=== PATIENT | male | born 1945 | race Caucasian/White ===

== ENCOUNTER 2019-09-19 10:34 | Outpatient (CLI) | payer MEDICARE, SELFPAY ==
--- NOTE | ~2019-09-19 | MR_ITS ---
EXAMINATION: MR lumbar spine wo con DATE: 09/19/2019 11:41 INDICATION: Right-sided sciatica TECHNIQUE: Magnetic resonance imaging (MRI) of the lumbar spine was performed without intravenous con trast. Sequences included sagittal T2-weighted FSE, sagittal T2-weighted FS FSE, sagittal T1-weighted FSE, and axial T2-weighted FSE. COMPARISON: None FINDINGS: Mild lumbar levocurvature. Sagittal alignment is normal. Vertebral body heights are normal. T1 and T2 hyperintense hemangioma at L5. Mild fibrofatty degenerative endplate changes on the posterior superi or endplate of L4 and anterior inferior endplate of T12. Moderate left-sided predominant disc height loss at L5-S1, mild to moderate right-sided predominant disc height loss at L3-L4 and mild right-side d predominant disc height loss at L4-L5. The conus medullaris terminates at L1-L2. There is normal si gnal in the caudal spinal cord. 2.7 cm T2 hyperintense right renal cyst. Paravertebral soft tissues a re otherwise unremarkable. The following disc levels are specifically discussed: T12-L1: Annular fissure and small right paracentral disc protrusion at T12-L1. There is mild right fa cet joint osteoarthritis. There is no neural foraminal stenosis. There is mild central canal stenosis . L1-L2: Small right paracentral disc protrusion. There is mild bilateral facet joint osteoarthritis. T here is mild bilateral neural foraminal stenosis. There is mild central canal stenosis. L2-L3: Disc is bulging. There is mild left and mild to moderate right facet joint osteoarthritis. The re is mild bilateral neural foraminal stenosis. There is mild central canal stenosis. L3-L4: Disc is bulging. There is mild left and moderate right facet joint osteoarthritis. There is mi ld left and moderate right neural foraminal stenosis. There is mild to moderate central canal stenosi s with mild narrowing of the lateral recesses, right greater than left. L4-L5: Disc is bulging with annular fissure and more focal superimposed right subarticular zone disc protrusion. There is mild left and moderate right facet joint osteoarthritis. There is moderate bilat eral, left greater than right, neural foraminal stenosis. There is moderate central canal stenosis wi th narrowing of the lateral recesses, mild on the left and moderate on the right. L5-S1: Annular fissure with broad-based disc extrusion with disc material extending from foraminal zo ne to foraminal zone a couple millimeters cephalad to the level of the inferior endplate of L5. There also left-sided foraminal and extraforaminal endplate osteophytes. There is mild right and mild to m oderate left facet joint osteoarthritis. There is mild right and moderate left neural foraminal steno sis. There is mild central canal stenosis along with mild narrowing of the left lateral recess. IMPRESSION: 1. Mild lumbar levocurvature with moderate spondylosis. Reviewed, dictated and finalized at location A.
== END 2019-09-19 10:35 | disposition home or self-care (01) ==
PROVIDERS: PCP Family Medicine; Visit Provider Family Medicine
DX: M25.551 Pain in right hip (principal); M54.31 Sciatica, right side; M47.896 Other spondylosis, lumbar region
CPT/HCPCS: 72148

== ENCOUNTER 2019-12-05 10:04 | Outpatient (CLI) | payer MEDICARE, SELFPAY ==
--- NOTE | ~2019-12-05 | XR_ITS ---
EXAMINATION: XR abdomen/kub 1V DATE: 12/05/2019 11:21 INDICATION: Acute left flank pain TECHNIQUE: A supine view of the abdomen on 2 radiographs was obtained. COMPARISON: 04/14/2019 FINDINGS: 2-3 mm density possibly representing a renal stone projecting over the lower pole of the left kidney. Evaluation at the upper pole of the right kidney and mid to upper left kidney is limited by superimp osed gas and stool-filled bowel. No definitive stones seen along the course of the ureters. Unchanged small prostatic calcifications. Multiple calcified splenic granulomata. Mild bibasilar atelectasis. Mild lumbar levocurvature with moderate spondylosis. IMPRESSION: 1. Likely 2-3 mm stone projecting over the lower pole of the left kidney. Reviewed, dictated and finalized at location A.
== END 2019-12-05 10:05 | disposition home or self-care (01) ==
PROVIDERS: PCP Family Medicine; Referring Provider Urology; Visit Provider Nurse Practitioner Adult Health
DX: R10.9 Unspecified abdominal pain (principal)
CPT/HCPCS: 74018; 87077; 87086; 87088; 87186

== ENCOUNTER 2019-12-12 13:46 | Outpatient (CLI) | payer MEDICARE, SELFPAY ==
--- NOTE | ~2019-12-12 | US_ITS ---
EXAMINATION: US venous doppler [facility] DATE: 12/12/2019 14:23 INDICATION: Left lower limb pain and swelling TECHNIQUE: Grayscale ultrasound images without and with compression and Doppler ultrasound images of the left lower extremity veins were obtained. COMPARISON: None. FINDINGS: The visualized portions of left common femoral vein, profunda (deep) femoral vein, femoral vein, popl iteal vein, peroneal veins, posterior tibial veins, gastrocnemius vein and greater saphenous vein out flow are patent. IMPRESSION: 1. No deep venous thrombosis in the left lower limb. Reviewed, dictated and finalized at location A.
== END 2019-12-12 13:47 | disposition home or self-care (01) ==
PROVIDERS: PCP Family Medicine; Visit Provider Physician Assistant
DX: R60.9 Edema, unspecified (principal); M79.662 Pain in left lower leg
CPT/HCPCS: 93971

== ENCOUNTER 2020-03-29 08:37 | Outpatient (CLI) | payer MEDICARE, SELFPAY ==
--- NOTE | ~2020-03-29 | XR_ITS ---
XR abdomen/kub 1V DATE: 03/29/2020 08:58 INDICATION: Kidney calculus follow-up TECHNIQUE: AP projection, 3 views COMPARISON: 12/05/2019 KUB 10/24/2018 CT abdomen pelvis examination with contrast material FINDINGS: A faint small calcified stone again projects over the lower pole left kidney. Status post cholecystectomy. There is a moderately prominent amount of fecal material within the rectum and colon but no apparent bowel obstruction. The psoas shadows are intact. No visceromegaly is evident. There are multiple calcified splenic granulomas. There is abdominal aortic and iliac and femoral mady rial calcification. Degenerative changes of the thoracic and lumbar spine. IMPRESSION: Faint small calcified lower pole left renal stone Status post cholecystectomy Moderately prominent amount of fecal material within the colon and rectum Reviewed, dictated and finalized at Location A. Reviewed, dictated and finalized at location B.
== END 2020-03-29 08:38 | disposition home or self-care (01) ==
PROVIDERS: PCP Family Medicine; Visit Provider Urology
DX: N20.0 Calculus of kidney (principal); Z90.49 Acquired absence of other specified parts of digestive tract
CPT/HCPCS: 74018

== ENCOUNTER 2020-06-17 15:03 | Outpatient (CLI) | payer MEDICARE, SELFPAY ==
--- NOTE | ~2020-06-17 | XR_ITS ---
XR abdomen/kub 1V DATE: 06/17/2020 15:25 INDICATION: Acute left flank pain TECHNIQUE: AP projection, 2 views COMPARISON: 03/29/[address] abdomen pelvis FINDINGS: Again noted is a small faint calcification projecting over the lower pole left kidney, alexis esponding to a small upper pole left renal calculus noted on 10/24/2018 CT abdomen pelvis examination. Prostate calcifications are again identified. Surgical clips, right upper quadrant, consistent with cholecystectomy. There is a prominent amount of fecal material throughout the colon. No bowel obstruction is evident. No visceromegaly is noted. The psoas shadows are intact. Minimal scoliosis and degenerative changes of the lumbar spine are noted. There is abdominal aortic a nd iliac arterial calcification, without evidence of aneurysm. IMPRESSION: Small nonobstructing lower pole left renal calculus Moderate amount of fecal material in the colon; no bowel obstruction is evident Status post cholecystectomy Reviewed, dictated and finalized at Location A. Reviewed, dictated and finalized at location B. K PULLER
== END 2020-06-17 15:04 | disposition home or self-care (01) ==
PROVIDERS: PCP Family Medicine; Visit Provider Nurse Practitioner Adult Health
DX: R10.9 Unspecified abdominal pain (principal); Z90.49 Acquired absence of other specified parts of digestive tract; N20.0 Calculus of kidney
CPT/HCPCS: 74018

== ENCOUNTER 2021-04-26 11:27 | Outpatient (CLI) | payer MEDICARE, SELFPAY ==
--- NOTE | ~2021-04-26 | XR_ITS ---
EXAMINATION: XR abdomen/kub 1V EXAM DATE: 04/26/2021 11:44 INDICATION: Acute flank pain. History kidney stones. TECHNIQUE: Frontal projection of the upper abdomen, frontal projection lower abdomen/pelvis for inter pretation. Comparison is made to prior examination from 06/17/2020. FINDINGS: There is 4 mm calcific density projecting over lower pole left kidney which could be a sto ne. No calcifications identified over the courses of the ureters. Mild lumbar levoscoliosis and mild to moderate bony degenerative changes. Nonobstructive bowel gas pattern. IMPRESSION: Probable left nephrolithiasis. Reviewed, dictated and finalized at location B.
== END 2021-04-26 11:28 | disposition home or self-care (01) ==
LOC: ANHIMG 11:28
PROVIDERS: PCP Family Medicine; Visit Provider Nurse Practitioner Adult Health
DX: R10.9 Unspecified abdominal pain (principal)
CPT/HCPCS: 74018

== ENCOUNTER → 2021-07-16 00:43 | Outpatient (CLI) | payer MEDICARE, SELFPAY ==
[2021-07-16 17:27] LABS: Influenza A QL RT-PCR Negative (Negative); Influenza B QL RT-PCR Negative (Negative); SARS-CoV-2 RNA PCR Positive
== END ==
PROVIDERS: PCP Family Medicine; Visit Provider Physician Assistant
DX: U07.1 COVID-19 (principal); R68.89 Other general symptoms and signs
CPT/HCPCS: 87502; 87804; C9803; U0003; U0005

== ENCOUNTER 2021-12-02 10:28 | Outpatient (CLI) | payer MEDICARE, SELFPAY ==
--- NOTE | ~2021-12-02 | XR_ITS ---
XR lumbar spine 2-3V 12/02/2021 10:57 Indication: Low back pain Procedure: 4 views lumbar spine Comparison: No prior studies for comparison. Findings: There is loss of disc height at all lumbar levels most advanced at L5-S1. No acute fracture , subluxation or dislocation. There is mild lower lumbar facet hypertrophy. There is levoscoliosis th ere is atherosclerosis of the aorta. Impression: 1: Mild-moderate lumbar spondylosis with levoscoliosis. Reviewed, dictated and finalized at location A. Impression: 1: Mild-moderate lumbar spondylosis with levoscoliosis.
== END 2021-12-02 10:29 | disposition home or self-care (01) ==
PROVIDERS: PCP Family Medicine; Visit Provider Nurse Practitioner Family
DX: M54.50 Low back pain, unspecified (principal); M47.816 Spondylosis without myelopathy or radiculopathy, lumbar region; M41.86 Other forms of scoliosis, lumbar region
CPT/HCPCS: 72100

== ENCOUNTER 2021-12-20 12:38 | Outpatient (CLI) | payer MEDICARE, SELFPAY ==
--- NOTE | ~2021-12-20 | US_ITS ---
EXAMINATION: US soft tissue groin RT DATE: 12/20/2021 14:00 INDICATION: Right groin pain TECHNIQUE: Multiple grayscale and Doppler ultrasound images of the region of concern at the right madisyn in were obtained. COMPARISON: None FINDINGS: Moderate-sized right inguinal hernia containing fat and minimal amount of fluid which is mobile with Valsalva and compression. Refractive shadowing at the orifice of the hernia which measures approximat raisa 1 cm in diameter and which appears to arise medial to the hypogastric vessels consistent with a d irect inguinal hernia. No evident herniated peristalsing bowel. IMPRESSION: 1. Moderate-sized fat-containing right inguinal hernia. Reviewed, dictated and finalized at location B.
== END 2021-12-20 12:39 | disposition home or self-care (01) ==
PROVIDERS: PCP Family Medicine; Visit Provider Nurse Practitioner Family
DX: S76.811A Strain of other specified muscles, fascia and tendons at thigh level, right thigh, initial encounter (principal); X58.XXXA Exposure to other specified factors, initial encounter; K40.90 Unilateral inguinal hernia, without obstruction or gangrene, not specified as recurrent
CPT/HCPCS: 76882

== ENCOUNTER 2022-01-26 10:39 | Outpatient (NON) | payer MEDICARE, SELFPAY ==
[2022-01-26 12:34] LABS: IFOB Positive Control Positive; Immunochemical Fecal Occult Bl Negative (N)
== END 2022-01-26 10:40 | disposition home or self-care (01) ==
LOC: ANHLAB 10:40
PROVIDERS: PCP Family Medicine; Visit Provider Surgery
DX: Z12.11 Encounter for screening for malignant neoplasm of colon (principal)
CPT/HCPCS: 82274

== ENCOUNTER 2022-03-23 09:19 | Outpatient (CLI) | payer MEDICARE, SELFPAY ==
[2022-03-23 09:56] LABS: Basophils Percent Auto 0.5 % (0.2-1.2); Eosinophils Absolute Auto 0.1 K/mm3 (0-0.3); Eosinophils Percent Auto 1.9 % (0-4.4); Hematocrit 41.5 % (42.0-52.0); Hemoglobin 13.7 g/dL (14.0-18.0); Immature Granulocyte Absolute 0.03 K/mm3 (0.00-0.031); Immature Granulocyte Percent A 0.7 % (0-0.5); Lymphocytes Absolute Auto 1.39 K/mm3 (0.9-3.2); Lymphocytes Percent Auto 33.8 % (18.3-44.2); Mean Corpuscular Hemoglobin 33.8 pg (26-34); Mean Corpuscular Volume 102.5 fl (80-100); Mean Platelet Volume 10.7 fl (7.4-10.4); Monocytes Absolute Auto 0.4 K/mm3 (0.1-0.6); Neutrophils Absolute Auto 2.2 K/mm3 (1.3-6.7); Neutrophils Percent Auto 54.1 % (45.5-73.1); Platelet Count Result 113 k/mm3 (150-375); Red Blood Count 4.05 M/mm3 (4.6-6.20); Red Cell Distribution Width 13.2 % (11.5-14.5); White Blood Count 4.1 K/mm3 (4.5-10.0)
[2022-03-23 10:30] LABS: Alanine Aminotransferase 27 U/L (6-50); Albumin Level 4.2 g/dL (3.5-5.1); Alkaline Phosphatase 46 U/L (38-126); Anion Gap 10 mmol/L (8-16); Aspartate Amino Transferase 38 U/L (17-59); Bilirubin,Total 0.8 mg/dL (0.2-1.3); Blood Urea Nitrogen 18 mg/dL (9-20); Calcium 9.8 mg/dL (8.4-10.2); Carbon Dioxide 24 mmol/L (22-30); Chloride 107 mmol/L (98-107); Estimated Glomerular Filt Rate > 60; Glucose 235 mg/dL (65-110); Potassium 4.7 mmol/L (3.4-5.0); Sodium 141 mmol/L (137-145)
== END 2022-03-23 09:20 | disposition home or self-care (01) ==
LOC: ANHSURGERY 09:30
PROVIDERS: PCP Family Medicine; Visit Provider Surgery
DX: K40.20 Bilateral inguinal hernia, without obstruction or gangrene, not specified as recurrent (principal); K40.90 Unilateral inguinal hernia, without obstruction or gangrene, not specified as recurrent; K40.91 Unilateral inguinal hernia, without obstruction or gangrene, recurrent
CPT/HCPCS: 36415; 80053; 85025; 86850; 86900; 86901

== ENCOUNTER 2022-03-27 01:29 | Day surgery (SDC) | payer MEDICARE, SELFPAY ==
[2022-03-22 13:32] VITALS: BMI 29.4
--- NOTE | 2022-03-22 13:48 | PC.NURSE ---
Report to the Outpatient Waiting Room, entrance under the green pavilion located off [facility], at time __0800 on date __03/27/22 . OR Time: __1000 . Time changes happen often and if your time is changed the preop area will call you the afternoon before. - You and your visitor will be asked to self-screen and do not enter if you have any COVID symptoms. - Only one visitor and NO children visitors are allowed at this time. - The patient visitor is requested to leave or wait in car when not with patient due to restrictions. - A mask is required within the hospital. Patients may have clear liquids (water, carbonated beverages, clear teas, apple juice) until 3 hours prior to surgery with a maximum of 20 ounces. - No food from midnight until time of surgery - Infants may have breast milk until 4 hours before surgery, formula 6 hours prior to surgery. - Children will be allowed to drink immediately following surgery. If applicable, please bring a bottle or sippy cup to assist with drinking. Juice, water, soda, and popsicles are readily available. For infants on formula, please bring formula the day of surgery. Pacifiers are allowed. Take the following medications with a SIP of water the morning of surgery: ___NONE Medications to discontinue per physician ALL VITAMINS AND SUPPLEMENTS _3 DAYS PRE OP Date to take last dose____03/23/22 Please no make-up, nail azeri, hairspray, perfume, deodorant, or body powder the day of surgery. No jewelry (including any body piercings) or valuables the day of surgery, leave them at home. Please take a shower or bath the night before, or the morning of, surgery with an antibacterial soap. Wear comfortable, loose fitting clothing. Children are encouraged to wear pajamas. - Jewelry must be removed prior to entering the operating room. Rings and piercings that are not removed may be cut off. - The hospital will not accept responsibility for valuables. - Please leave all valuables, including medications, at home the day of surgery.HIBICLENS SHOWER MORNING OF SURGERY If you are going home after surgery, a licensed hazardous materials tanker driver must drive you home. - NO public transportation without another adult. - We recommend that an adult stay with you for 24 hours following discharge. - We also recommend that you do not drive, make important decision, drink alcoholic beverages, or take any drugs that were not prescribed by your health care provider for at least 24 hours after your discharge time. For Pediatric surgeries, we recommend two adults accompany the child home (only one inside the building at this time). Follow any additional instructions given to you from your surgeon. If you or anyone in your household have experienced Covid symptoms in the past week, please notify your surgeon or the nurse liaison at the phone number below for possible testing. Telephone instructions given to ___PATIENT and asked if any additional questions and then verbalized understanding. Patient advised to call surgeon office or pre surgery nurse liaison [phone] if any additional questions.
--- NOTE | 2022-03-24 13:39 | PM.HPGS ---
History of Present Illness History of Present Illness Consent: Risks, benefits, and alternatives of a totally extraperitoneal bilateral inguinal hernia repair with mesh have been discussed and questions answered. Patient agrees to proceed with procedure. Chief complaint: recurrent rt ing hernia, left ing hernia Narrative: John Tyler is a 76 year old male white male who was recently seen in the office for a recurrent right inguinal hernia. 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 Please see the office history and physical from December. This gives more details about his history of present illness. Patient has also had a fairly asymptomatic bulging in the left groin. He was recently found to have significant aortic stenosis and underwent a minimally invasive aortic valve replacement. That physician also gave cardiac clearance for his current planned general anesthesia and procedure to repair his hernias. Review of Systems Constitutional: Comments: Const All systems reviewed & are unremarkable except as noted in HPI and below Reports weight loss Eyes Reports no additional complaints, Denies loss of peripheral vision and Denies loss of vision ENT Reports nasal discharge Card Denies syncope, Denies irregular heart rhythm, Denies claudication, Denies lightheadedness, Denies palpitations, Denies dyspnea and Denies dyspnea on exertion. Approximately 1 month ago patient underwent a percutaneous aortic valve replacement for his aortic stenosis. Resp Reports other (apnea) GI Denies change in bowel habits and Denies dyspepsia Reports other (kidney stones) Musc Reports back pain, Reports arthralgias, Reports joint swelling, Reports muscle weakness and Reports neck pain Skin/Breast Reports new lesions Neuro Denies behavioral changes, Denies confusion, Denies vertigo, Denies dizziness, Denies syncope, Denies headache(s), Denies loss of vision, Denies seizure-like activity and Denies weakness Psych Reports anxiety Endo Denies palpitations Dash/Lymph Reports easy bruising Aller/Immun Reports other (gluten food allergy and seasonal allergies ) [facility] Past Medical History Medical History Acid reflux BPH (benign prostatic hyperplasia) Calculus of left kidney Celiac disease COPD (chronic obstructive pulmonary disease) Depression High cholesterol History of revision of total replacement of left knee joint 2016 HTN (hypertension) Mixed hyperlipidemia Obesity JERAD (obstructive sleep apnea) Squamous cell skin cancer Surgical History Surgical History Aortic valve replaced Hammer toe of right foot 2012 History of lithotripsy 2017 History of medial meniscus repair of left knee 2014 History of right inguinal hernia repair 1999 History of vasectomy 1976 Hx of cataract removal with insertion of prosthetic lens bilateral 2018 Hx of cholecystectomy Hx of shoulder replacement Right shoulder- 2016, [facility] Hx of sinus surgery 2009 Hx of tonsillectomy Hx of total knee replacement 2015 Other dental procedure status dental implants, upper and lower- 2018 S/P TAVR (transcatheter aortic valve replacement) Thumb laceration Family History Family History Mother Cerebrovascular accident Family history of coronary artery disease Family history of malignant neoplasm of breast in first degree relative, Onset Age: 66 Family history of malignant neoplasm of breast Father Carcinoma of colon Family history of coronary artery disease Family history of congenital heart disease, Onset Age: 77 Sibling COPD (chronic obstructive pulmonary disease) Grandparent Cerebral arteriosclerosis Social History Social History Social
[2022-03-27] VITALS (12 sets, daily range): BP systolic 116–134; BP diastolic 61–79; PULSE 65–86; RESP 12–18; TEMP 36.4–37.8; O2SAT 93–99
[2022-03-27] MEDS: LACTATED RINGERS 1,000 ML 30 ML IV CONT ×2 (08:51→12:54)
[2022-03-27] MEDS: ACETAMINOPHEN 500 MG TABLET 1000 MG PO (08:53)
[2022-03-27] MEDS: KETOROLAC 15 MG/ML VIAL (*BKC) IV PUSH (08:54)
--- NOTE | 2022-03-27 08:57 | WPDANESEPPF ---
Anes - Initial Pre Proc Eval Procedure: Operation Date: 03/27/22 10:00 Proposed Procedures p Laparoscopic Bilateral Inguinal Hernia Repair with Mesh - John Richardson MD Date/Time: 03/27/22 08:57 Surgeon: John Richardson MD Pre Op Diagnosis: recurrent rt ing hernia, left ing hernia Patient Data Age: 76 Gender: M Height: 1.83 m Weight: 98.5 kg Last Vital Signs Temp 36.4 C L 03/27/22 08:27 Pulse 65 03/27/22 08:27 Resp 18 03/27/22 08:27 BP 130/69 03/27/22 08:27 Pulse Ox 99 03/27/22 08:27 O2 Del Method Room Air 03/27/22 08:27 Allergies Allergy/AdvReac Type Severity Reaction Status Date / Time gluten Allergy Unknown vomiting Verified 03/22/22 13:30 morphine Allergy Unknown Rash Verified 03/22/22 13:30 Home Medications Medication Instructions Recorded Confirmed Type finasteride 5 mg tablet 5 mg PO DAILY 07/16/19 03/22/22 History cholecalciferol (vitamin D3) 125 125 mcg PO DAILY 02/04/21 03/22/22 History mcg (5,000 unit) capsule multivitamin with iron-mineral 1 tablet PO DAILY 02/04/21 03/22/22 History vitamin B complex 1 tablet PO DAILY 02/04/21 03/22/22 History fenofibrate 160 mg tablet See Rx Instructions .Route 12/12/21 03/22/22 Rx .COMPLEX #90 tabs ascorbate calcium (vitamin C) 500 500 mg PO DAILY 01/20/22 03/22/22 History mg tablet aspirin 81 mg tablet,delayed 81 mg PO DAILY 01/20/22 03/22/22 History release (Adult Low Dose Aspirin) magnesium 200 mg tablet 200 mg PO DAILY 01/20/22 03/22/22 History vitamin E (dl, acetate) 450 mg 450 mg PO DAILY 01/20/22 03/22/22 History (1,000 unit) capsule lisinopril 10 mg tablet See Rx Instructions .Route 03/17/22 03/22/22 Rx .COMPLEX #90 tabs trazodone 50 mg tablet 50 mg PO .QHS #90 tabs 03/21/22 03/22/22 Rx acetaminophen 500 mg tablet 1,000 mg PO Q6H PRN Pain 03/22/22 03/22/22 History Patient hx anesthesia problems: none Family hx anesthesia problems: none Results Review: All pre-operative results and documents have been reviewed as part of the pre-operative evaluation. [facility] Past Medical History Medical History Acid reflux BPH (benign prostatic hyperplasia) Calculus of left kidney Celiac disease COPD (chronic obstructive pulmonary disease) Depression High cholesterol History of revision of total replacement of left knee joint 2016 HTN (hypertension) Mixed hyperlipidemia Obesity JERAD (obstructive sleep apnea) Squamous cell skin cancer Surgical History Surgical History Aortic valve replaced Hammer toe of right foot 2011 History of lithotripsy 2016 History of medial meniscus repair of left knee 2014 History of right inguinal hernia repair 1998 History of vasectomy 1975 Hx of cataract removal with insertion of prosthetic lens bilateral 2018 Hx of cholecystectomy Hx of shoulder replacement Right shoulder- 2016, [facility] Hx of sinus surgery 2008 Hx of tonsillectomy Hx of total knee replacement 2014 Other dental procedure status dental implants, upper and lower- 2018 S/P TAVR (transcatheter aortic valve replacement) Thumb laceration Family History Family History Mother Cerebrovascular accident Family history of coronary artery disease Family history of malignant neoplasm of breast in first degree relative, Onset Age: 66 Family history of malignant neoplasm of breast Father Carcinoma of colon Family history of coronary artery disease Family history of congenital heart disease, Onset Age: 77 Sibling COPD (chronic obstructive pulmonary disease) Grandparent Cerebral arteriosclerosis Social History Social History Social History: daily caffeine use- 6 cups of soda daily Smoking packs per day: 3 Smoking cigarettes per day: 60.0 Years s
--- NOTE | 2022-03-27 09:10 | WPDHPUPDATE1 ---
History and Physical Update Update Date/Time: 03/27/22 09:10 History and Physical has been reviewed, including an updated exam of the patient. There are NO changes in the patient's condition. Risks, benefits, and alternatives have been discussed and questions answered. Patient agrees to proceed with procedure.
[2022-03-27] MEDS: ceFAZolin 2 GM/D5W 50 ML 2 GM/50 ML BAG IVPB (09:23)
[2022-03-27] MEDS: BUPIVACAINE/EPINEPHRINE 0.25% 50 ML VIAL 30 ML INFILTRATE (12:37)
--- NOTE | 2022-03-27 13:29 | W.PM.PROC2 ---
Procedure Note - Detailed Date of Procedure 03/27/22 Pre-op Diagnosis 1. recurrent right ing hernia, 2. left ing hernia Post-op Diagnosis Other (1. Recurrent right direct 2. Primary left direct) Procedure Performed Totally extraperitoneal laparoscopic bilateral inguinal hernia repair with mesh Surgeon John Richardson MD Territory Supervisor DEISI Jackson, [place] 1st assist Anesthesia General Indications Bulging and pain on the Right groin Patient also has a palpable defect in the standing position on the left suspicious for an inguinal hernia. Findings On the right: It is covered in area in the inguinal region with a recurrent direct defect containing fat. On the left : A small primary direct inguinal hernia containing fat. Description of Procedure After appropriate marking of the operative site prior to surgery, the patient was taken to the operating room. After induction of adequate general endotracheal anesthesia by [facility] staff, the patient was carefully prepped and draped in a sterile fashion. A timeout was performed confirming the procedure and site of surgery on the right. Following this, local anesthetic was infiltrated into the umbilical area and a vertical incision was made just below the umbilicus. I carefully dissected down to the the anterior rectus sheath on the right and then made a 1 cm vertical slit in the fascia just off the midline. The rectus muscle was retracted to right and then just in front of the posterior rectus sheath, an oval [employer] dissecting balloon was passed onto the pubic bone and then slipped just posterior to it. After placing slight pressure on the abdomen slightly above the groin area on each side as we insufflated with 40 pumps, while watching with the 0 degree laparoscope through the dissecting balloon trocar. It appeared that I was in the proper plane. Following this, the dissecting balloon was removed and replaced by a 130 mm Chavarria cannula with a circular 30 cc conforming balloon. This was slid into the space insufflated then pulled back and the all of secured to allow for insufflation into the preperitoneal space. Following this, the 0 degree laparoscope was used to carefully place two 5mm [employer] slim trocars Along the midline below the level of the umbilicus. However, after placing them we found that the patient's subcutaneous tissues were too thick and therefore these removed and 2 longer standard 5 mm trocars were obtained and placed through the anterior skin and subcutaneous tissues into the preperitoneal space under direct vision with the laparoscoped. One was placed in the suprapubic position and other one group home between the umbilicus and the pubic bone. Then on the right a tedious dissection then occurred in the preperitoneal space exposing the right Suraj's ligament, the cord structures, the muscular tissue anteriorly, and the retroperitoneum. This was then able to be dissected back and we could visualize the posterior peritoneum. there was significant scarring from the previous hernia repair and I was able to identify indirect space defect which we pulled some preperitoneal. Laterally however it was more difficult to dissect into the tissue plane between the peritoneum and the transversalis fascia. Significant time was spent carefully dissecting into this area such that the mesh would fit. I then dissected up to the level of the umbilicus and it was ready for mesh placement. During the dissection just medial to the epigastric vessels it appeared we entered the peritoneum where the previous surgeon had tied the indirect inguinal hernia sac just behind the musculature. I grabbed the to lease of the opening and then continued dissection such that the peritoneum was pulled toward the head and we developed a plane behind it such that the mesh would lay on the cord structures and the peritoneal would fall back on the mesh. In order to close the opening had been made I used a 2 0 Vicryl
== END 2022-03-27 16:25 | disposition home or self-care (01) ==
PROVIDERS: PCP Family Medicine; Visit Provider Surgery
PROC: (CPT 49650; principal; 2022-03-27 10:00)
DX: K40.91 Unilateral inguinal hernia, without obstruction or gangrene, recurrent (principal); K40.90 Unilateral inguinal hernia, without obstruction or gangrene, not specified as recurrent; I10 Essential (primary) hypertension; E78.2 Mixed hyperlipidemia; J44.9 Chronic obstructive pulmonary disease, unspecified; N40.0 Benign prostatic hyperplasia without lower urinary tract symptoms; K21.9 Gastro-esophageal reflux disease without esophagitis; F32.A Depression, unspecified; G47.33 Obstructive sleep apnea (adult) (pediatric); R73.01 Impaired fasting glucose; E66.9 Obesity, unspecified; Z68.29 Body mass index [BMI] 29.0-29.9, adult; Z79.82 Long term (current) use of aspirin; Z87.891 Personal history of nicotine dependence; Z95.2 Presence of prosthetic heart valve
CPT/HCPCS: 49651; 49650; A9270; C1727; C1781; J0690; J1100; J1170; J1885; J2405; J2704; J2710; J3010; J7120

== ENCOUNTER 2022-04-28 08:52 | Outpatient (CLI) | payer MEDICARE, SELFPAY ==
--- NOTE | ~2022-04-28 | XR_ITS ---
XR abdomen/kub 1V 04/28/2022 09:10 Indication: Flank pain. Procedure: KUB Comparison: Comparison to multiple prior studies sequentially, with oldest reviewed study dated 10/2019. Findings: There is a small stone at the lower pole of the left kidney. There are surgical clips in th e right upper abdomen. There are calcified granulomas in the spleen. Bowel pattern is nonobstructive. Large amount of retained fecal material in the colon. Severe lumbar spondylosis. Mild osteoarthritis of the hips. Impression: 1: Small 3 mm left renal stone at the lower pole. Reviewed, dictated and finalized at location B. Impression: 1: Small 3 mm left renal stone at the lower pole.
== END 2022-04-28 08:53 | disposition home or self-care (01) ==
PROVIDERS: PCP Family Medicine; Visit Provider Urology
DX: N20.0 Calculus of kidney (principal)
CPT/HCPCS: 74018

== ENCOUNTER 2022-08-21 09:01 | Emergency (ER) | payer MEDICARE, SELFPAY ==
--- NOTE | ~2022-08-21 | XR_ITS ---
XR chest 2V 08/21/2022 10:03 Indication: Lower chest pain Procedure: 2 views of the chest Comparison: Comparison to multiple prior studies sequentially, with oldest reviewed study dated 11/2013. Findings: Heart size normal. There are epicardial pacing leads. There is a prosthetic heart valve. No focal air space disease, pulmonary edema, pleural effusion or suspected pneumothorax. No acute osseo us abnormality. Impression: 1: No acute cardiopulmonary disease. Reviewed, dictated and finalized at location B. HEAD CLEANER Impression: 1: No acute cardiopulmonary disease.
--- NOTE | ~2022-08-21 | XR_ITS ---
XR abdomen/kub 1V 08/21/2022 10:04 Indication: Left-sided upper abdominal pain Procedure: KUB Comparison: Comparison to multiple prior studies sequentially, with oldest reviewed study dated 03/29. Findings: Bowel gas pattern is nonobstructive. Moderate colonic fecal loading. There are cholecystect niharika clips. There are left renal stones. There are multiple calcifications overlying the spleen, consi stent with chronic granulomatous disease. Moderate lumbar spondylosis with levoscoliosis. Impression: 1: Left nephrolithiasis. Reviewed, dictated and finalized at location B. INSURANCE AGENT Impression: 1: Left nephrolithiasis.
[2022-08-21 09:14] VITALS: BP 140/77; PULSE 79; RESP 20; TEMP 36.5; O2SAT 100
--- NOTE | 2022-08-21 09:32 | ED.BACK ---
HPI - Back Pain/Injury General Chief Complaint: Back Pain/Injury Stated Complaint: back pain Time Seen by Provider: 08/21/22 09:32 Source: patient Mode of arrival: ambulatory Limitations: no limitations History of Present Illness HPI Narrative: 77-year-old male with significant medical history presented for complaint of left flank pain for 5 days. He rates the pain 8-10/10. Pain is described as dull at rest and intense with twisting or when standing from sitting. Taking ES Tylenol every 4 hours with moderate temporary relief. Denies radiating pain. Denies associated cough, sob, wheezing, urinary changes, n/v/d/f/c. Reports history of pneumonia in LLL and renal stones, lithotripsy 2017, aortic stenosis s/p TAVR. Related Data Home Medications Medication Instructions Recorded Confirmed finasteride 5 mg tablet 5 mg PO DAILY 07/16/19 08/21/22 cholecalciferol (vitamin D3) 125 125 mcg PO DAILY 02/04/21 08/21/22 mcg (5,000 unit) capsule multivitamin with iron-mineral 1 tablet PO DAILY 02/04/21 08/21/22 vitamin B complex 1 tablet PO DAILY 02/04/21 08/21/22 ascorbate calcium (vitamin C) 500 500 mg PO DAILY 01/20/22 08/21/22 mg tablet aspirin 81 mg tablet,delayed 81 mg PO DAILY 01/20/22 08/21/22 release (Adult Low Dose Aspirin) magnesium 200 mg tablet 200 mg PO DAILY 01/20/22 08/21/22 vitamin E (dl, acetate) 450 mg 450 mg PO DAILY 01/20/22 08/21/22 (1,000 unit) capsule acetaminophen 500 mg tablet 1,000 mg PO Q6H PRN Pain 03/22/22 08/21/22 Allergies Allergy/AdvReac Type Severity Reaction Status Date / Time gluten AdvReac Intermediate vomiting Verified 08/21/22 09:04 morphine AdvReac Mild Rash Verified 08/21/22 09:04 Review of Systems Review of Systems: per HPI All systems reviewed & are unremarkable except as noted in HPI and below PMFSH Past Medical History Medical History Acid reflux BPH (benign prostatic hyperplasia) Calculus of left kidney Celiac disease COPD (chronic obstructive pulmonary disease) Depression High cholesterol History of revision of total replacement of left knee joint 2016 HTN (hypertension) Mixed hyperlipidemia Obesity JERAD (obstructive sleep apnea) Squamous cell skin cancer Surgical History Surgical History Aortic valve replaced H/O bilateral inguinal hernia repair 03/27/2022 - Totally extraperitoneal laparoscopic bilateral inguinal hernia repair with mesh Hammer toe of right foot 2012 History of lithotripsy 2017 History of medial meniscus repair of left knee 2014 History of right inguinal hernia repair 1999 History of vasectomy 1976 Hx of cataract removal with insertion of prosthetic lens bilateral 2018 Hx of cholecystectomy Hx of shoulder replacement Right shoulder- 2015, [facility] Hx of sinus surgery 2008 Hx of tonsillectomy Hx of total knee replacement 2014 Other dental procedure status dental implants, upper and lower- 2017 S/P TAVR (transcatheter aortic valve replacement) Thumb laceration Family History Family History Mother Cerebrovascular accident Family history of coronary artery disease Family history of malignant neoplasm of breast in first degree relative, Onset Age: 66 Family history of malignant neoplasm of breast Father Carcinoma of colon Family history of coronary artery disease Family history of congenital heart disease, Onset Age: 77 Sibling COPD (chronic obstructive pulmonary disease) Grandparent Cerebral arteriosclerosis Social History Social History Social History: daily caffeine use- 6 cups of soda daily Smoking packs per day: 3 Smoking cigarettes per day: 60.0 Years smoked: 31 Smoking pack-years: 93.00 Smoking status: Former smoker Tobacco type: cigarettes Second hand tobacco smok
== END 2022-08-21 10:28 | disposition home or self-care (01) ==
PROVIDERS: Emergency Provider Nurse Practitioner Family; PCP Family Medicine
DX: N20.0 Calculus of kidney (principal); Z87.891 Personal history of nicotine dependence; K21.9 Gastro-esophageal reflux disease without esophagitis; N40.0 Benign prostatic hyperplasia without lower urinary tract symptoms; K90.0 Celiac disease; J44.9 Chronic obstructive pulmonary disease, unspecified; E78.00 Pure hypercholesterolemia, unspecified; I10 Essential (primary) hypertension; E78.2 Mixed hyperlipidemia; Z85.828 Personal history of other malignant neoplasm of skin; Z96.652 Presence of left artificial knee joint; Z95.2 Presence of prosthetic heart valve; Z98.42 Cataract extraction status, left eye; Z98.41 Cataract extraction status, right eye; Z96.1 Presence of intraocular lens; Z96.611 Presence of right artificial shoulder joint; Z98.52 Vasectomy status; Z79.82 Long term (current) use of aspirin
CPT/HCPCS: 71046; 74018; 81003; 99213; G0463

== ENCOUNTER 2022-08-24 14:49 | Outpatient (CLI) | payer MEDICARE, SELFPAY ==
--- NOTE | ~2022-08-24 | CT_ITS ---
EXAMINATION: CT abdomen pelvis wo con DATE: 08/24/2022 15:24 INDICATION: Acute left flank pain. TECHNIQUE: Computed tomography (CT) of the was performed without intravenous contrast. The dose-lengt h product was 1040.81 mGy-cm. Automated exposure control and iterative reconstruction technique were employed. COMPARISON: CT dated 10/24/2018 FINDINGS: There is interlobular septal thickening in the right upper lobe laterally. No focal pulmona ry nodules or masses. There is a catheter identified in the right lateral chest wall with a component extending to the pleural surface. There is a prosthetic aortic valve. There is atherosclerosis. No evidence for aortic aneurysm. Nonobstructive bowel pattern. Moderate colonic fecal loading. No lazarus e air or free fluid. No lymphadenopathy. Normal appendix. Bladder is moderately distended. Status post cholecystectomy. There are calcified granulomas of the s pleen. There is a 3 cm right renal cyst. There is a nonobstructing 5 mm left renal stone. There is a cyst centrally located in the left kidney. No ureteral stones or hydronephrosis. The pancreas, adrena l glands are unremarkable. There is osteoarthritis of the hips. There is moderate osteoarthritis of t he lumbar spine. IMPRESSION: 1. Nonobstructing left nephrolithiasis. Reviewed, dictated and finalized at location A. DRY CLEANER
--- NOTE | ~2022-08-24 | XR_ITS ---
EXAMINATION: XR abdomen/kub 1V DATE: 08/24/2022 15:17 INDICATION: Acute left flank pain TECHNIQUE: A supine view of the abdomen on 2 radiographs was obtained. COMPARISON: 08/21/2022 FINDINGS: No interval change in a couple 1 mm and 2 mm stones at the lower pole of the left kidney. A few calci fied granuloma in the spleen. Unchanged prostatic calcifications in the mid lower pelvis. Cholecystec brii clips in right upper quadrant. Normal bowel gas pattern. Lung bases are clear. Moderate lumbar a nd lower thoracic spondylosis. IMPRESSION: 1. Unchanged left nephrolithiasis. Reviewed, dictated and finalized at location A. IC HEALTH NURSE
== END 2022-08-24 14:50 | disposition home or self-care (01) ==
PROVIDERS: PCP Family Medicine; Visit Provider Nurse Practitioner Adult Health
DX: N20.0 Calculus of kidney (principal)
CPT/HCPCS: 74018; 74176

== ENCOUNTER 2022-10-20 10:57 | Outpatient (CLI) | payer MEDICARE, SELFPAY ==
--- NOTE | ~2022-10-20 | CT_ITS ---
Noncontrast CT scan of the lumbar spine CLINICAL HISTORY: Radiculopathy TECHNIQUE: Axial noncontrast imaging of the lumbar spine was performed. Sagittal and coronal reformat cordelia images were constructed. Dose reduction technique was used on this scan by utilizing automated ex posure control and iterative reconstruction technique. The dose-length product (DLP) was 1374.57 mGy- cm. Findings: No fracture or subluxation of the lumbar spine identified. Vertebral bodies maintain normal height and alignment. There is moderate degenerative disc change at L3-L4. There is moderate to adva nced degenerative disc change at L5-S1. There is minimal degenerative disc change at the remaining cong mbar levels. At L1-L2, no significant disc bulge or herniation seen. There is minimal facet arthropathy. No spinal canal stenosis or neural foraminal narrowing. At L2-L3, there is minimal disc bulge and minimal facet joint hypertrophy. No spinal canal stenosis o r definite neural foraminal narrowing. At L3-L4, there is disc bulge and facet arthropathy, with probable mild to moderate central canal destinee nosis. There is severe right neural foraminal narrowing and moderate left neural foraminal narrowing. At L4-L5, there is disc bulge and facet arthropathy, with multifactorial moderate to possibly severe central canal stenosis. There is probable moderate to severe bilateral neural foraminal narrowing. At L5-S1, there is minimal disc bulge. No central canal stenosis. There is severe left neural foramin al narrowing and moderate right neural foraminal narrowing. Paravertebral soft tissues are unremarkable. IMPRESSION: Advanced degenerative spondylosis at L3-L4 and L4-L5, as detailed above. Moderate to severe bilateral neural foraminal narrowing at L5-S1, as detailed above. Reviewed, dictated and finalized at [facility]. IMPRESSION: Advanced degenerative spondylosis at L3-L4 and L4-L5, as detailed above. Moderate to severe bilateral neural foraminal narrowing at L5-S1, as detailed julio brewer.
== END 2022-10-20 10:58 | disposition home or self-care (01) ==
PROVIDERS: PCP Family Medicine; Visit Provider Nurse Practitioner Family
DX: M47.26 Other spondylosis with radiculopathy, lumbar region (principal)
CPT/HCPCS: 72131

== ENCOUNTER → 2022-12-27 09:12 | Outpatient (CLI) | payer MEDICARE, SELFPAY ==
--- NOTE | ~2022-12-27 | XR_ITS ---
Thoracic spine: Clinical Indication: Back pain AP and lateral views were performed. No fracture is seen. There is normal alignment of the vertebrae. The intervertebral disc spaces appe ar normal. Paravertebral soft tissues appear normal. Probable extensive DISH of the thoracic spine. Impression: DISH of the thoracic spine. Reviewed, dictated and finalized at location . Impression: DISH of the thoracic spine.
== END ==
PROVIDERS: PCP Family Medicine; Visit Provider Nurse Practitioner Family
DX: M48.14 Ankylosing hyperostosis [Forestier], thoracic region (principal)
CPT/HCPCS: 72072

== ENCOUNTER 2023-01-19 15:03 | Outpatient (CLI) | payer MEDICARE, SELFPAY ==
--- NOTE | ~2023-01-19 | XR_ITS ---
XR ankle RT min 3V DATE: 01/19/2023 15:24 INDICATION: Posterior lateral foot pain TECHNIQUE: 4 views COMPARISON: None FINDINGS: Posterior calcaneal enthesopathy. Tibiotalar mild osteoarthritic change. No fracture or dislocation of the ankle or disruption of the ankle mortise is detected. No periosteal reaction or bone destruction. IMPRESSION: Mild tibiotalar osteoarthritis Posterior calcaneal enthesopathy Reviewed, dictated and finalized at location B.
== END 2023-01-19 15:04 | disposition home or self-care (01) ==
PROVIDERS: PCP Family Medicine; Visit Provider Physician Assistant
DX: M79.671 Pain in right foot (principal); M19.071 Primary osteoarthritis, right ankle and foot; M77.31 Calcaneal spur, right foot
CPT/HCPCS: 73610

== ENCOUNTER 2023-04-04 11:58 | Outpatient (CLI) | payer MEDICARE, SELFPAY ==
--- NOTE | ~2023-04-04 | US_ITS ---
US venous doppler LE RT DATE: 04/04/2023 12:40 INDICATION: Right lower leg pain TECHNIQUE: Real-time and color flow imaging and Doppler analysis of the veins of the right lower extr emity COMPARISON: None FINDINGS: The right greater saphenous vein is patent. There is spontaneous and phasic flow and normal augmentation and color flow signal and normal compression of the deep veins of the right lower extre mity. IMPRESSION: No evidence of deep venous thrombosis of right lower extremity Reviewed, dictated and finalized at Location A. Reviewed, dictated and finalized at location B.
== END 2023-04-04 11:59 | disposition home or self-care (01) ==
PROVIDERS: PCP Family Medicine; Visit Provider Nurse Practitioner
DX: M79.661 Pain in right lower leg (principal); M79.89 Other specified soft tissue disorders
CPT/HCPCS: 93971

== ENCOUNTER 2023-04-30 10:09 | Outpatient (CLI) | payer MEDICARE, SELFPAY ==
--- NOTE | ~2023-04-30 | XR_ITS ---
XR abdomen/kub 1V DATE: 04/30/2023 10:25 INDICATION: Benign microscopic hematuria TECHNIQUE: AP ejection, 2 views COMPARISON: August 24, 2022 CT abdomen pelvis FINDINGS: Surgical clips, right upper pulmonary granulomas consistent with cholecystectomy. Several contiguous small lower pole left renal calcified calculi. Multiple calcified splenic granulomas. Distortion of either intact. No visceromegaly is evident. There is a prominent of fecal material in the rectum and colon but no evidence of bowel obstruction. Extensive abdominal aortic as well as some common iliac arterial calcification. Degenerative change of the thoracic and lumbar spine. Aortic valve replacement. Heart size appears normal. The lung bases appear clear. IMPRESSION: Mild lower pole left nephrolithiasis Status post cholecystectomy Reviewed, dictated and finalized at Location A. Reviewed, dictated and finalized at location B.
== END 2023-04-30 10:10 | disposition home or self-care (01) ==
PROVIDERS: PCP Family Medicine; Visit Provider Urology
DX: R31.1 Benign essential microscopic hematuria (principal); Z90.49 Acquired absence of other specified parts of digestive tract; N20.0 Calculus of kidney
CPT/HCPCS: 74018

== ENCOUNTER 2023-09-03 10:59 | Outpatient (CLI) | payer MEDICARE, SELFPAY ==
--- NOTE | ~2023-09-03 | XR_ITS ---
EXAMINATION: XR heel LT min 2V DATE: 09/03/2023 11:29 INDICATION: Foreign body. TECHNIQUE: 2 views of left calcaneus were obtained. COMPARISON: None. FINDINGS: Bone alignment is normal. No fracture. Joint spaces are normal. IMPRESSION: 1. No radiopaque foreign body. Reviewed, dictated and finalized at location E. PORT SUPPORT MANAGER
== END 2023-09-03 11:00 | disposition home or self-care (01) ==
LOC: ANHIMG 11:04
PROVIDERS: PCP Family Medicine; Visit Provider Family Medicine
DX: M79.673 Pain in unspecified foot (principal); T14.8XXA Other injury of unspecified body region, initial encounter
CPT/HCPCS: 73650

== ENCOUNTER 2023-10-02 11:46 | Outpatient (CLI) | payer MEDICARE, SELFPAY ==
--- NOTE | ~2023-10-02 | XR_ITS ---
XR hip RT min 2V DATE: 10/02/2023 12:05 INDICATION: Right hip pain TECHNIQUE: AP and lateral views COMPARISON: None FINDINGS: No fracture or dislocation, avascular necrosis or bone destruction. Right hip joint space i s relatively well preserved. The pubic symphysis and sacral iliac joints appear intact. Levoscoliosis and degenerative change of the lumbar spine. Abdominal aortic, iliac and femoral arterial calcifications are noted. IMPRESSION: No significant abnormality of the right hip Reviewed, dictated and finalized at location B.
== END 2023-10-02 11:47 | disposition home or self-care (01) ==
LOC: ANHIMG 11:48
PROVIDERS: PCP Family Medicine; Visit Provider Family Medicine
DX: M25.551 Pain in right hip (principal)
CPT/HCPCS: 73502

== ENCOUNTER 2023-11-14 09:45 | Outpatient (RCR) | payer MEDICARE, SELFPAY ==
[2023-08-24 09:05] VITALS: PULSE 86
== END 2023-11-14 10:53 | disposition home or self-care (01) ==
LOC: ANHCPREHAB 09:45
PROVIDERS: PCP Family Medicine
DX: Z95.2 Presence of prosthetic heart valve (principal)
CPT/HCPCS: 93798

== ENCOUNTER 2024-05-05 08:10 | Outpatient (CLI) | payer MEDICARE, SELFPAY ==
--- NOTE | ~2024-05-05 | CT_ITS ---
EXAMINATION: CT cervical spine wo con DATE: 05/05/2024 08:50 INDICATION: Cervical stenosis. TECHNIQUE: Computed tomography (CT) of the cervical spine was performed without intravenous contrast. Automated exposure control and iterative reconstruction technique were employed. The dose-length pro duct was 488.66 mGy-cm. COMPARISON: None FINDINGS: Emphysema is noted. There is 5 degrees dextrocurvature of cervical spine. There is 2 mm ant erolisthesis of C7 on T1. Vertebral body heights are normal. There is mildly decreased disc height at C3-C4 and C4. C5 and severely decreased disc height at C5-C6, C6-C7, and C7-T1. The following disc l evels are specifically discussed: C2-C3: There is severe right and mild left uncovertebral joint osteoarthritis. There is severe bilate ral facet joint osteoarthritis. There is mild right neural foraminal stenosis. There is no central ca nal stenosis. C3-C4: There is severe right and moderate left uncovertebral joint osteoarthritis. There is severe bi lateral facet joint osteoarthritis. There is mild bilateral neural foraminal stenosis. There is mild central canal stenosis. C4-C5: There is moderate bilateral uncovertebral joint osteoarthritis. There is severe bilateral face t joint osteoarthritis. There is mild bilateral neural foraminal stenosis. There is mild central mere l stenosis. C5-C6: There is moderate right and severe left uncovertebral joint osteoarthritis. There is severe bi lateral facet joint osteoarthritis. There is mild bilateral neural foraminal stenosis. There is mild central canal stenosis. C6-C7: There is severe bilateral uncovertebral joint osteoarthritis. There is moderate right and ismael re left facet joint osteoarthritis. There is mild bilateral neural foraminal stenosis. There is mild central canal stenosis. C7-T1: There is severe bilateral uncovertebral joint osteoarthritis. There is severe bilateral facet joint osteoarthritis. There is mild bilateral neural foraminal stenosis. There is mild central canal stenosis. IMPRESSION: 1. Severe cervical spondylosis. Reviewed, dictated and finalized at location A. FORCE PLANNING ANALYST
--- NOTE | ~2024-05-05 | XR_ITS ---
XR abdomen/kub 1V Ordering provider: Nilo Lindsey MD History: . CALCULUS OF KIDNEY . Comparison: April 30/2023 FINDINGS: BOWEL: Nonobstructive bowel gas pattern. ORGANOMEGALY: None. Splenic calcifications. SIGNIFICANT PATHOLOGIC CALCIFICATIONS: Stones are seen in the left kidney. OTHER: Degenerative changes of the spine. Postoperative changes in the spine. No free air is seen und er the diaphragm. Prosthesis seen in the aortic valve. IMPRESSION: NO ACUTE ABDOMINAL FINDINGS. Left kidney stones. Reviewed, dictated and finalized at location A. E CLASSIFIER
== END 2024-05-05 08:11 | disposition home or self-care (01) ==
PROVIDERS: PCP Family Medicine; Visit Provider Anesthesiology Pain Medicine
DX: N20.0 Calculus of kidney (principal); M48.02 Spinal stenosis, cervical region; M47.22 Other spondylosis with radiculopathy, cervical region
CPT/HCPCS: 72125; 74018

== ENCOUNTER 2024-06-06 10:45 | Outpatient (CLI) | payer MEDICARE, SELFPAY ==
[2024-06-06 12:02] LABS: Influenza A QL RT-PCR Negative (Negative); Influenza B QL RT-PCR Negative (Negative); RSV RNA, RT-PCR Negative (Negative); SARS-CoV-2 RNA PCR Negative (Negative)
== END 2024-06-06 10:46 | disposition home or self-care (01) ==
LOC: ANHLAB 10:48
PROVIDERS: PCP Family Medicine; Visit Provider Family Medicine
DX: J84.10 Pulmonary fibrosis, unspecified (principal); R05.9 Cough, unspecified
CPT/HCPCS: 87637

== ENCOUNTER 2024-06-12 10:07 | Outpatient (CLI) | payer MEDICARE, SELFPAY ==
--- NOTE | ~2024-06-12 | XR_ITS ---
Clinical Indication: Cough PA and lateral views of the chest: Comparison: 08/21/2022 Findings: The lungs are clear, without evidence of focal consolidation or pleural effusion. Possible COPD. Cardiomediastinal silhouette is within normal limits. Bones and soft tissues are unremarkable. Neurostimulator device is unchanged. Impression: Clear lungs. Possible COPD. Reviewed, dictated and finalized at location M. SPORTATION ASSOCIATE Impression: Clear lungs. Possible COPD.
--- OUTSIDE RECORDS SUMMARY | 2024-06-12 10:14 | XMS_ITS | Continuity of Care Document ---
Author Organization [facility] - Main Address [address] [place] [address] Insurance Providers Payer Plan Claims Address Claims Phone Policy Number Group Number Relation Employer Guarantor Name Guarantor Guarantor Address Guarantor Phone [facility] [id number] Self John Tyler 1945 [address] [place], [place] [address] Aena [facility] [id number] Self John Tyler [address] [place] [address] [facility] [id number] Self John Tyler [address] [place] [address] Problems Condition ICD9 code ICD10 code SNOMED code Start Date End Date S tatus Pain in right hip M25.551 Workin g Chronic pain syndrome G89.4 Wo rking Sacroiliitis, not elsewhere classified M46.1 Work ing Postlaminectomy syndrome, not elsewhere classified M96.1 Working Radiculopathy, lumbar region M54.16 Working Other chronic pain G89.29 Results No Results Allergies, adverse reactions, alerts No known allergies and adverse reactions Medications No administered medications reported Vital Signs No vital signs reported Social History No smoking Hx information available
--- OUTSIDE RECORDS SUMMARY | 2024-06-12 10:14 | XMS_ITS | Data Portability ---
Author Organization [facility] Address [address] [place] [id number] Assessment No assessment recorded. Plan of Treatment Reminders Order Date Submit Date Provider Last Modified By Organization Details Last Modified Time Details Appointments None record ed. Lab None record ed. Referral None record ed. Procedures None record ed. Surgeries None record ed. Imaging None record ed. Medication Orders None record ed. Patient TargetsNo targets recorded. Patient InstructionsNo instructions recorded. Reason for Referral None Reported. Medical Equipment None Reported. Allergies No known drug allergies Medications Not known to be on any medication Vitals None Recorded Social History None recorded. Functional Status None recorded. Mental Status None recorded. Family History Nothing Reported. Medical History No medical history recorded. Immunizations Vaccine Type Date Status Note Provider Nam e and Address Organization Details Recorded Time COVID-19, mRNA, LNP-S, PF, 100 mcg/0.5mL dose or 50 mcg/0.25mL dose 08/01/2020 completed Chanda Urban LPN [facility] [place] [facility] [place] 08/01/2020 10:23:15 COVID-19, mRNA, LNP-S, PF, 100 mcg/0.5mL dose or 50 mcg/0.25mL dose 08/27/2020 completed Leticia Lara MA [facility] [place] [facility] [place] 08/30/2020 12:49:12 Past Encounters Encounter ID Performer Location Encounter Start Date Encounter Closed Date Diagnosis/Indication Diagnosis SNOMED-CT Code Diagnosis ICD10 Code [id number] MIMI Pelaez 14 IM [address] [place] [id number] 07/30/2020 11:28:56 08/01/2020 12:24:57 Administration of SARS-CoV-2 antigen vaccine 572795145 Z23 [id number] MIMI Pelaez 14 IM [address] [place] [id number] 08/27/2020 11:33:53 08/30/2020 09:12:05 Administration of SARS-CoV-2 antigen vaccine [id number] Z23 Health Concerns Section Related Observation LastModified by Organization Detai ls LastModified Time None Recorded Concern Status LastModified by Organization Details LastModified Time None Recorded Advance Directives Directive None Recorded Payers Encounter Date Sequence Insurance Name Policy Number Policy Sampson Covered Member ID Sampson Member ID Guarantor Name 07/30/[address] [facility] (MEDICARE REPLACEMENT/A DVANTAGE - PPO) [id number] John Tyler [id number] John Tyler 08/27/[address] [facility] (MEDICARE REPLACEMENT/A DVANTAGE - PPO) [id number] John Tyler [id number] John Tyler 08/27/2020 2 [place] John Tyler [id number] John Tyler
== END 2024-06-12 10:08 | disposition home or self-care (01) ==
PROVIDERS: PCP Family Medicine; Visit Provider Family Medicine
DX: R05.9 Cough, unspecified (principal)
CPT/HCPCS: 71046

== ENCOUNTER 2024-07-16 00:31 | Day surgery (SDC) | payer MEDICARE, SELFPAY ==
[2024-06-27 11:26] VITALS: BMI 28.3
[2024-07-16 07:02] VITALS: BP 131/74; PULSE 76; RESP 18; TEMP 36.4; O2SAT 96; BMI 28.0
[2024-07-16] MEDS: LACTATED RINGERS 1,000 ML 150 ML IV CONT (07:13)
--- NOTE | 2024-07-16 07:34 | PM.IMHP ---
H&P: HPI History of Present Illness Date/Time: 07/16/24 07:34 Chief Complaint: history of colon polyps Narrative: The patient has a history of colonic polyps, the last colonoscopy was approximately 5 years ago. Review of Systems Review of Systems: All systems reviewed & are unremarkable except as noted in HPI and below FOR[facility]LY [facility] Past Medical History Medical History (Updated 04/08/24 @ 09:43 by Indio Staley MD) Inflammatory arthritis Retrocalcaneal bursitis Achilles tendinosis of right ankle JERAD (obstructive sleep apnea) s/p inspire History of revision of total replacement of left knee joint 2017 Acid reflux JERAD (obstructive sleep apnea) High cholesterol HTN (hypertension) Celiac disease Squamous cell skin cancer Obesity Calculus of left kidney BPH (benign prostatic hyperplasia) COPD (chronic obstructive pulmonary disease) Depression Mixed hyperlipidemia Surgical History Surgical History H/O bilateral inguinal hernia repair 03/27/2022 - Totally extraperitoneal laparoscopic bilateral inguinal hernia repair with mesh Aortic valve replaced S/P TAVR (transcatheter aortic valve replacement) Hx of shoulder replacement Right shoulder- 2015, [facility] Other dental procedure status dental implants, upper and lower- 2018 Hx of cataract removal with insertion of prosthetic lens bilateral 2018 History of lithotripsy 2017 Hx of total knee replacement 2015 History of medial meniscus repair of left knee 2014 Hammer toe of right foot 2012 Hx of sinus surgery 2009 History of vasectomy 1976 Thumb laceration Hx of tonsillectomy Hx of cholecystectomy History of right inguinal hernia repair 1998 Family History Family History Mother Family history of malignant neoplasm of breast Family history of malignant neoplasm of breast in first degree relative, Onset Age: 66 Family history of coronary artery disease Cerebrovascular accident Acute myocardial infarction Father Family history of coronary artery disease Family history of congenital heart disease, Onset Age: 77 Carcinoma of colon Acute myocardial infarction Sibling COPD (chronic obstructive pulmonary disease) Grandparent Cerebral arteriosclerosis Acute myocardial infarction Diabetes mellitus Social History Social History Social History: daily caffeine use- 6 cups of soda daily Smoking packs per day: 3.5 Smoking cigarettes per day: 70.0 Years smoked: 30 Smoking pack-years: 105.00 Smoking status: Former smoker Tobacco type: cigarettes Second hand tobacco smoke exposure: No Smoking end date: 10/31/87 Alcohol intake: former Substance use: never Substance use type: does not use Lack of Transportation: No Lack of Food: Never True Current Housing: I Have Housing Concerned About Future Housing: No Difficulty Paying Gas/Electric Bills: No Difficulty Paying for Meds: No Currently Unemployed: No Education: Master's Degree or Higher Difficulty w/ Childcare or Family Care: No Living arrangements: with family Additional living arrangements comments: Patient is Occupation/Education: retired Gender identity (if verbalized by the patient): Male Sexual Orientation (if Verbalized by the Patient): Straight or Heterosexual Spiritual care concerns: No Meds Home Medications and Allergies Home Medications ?Medication ?Instructions ?Recorded ?Confirmed ?Type finasteride 5 mg tablet 5 mg PO DAILY 07/16/19 07/16/24 History cholecalciferol (vitamin D3) 125 125 mcg PO DAILY 02/04/21 07/16/24 History mcg (5,000 unit) capsule multivitamin with iron-mineral 1 tablet PO DAILY 02/04/21 07/16/24 History vitamin B complex 1 tablet PO DAILY 02/04/21 07/16/24 History ascorbate calcium (vitamin C) 500 500 mg PO DAILY 01/20/22 07/16/24 History mg tablet magnesium 200 mg tablet 200 mg PO DAILY 01/20/22 07/16/24 History vitamin E (dl, acetate) 450 mg 450 mg PO DAILY 01/20/22 07/16/24 History (1,000 unit) capsule sildenafil 100 mg tablet (Viagra) 100 mg PO DAILY sexual activity 03/12/23 06/27/24 History trazodone 100 mg tablet 100 mg PO .QHS #90 tabs 01/11/24 06/27/24 Rx fenofibrate 160 mg tablet See Rx Instructions .Route 04/07/24 07/16/24 Rx .COMPLEX #90 tabs doxycycline hyclate 100 mg tablet 100 mg PO Q12H #14 tabs 06/06/24 06/27/24 Rx lisinopril 20 mg tablet See Rx Instructions .Route 06/26/24 07/16/24 Rx .COMPLEX #90 tabs Allergies Allergy/AdvReac Type Severity Reaction Status Date / Time gluten AdvReac Intermediate vomiting Verified 07/16/24 06:59 morphine AdvReac Mild Rash Verified 07/16/24 06:59 Vital Signs Vital Signs - 24 hr 07/16/24 07:02 Temperature 97.5 F L Pulse Rate 76 Respiratory Rate 18 Blood Pressure 131/74 Pulse Oximetry 96 Oxygen Delivery Room Air Exam Const: General: cooperative and healthy appearing Resp: Effort & Inspection: normal respiratory effort and able to speak in complete sentences Auscultation: clear to auscultation bilaterally Cardio: Rate: regular rate Rhythm: regular rhythm GI: Inspection: normal to inspection GI Palp: No No hepatosplenomegaly present Auscultation: normal bowel sounds Rectal Exam: deferred Skin: General skin exam: normal color Psych: Appearance: grossly normal Mental Status: mental status grossly normal Assessment and Plan Assessment and plan (1) Screening for malignant neoplasm of colon: Code(s): Z12.11 - Encounter for screening for malignant neoplasm of colon Status: Acute Assessment and Plan: The patient is deemed a good candidate for the procedure. Consent signed. Will proceed.
--- NOTE | 2024-07-16 07:56 | WPDANESEPPF ---
Anes - Initial Pre Proc Eval Procedure: Operation Date: 07/16/24 08:00 Proposed Procedures p Colonoscopy - Sonido Corbett MD Date/Time: 07/16/24 07:56 Surgeon: Sonido Corebtt MD Pre Op Diagnosis: personal hx of colon polyps Patient Data Age: 79 Gender: M Height: 1.83 m Weight: 93.7 kg Last Vital Signs Temp 97.5 F L 07/16/24 07:02 Pulse 76 07/16/24 07:02 Resp 18 07/16/24 07:02 BP 131/74 07/16/24 07:02 Pulse Ox 96 07/16/24 07:02 O2 Del Method Room Air 07/16/24 07:02 Allergies Allergy/AdvReac Type Severity Reaction Status Date / Time gluten AdvReac Intermediate vomiting Verified 07/16/24 06:59 morphine AdvReac Mild Rash Verified 07/16/24 06:59 Home Medications ?Medication ?Instructions ?Recorded ?Confirmed ?Type finasteride 5 mg tablet 5 mg PO DAILY 07/16/19 07/16/24 History cholecalciferol (vitamin D3) 125 125 mcg PO DAILY 02/04/21 07/16/24 History mcg (5,000 unit) capsule multivitamin with iron-mineral 1 tablet PO DAILY 02/04/21 07/16/24 History vitamin B complex 1 tablet PO DAILY 02/04/21 07/16/24 History ascorbate calcium (vitamin C) 500 500 mg PO DAILY 01/20/22 07/16/24 History mg tablet magnesium 200 mg tablet 200 mg PO DAILY 01/20/22 07/16/24 History vitamin E (dl, acetate) 450 mg 450 mg PO DAILY 01/20/22 07/16/24 History (1,000 unit) capsule sildenafil 100 mg tablet (Viagra) 100 mg PO DAILY sexual activity 03/12/23 06/27/24 History trazodone 100 mg tablet 100 mg PO .QHS #90 tabs 01/11/24 06/27/24 Rx fenofibrate 160 mg tablet See Rx Instructions .Route 04/07/24 07/16/24 Rx .COMPLEX #90 tabs doxycycline hyclate 100 mg tablet 100 mg PO Q12H #14 tabs 06/06/24 06/27/24 Rx lisinopril 20 mg tablet See Rx Instructions .Route 06/26/24 07/16/24 Rx .COMPLEX #90 tabs Patient hx anesthesia problems: none Family hx anesthesia problems: none Results Review: All pre-operative results and documents have been reviewed as part of the pre-operative evaluation. [facility] Past Medical History Medical History (Updated 04/08/24 @ 09:43 by Indio Staley MD) Inflammatory arthritis Retrocalcaneal bursitis Achilles tendinosis of right ankle JERAD (obstructive sleep apnea) s/p inspire History of revision of total replacement of left knee joint 2016 Acid reflux JERAD (obstructive sleep apnea) High cholesterol HTN (hypertension) Celiac disease Squamous cell skin cancer Obesity Calculus of left kidney BPH (benign prostatic hyperplasia) COPD (chronic obstructive pulmonary disease) Depression Mixed hyperlipidemia Surgical History Surgical History H/O bilateral inguinal hernia repair 03/27/2022 - Totally extraperitoneal laparoscopic bilateral inguinal hernia repair with mesh Aortic valve replaced S/P TAVR (transcatheter aortic valve replacement) Hx of shoulder replacement Right shoulder- 2015, [facility] Other dental procedure status dental implants, upper and lower- 2018 Hx of cataract removal with insertion of prosthetic lens bilateral 2018 History of lithotripsy 2017 Hx of total knee replacement 2015 History of medial meniscus repair of left knee 2014 Hammer toe of right foot 2012 Hx of sinus surgery 2009 History of vasectomy 1976 Thumb laceration Hx of tonsillectomy Hx of cholecystectomy History of right inguinal hernia repair 1998 Family History Family History Mother Family history of malignant neoplasm of breast Family history of malignant neoplasm of breast in first degree relative, Onset Age: 66 Family history of coronary artery disease Cerebrovascular accident Acute myocardial infarction Father Family history of coronary artery disease Family history of congenital heart disease, Onset Age: 77 Carcinoma of colon Acute myocardial infarction Sibling COPD (chronic obstructive pulmonary disease) Grandparent Cerebral arteriosclerosis Acute myocardial infarction Diabetes mellitus Social History Social History Social History: daily caffeine use- 6 cups of soda daily Smoking packs per day: 3.5 Smoking cigarettes per day: 70.0 Years smoked: 30 Smoking pack-years: 105.00 Smoking status: Former smoker Tobacco type: cigarettes Second hand tobacco smoke exposure: No Smoking end date: 10/31/87 Alcohol intake: former Substance use: never Substance use type: does not use Lack of Transportation: No Lack of Food: Never True Current Housing: I Have Housing Concerned About Future Housing: No Difficulty Paying Gas/Electric Bills: No Difficulty Paying for Meds: No Currently Unemployed: No Education: Master's Degree or Higher Difficulty w/ Childcare or Family Care: No Living arrangements: with family Additional living arrangements comments: Patient is Occupation/Education: retired Gender identity (if verbalized by the patient): Male Sexual Orientation (if Verbalized by the Patient): Straight or Heterosexual Spiritual care concerns: No Anes - Eval Final PreProcedure Day of Procedure 07/16/24 07:56 Patient weight: normal Heart: regular rate and rhythm Lungs: clear to auscultation Airway: Mallampati scale class II Neurological: alert and oriented Last oral intake: >/= 8 hours ASA classification: III Emergent: no Anesthetic plan: proceed Anesthesia type and monitoring: general GIVS and standard monitoring Results Review: All pre-operative results and documents have been reviewed as part of the pre-operative evaluation. Informed Consent: The patient's anesthetic plan and its attendant risks and benefits were discussed with the patient/family/POA. Questions were solicited and answers provided to the satisfaction of the patient/family/POA.
[2024-07-16 08:40] VITALS: BP 99/59; PULSE 66; RESP 20; O2SAT 97
[2024-07-16 08:50] VITALS: BP 120/78; PULSE 63; RESP 18; O2SAT 97
[2024-07-16 09:00] VITALS: BP 121/76; PULSE 65; RESP 20; O2SAT 100
== END 2024-07-16 09:14 | disposition home or self-care (01) ==
PROVIDERS: PCP Family Medicine; Referring Provider Internal Medicine Gastroenterology; Visit Provider Internal Medicine Gastroenterology
PROC: 0DJD8ZZ Inspection of Lower Intestinal Tract, Via Natural or Artificial Opening Endoscopic (ICD-10-PCS; CPT 45378; principal; 2024-07-16 08:00)
DX: Z12.11 Encounter for screening for malignant neoplasm of colon (principal); D12.0 Benign neoplasm of cecum; D12.2 Benign neoplasm of ascending colon; D12.3 Benign neoplasm of transverse colon; K52.9 Noninfective gastroenteritis and colitis, unspecified; Z80.0 Family history of malignant neoplasm of digestive organs; Z87.891 Personal history of nicotine dependence
CPT/HCPCS: 45385; 45380; 88305; J2003; J2704; J7120

== ENCOUNTER 2024-07-23 13:02 | Outpatient (CLI) | payer MEDICARE, SELFPAY ==
--- OUTSIDE RECORDS SUMMARY | 2024-07-25 00:49 | XMS_ITS | Clinical Summary ---
Author Organization [facility] Address [address] [place] [address]. [place] [address] [place] [address] Care Team Providers Care Door Core Assembler Name Role Phone Indio Staley MD Primary Care Provider [phone] Theresa Rosas SENIOR PRINCIPAL PROCESS ENGINEER Unavailable [phone] Allergies Active Allergy Reactions Criticality Noted Date Comments Gluten Meal Vomiting Low 07/24/2018 Morphine Other (see comment),Rash Medium 07/24/2018 Reaction: OTHER, Medications fenofibrate 160 MG tabletIndicatio ns:Dyslipidemia Take 1 tablet (160 mg total) by mouth daily. 2 Active finasteride (PROSCAR) 5 MG tabletIndicatio ns:Prostate enlargement Take 1 tablet (5 mg total) by mouth daily. 2 Active sildenafil (VIAGRA) 100 MG tabletIndicatio ns:Erectile dysfunction, unspecified erectile dysfunction type Take 1 tablet (100 mg total) by mouth daily as needed. 1 Active vitamin E 400 UNIT capsule Take 1 capsule (400 Units total) by mouth daily. Active Multiple Vitamin (MULTIVITAMIN) capsule Take 1 capsule by mouth daily. Active cholecalciferol (VITAMIN D-3) 125 MCG (5000 UT) Tab Take 1 tablet (5,000 Units total) by mouth daily. Active B Complex Vitamins Cap Take 1 capsule by mouth 2 (two) times daily. Active aspirin EC (ECOTRIN) 81 MG tablet Take 1 tablet (81 mg total) by mouth daily. Active Ascorbic Acid (VITAMIN C CR) 1000 MG Tab CR Take 1,000 mg by mouth daily. Active Mag Threonate-Niaci namide ER 500-250 MG Tab CR Take 2,000 mg by mouth daily. Active amoxicillin (AMOXIL) 500 MG capsule Take 4 capsules (2,000 mg total) by mouth once. Take one hour prior to dental appointments 3 Active lisinopril (PRINIVIL) 20 MG tablet Take 1 tablet (20 mg total) by mouth daily. 3 Active traZODone (DESYREL) 100 MG tablet Take 1 tablet (100 mg total) by mouth nightly at bedtime. 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 Patient reports significant bleeding and bruising associated with warfarin use. Will Trial discontinuation of warfarin and repeat echocardiogram in to reevaluate the velocity. Assessment & Plan (07/19/2023 11:44 AM PROPAGATOR): Echo gradients have improved after anticoagulation with warfarin. Continue warfarin for now. 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 Will repeat echocardiogram in July of next year to evaluate valve velocity after discontinuation of warfarin. Requires antibiotic prophylaxis prior to all dental procedures. Assessment & Plan (07/27/2023 12:27 PM PROPAGATOR): Echo shows valve velocities and gradients have decreased after starting anticoagulation. Continue antibiotic prophylaxis prior to dental procedures. Refer to cardiac rehab. Assessment & Plan (06/26/2023 6:50 AM PROPAGATOR): Echo shows valve velocities and gradients are elevated. Recommend starting anticoagulation for possible valve thrombosis. Repeat echo in 3 months. Continue antibiotic prophylaxis prior to dental procedures. Sore on ankle 01/10/2023 Severe aortic valve stenosis 03/02/2022 Severe aortic stenosis 02/06/2022 Assessment & Plan (06/26/2023 6:50 AM PROPAGATOR): Echo shows valve velocities and gradients are elevated. Recommend starting anticoagulation for possible valve thrombosis. Repeat echo in 3 months. Assessment & Plan (04/14/2022 11:09 AM CDT): He is status post TAVR. Will review 30 day echo and repeat echo next year. Continue abx prophylaxis prior to dental procedures. Assessment & Plan (03/09/2022 12:24 PM CDT): Underwent successful TAVR with Foreman Charan S3 #26 mm valve 03/02/2022 Groins well-healed without any bleeding bruising or bruit Postoperative labs stable No concerning symptoms such as chest pain heart palpitations or dizziness Denies any neurological deficits EKG today reveals sinus rhythm without any significant sinus bradycardia blocks or pauses. Dental prophylaxis explained Assessment & Plan (02/06/2022 3:47 PM CDT): He has symptomatic severe aortic valve stenosis. I recommended that he undergo aortic valve replacement. He prefers transcatheter aortic valve replacement. I did discuss the procedure of transcatheter aortic valve replacement to the patient. I explained the procedure in detail including transfemoral access with placement of a balloon mounted valve inside the existing aortic valve. I explained the risks and benefits that include but are not limited to: bleeding, infection, vascular complication (10%), cerebrovascular accident (3 to 5%), permanent pacemaker placement (10%), myocardial infarction (1 to 2%), aortic root rupture (1 2%), valve embolization (1-2%) and even (1 to 2%). I did explain to the patient that if we were to proceed with transcatheter aortic valve replacement, we would have to proceed with the TAVR work-up that includes cardiac catheterization, CT scan and surgical evaluation. I discussed options with John Tyler regarding surgical aortic valve replacement versus transcatheter aortic valve replacement. I explained that with surgical aortic valve replacement there is a choice between 2 types of valves including bioprosthetic valves versus mechanical valves. I explained that mechanical valves have a longer durability and require anticoagulation for life. If she were to have a problem with mechanical valve dysfunction, this would require a repeat open heart surgery in the future. I explained that bioprosthetic aortic valves have shorter durability, but do not require anticoagulation. Bioprosthetic aortic valves allow for future interventions such as TAVR. I discussed with her that with TAVR, the only option was for a bioprosthetic aortic valve. Given His age, explained that with a bioprosthetic aortic valve there would likely be the need for future intervention. I explained that doing 2 consecutive TAVR is at this time does not have as much data. JERAD (obstructive sleep apnea) 05/14/2020 Overview (01/30/2022): Added automatically from request for surgery [id number] Abnormal liver enzymes 07/01/2014 Primary hypertension 04/16/2013 Assessment & Plan (12/31/2023 10:39 AM CDT): Blood pressure well controlled in office today at 124/80 mmHg. Continue lisinopril 20 mg daily. Assessment & Plan (07/19/2023 11:45 AM PROPAGATOR): Continue lisinopril Assessment & Plan (06/26/2023 6:50 AM PROPAGATOR): Continue lisinopril Assessment & Plan (04/14/2022 11:09 AM CDT): Continue lisinopril Assessment & Plan (02/06/2022 3:49 PM CDT): Continue lisinopril Hyperlipidemia 03/15/2012 Assessment & Plan (12/31/2023 10:38 AM CDT): Last lipid panel 03/2023 with LDL of 91 and triglycerides of 242. Continue fenofibrate. Will need repeat lipid panel later this year. Assessment & Plan (07/19/2023 10:08 AM PROPAGATOR): Continue fenofibrate Assessment & Plan (06/26/2023 6:50 AM PROPAGATOR): Continue fenofibrate Assessment & Plan (04/14/2022 11:09 AM CDT): Continue fenofibrate Assessment & Plan (02/06/2022 3:49 PM CDT): Continue fenofibrate Encounters Date Type Department Care Team Description 07/14/2024 9:36 AM PROPAGATOR - 07/14/2024 11:59 PM PROPAGATOR Hospital Encounter [facility] [place] [address] Javier Alva MD Discharge Disposition: Home or Self Care (Routine Discharge) 07/14/2024 Travel 07/01/2024 Telephone [facility] [place] [place] [address] Javier Alva MD Surgical Clearance from Last 3 Months Family History Medical History Relation Comments Alcohol Abuse Father CHF Father Colon Cancer Father Heart Attack Father CHF Maternal Grandfather Heart Attack Maternal Grandmother Alcohol Abuse Mother Heart Attack Mother Stroke Mother Diabetes Paternal Grandmother COPD Sister 1 Heart Attack Sister 1 Atrial fibrillation Sister 3 Hyperlipidemia Sister 3 Hypertension Sister 3 Pacemaker Sister 3 Pancreatitis Sister 3 Relation Status Comments Father Maternal Grandfather Maternal Grandmother Mother Paternal Grandmother Sister 1 Sister 2 Alive Sister 3 Alive Social History Tobacco Use Types Packs/Day Years Used Date Smoking Tobacco: Former Cigarettes Q uit: 11/18/1987 Smokeless Tobacco: Never Alcohol Use Standard Drinks/Week Comments Not Currently 0 (1 standard drink = 0.6 oz pur e alcohol) Sex and Gender Information Value Date Recorded Sex Assigned at Not on file Legal Sex Male 10:23 PM PROPAGATOR Gender Identity Not on file Sexual Orientation Not on file Last Filed Vital Signs Vital Sign Reading Time Taken Comments Blood Pressure 124/80 12/31/2023 9:32 AM CDT Pulse 65 12/31/2023 9:32 AM CDT Temperature 37.3 ??C (99.1 ??F) 03/03/2022 11:38 AM C DT Respiratory Rate 16 03/03/2022 11:38 AM CDT Oxygen Saturation 97% 12/31/2023 9:32 AM CDT Inhaled Oxygen Concentration - - Weight 95.5 kg (210 lb 9.6 oz) 12/31/2023 9:32 A M CDT Height 182.9 cm (6') 12/31/2023 9:32 AM CDT Body Mass Index 28.56 12/31/2023 9:32 AM CDT Plan of Treatment Upcoming Encounters Date Type Department Care Team (Late st Contact Info) Description 08/11/2024 1:45 PM PROPAGATOR Office Visit [facility] [address] [place], [place] [address] Javier Alva MD [facility]. [address] [place], [place] [id number] Health Maintenance Due Date Last Done Comments PHQ-2 (Physician [place]) 1957 Annual Medicare Wellness Visit 2008 Pneumococcal Vaccine: 65+ Years (2 of 2 - PPSV23 or PCV20) 09/13/2015 07/19/2015 RSV Immunization or 60+ Years (1 - 1-dose 75+ series) 2018 COVID-19 Vaccine ( season) 2024 12/06/2021, 05/05/2021, 08/27/2020, Additional history exists Influenza Adult (#1) 2024 04/17/2019, 04/21/2018, 04/09/2017, Additional history exists DTaP, Tdap and Td Vaccines (2 - Td or Tdap) 04/15/2024 04/15/2014 Zoster Vaccines Completed 06/13/2018, 03/07/2018 Meningococcal B Vaccine Aged Out No l onger eligible based on patient's age to complete this topic Meningococcal Vaccine Aged Out No mireya eric eligible based on patient's age to complete this topic RSV Immunizations Under 20 Months Aged Out No longer eligible based on patient's age to complete this topic Goals Goal Patient Goal Type Associated Problems Recent Progress Patient-Stated? Author Health - patient able to perform ADLs independently Lifestyle No Urbano Gifford, RN Medical Devices Implanted Type Area Pediatric Occupational Therapist Device Identifier Shelf Expiration Date Model / Serial / Lot Tavr-03/02/2022 Implanted:09/0 07/2021 by Javier Alva MD (Quantity not on file) Valve Implant Aorta [employer] 09/18/2024 / [id number] / Procedures Procedure Name Priority Date/Time Associated Diagnosis Comments USE ECHOCARDIOGRAM Routine 07/14/2024 10 :07 AM PROPAGATOR S/P TAVR (transcatheter aortic valve replacement) from Last 3 Months Results * USE ECHOCARDIOGRAM (07/14/2024 10:07 AM PROPAGATOR) Anatomical Region Laterality Modality Cardiac Echocardiogram 07/14/2024 9:44 AM PROPAGATOR Narrative 07/15/2024 12:05 PM PROPAGATOR ?Echocardiography Report Pat.Name: ??JOHN TYLER ?? Pat.ID: ?[id number] ? St.Date: ?? 07/14/2024 ? Refer.MD: ??[id number] MADDISON Cordoba Exam Time: 9:44:00 AM ? Study Type:ECHO WITH CARDIAC DOPPLER COMP Height: ?72 in ? Weight: ?210 lb ? BSA: ? 2.18 m2 ?Age: ??1945,79Y ? Sex: ? M ? BP: ?146/68 ? HR: ?76 bpm ?Sonogrphr: SLW ? Pat. Stat.:Outpatient ?CPT - 4: ?[id number] ? Reason for Study:S/P TAVR ? Procedures: 2D, M-mode, Doppler, Color Flow, The study quality is technically difficult. Race: ?W ? ++++++++++++++++++++++++++++++++++++ SUMMARY: ++++++++++++++++++++++++++++++++++++ The left ventricular size is normal. The left ventricular systolic function is normal. Estimated left ventricular ejection fraction is 65-70%. Aortic valve prosthesis with normal function. No evidence of maykel-prosthetic aortic valve regurgitation. No evidence of central prosthetic aortic valve regurgitation. The peak velocity across the aortic valve measures 2.93m/sec with a peak gradient of 34mmHg and a mean gradient of 19mmHg. The calculated aortic valve area is 1.72cm2. ++++++++++++++++++++++++++++++++++++ FINDINGS: ++++++++++++++++++++++++++++++++++++ LV: ? The left ventricular size is normal. The left ventricular ?systolic function is normal. Estimated left ventricular ?ejection fraction is 65-70%. Mild concentric left ?ventricular hypertrophy. The septal E/e' is elevated at >15. ?The lateral E/e' is elevated at >11. Left ventricular ?diastolic function is abnormal (grade 2 - pseudonormal ?pattern). The mean left atrial pressure is elevated. WM: ? Wall motion appears normal in all segments. RV: ? The right ventricular size is normal. Right ventricular ?systolic function is normal. TAPSE = 31.4mm (<16 mm ?indicates systolic RV dysfunction). IVS: ?Intraventricular septum is normal. LA: ? The left atrial volume is moderately increased (42-48 ?ml/M2). RA: ? Right atrial size is mildly enlarged. IAS: ?Atrial septum appears intact. MAYKEL: ? No evidence of pericardial effusion. AO: ? Normal aortic root. PA: ? Unable to reliably quantitate pulmonary systolic pressure. SVn: ?Systemic veins not well visualized. AV: ? The peak velocity across the aortic valve measures 2.93m/sec ?with a peak gradient of 34mmHg and a mean gradient of ?19mmHg. The calculated aortic valve area is 1.72cm2. Aortic ?valve prosthesis with normal function. No evidence of ?maykel-prosthetic aortic valve regurgitation. No evidence of ?central prosthetic aortic valve regurgitation. The aortic ?valve not well visualized. MV: ? Trace mitral regurgitation. No evidence of mitral stenosis. ?Calcified anterior and posterior mitral annulus. PV: ? Pulmonic valve not well visualized. TV: ? No evidence of tricuspid regurgitation. No evidence of ?tricuspid valve stenosis. ++++++++++++++++++++++++++++++++++++ MEASUREMENTS: ++++++++++++++++++++++++++++++++++++ ?DOPPLER Pulmonary Veins ?? PVnpkVeld ? 72 cm/s ?Pulmonary Vein ?? 0.69 m/s PVnVs/Vd ?1.12 ? AR-wave velocit ??0.36 m/s S1-wave velocit ??0.81 m/s ?PVn A Dur ?0.147 second TV Forward Flow TV E/A ?1.45 ? Aortic Valve ?? Cardiovascular ?? 1.92 cm ? Aortic Root Tim ?? 3.2 cm ?? LVOT/AoV (SHROUD LINE TIER) ( ??0.52 ?Left atrial tim ?? 5.6 cm ?? AV Antegrade Flow Peak Velocity ( ??2.93 m/s ?Mean Velocity ( ??1.95 m/s Velocity Time I ??57.3 cm ? AV Antegrade Flow Simplified Bernoulli Gradient pressu ??34.3 mmHg ? Gradient pressu ??16.9 mmHg AV Continuity Equation by Velocity Time Integral Aortic Valve Ar ??1.65 cm2 ?AoV Area Index ?? 0.76 ? Left Ventricle ?? Stroke Volume ( ??94.4 ml ? Cardiac Output ?? 7.27 liter per minute LV Antegrade Flow Peak Velocity ( ??1.51 m/s ?Mean Velocity ( ??1.07 m/s Velocity Time I ??32.6 cm ? LV Antegrade Flow Simplified Bernoulli Gradient pressu ?? 9.1 mmHg ? Gradient pressu ?? 4.9 mmHg Mitral Valve ?? Mitral Valve E- 0.263 second ? Mean Myocardial ?? 7.5 centimeter/second Myocardial Velo ?? 9.4 centimeter/second Ratio of Mitral ??21.4 ? Myocardial Velo ?? 5.6 centimeter/second Ratio of Mitral ?17 ? Mitral Valve E ?? 0.77 ?Ratio of Mitral ??28.6 ? MV Antegrade Flow Mitral Valve E- ?? 1.6 m/s ?Mitral Valve A- ??2.08 m/s PV Antegrade Flow Peak Velocity ( ??1.07 m/s ?Mean Velocity ( ??0.73 m/s Velocity Time I ?17 cm ? PV Vmax (Diasto ??0.86 m/s PV Antegrade Flow Simplified Bernoulli Gradient pressu ?? 4.7 mmHg ? PV PGmax (Systo ? 3 mmHg Gradient pressu ?? 2.4 mmHg ? Tricuspid Valve ?? Tricuspid Valve ??0.75 m/s ?Tricuspid Valve ??0.52 m/s ?2D Left Ventricle ?? LVIDd ? 5.21 cm ?? (3.6-5.2)* LVEDV BP ?78.5 ml ?? LV EDV ?77.1 ml ?LVESV BP ?19.4 ml ?? LV ESV ?17.5 ml ?LV EF ? 77.3 % ?? LV EDV ?76 ml ?Left Ventricula -25.5 % ?? LV ESV ?20.8 ml ?LV EF ? 72.6 % ?? LV EF BP ?75.3 % ? Left Ventricula -19.3 % ?? Left Ventricula -22.4 % ? Left Atrium ?? Left Atrium Vol ??46.3 ml/m2 ? LA Biplane Left Atrium Vol ?? 101 ml ? LA Single Plane Left Atrium ed ?? 6.9 cm ? Left Atrium ed ??6.94 cm ?? Left Atrium Vol ?? 109 ml ? Left Atrium Vol ??93.4 ml ?? LV Teichholz Interventricula ??0.99 cm ? Left Ventricle ?? 3.96 cm ?? Left Ventricle ?? 1.31 cm ? Heart rate ?76 Heart beat per minute Right Atrium ?? RA sys Area ? 20.2 cm2 ? Right Ventricle ?? Right Ventricul ??2.84 cm ? RVIDd ? 3.16 cm ?MMODE Tricuspid Valve ?? Tricuspid annul ??3.14 cm ? <Electronic Signature> 07/15/2024 12:05 PM Javier Alva M.D. Procedure Note Javier Alva MD - 07/15/2024 Echocardiography Report Pat.Name: JOHN TYLER Pat.ID: [id number] .Date: 07/14/2024 Tracie.: [id number] MADDISON Cordoba Exam Time: 9:44:00 AM Study Type:ECHO WITH CARDIAC DOPPLER COMP Height: 72 in Weight: 210 lb BSA: 2.18 m2 Age: 10 1945,79Y Sex: M BP: 146/68 HR: 76 bpm Sonogrphr: TERENCEW Pat. Stat.:Outpatient CPT - 4: [id number] Reason for Study:S/P TAVR Procedures: 2D, M-mode, Doppler, Color Flow, The study quality is technically difficult. Race: W ++++++++++++++++++++++++++++++++++++ SUMMARY: ++++++++++++++++++++++++++++++++++++ The left ventricular size is normal. The left ventricular systolic function is normal. Estimated left ventricular ejection fraction is 65-70%. Aortic valve prosthesis with normal function. No evidence of maykel-prosthetic aortic valve regurgitation. No evidence of central prosthetic aortic valve regurgitation. The peak velocity across the aortic valve measures 2.93m/sec with a peak gradient of 34mmHg and a mean gradient of 19mmHg. The calculated aortic valve area is 1.72cm2. ++++++++++++++++++++++++++++++++++++ FINDINGS: ++++++++++++++++++++++++++++++++++++ LV: The left ventricular size is normal. The left ventricular systolic function is normal. Estimated left ventricular ejection fraction is 65-70%. Mild concentric left ventricular hypertrophy. The septal E/e' is elevated at >15. The lateral E/e' is elevated at >11. Left ventricular diastolic function is abnormal (grade 2 - pseudonormal pattern). The mean left atrial pressure is elevated. WM: Wall motion appears normal in all segments. RV: The right ventricular size is normal. Right ventricular systolic function is normal. TAPSE = 31.4mm (<16 mm indicates systolic RV dysfunction). IVS: Intraventricular septum is normal. LA: The left atrial volume is moderately increased (42-48 ml/M2). RA: Right atrial size is mildly enlarged. IAS: Atrial septum appears intact. MAYKEL: No evidence of pericardial effusion. AO: Normal aortic root. PA: Unable to reliably quantitate pulmonary systolic pressure. SVn: Systemic veins not well visualized. AV: The peak velocity across the aortic valve measures 2.93m/sec with a peak gradient of 34mmHg and a mean gradient of 19mmHg. The calculated aortic valve area is 1.72cm2. Aortic valve prosthesis with normal function. No evidence of maykel-prosthetic aortic valve regurgitation. No evidence of central prosthetic aortic valve regurgitation. The aortic valve not well visualized. MV: Trace mitral regurgitation. No evidence of mitral stenosis. Calcified anterior and posterior mitral annulus. PV: Pulmonic valve not well visualized. TV: No evidence of tricuspid regurgitation. No evidence of tricuspid valve stenosis. ++++++++++++++++++++++++++++++++++++ MEASUREMENTS: ++++++++++++++++++++++++++++++++++++ DOPPLER Pulmonary Veins PVnpkVeld 72 cm/s Pulmonary Vein 0.69 m/s PVnVs/Vd 1.12 AR-wave velocit 0.36 m/s S1-wave velocit 0.81 m/s PVn A Dur 0.147 second TV Forward Flow TV E/A 1.45 Aortic Valve Cardiovascular 1.92 cm Aortic Root Tim 3.2 cm LVOT/AoV (SHROUD LINE TIER) ( 0.52 Left atrial tim 5.6 cm AV Antegrade Flow Peak Velocity ( 2.93 m/s Mean Velocity ( 1.95 m/s Velocity Time I 57.3 cm AV Antegrade Flow Simplified Bernoulli Gradient pressu 34.3 mmHg Gradient pressu 16.9 mmHg AV Continuity Equation by Velocity Time Integral Aortic Valve Ar 1.65 cm2 AoV Area Index 0.76 Left Ventricle Stroke Volume ( 94.4 ml Cardiac Output 7.27 liter per minute LV Antegrade Flow Peak Velocity ( 1.51 m/s Mean Velocity ( 1.07 m/s Velocity Time I 32.6 cm LV Antegrade Flow Simplified Bernoulli Gradient pressu 9.1 mmHg Gradient pressu 4.9 mmHg Mitral Valve Mitral Valve E- 0.263 second Mean Myocardial 7.5 centimeter/second Myocardial Velo 9.4 centimeter/second Ratio of Mitral 21.4 Myocardial Velo 5.6 centimeter/second Ratio of Mitral 17 Mitral Valve E 0.77 Ratio of Mitral 28.6 MV Antegrade Flow Mitral Valve E- 1.6 m/s Mitral Valve A- 2.08 m/s PV Antegrade Flow Peak Velocity ( 1.07 m/s Mean Velocity ( 0.73 m/s Velocity Time I 17 cm PV Vmax (Diasto 0.86 m/s PV Antegrade Flow Simplified Bernoulli Gradient pressu 4.7 mmHg PV PGmax (Systo 3 mmHg Gradient pressu 2.4 mmHg Tricuspid Valve Tricuspid Valve 0.75 m/s Tricuspid Valve 0.52 m/s 2D Left Ventricle LVIDd 5.21 cm (3.6-5.2)* LVEDV BP 78.5 ml LV EDV 77.1 ml LVESV BP 19.4 ml LV ESV 17.5 ml LV EF 77.3 % LV EDV 76 ml Left Ventricula -25.5 % LV ESV 20.8 ml LV EF 72.6 % LV EF BP 75.3 % Left Ventricula -19.3 % Left Ventricula -22.4 % Left Atrium Left Atrium Vol 46.3 ml/m2 LA Biplane Left Atrium Vol 101 ml LA Single Plane Left Atrium ed 6.9 cm Left Atrium ed 6.94 cm Left Atrium Vol 109 ml Left Atrium Vol 93.4 ml LV Teichholz Interventricula 0.99 cm Left Ventricle 3.96 cm Left Ventricle 1.31 cm Heart rate 76 Heart beat per minute Right Atrium RA sys Area 20.2 cm2 Right Ventricle Right Ventricul 2.84 cm RVIDd 3.16 cm MMODE Tricuspid Valve Tricuspid annul 3.14 cm <Electronic Signature> 07/15/2024 12:05 PM Javier Alva M.D. Javier Alva MD ECHO Final Resul t from Last 3 Months Insurance [employer] Advance Directives * Full Code (Latest Code Status on File) Date Activated Date Inactivated Comments 03/02/2022 4:13 PM 03/03/2022 4:25 PM * Full Code Date Activated Date Inactivated Comments 03/02/2022 10:47 AM 03/02/2022 4:13 PM * Full Code Date Activated Date Inactivated Comments 02/01/2022 12:54 PM 02/01/2022 5:20 PM Care Teams Door Core Assembler Relationship Specialty Start Date End Date Indio Staley MD [address] [facility] [place] [address] PCP - General FAMILY PRACTICE 01/24/22 Theresa Rosas FNP [address] [place] [address] Nurse Practitioner Nurse Practitioner Family 01/24/22
--- OUTSIDE RECORDS SUMMARY | 2024-07-25 00:49 | XMS_ITS | Encounter Summary ---
Author Organization [facility] Address [address] [place] [address]. [place], [place] [address] [place] [address] Care Team Providers Care Builder Operator Name Role Phone Indio Staley MD Primary Care Provider [phone] Theresa Rosas CREDIT RISK ANALYST Unavailable [phone] Encounter Details Date Type Department Care Team (Latest Contact Info) Description 09/22/2022 [employer] Message Enc [place] [facility] [address] [place] [address] Subhash Cardona MD,PHD cancelled appointment Social History Tobacco Use Types Packs/Day Years Used Date Smoking Tobacco: Former Cigarettes Q uit: 11/18/1987 Smokeless Tobacco: Never Alcohol Use Standard Drinks/Week Comments Not Currently 0 (1 standard drink = 0.6 oz pur e alcohol) Sex and Gender Information Value Date Recorded Sex Assigned at Not on file Legal Sex Male 10:23 PM BEAUTY ADVISOR Gender Identity Not on file Sexual Orientation Not on file documented as of this encounter Functional Status * RETIRED Are you deaf or do you have serious difficulty hearing Answer Date of Assessment Author Status No 03/02/2022 5:47 PM CDT Activ e * RETIRED Are you blind or do you have serious difficulty seeing, even when wearing glasses? Answer Date of Assessment Author Status No 03/02/2022 5:47 PM CDT Activ e * Do you have serious difficulty walking or climbing stairs? Answer Date of Assessment Author Status No 03/02/2022 5:47 PM CDT Denis, Alma L, RN Active * Do you have difficulty dressing or bathing? Answer Date of Assessment Author Status No 03/02/2022 5:47 PM CDT Alma Barrios RN Active * Because of a physical, mental, or emotional condition, do you have difficulty doing errands alone such as visiting a doctor's office or shopping? Answer Date of Assessment Author Status No 03/02/2022 5:47 PM CDT Alma Barrios RN Active documented as of this encounter Mental Status * Because of a physical, mental, or emotional condition, do you have serious difficulty concentrating, remembering, or making decisions? Answer Entry Date Author Status No 03/02/2022 5:47 PM CDT Alma Barrios RN Active documented in this encounter Progress Notes * Subhash Cardona MD,PHD - 09/27/2022 10:59 AM CDT Sounds good * Sussy Torres RN - 09/25/2022 11:12 AM CDT No questions or concerns in this. He will be follow up with you on 10/02. documented in this encounter Plan of Treatment Upcoming Encounters Date Type Department Care Team (Late st Contact Info) Description 08/11/2024 1:45 PM BEAUTY ADVISOR Office Visit [facility], [address] [place], [place] [id number] Javier Alva MD [facility]. [address] [place], [place] [id number] documented as of this encounter Goals Goal Patient Goal Type Associated Problems Recent Progress Patient-Stated? Author Health - patient able to perform ADLs independently Lifestyle No Urbano Gifford RN documented as of this encounter Visit Diagnoses Not on filedocumented in this encounter Care Teams Builder Operator Relationship Specialty Start Date End Date Indio Staley MD [address] [place] [address] PCP - General FAMILY PRACTICE 01/24/22 Theresa Rosas FNP [address] [place] [address] Nurse Practitioner Nurse Practitioner Family 01/24/22 documented as of this encounter
--- OUTSIDE RECORDS SUMMARY | 2024-07-25 00:49 | XMS_ITS | Encounter Summary ---
Author Organization [facility] Address [address] [place] [address]. [place], [place] [address] [place] [address] Care Team Providers Care Beauty Therapist Name Role Phone Indio Staley MD Primary Care Provider [phone] Theresa Rosas HEEL STIFFENER Unavailable [phone] Encounter Details Date Type Department Care Team (Late Contact Info) Description 02/09/2022 [employer] Message Enc [place] [facility], [address] [address] [place], [facility] Provider Results Social History Tobacco Use Types Packs/Day Years Used Date Smoking Tobacco: Former Cigarettes Q uit: 11/18/1987 Smokeless Tobacco: Never Alcohol Use Standard Drinks/Week Comments Not Currently 0 (1 standard drink = 0.6 oz pur e alcohol) Sex and Gender Information Value Date Recorded Sex Assigned at Not on file Legal Sex Male 10:23 PM ELECTRICAL DEVELOPMENT ENGINEER Gender Identity Not on file Sexual Orientation Not on file COVID-19 Exposure Response Date Recorded In the last 10 days, have yo u been in contact with someone who was confirmed or suspected to have Coronavirus/COVID-19? No / Unsure 02/06/2022 7:55 AM CDT documented as of this encounter Plan of Treatment Upcoming Encounters Date Type Department Care Team (Late Contact Info) Description 08/11/2024 1:45 PM ELECTRICAL DEVELOPMENT ENGINEER Office Visit [place] [facility], [address] [address] Javier Alva MD [address] [place] [address] documented as of this encounter Visit Diagnoses Not on filedocumented in this encounter Care Teams Beauty Therapist Relationship Specialty Start Date End Date Indio Staley MD [address] [place] [address] PCP - General FAMILY PRACTICE 01/24/22 Theresa Rosas FNP [address] [place] [address] Nurse Practitioner Nurse Practitioner Family 01/24/22 documented as of this encounter
--- OUTSIDE RECORDS SUMMARY | 2024-07-25 00:49 | XMS_ITS | Encounter Summary ---
Author Organization [facility] Address [address] [place] [address]. [place] [address] [place] [address] Care Team Providers Care Test Hole Driller Name Role Phone Indio Staley MD Primary Care Provider [phone] Theresa Rosas HEARING SCREEN COORDINATOR Unavailable [phone] Encounter Details Date Type Department Care Team (Late st Contact Info) Description 07/26/2023 Isolation Network Message Enc [place] [facility] [address] [place] [address] Javier Alva MD [facility]. [facility] [address] [place], [place] [id number] another echo? Social History Tobacco Use Types Packs/Day Years Used Date Smoking Tobacco: Former Cigarettes Q uit: 11/18/1987 Smokeless Tobacco: Never Alcohol Use Standard Drinks/Week Comments Not Currently 0 (1 standard drink = 0.6 oz pur e alcohol) Sex and Gender Information Value Date Recorded Sex Assigned at Not on file Legal Sex Male 10:23 PM DAIRY BAR MANAGER Gender Identity Not on file Sexual Orientation [...] PM CDT Alma Barrios RN Active * Do you have difficulty [...] documented in this encounter Progress Notes * Caprice Muller RN - 08/01/2023 8:44 AM CST See below Y BAR MANAGER * Caprice Muller RN - 07/26/2023 8:42 AM CST See below Y BAR MANAGER documented in this encounter Plan of Treatment Upcoming Encounters Date Type Department Care Team (Late st Contact Info) Description 08/11/2024 1:45 PM DAIRY BAR MANAGER Office Visit [facility], [address] [place], [place] [phone] Javier Alva MD [facility]. [address] [place], [place] [phone] documented as of this encounter Goals Goal Patient Goal Type Associated Problems Recent Progress Patient-Stated? Author Health - patient able to perform ADLs independently Lifestyle Urbano Nguyen RN documented as of this encounter Visit Diagnoses Not on filedocumented in this encounter Care Teams Test Hole Driller Relationship Specialty Start Date End Date Indio Staley MD [address] [place] [address] PCP - General FAMILY PRACTICE 01/24/22 Theresa Rosas FNP [address] [place] [address] Nurse Practitioner Nurse Practitioner Family 01/24/22 documented as of this encounter
--- OUTSIDE RECORDS SUMMARY | 2024-07-25 00:49 | XMS_ITS | Clinical Summary ---
Author Organization [facility] Address [address] [place] [address] Care Team Providers Care Pen Tester Name Role Phone Indio Staley MD Primary Care Provider Allergies Active Allergy Reactions Criticality Noted Date Comments Gluten Vomiting Low 07/24/2018 Morphine Other (See comments),Rash Medium 07/24/2018 Reaction: OTHER, Medications fenofibrate (TRIGLIDE) 160 mg tabletIndication s:hypertriglycer idemia Take 1 tablet (160 mg total) by mouth every morning 2 8 Active finasteride (PROSCAR) 5 mg tablet Take 1 tablet (5 mg total) by mouth every morning 6 8 Active trazodone HCl (TRAZODONE ORAL)Indications :insomnia associated with depression Take 100 mg by mouth nightly 2 8 Active ascorbic acid, vitamin C, (VITAMIN C) 1,000 mg CR tablet Take 1 tablet (1,000 mg total) by mouth every morning Active vitamin B complex capsule Take 1 capsule by mouth 2 (two) times a day Active multivitamin capsule Take 1 capsule by mouth every morning Active vitamin E (AQUASOL E) 400 unit capsule Take 1 capsule (400 Units total) by mouth nightly Active tadalafiL (CIALIS) 20 mg tabletIndication s:Erectile Dysfunction Take 1 tablet (20 mg total) by mouth daily as needed 11/06/202 0 Active cholecalciferol (VITAMIN D-3) 5,000 unit tablet Take 1 tablet (5,000 Units total) by mouth every morning Active aspirin 81 mg enteric coated tablet Take 1 tablet (81 mg total) by mouth every morning Active LISINOPRIL ORAL Take 20 mg by mouth daily 2 Active magnesium gluconate 200 mg tabletIndication s:hypomagnesemia 1 tablet (200 mg total) Active sildenafiL (VIAGRA) 100 mg tablet Take 1 tablet (100 mg total) by mouth daily as needed for erectile dysfunction Active acetaminophen ER (TYLENOL) 650 mg 8 hr tablet 4 Active Active Problems Problem Noted Date Diagnosed Date Lumbar stenosis without neurogenic claudication 03/25/2024 Lumbar radicular pain 03/25/2024 Cervical radiculopathy 03/25/2024 Cervical stenosis of spinal canal 03/25/2024 S/P TAVR (transcatheter aortic valve replacement ) 03/04/2024 Sacroiliitis 12/25/2023 Allergic rhinitis 08/10/2020 JERAD (obstructive sleep apnea) 05/14/2020 Overview (05/14/2020): Added automatically from request for surgery [id number] Sleep apnea 02/17/2020 Right shoulder pain 01/19/2016 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 ( [facility]) 10/22/2015 Abnormal liver enzymes 07/01/2014 Osteoporosis 10/24/2013 Hypertension 04/16/2013 Hay fever 04/16/2012 Hyperlipidemia 03/15/2012 director long term care use of drug 03/15/2012 Long-term current use of steroids 07/24/2011 Arthralgia of multiple joints 01/20/2011 Polyosteoarthritis, unspecified 01/20/2011 Encounter for preventive health examination 10/30 Encounters Date Type Department Care Team Description 06/18/2024 9:45 AM QUALITY AND RELIABILITY ENGINEER - 06/18/2024 11:59 PM QUALITY AND RELIABILITY ENGINEER Hospital Encounter [facility] [address] [place] [address] Adria Lau MD Cervical radiculopathy; Cervical stenosis of spinal canal Discharge Disposition: Discharge to home or self care 04/28/2024 Telephone [facility] [address] [place] [address] Adria Lau MD Additional Services Or Orders (CT cervical) 04/24/2024 12:00 PM CDT Office Visit [facility] [address] [facility] [address] [place] [address] Mario Graff PA JERAD (obstructive sleep apnea) (Primary Dx); Primary hypertension; S/P placement of hypoglossal nerve stimulator 04/24/2024 Orders Only [facility] [id number] [place] [address] Adria Lau MD Cervical stenosis of spinal canal (Primary Dx); Cervical radiculopathy 04/24/2024 Telephone [facility] [address] [place] [address] Adria Lau MD from Last 3 Months Surgical History Surgery Date Site/Laterality Comments EYE SURGERY cataract TONSILLECTOMY as child FINGER SURGERY 9 yo VASECTOMY 07/02/1975 - 07/01/1976 CHOLECYSTECTOMY 07/02/1988 - 07/01/1989 HERNIA REPAIR 07/02/1998 - 07/01/1999 inguinal and incsional SHOULDER SURGERY 07/02/2001 - 07/01/2002 NASAL SEPTUM SURGERY 07/02/2008 - 07/01/2009 SHOULDER SURGERY 07/02/2010 - 07/01/2011 rotator cuff TOE SURGERY 07/02/2011 - 07/01/2012 hammer head COLONOSCOPY x8 last one 2017 ESOPHAGOGASTRODUODENOSCOPY 07/02/2013 - 07/01/2014 KNEE SURGERY 07/02/2013 - 07/01/2014 meniscus JOINT REPLACEMENT 07/02/2014 - 07/01/2015 Left total knee SHOULDER SURGERY 07/02/2015 - 07/01/2016 Right right total shoulder replacement LITHOTRIPSY 07/02/2016 - 07/01/2017 for klidney stone KNEE SURGERY 07/02/2016 - 07/01/2017 revision of knee replacement SPINE SURGERY CATARACT EXTRACTION, BILATERAL OTHER SURGICAL HISTORY 03/02/2022 - 03/31/2022 TAVR HERNIA REPAIR Medical History Medical History Date Comments Sleep apnea Hypertension Coronary artery disease Aortic stenosis Fatty liver PTSD (post-traumatic stress disorder) Fall Hyperlipidemia Depression Skin cancer Family History Medical History Relation Name Comments Colon cancer Father Aditya [place] Coronary artery disease Father Aditya [place] Family history of coronary artery disease - (Added by TW Conv) Heart attack Father Aditya [place] Heart failure Father Aditya [place] Heart attack Maternal Grandfather Kevin Abreu Heart failure Maternal Grandmother Darby Breast cancer Mother Shakila [place] Coronary artery disease Mother Shakila [place] Family history of coronary artery disease - (Added by TW Conv) Heart attack Mother Shakila [place] Stroke Mother Shakila [place] Family his tory of cerebrovascular accident - (Added by TW Conv) Stroke Paternal Grandfather [place] Jayson Diabetes Paternal Grandmother Emilie COPD Sister Gabby (Jayson)Flavin Heart disease Sister Gabby (Jayson)Flavin colostomy Sister Gabby (Jayson)Flavin Anesthesia problems Neg Hx Relation Name Status Comments Father Aditya [place] Maternal Grandfather Kevin Abreu Maternal Grandmother Darby Mother Shakila [place] Paternal Grandfather Alonzo [place] Paternal Grandmother Emilie Sister Gabby (Jayson)Flavin Social History Tobacco Use Types Packs/Day Years Used Date Smoking Tobacco: Former Cigarettes 4 1979 Smokeless Tobacco: Never Tobacco Cessation:Counseling Given: Not Answered Alcohol Use Standard Drinks/Week Comments Not Currently 0 (1 standard drink = 0.6 oz pur e alcohol) AUDIT-C Answer Date Recorded Q1: How often do you have a drink containing alcohol? Never 12/25/2023 Q2: How many drinks containi ng alcohol do you have on a typical day when you are drinking? Patient does not drink Q3: How often do you have si x or more drinks on one occasion? Never 12/25/2023 Personal Safety Answer Date Recorded Have you ever been in or are you currently in a harmful physical or emotional relationship or is someone making you feel afraid or unsafe? Denies 02/27/2024 Sex and Gender Information Value Date Recorded Sex Assigned at Not on file Legal Sex Male 3:19 AM QUALITY AND RELIABILITY ENGINEER Gender Identity Male 01/22/2020 3:16 PM CDT Sexual Orientation Straight 01/22/2020 3: 16 PM CDT Obstetrics History Last Filed Vital Signs Vital Sign Reading Time Taken Comments Blood Pressure 148/88 06/18/2024 11:50 AM QUALITY AND RELIABILITY ENGINEER Pulse 75 06/18/2024 11:50 AM QUALITY AND RELIABILITY ENGINEER Temperature 37 ??C (98.6 ??F) 06/18/2024 10:16 AM QUALITY AND RELIABILITY ENGINEER Respiratory Rate 16 06/18/2024 11:50 AM QUALITY AND RELIABILITY ENGINEER Oxygen Saturation 99% 06/18/2024 11:50 AM QUALITY AND RELIABILITY ENGINEER Inhaled Oxygen Concentration - - Weight 97.3 kg (214 lb 8 oz) 04/24/2024 11:55 AM CDT Height 182.9 cm (6') 04/24/2024 11:55 AM CDT Body Mass Index 29.09 04/24/2024 11:55 AM CDT Plan of Treatment Health Maintenance Due Date Last Done Comments Depression Screening 1943 Hepatitis B Screening 1961 Abdominal Aortic Aneurysm (A AA) Screen 2008 Well Visit 65+ 2008 Pneumococcal vaccine 65+ (2 of 2 - PPSV23 or PCV20) 07/19/2016 07/19/2015 Covid-19 Vaccine (3 - 2023-2 5 season) 2024 08/27/2020, 08/01/2020 Influenza Vaccine (#1) 2024 , 02/25/2020, 04/17/2019, Additional history exists DTaP/Tdap/Td Vaccine (2 - Td or Tdap) 04/15/2024 04/15/2014 Fall Risk Assessment 02/26/2025 02/27/2024 Zoster Vaccine Completed 06/13/2018, 03/07/2018 Medical Devices Implanted Type Area Customer Service Representative Device Identifier Shelf Expiration Date Model / Serial / Lot [employer] 4063 Inspire 3 Electrode Cuff Tunnel [place] Lead Neurostimulator [facility] - [id number] - [id number] Implanted:Qty: 1 on 06/21/2020 by Mahad Chahal MD at [facility] Right: Neck [employer] 01/03/2022 4063 / [id number] / [employer] 4340 Lead Neurostimulator Inspire Respiratory Sens Cycle Strl - [id number] - [id number] Implanted:Qty: 1 on 06/21/2020 by Mahad Chahal MD at [facility] Right: Chest [employer] 01/03/2022 4340 / [id number] / Description:Between ribs [employer] 3028 Generator Neurostimulator - [id number] - [id number] Implanted:Qty: 1 on 06/21/2020 by Mahad Chahal MD at [facility] Right: Chest [employer] 02/15/2023 3028 / [id number] C / Procedures Procedure Name Priority Date/Time Associated Diagnosis Comments PAIN MGMT IMAGING CERVICAL/THORACIC EPIDURAL Schedule Routine, Read Routine (OP Routine) 06/18/2024 11:54 AM QUALITY AND RELIABILITY ENGINEER Cervical radiculopathy Cervical stenosis of spinal canal from Last 3 Months Results * Imaging Cervical/Thoracic Epidural Continuous Infusion (07417) (06/18/2024 11:54 AM QUALITY AND RELIABILITY ENGINEER) Narrative RAD_PACS_CH - 06/18/2024 11:55 AM QUALITY AND RELIABILITY ENGINEER The images from this study are not interpreted by Radiology. ??Please refer to the physician's procedure / OR operative note. us Barby Irvin [employer] SERVICES COORDINATOR IMG PAIN MGMT PROCEDURE S Final Result RAD_PACS_CH from Last 3 Months Insurance [employer] MEDICARE MEDICARE SOLUTIONS [facility] MEDICARE [employer] MEDICARE Advance Directives For more information, please contact: [phone] * Full Code (Latest Code Status on File) Date Activated Date Inactivated Comments 02/27/2024 10:01 AM 02/28/2024 4:42 AM Care Teams Pen Tester Relationship Specialty Start Date End Date Indio Staley MD [address] [facility] [address] [place] [address] [address] [facility] - General 09/11/16
--- OUTSIDE RECORDS SUMMARY | 2024-07-25 00:49 | XMS_ITS | Encounter Summary ---
Author Organization [facility] Address [address] [place] [address]. [place] [address] [place] [address] Care Team Providers Care Executive Search Consultant Name Role Phone Indio Staley MD Primary Care Provider [phone] Theresa Rosas TITLE OFFICER Unavailable [phone] Encounter Details Date Type Department Care Team (Late Contact Info) Description 01/31/2022 Abstract [facility] [facility], [address] [address] Avery Reyes MA Social History Tobacco Use Types Packs/Day Years Used Date Smoking Tobacco: Former Cigarettes Q uit: 11/18/1987 Smokeless Tobacco: Never Alcohol Use Standard Drinks/Week Comments Not Currently 0 (1 standard drink = 0.6 oz pur e alcohol) Sex and Gender Information Value Date Recorded Sex Assigned at Not on file Legal Sex Male 10:23 PM VARNISH THINNER Gender Identity Not on file Sexual Orientation Not on file COVID-19 Exposure Response Date Recorded In the last 10 days, have yo u been in contact with someone who was confirmed or suspected to have Coronavirus/COVID-19? No / Unsure 02/02/2022 11:34 AM CDT documented as of this encounter Plan of Treatment Upcoming Encounters Date Type Department Care Team (Late Contact Info) Description 08/11/2024 1:45 PM VARNISH THINNER Office Visit [facility] [address] [place] [address] Javier Alva MD Three [address] [address] documented as of this encounter Procedures Procedure Name Priority Date/Time Associated Diagnosis Comments HEMOGLOBIN, GLYCOSYLATED Routine 03/20/2023 COMPREHENSIVE METABOLIC PANEL Routine 03/20/2023 LIPID PANEL Routine 03/20/2023 CBC, MANUAL DIFF Routine 03/20/2023 THYROID STIM HORMONE TSH Routine 03/20/2023 VITAMIN D, 25 OH Routine 03/20/2023 COMPREHENSIVE METABOLIC PANEL Routine 09/06/2021 LIPID PANEL Routine 09/06/2021 documented in this encounter Results * VITAMIN D, 25 OH (03/20/2023) Pathologist [facility] VITAMIN D 25 HYDROXY S/P/B 52 03/20/2023 us Default History Genericprovider LABORATORY Final Result * COMPREHENSIVE METABOLIC PANEL (03/20/2023) Pathologist [facility] SODIUM S/P/B 141 GLUCOSE 116 mg/dL AST 20 BUN 22 CREATININE S/P/B 1.02 0.7 - 1.3 CALCIUM S/P/B 10.5 POTASSIUM S/P/B 4.5 CHLORIDE S/P/B 105 ALT 20 GFR ESTIMATE 75 us Default History Genericprovider LABORATORY Final Result * LIPID PANEL (03/20/2023) Pathologist [facility] TRIGLYCERIDES 242 HDL 44 LDL (CALCULATED) 91 NON HDL CHOLESTEROL 125 us Default History Genericprovider LABORATORY Final Result * CBC, MANUAL DIFF (03/20/2023) [facility] WBC 5.0 HGB 15.0 HCT 44.7 Default History Genericprovider LABORATORY Final Result * HEMOGLOBIN, GLYCOSYLATED (03/20/2023) [facility] HGB A1C 5.9 % Default History Genericprovider LABORATORY Final Result * THYROID STIM HORMONE, TSH (03/20/2023) [facility] TSH 3 us Default History Genericprovider LABORATORY Final Result * (ABNORMAL) COMPREHENSIVE METABOLIC PANEL (09/06/2021) [facility] SODIUM S/P/B 140 POTASSIUM S/P/B 4.1 CO2 28 CHLORIDE S/P/B 104 GLUCOSE 124 mg/dL CALCIUM S/P/B 10.2 BUN 17 CREATININE S/P/B 0.9 0.7 - 1.3 EGFR AFR. AMER. 93(A) <=90 EGFR NON-AFR. AMER. 80 <=90 ALT 34 AST 25 BILIRUBIN TOTAL S/P/B 0.7 ALBUMIN S/P/B 4.5 3.5 - 5.0 TOTAL PROTEIN S/P/B 7.0 09/06/2021 us Doc [facility] Abstract LABORATORY Final Result * LIPID PANEL (09/06/2021) [facility] CHOLESTEROL 178 HDL 45 TRIGLYCERIDES 288 NON HDL CHOLESTEROL 133 LDL (CALCULATED) 92 09/06/2021 us Doc [facility] Abstract LABORATORY Final Result documented in this encounter Visit Diagnoses Not on filedocumented in this encounter Care Teams Executive Search Consultant Relationship Specialty Start Date End Date Indio Staley MD [address] [facility] [address] [place] [address] PCP - General FAMILY PRACTICE 01/24/22 Theresa Rosas FNP [address] [facility] [address] [place] [address] Nurse Practitioner Nurse Practitioner Family 01/24/22 documented as of this encounter
--- OUTSIDE RECORDS SUMMARY | 2024-07-25 00:49 | XMS_ITS | Encounter Summary ---
Author Organization [facility] Address [address] [place] [address]. [place], [place] [address] [place] [address] Care Team Providers Care Elementary Science Teacher Name Role Phone Indio Staley MD Primary Care Provider [phone] Theresa Rosas STAFF ELECTRONIC WARFARE OFFICER Unavailable [phone] Encounter Details Date Type Department Care Team (Late st Contact Info) Description 02/27/2022 [employer] Message Enc [facility] [address] [address] [facility] Provider Results Social History Tobacco Use Types Packs/Day Years Used Date Smoking Tobacco: Former Cigarettes Q uit: 11/18/1987 Smokeless Tobacco: Never Alcohol Use Standard Drinks/Week Comments Not Currently 0 (1 standard drink = 0.6 oz pur e alcohol) Sex and Gender Information Value Date Recorded Sex Assigned at Not on file Legal Sex Male 10:23 PM FURNACE REPAIRER HELPER Gender Identity Not on file Sexual Orientation Not on file COVID-19 Exposure Response Date Recorded In the last 10 days, have yo u been in contact with someone who was confirmed or suspected to have Coronavirus/COVID-19? No / Unsure 03/02/2022 10:04 AM CDT documented as of this encounter Functional Status documented as of this encounter Mental Status * Question Answer Entry Date Author Status Because of a physical, mental, or emotional condition, do you have serious difficulty concentrating, remembering, or making decisions? No 03/02/2022 5:47 PM CDT Alma Barrios R N Active documented in this encounter Progress Notes * Sussy Vicente RN - 02/28/2022 5:20 PM CDTSummary: Structural Heart Team He is referring to the instructions given for medication holds by surgical home at his prep clinic visit this week in preparation for his TAVR. I will reach out to the patient to clarify with him. Thank you! * Subhash Cardona MD,PHD - 02/28/2022 3:56 PM CDT Sussy: Can you look into this. He is getting TAVR this week. I am not sure what the patient is referring to. Thanks * Caprice Muller RN - 02/28/2022 2:21 PM CDT Any changes? documented in this encounter Plan of Treatment Upcoming Encounters Date Type Department Care Team (Late st Contact Info) Description 08/11/2024 1:45 PM FURNACE REPAIRER HELPER Office Visit [facility], [facility] [address] [place] [address] Javier Alva MD Three [facility]. [address] [place] [address] documented as of this encounter Visit Diagnoses Not on filedocumented in this encounter Care Teams Elementary Science Teacher Relationship Specialty Start Date End Date Indio Staley MD [address] [place] [address] PCP - General FAMILY PRACTICE 01/24/22 Theresa Rosas FNP [address] [place] [address] Nurse Practitioner Nurse Practitioner Family 01/24/22 documented as of this encounter
--- OUTSIDE RECORDS SUMMARY | 2024-07-25 00:49 | XMS_ITS | Encounter Summary ---
Author Organization [facility] Address [address] [place] [address]. [place], [place] [address] [place] [address] Care Team Providers Care Divinity Professor Name Role Phone Indio Staley MD Primary Care Provider [phone] Theresa Rosas STAFF PSYCHIATRIST Unavailable [phone] Encounter Details Date Type Department Care Team (Late Contact Info) Description 01/31/2022 Hospital Orders Only [facility] [place] [address] Subhash Cardona MD,PHD Social History Tobacco Use Types Packs/Day Years Used Date Smoking Tobacco: Former Cigarettes Q uit: 11/18/1987 Smokeless Tobacco: Never Alcohol Use Standard Drinks/Week Comments Not Currently 0 (1 standard drink = 0.6 oz pur e alcohol) Sex and Gender Information Value Date Recorded Sex Assigned at Not on file Legal Sex Male 10:23 PM TANK FURNACE OPERATOR Gender Identity Not on file Sexual Orientation [...] (Late Contact Info) Description 08/11/2024 1:45 PM TANK FURNACE OPERATOR Office Visit [facility], [place] [address] [place], [place] [id number] Javier Alva MD [address] [place] [address] documented as of this encounter Visit Diagnoses Not on filedocumented in this encounter Care Teams Divinity Professor Relationship Specialty Start Date End Date Indio Staley MD [address] [place] [address] PCP - General FAMILY PRACTICE 01/24/22 Theresa Rosas FNP [address] [place] [address] Nurse Practitioner Nurse Practitioner Family 01/24/22 documented as of this encounter
--- OUTSIDE RECORDS SUMMARY | 2024-07-25 00:49 | XMS_ITS | Clinical Summary ---
Author Organization [facility] Address [address] [place] [address] Care Team Providers Care Lens Marker Name Role Phone Indio Staley MD Primary Care Provider [phone] Source Comments [facility],non-owned Affiliates and Associated Physician Practices is amultiple site organization consisting of ambulatory clinics and hospital sitesin [place], [place], [place] and [place]. This disclosure is being madepursuant to the Care Everywhere program and may not contain all information available regarding this patient. Last updated 18.[facility] Allergies Active Allergy Reactions Criticality Noted Date Comments Gluten Meal Vomiting 07/24/2018 Morphine Rash Medium 07/24/2018 Medications * Be aware that medications may not be up to date on this document. Alwaysverify current medications with the patient. Medication Sig Dispensed Refills Start Date End Date Status lisinopril (PRINIVIL; ZESTRIL) 10 MG tablet Take 10 mg by mouth once daily Active traZODone (DESYREL) 50 MG tablet Take 50 mg by mouth at bedtime Active fenofibrate (LOFIBRA) 160 MG tablet Take 160 mg by mouth once daily Take with largest meal of the day. Active DULoxetine (CYMBALTA) 30 MG capsule Take 30 mg by mouth once daily Active finasteride (PROSCAR) 5 MG tablet Take 5 mg by mouth once daily Active sildenafil (VIAGRA) 50 MG tablet Take 50 mg by mouth once as needed Active Cholecalciferol (VITAMIN D3) 98933 UNITS capsule Take 50,000 Units by mouth every 7 days Active vitamin E (TOCOPHERYL) 400 UNIT capsule Take 400 Units by mouth once daily Active aspirin (ASPIRIN) 81 MG tablet Take 81 mg by mouth once daily Active Ascorbic Acid (VITAMIN C PO) Active Multiple Vitamins-Minerals (MULTIVITAL PO) Active B Complex Vitamins (B COMPLEX 1 PO) Active Probiotic Product (PROBIOTIC DAILY PO) Acti ve azithromycin (ZITHROMAX) 250 MG tabletIndications:Ba cterial URI Take 2 tabs today, then 1 tab daily for next 4 days 6 tablet 07/24/2018 Active benzonatate (TESSALON) 100 MG capsuleIndications:C ough Take 1 capsule by mouth 3 times daily as needed for Cough Reasons: Cough 30 capsule 07/24/2018 Active methylPREDNISolone (MEDROL DOSEPAK) 4 MG tabletIndications:Ac ten bronchitis, unspecified organism Take by mouth as directed 1 Each 07/24/2018 Active Social History Tobacco Use Types Packs/Day Years Used Date Smoking Tobacco: Former Cigarettes Q uit: 1982 Smokeless Tobacco: Never Sex and Gender Information Value Date Recorded Sex Assigned at Not on file Gender Identity Not on file Sexual Orientation Not on file Last Filed Vital Signs Vital Sign Reading Time Taken Comments Blood Pressure 122/78 07/24/2018 3:09 PM RADIATOR CLEANER Pulse 88 07/24/2018 3:09 PM RADIATOR CLEANER Temperature 37.3 ??C (99.2 ??F) 07/24/2018 3:09 PM CS T Respiratory Rate 16 07/24/2018 3:09 PM RADIATOR CLEANER Oxygen Saturation 94% 07/24/2018 3:09 PM RADIATOR CLEANER Inhaled Oxygen Concentration - - Weight 97.5 kg (215 lb) 07/24/2018 3:09 PM RADIATOR CLEANER Height 185.4 cm (6' 1 ) 07/24/2018 3:09 PM RADIATOR CLEANER Body Mass Index 28.37 07/24/2018 3:09 PM RADIATOR CLEANER Plan of Treatment Health Maintenance Due Date Last Done Comments DTAP/TDAP/TD VACCINES (1 - Tdap) 1962 PNEUMOCOCCAL VACCINE 50+ (1 of 1 - PCV) 1993 ZOSTER VACCINE (1 of 2) 1993 Respiratory Syncytial Virus (RSV) Vaccine Pt: or over 60 yrs (1 - 1-dose 75+ series) 2018 COVID-19 VACCINE ( - 2023-2 5 season) 2024 INFLUENZA VACCINE (#1) 2024 DEPRESSION SCREENING 07/02/2024 MEDICARE AWV ? CALENDAR YEAR 2024 HEPATITIS B VACCINE Aged Out No longe r eligible based on patient's age to complete this topic HIB VACCINE Aged Out No longer eligi ble based on patient's age to complete this topic HPV VACCINE Aged Out No longer eligi ble based on patient's age to complete this topic MENINGOCOCCAL (Group B) VACCINE Aged Out No longer eligible based on patient's age to complete this topic MENINGOCOCCAL VACCINE Aged Out No mireya eric eligible based on patient's age to complete this topic Care Teams Lens Marker Relationship Specialty Start Date End Date Indio Staley MD [address] [place] [address] PCP - General Family Medicine 07/24/18
--- OUTSIDE RECORDS SUMMARY | 2024-07-25 00:49 | XMS_ITS | Data Portability ---
[facility] Address [address] [place] [address] Assessment No assessment recorded. Plan of Treatment [...] mcg/0.25mL dose 08/01/2020 completed Chanda Urban LPN [facility], [place] - [place] 08/01/2020 10:23:15 COVID-19, mRNA, LNP-S, PF, 100 mcg/0.5mL dose or 50 mcg/0.25mL dose 08/27/2020 completed LENY Zacarias, [place] - [place] 08/30/2020 12:49:12 Past Encounters Encounter ID Performer Location Encounter Start Date Encounter Closed Date Diagnosis/Indication Diagnosis SNOMED-CT Code Diagnosis ICD10 Code Diagnosis Note [id number] MIMI Pelaez [address] [place] [address] 07/30/2020 11:28:56 08/01/2020 12:24:57 Administration of SARS-CoV-2 antigen vaccine [id number] Z23 [id number] MIMI Pelaez [address] [place] [address] 08/27/2020 11:33:53 08/30/2020 09:12:05 Administration of SARS-CoV-2 antigen vaccine [id number] Z23 Health Concerns Section Related Observation LastModified by Organization Detai ls LastModified Time None Recorded Concern Status LastModified by Organization Details LastModified Time None Recorded Advance Directives Directive None Recorded Payers Encounter Date Sequence Insurance Name Policy Number Policy Sampson Covered Member ID Sampson Member ID Guarantor Name 07/30/2020 1 [facility] (MEDICARE REPLACEMENT/A DVANTAGE - PPO) [id number] John Tyler [id number] John Tyler 08/27/2020 1 [facility] (MEDICARE REPLACEMENT/A DVANTAGE - PPO) [id number] John Tyler [id number] John Tyler 08/27/2020 2 [place] John Tyler [id number] John Tyler
--- OUTSIDE RECORDS SUMMARY | 2024-07-25 00:49 | XMS_ITS | Patient Health Summary ---
Author Organization [facility] Address [address] [facility] [place] [address] Care Team Providers Care Deputy Sheriff Custody Name Role Phone Indio Staley MD Primary Care Provider [phone] Note from [facility],non-owned Affiliates and Associated Physician Practices is amultiple site organization consisting of ambulatory clinics and hospital sitesin [place], [place], [place] and [place]. This disclosure is being madepursuant to the Care Everywhere program and may not contain all information available regarding this patient. Last updated 18.[facility] Allergies * Gluten Meal(Vomiting) * Morphine(Rash) -Medium Criticality Medications * Be aware that medications may not be up to date on this document. Alwaysverify current medications with the patient. * lisinopril (PRINIVIL; ZESTRIL) 10 MG tablet Take 10 mg by mouth once daily * traZODone (DESYREL) 50 MG tablet Take 50 mg by mouth at bedtime * fenofibrate (LOFIBRA) 160 MG tablet Take 160 mg by mouth once daily Take with largest meal of the day. * DULoxetine (CYMBALTA) 30 MG capsule Take 30 mg by mouth once daily * finasteride (PROSCAR) 5 MG tablet Take 5 mg by mouth once daily * sildenafil (VIAGRA) 50 MG tablet Take 50 mg by mouth once as needed * Cholecalciferol (VITAMIN D3) 89443 UNITS capsule Take 50,000 Units by mouth every 7 days * vitamin E (TOCOPHERYL) 400 UNIT capsule Take 400 Units by mouth once daily * aspirin (ASPIRIN) 81 MG tablet Take 81 mg by mouth once daily * Ascorbic Acid (VITAMIN C PO) * Multiple Vitamins-Minerals (MULTIVITAL PO) * B Complex Vitamins (B COMPLEX 1 PO) * Probiotic Product (PROBIOTIC DAILY PO) * azithromycin (ZITHROMAX) 250 MG tablet(Started 07/24/2018) Take 2 tabs today, then 1 tab daily for next 4 days * benzonatate (TESSALON) 100 MG capsule(Started 07/24/2018) Take 1 capsule by mouth 3 times daily as needed for Cough Reasons: Cough * methylPREDNISolone (MEDROL DOSEPAK) 4 MG tablet(Started 07/24/2018) Take by mouth as directed Social History Tobacco Use Types Packs/Day Years Used Date Smoking Tobacco: Former Cigarettes Q uit: 1982 Smokeless Tobacco: Never Sex and Gender Information Value Date Recorded Sex Assigned at Not on file Gender Identity Not on file Sexual Orientation Not on file Last Filed Vital Signs Vital Sign Reading Time Taken Comments Blood Pressure 122/78 07/24/2018 3:09 PM ENVIRONMENTAL PROTECTION INSPECTOR Pulse 88 07/24/2018 3:09 PM ENVIRONMENTAL PROTECTION INSPECTOR Temperature 37.3 ??C (99.2 ??F) 07/24/2018 3:09 PM CS T Respiratory Rate 16 07/24/2018 3:09 PM ENVIRONMENTAL PROTECTION INSPECTOR Oxygen Saturation 94% 07/24/2018 3:09 PM ENVIRONMENTAL PROTECTION INSPECTOR Inhaled Oxygen Concentration - - Weight 97.5 kg (215 lb) 07/24/2018 3:09 PM ENVIRONMENTAL PROTECTION INSPECTOR Height 185.4 cm (6' 1 ) 07/24/2018 3:09 PM ENVIRONMENTAL PROTECTION INSPECTOR Body Mass Index 28.37 07/24/2018 3:09 PM ENVIRONMENTAL PROTECTION INSPECTOR Procedures * STREP A SCREEN - POINT OF CARE (AMB) STL(Performed 07/24/2018) Performed for Bacterial URI * INFLUENZA A+B - POINT OF CARE (AMB)(Performed 07/24/2018) Performed for Bacterial URI Results * STREP A SCREEN (07/24/2018) Pathologist [facility] Strep A Rapid POCT Negative Negative Strep A Internal Control Present Lot # [id number] Expiration Date 09/30/19 Throat ENTIRE THROAT (SURFACE REGION OF NECK) / Unknown 07/24/2018 Luanne Jacobs CHRISTMAS TREE FARMER-INVENTORY CONTROL MANAGER LAB - POINT OF CA RE ORDERABLES * INFLUENZA A+B - POINT OF CARE (AMB) (07/24/2018) Influenza A Antigen Rapid Negative Negative Influenza B Antigen Rapid Negative Negative Influenza Internal Control yes NEGATIVE - POSITIVE Influenza Lot Number [id number] Influenza Expiration Date 03/15/20 Other NASOPHARYNGEAL SWAB / Unknown 07/24/2018 Luanne Deann Arlene [employer]RISTMAS TREE FARMER-INVENTORY CONTROL MANAGER LAB - POINT OF CA RE ORDERABLES Care Teams Deputy Sheriff Custody Relationship Specialty Start Date End Date Indio Staley MD [address] [place] [address] PCP - General Family Medicine 07/24/18
--- OUTSIDE RECORDS SUMMARY | 2024-07-25 00:49 | XMS_ITS | Referral Summary ---
Author Organization [facility] [employer] Address [address] [facility] [place] [address] Care Team Providers Care Industrial Economics Professor Name Role Phone Indio Staley MD Primary Care Provider [phone] Source Comments [facility] [employer],non-owned Affiliates and Associated Physician Practices is amultiple site organization consisting of ambulatory clinics and hospital sitesin [place], [place], [place] and [place]. This disclosure is being madepursuant to the Care Everywhere program and may not contain all information available regarding this patient. Last updated 18.[facility] Allergies Active Allergy Reactions Criticality Noted Date [...] once as needed Active Cholecalciferol (VITAMIN D3) 16014 UNITS capsule Take 50,000 Units by mouth [...] Comments Blood Pressure 122/78 07/24/2018 3:09 PM ELECTRICIAN YARD Pulse 88 07/24/2018 3:09 PM ELECTRICIAN YARD Temperature 37.3 ??C (99.2 ??F) 07/24/2018 3:09 PM CS T Respiratory Rate 16 07/24/2018 3:09 PM ELECTRICIAN YARD Oxygen Saturation 94% 07/24/2018 3:09 PM ELECTRICIAN YARD Inhaled Oxygen Concentration - - Weight 97.5 kg (215 lb) 07/24/2018 3:09 PM ELECTRICIAN YARD Height 185.4 cm (6' 1 ) 07/24/2018 3:09 PM ELECTRICIAN YARD Body Mass Index 28.37 07/24/2018 3:09 PM ELECTRICIAN YARD Plan of Treatment Not on file Care Teams Industrial Economics Professor Relationship Specialty Start Date End Date Indio Staley MD [address] [place], [place] [address] PCP - General Family Medicine 07/24/18
--- OUTSIDE RECORDS SUMMARY | 2024-07-25 00:50 | XMS_ITS | Referral Summary ---
Author Organization [facility] Address [address] [place] [address] Care Team Providers Care Board Certified Music Therapist Name Role Phone Indio Staley MD Primary Care Provider Encounters Date Type Department Care Team Description 06/18/2024 9:45 AM ART OBJECTS SUPERVISOR - 06/18/2024 11:59 PM ART OBJECTS SUPERVISOR Hospital Encounter [facility] [address] [place] [address] Adria Lau MD Cervical radiculopathy; Cervical stenosis of spinal canal Discharge Disposition: Discharge to home or self care 04/28/2024 Telephone [facility] [address] [place] [address] Adria Lau MD Additional Services Or Orders (CT cervical) 04/24/2024 Orders Only [facility] [address] [place] [address] Adria Lau MD Cervical stenosis of spinal canal (Primary Dx); Cervical radiculopathy 04/24/2024 Telephone [facility] [address] [place] [address] Adria Lau MD 04/24/2024 12:00 PM CDT Office Visit [facility] [address] [place] [address] 6[address] [place] [address] Mario Graff PA JERAD (obstructive sleep apnea) (Primary Dx); Primary hypertension; S/P placement of hypoglossal nerve stimulator from Last 3 Months Allergies Active Allergy Reactions Criticality Noted Date [...] mg total) by mouth daily as needed 0 Active cholecalciferol (VITAMIN D-3) 5,000 unit [...] (05/14/2020): Added automatically from request for surgery [id number] Sleep apnea 02/17/2020 Right shoulder pain 01/19/2016 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 ( CMS/HCC) 10/22/2015 Abnormal liver enzymes 07/01/2014 Osteoporosis 10/24/2013 Hypertension 04/16/2013 Hay fever 04/16/2012 Hyperlipidemia 03/15/2012 jail use of drug 03/15/2012 Long-term current use of steroids 07/24/2011 Arthralgia of multiple joints 01/20/2011 Polyosteoarthritis, unspecified 01/20/2011 Encounter for preventive health examination 10/30 Social History Tobacco Use Types Packs/Day Years Used Date Smoking Tobacco: Former Cigarettes 4 23 1 957 - 1979 Smokeless Tobacco: Never Tobacco Cessation:Counseling Given: [...] on file Legal Sex Male 3:19 AM ART OBJECTS SUPERVISOR Gender Identity Male 01/22/2020 3:16 PM CDT Sexual Orientation Straight 01/22/2020 3: 16 PM CDT Last Filed Vital Signs Vital Sign Reading Time Taken Comments Blood Pressure 148/88 06/18/2024 11:50 AM ART OBJECTS SUPERVISOR Pulse 75 06/18/2024 11:50 AM ART OBJECTS SUPERVISOR Temperature 37 ??C (98.6 ??F) 06/18/2024 10:16 AM ART OBJECTS SUPERVISOR Respiratory Rate 16 06/18/2024 11:50 AM ART OBJECTS SUPERVISOR Oxygen Saturation 99% 06/18/2024 11:50 AM ART OBJECTS SUPERVISOR Inhaled Oxygen Concentration - - Weight 97.3 kg (214 lb 8 oz) 04/24/2024 11:55 AM CDT Height 182.9 cm (6') 04/24/2024 11:55 AM CDT Body Mass Index 29.09 04/24/2024 11:55 AM CDT Plan of Treatment Not on file Medical Devices Implanted Type Area Clerical Warehouseman Device Identifier Shelf Expiration Date Model / Serial / Lot [employer] 4063 Inspire 3 Electrode Cuff Tunnel Broderick Lead Neurostimulator Sterile - [id number] - [id number] Implanted:Qty: 1 on 06/21/2020 by Mahad Chahal MD at [facility] Right: Neck [employer] 01/03/2022 4063 / [id number] / [employer] 4340 Lead Neurostimulator Inspire Respiratory Sens Cycle Strl Lf - [id number] - [id number] Implanted:Qty: 1 on 06/21/2020 by Mahad Chahal MD at [facility] Right: Chest [employer] 01/03/2022 4340 / [id number] / Description:Between ribs [employer] 3028 Generator Neurostimulator - [id number] - [id number] Implanted:Qty: 1 on 06/21/2020 by Mahad Chahal MD at [facility] Right: Chest [employer] 02/15/2023 3028 / [id number] / Procedures Procedure Name Priority Date/Time Associated Diagnosis Comments PAIN MGMT IMAGING CERVICAL/THORACIC EPIDURAL Schedule Routine, Read Routine (OP Routine) 06/18/2024 11:54 AM ART OBJECTS SUPERVISOR Cervical radiculopathy Cervical stenosis of spinal canal from Last 3 Months Results * Imaging Cervical/Thoracic Epidural Continuous Infusion ([id number]) (06/18/2024 11:54 AM ART OBJECTS SUPERVISOR) Narrative [facility] - 06/18/2024 11:55 AM ART OBJECTS SUPERVISOR The images from this study are not interpreted by Radiology. ??Please refer to the physician's procedure / OR operative note. us Barby Irvin HIDE WORKER IMG PAIN MGMT PROCEDURE S Final Result Performing Organization Address City/State/[facility] Co de Phone Number [facility] from Last 3 Months Insurance [facility] MEDICARE MEDICARE SOLUTIONS [facility] MEDICARE Address: [address] [address] [place] [address] [facility] Address: [address] [place] [address] [employer] MEDICARE Advance Directives For more information, please contact: [phone] * Full Code (Latest Code Status on File) Date Activated Date Inactivated Comments 02/27/2024 10:01 AM 02/28/2024 4:42 AM Care Teams Board Certified Music Therapist Relationship Specialty Start Date End Date Indio Staley MD [address] [facility] [address] [place] [address] PCP - General 09/11/16
== END 2024-07-23 13:03 | disposition home or self-care (01) ==
LOC: ANHLAB 13:02
PROVIDERS: PCP Family Medicine; Visit Provider Internal Medicine Gastroenterology
DX: K52.9 Noninfective gastroenteritis and colitis, unspecified (principal)
CPT/HCPCS: 83993

== ENCOUNTER 2024-08-03 14:01 | Emergency (ER) | payer MEDICARE, SELFPAY ==
[2024-08-03] VITALS (17 sets, daily range): BP systolic 114–150; BP diastolic 75–95; PULSE 82–110; RESP 12–25; TEMP 37.1–37.4; O2SAT 93–99
--- NOTE | ~2024-08-03 | XR_ITS ---
HISTORY: infection, r/o fb COMPARISON: None TECHNIQUE: 3 views of the left fifth digit were performed FINDINGS: No acute or subacute fracture. Joint spaces are narrowed but alignment is unremarkable. Soft tissue swelling of the left fifth digit, without radiopaque foreign body or significant calcific ation. Normal mineralization. IMPRESSION: No radiopaque foreign body is appreciated. Soft tissue swelling is noted Reviewed, dictated and finalized at location A. RINARY SURGERY TECHNOLOGIST
--- OUTSIDE RECORDS SUMMARY | 2024-08-03 14:02 | XMS_ITS | Referral Summary ---
Author Organization [facility] al Address [address] [place] [address] Care Team Providers Care Turkey Egg Gatherer Name Role Phone Indio Staley MD Primary Care Provider Encounters Date Type Department Care Team Description 07/30/2024 9:43 AM GARMENT FOLDER - 07/30/2024 11:59 PM GARMENT FOLDER Hospital Encounter [facility] [address] [place] [address] Barby Irvin NP Cervical stenosis of spinal canal (Primary Dx); Sacroiliitis (HCC); Cervical radiculopathy; Lumbar radicular pain; Lumbar stenosis without neurogenic claudication; Primary hypertension Discharge Disposition: Discharge to home or self care 06/18/2024 9:45 AM GARMENT FOLDER - 06/18/2024 11:59 PM GARMENT FOLDER Hospital Encounter [facility] [address] [place] [address] Adria Lau MD Cervical radiculopathy; Cervical stenosis of spinal canal Discharge Disposition: Discharge to home or self care from Last 3 Months Allergies Active Allergy Reactions Criticality Noted Date Comments Gluten Vomiting Low 07/24/2018 Morphine Other (See comments),Rash Medium 07/24/2018 Reaction: OTHER, Medications fenofibrate (TRIGLIDE) 160 mg tabletIndicatio ns:hypertriglyc eridemia Take 1 tablet (160 mg total) by mouth every morning 2 8 Active finasteride (PROSCAR) 5 mg tablet Take 1 tablet (5 mg total) by mouth every morning 6 8 Active trazodone HCl (TRAZODONE ORAL)Indication s:insomnia associated with depression Take 100 mg by [...] mouth nightly Active tadalafiL (CIALIS) 20 mg tabletIndicatio ns:Erectile Dysfunction Take 1 tablet (20 mg total) by mouth daily as needed 0 Active cholecalciferol (VITAMIN D-3) 5,000 unit tablet Take 1 tablet (5,000 Units total) by mouth every morning Active aspirin 81 mg enteric coated tablet Take 1 tablet (81 mg total) by mouth every morning Active LISINOPRIL ORAL Take 20 mg by mouth daily 2 Active acetaminophen ER (TYLENOL) 650 mg 8 hr tablet 4 Active HYDROcodone-nadege taminophen (NORCO) 5-325 mg per tabletIndicatio ns:Pain Take 1 tablet by mouth 2 (two) times a day as needed for pain 30 tablet 5 Active magnesium gluconate 200 mg tabletIndicatio ns:hypomagnesem ia 1 tablet (200 mg total) 025 Discontin ued(Thera py completed ) sildenafiL (VIAGRA) 100 mg tablet Take 1 tablet (100 mg total) by mouth daily as needed for erectile dysfunction 025 Discontin ued(Thera py completed ) Active Problems Problem Noted Date Diagnosed Date Lumbar stenosis without neurogenic claudication 03/25/2024 Lumbar radicular pain 03/25/2024 Cervical radiculopathy 03/25/2024 Cervical stenosis of spinal canal 03/25/2024 S/P TAVR (transcatheter aortic valve replacement ) 03/04/2024 Sacroiliitis 12/25/2023 Allergic rhinitis 08/10/2020 JERAD (obstructive sleep apnea) 05/14/2020 Overview (05/14/2020): Added automatically from request for surgery [id number] Sleep apnea 02/17/2020 Right shoulder pain 01/19/2016 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 ( CMS/HCC) 10/22/2015 Abnormal liver enzymes 07/01/2014 Osteoporosis 10/24/2013 Hypertension 04/16/2013 Hay fever 04/16/2012 Hyperlipidemia 03/15/2012 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 inspector use of drug 03/15/2012 Long-term current use [...] on file Legal Sex Male 3:19 AM GARMENT FOLDER Gender Identity Male 01/22/2020 3:16 PM CDT Sexual Orientation Straight 01/22/2020 3: 16 PM CDT Last Filed Vital Signs Vital Sign Reading Time Taken Comments Blood Pressure 136/84 07/30/2024 10:24 AM GARMENT FOLDER Pulse 68 07/30/2024 10:24 AM GARMENT FOLDER Temperature 37 ??C (98.6 ??F) 06/18/2024 10:16 AM GARMENT FOLDER Respiratory Rate 16 07/30/2024 10:24 AM GARMENT FOLDER Oxygen Saturation 99% 07/30/2024 10:24 AM GARMENT FOLDER Inhaled Oxygen Concentration - - Weight 97.3 kg (214 lb 8 oz) 04/24/2024 11:55 AM CDT Height 182.9 cm (6') 04/24/2024 11:55 AM CDT Body Mass Index 29.09 04/24/2024 11:55 AM CDT Plan of Treatment Not on file Medical Devices Implanted Type Area Acid Painter Device Identifier Shelf Expiration Date Model / Serial / Lot [employer] 4063 Inspire 3 Electrode Cuff Tunnel Broderick Lead Neurostimulator Sterile - [id number] - [id number] Implanted:Qty: 1 on 06/21/2020 by Mahad Chahal MD at [facility] Right: Neck [employer] 01/03/2022 4063 / [id number] / [employer] 4340 Lead Neurostimulator Inspire Respiratory Sens Cycle Strl Lf - [id number] - [id number] Implanted:Qty: 1 on 06/21/2020 by Mahad Chahal MD at [facility] Right: Chest [employer] 01/03/2022 4340 / [id number] / Description:Between ribs [employer] 3028 Generator Neurostimulator - [id number] - [id number] Implanted:Qty: 1 on 06/21/2020 by Mahad Chahal MD at [facility] Right: Chest [employer] 02/15/2023 3028 / [id number] C / Procedures Procedure Name Priority Date/Time Associated Diagnosis Comments PAIN MGMT IMAGING CERVICAL/THORACIC EPIDURAL Schedule Routine, Read Routine (OP Routine) 06/18/2024 11:54 AM GARMENT FOLDER Cervical radiculopathy Cervical stenosis of spinal canal from Last 3 Months Results * Imaging Cervical/Thoracic Epidural Continuous Infusion (05343) (06/18/2024 11:54 AM GARMENT FOLDER) Narrative RAD_PACS_CH - 06/18/2024 11:55 AM GARMENT FOLDER The images from this study are not interpreted by Radiology. ??Please refer to the physician's procedure / OR operative note. us Barby Irvin TAX MANAGER IMG PAIN MGMT PROCEDURE S Final Result RAD_PACS_CH from Last 3 Months Insurance T MEDICARE MEDICARE SOLUTIONS AET MEDICARE AETNA MEDICARE Advance Directives For more information, please contact: [phone] * Full Code (Latest Code Status on File) Date Activated Date Inactivated Comments 02/27/2024 10:01 AM 02/28/2024 4:42 AM Care Teams Turkey Egg Gatherer Relationship Specialty Start Date End Date Indio Staley MD [address] [facility] [address] [place] [address] PCP - General 09/11/16
--- OUTSIDE RECORDS SUMMARY | 2024-08-03 14:02 | XMS_ITS | Encounter Summary ---
Author Organization [facility] Address [address] [place] [address]. [place] [address] [place] [address] Care Team Providers Care Senior Compliance Officer Name Role Phone Indio Staley MD Primary Care Provider [phone] Theresa Rosas CHEMICAL CELL CHANGER Unavailable [phone] Encounter Details Date Type Department Care Team (Late Contact Info) Description 01/31/2022 Abstract [facility], [address] [address] Avery Reyes MA Social History Tobacco Use Types Packs/Day Years Used Date Smoking Tobacco: Former Cigarettes Q uit: 11/18/1987 Smokeless Tobacco: Never Alcohol Use Standard Drinks/Week Comments Not Currently 0 (1 standard drink = 0.6 oz pur e alcohol) Sex and Gender Information Value Date Recorded Sex Assigned at Not on file Legal Sex Male 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 Gender Identity Not on file Sexual Orientation [...] (Late Contact Info) Description 08/11/2024 1:45 PM MARKETING SALES SUPERVISOR Office Visit [facility], [facility] [address] [place] [address] Javier Alva MD Three [address] [address] documented as of this encounter Procedures Procedure [...] * VITAMIN D, 25 OH (03/20/2023) Pathologist [facility] VITAMIN D 25 HYDROXY S/P/B 52 03/20/2023 us Default History Genericprovider LABORATORY Final Result * COMPREHENSIVE METABOLIC PANEL (03/20/2023) Pathologist [facility] SODIUM S/P/B 141 GLUCOSE 116 mg/dL AST 20 BUN 22 CREATININE S/P/B 1.02 0.7 - 1.3 CALCIUM S/P/B 10.5 POTASSIUM S/P/B 4.5 CHLORIDE S/P/B 105 ALT 20 GFR ESTIMATE 75 us Default History Genericprovider LABORATORY Final Result * LIPID PANEL (03/20/2023) Pathologist [facility] TRIGLYCERIDES 242 HDL 44 LDL (CALCULATED) 91 NON HDL CHOLESTEROL 125 us Default History Genericprovider LABORATORY Final Result * CBC, MANUAL DIFF (03/20/2023) [facility] WBC 5.0 HGB 15.0 HCT 44.7 Default History Genericprovider LABORATORY Final Result * HEMOGLOBIN, GLYCOSYLATED (03/20/2023) [facility] HGB A1C 5.9 % Default History Genericprovider LABORATORY Final Result * THYROID STIM HORMONE, TSH (03/20/2023) [facility] TSH 3 us Default History Genericprovider LABORATORY Final Result * (ABNORMAL) COMPREHENSIVE METABOLIC PANEL (09/06/2021) [facility] SODIUM S/P/B 140 POTASSIUM S/P/B 4.1 [...] LABORATORY Final Result * LIPID PANEL (09/06/2021) [facility] CHOLESTEROL 178 HDL 45 TRIGLYCERIDES 288 NON HDL CHOLESTEROL 133 LDL (CALCULATED) 92 09/06/2021 us Doc [facility] Abstract LABORATORY Final Result documented in this encounter Visit Diagnoses Not on filedocumented in this encounter Care Teams Senior Compliance Officer Relationship Specialty Start Date End Date Indio Staley MD [address] [facility] [address] [place] [address] PCP - General FAMILY PRACTICE 01/24/22 Theresa Rosas FNP [address] [facility] [address] [place] [address] Nurse Practitioner Nurse Practitioner Family 01/24/22 documented as of this encounter
--- OUTSIDE RECORDS SUMMARY | 2024-08-03 14:02 | XMS_ITS | Encounter Summary ---
Author Organization [facility] Address [address] [place] [address]. [place] [address] [place] [address] Care Team Providers Care Vendor Relationship Manager Name Role Phone Indio Staley MD Primary Care Provider [phone] Theresa Rosas BELT TENDER Unavailable [phone] Encounter Details Date Type Department Care Team (Late Contact Info) Description 01/31/2022 Hospital Orders Only [facility] [place] [address] Subhash Cardona MD,PHD Social History Tobacco Use Types Packs/Day Years Used Date Smoking Tobacco: Former Cigarettes Q uit: 11/18/1987 Smokeless Tobacco: Never Alcohol Use Standard Drinks/Week Comments Not Currently 0 (1 standard drink = 0.6 oz pur e alcohol) Sex and Gender Information Value Date Recorded Sex Assigned at Not on file Legal Sex Male 10:23 PM BOTTLE PACKER Gender Identity Not on file Sexual Orientation [...] (Late Contact Info) Description 08/11/2024 1:45 PM BOTTLE PACKER Office Visit [facility], [place] [address] [place], [place] [id number] Javier Alva MD [place] [place] [address] documented as of this encounter Visit Diagnoses Not on filedocumented in this encounter Care Teams Vendor Relationship Manager Relationship Specialty Start Date End Date Indio Staley MD [address] [place] [address] PCP - General FAMILY PRACTICE 01/24/22 Theresa Rosas FNP [address] [place] [address] Nurse Practitioner Nurse Practitioner Family 01/24/22 documented as of this encounter
--- OUTSIDE RECORDS SUMMARY | 2024-08-03 14:02 | XMS_ITS | Encounter Summary ---
Author Organization [facility] Address [address] [place] [address]. [place] [address] [place] [address] Care Team Providers Care Operational Communication Chief Name Role Phone Indio Staley MD Primary Care Provider [phone] Theresa Rosas JUNIOR ACCOUNTANT Unavailable [phone] Encounter Details Date Type Department Care Team (Latest Contact Info) Description 09/22/2022 [employer] Message Enc [facility] [address] [place] [address] Subhash Cardona MD,PHD cancelled appointment Social History Tobacco Use Types Packs/Day Years Used Date Smoking Tobacco: Former Cigarettes Q uit: 11/18/1987 Smokeless Tobacco: Never Alcohol Use Standard Drinks/Week Comments Not Currently 0 (1 standard drink = 0.6 oz pur e alcohol) Sex and Gender Information Value Date Recorded Sex Assigned at Not on file 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 [place] [address] [place], [place] [id number] documented as of this encounter Goals Goal Patient Goal Type Associated Problems Recent Progress Patient-Stated? Author Health - patient able to perform ADLs independently Lifestyle No Urbano Gifford RN documented as of this encounter Visit Diagnoses Not on filedocumented in this encounter Care Teams Operational Communication Chief Relationship Specialty Start Date End Date Indio Staley MD [address] [place] [address] PCP - General FAMILY PRACTICE 01/24/22 Theresa Rosas FNP [address] [place] [address] Nurse Practitioner Nurse Practitioner Family 01/24/22 documented as of this encounter
--- OUTSIDE RECORDS SUMMARY | 2024-08-03 14:02 | XMS_ITS | Clinical Summary ---
Author Organization 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 use of drug 03/15/2012 Long-term current use of steroids 07/24/2011 Arthralgia of multiple joints 01/20/2011 Polyosteoarthritis, unspecified 01/20/2011 Encounter for preventive health examination 10/30 Encounters Date Type Department Care Team Description 07/30/2024 9:43 AM ENDOSCOPE TECHNICIAN - 07/30/2024 11:59 PM ENDOSCOPE TECHNICIAN Hospital Encounter [facility] [address] [place] [address] Barby Irvin NP Cervical stenosis of spinal canal (Primary Dx); Sacroiliitis (HCC); Cervical radiculopathy; Lumbar radicular pain; Lumbar stenosis without neurogenic claudication; Primary hypertension Discharge Disposition: Discharge to home or self care 06/18/2024 9:45 AM ENDOSCOPE TECHNICIAN - 06/18/2024 11:59 PM ENDOSCOPE TECHNICIAN Hospital Encounter [facility] [address] [place] [address] Adria Lau MD Cervical radiculopathy; Cervical stenosis of spinal canal Discharge Disposition: Discharge to home or self care from Last 3 Months Surgical History Surgery [...] (Added by TW Conv) Stroke Paternal Grandfather Dorris Jayson Diabetes Paternal Grandmother Emilie COPD Sister Gabby (Jayson)Flavin Heart disease Sister Gabby (Jayson)Flavin colostomy Sister Gabby (Jayson)Flavin Anesthesia problems Neg Hx Relation Name Status Comments Father Aditya Tyler Maternal Grandfather Kevin Abreu Maternal Grandmother Darby Mother Shakila Tyler Paternal Grandfather Alonzo Tyler Paternal Grandmother Emilie Sister Gabby (Jayson)Flavin Social History Tobacco Use Types Packs/Day Years Used Date Smoking Tobacco: Former Cigarettes 4 7 - 1979 Smokeless Tobacco: Never Tobacco Cessation:Counseling [...] on file Legal Sex Male 3:19 AM ENDOSCOPE TECHNICIAN Gender Identity Male 01/22/2020 3:16 PM CDT Sexual Orientation Straight 01/22/2020 3: 16 PM CDT Obstetrics History Last Filed Vital Signs Vital Sign Reading Time Taken Comments Blood Pressure 136/84 07/30/2024 10:24 AM ENDOSCOPE TECHNICIAN Pulse 68 07/30/2024 10:24 AM ENDOSCOPE TECHNICIAN Temperature 37 ??C (98.6 ??F) 06/18/2024 10:16 AM ENDOSCOPE TECHNICIAN Respiratory Rate 16 07/30/2024 10:24 AM ENDOSCOPE TECHNICIAN Oxygen Saturation 99% 07/30/2024 10:24 AM ENDOSCOPE TECHNICIAN Inhaled Oxygen Concentration - - Weight 97.3 [...] 06/13/2018, 03/07/2018 Medical Devices Implanted Type Area Material Control Clerk Device Identifier Shelf Expiration Date Model / Serial / Lot [employer] 4063 Inspire 3 Electrode Cuff Tunnel Broderick Lead Neurostimulator Sterile - [id number] - [id number] Implanted:Qty: 1 on 06/21/2020 by Mahad Chahal MD at [facility] Right: Neck [employer] 01/03/2022 4063 / [id number] / [employer] 4340 Lead Neurostimulator Inspire Respiratory Sens Cycle Strl - [id number] - [id number] Implanted:Qty: 1 on 06/21/2020 by Mahad Chahal MD at [facility] Right: Chest [employer] 01/03/2022 4340 / [id number] / Description:Between ribs [employer] 3028 Generator Neurostimulator - [id number] - [id number] Implanted:Qty: 1 on 06/21/2020 by Mahad Chahal MD at [facility] Right: Chest [employer] 02/15/2023 3028 / [id number] C / Procedures Procedure Name Priority Date/Time Associated Diagnosis Comments PAIN MGMT IMAGING CERVICAL/THORACIC EPIDURAL Schedule Routine, Read Routine (OP Routine) 06/18/2024 11:54 AM ENDOSCOPE TECHNICIAN Cervical radiculopathy Cervical stenosis of spinal canal from Last 3 Months Results * Imaging Cervical/Thoracic Epidural Continuous Infusion (30592) (06/18/2024 11:54 AM ENDOSCOPE TECHNICIAN) Narrative RAD_PACS_CH - 06/18/2024 11:55 AM ENDOSCOPE TECHNICIAN The images from this study are not interpreted by Radiology. ??Please refer to the physician's procedure / OR operative note. us Barby Irvin PAINTING MANAGER IMG PAIN MGMT PROCEDURE S Final Result RAD_PACS_CH from Last 3 Months Insurance [facility] MEDICARE MEDICARE SOLUTIONS T MEDICARE [facility] MEDICARE Advance Directives For more information, please contact: [phone] * Full Code (Latest Code Status on File) Date Activated Date Inactivated Comments 02/27/2024 10:01 AM 02/28/2024 4:42 AM Care Teams Manager Utilization Relationship Specialty Start Date End Date Indio Staley MD [address] [facility] [address] [place] [address] PCP - General 09/11/16
--- OUTSIDE RECORDS SUMMARY | 2024-08-03 14:02 | XMS_ITS | Encounter Summary ---
Author Organization [facility] Address [address] [place] [address]. [place], [place] [address] [place] [address] Care Team Providers Care Landing Gear Mechanic Name Role Phone Indio Staley MD Primary Care Provider [phone] Theresa Rosas BAIT PACKER Unavailable [phone] Encounter Details Date Type Department Care Team (Late Contact Info) Description 02/09/2022 [facility] Message Enc [facility], [address] [address] [place], [facility] Provider Results Social History Tobacco Use Types Packs/Day Years Used Date Smoking Tobacco: Former Cigarettes Q uit: 11/18/1987 Smokeless Tobacco: Never Alcohol Use Standard Drinks/Week Comments Not Currently 0 (1 standard drink = 0.6 oz pur e alcohol) Sex and Gender Information Value Date Recorded Sex Assigned at Not on file 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 Gender Identity Not on file Sexual Orientation [...] (Late Contact Info) Description 08/11/2024 1:45 PM SOFTBALL CORE MOLDER Office Visit [facility], [address] [address] Javier Alva MD [place] [address] [place] [address] documented as of this encounter Visit Diagnoses Not on filedocumented in this encounter Care Teams Landing Gear Mechanic Relationship Specialty Start Date End Date Indio Staley MD [address] [place] [address] PCP - General FAMILY PRACTICE 01/24/22 Theresa Rosas FNP [address] [place] [address] Nurse Practitioner Nurse Practitioner Family 01/24/22 documented as of this encounter
--- OUTSIDE RECORDS SUMMARY | 2024-08-03 14:02 | XMS_ITS | Encounter Summary ---
Author Organization [facility] Address [address] [place] [address]. [place] [address] [place] [address] Care Team Providers Care Senior Pastor Name Role Phone Indio Staley MD Primary Care Provider [phone] Theresa Rosas PLATE WASHER Unavailable [phone] Encounter Details Date Type Department Care Team (Late st Contact Info) Description 02/27/2022 [employer] Message Enc [facility] THREE [address] [address] [place] Provider Results Social History Tobacco Use Types Packs/Day Years Used Date Smoking Tobacco: Former Cigarettes Q uit: 11/18/1987 Smokeless Tobacco: Never Alcohol Use Standard Drinks/Week Comments Not Currently 0 (1 standard drink = 0.6 oz pur e alcohol) Sex and Gender Information Value Date Recorded Sex Assigned at Not on file 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, [facility] [address] [place] [address] Javier Alva MD Three [facility]. [place] [address] [place] [address] documented as of this encounter Visit Diagnoses Not on filedocumented in this encounter Care Teams Senior Pastor Relationship Specialty Start Date End Date Indio Staley MD [address] [place] [address] PCP - General FAMILY PRACTICE 01/24/22 Theresa Rosas FNP [address] [place] [address] Nurse Practitioner Nurse Practitioner Family 01/24/22 documented as of this encounter
--- OUTSIDE RECORDS SUMMARY | 2024-08-03 14:02 | XMS_ITS | Clinical Summary ---
Author Organization [facility] Address [address] [place] [address]. [place] [address] [place] [address] Care Team Providers Care Editor Newspaper Name Role Phone Indio Staley MD Primary Care Provider [phone] Theresa Rosas CINDER PIT WORKER Unavailable [phone] Allergies Active Allergy Reactions Criticality Noted Date [...] velocity. Assessment & Plan (07/19/2023 11:44 AM JOINT YARNER): Echo gradients have improved after anticoagulation with warfarin. Continue warfarin for now. 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 Will repeat echocardiogram in July of next year to evaluate valve velocity after discontinuation of warfarin. Requires antibiotic prophylaxis prior to all dental procedures. Assessment & Plan (07/27/2023 12:27 PM JOINT YARNER): Echo shows valve velocities and gradients have decreased after starting anticoagulation. Continue antibiotic prophylaxis prior to dental procedures. Refer to cardiac rehab. Assessment & Plan (06/26/2023 6:50 AM JOINT YARNER): Echo shows valve velocities and gradients are elevated. Recommend starting anticoagulation for possible valve thrombosis. Repeat echo in 3 months. Continue antibiotic prophylaxis prior to dental procedures. Sore on ankle 01/10/2023 Severe aortic valve stenosis 03/02/2022 Severe aortic stenosis 02/06/2022 Assessment & Plan (06/26/2023 6:50 AM JOINT YARNER): Echo shows valve velocities and gradients are [...] (01/30/2022): Added automatically from request for surgery [id number] Abnormal liver enzymes 07/01/2014 Primary hypertension 04/16/2013 Assessment & Plan (12/31/2023 10:39 AM CDT): Blood pressure well controlled in office today at 124/80 mmHg. Continue lisinopril 20 mg daily. Assessment & Plan (07/19/2023 11:45 AM JOINT YARNER): Continue lisinopril Assessment & Plan (06/26/2023 6:50 AM JOINT YARNER): Continue lisinopril Assessment & Plan (04/14/2022 11:09 AM CDT): Continue lisinopril Assessment & Plan (02/06/2022 3:49 PM CDT): Continue lisinopril Hyperlipidemia 03/15/2012 Assessment & Plan (12/31/2023 10:38 AM CDT): Last lipid panel 03/2023 with LDL of 91 and triglycerides of 242. Continue fenofibrate. Will need repeat lipid panel later this year. Assessment & Plan (07/19/2023 10:08 AM JOINT YARNER): Continue fenofibrate Assessment & Plan (06/26/2023 6:50 AM JOINT YARNER): Continue fenofibrate Assessment & Plan (04/14/2022 11:09 AM CDT): Continue fenofibrate Assessment & Plan (02/06/2022 3:49 PM CDT): Continue fenofibrate Encounters Date Type Department Care Team Description 07/14/2024 9:36 AM JOINT YARNER - 07/14/2024 11:59 PM JOINT YARNER Hospital Encounter [facility] [place] [address] Javier Alva MD Discharge Disposition: Home or Self Care (Routine Discharge) 07/14/2024 Travel 07/01/2024 Telephone [facility], [address] [place] [address] Javier Alva MD Surgical Clearance from Last [...] on file Legal Sex Male 10:23 PM JOINT YARNER Gender Identity Not on file Sexual Orientation [...] st Contact Info) Description 08/11/2024 1:45 PM JOINT YARNER Office Visit [facility], [address] [place], [place] [address] Javier Alva MD Three [facility]. [address] [place], [place] [id number] Health Maintenance Due Date Last Done Comments PHQ-2 (Physician Yikuaiqu) 1957 Annual Medicare Wellness Visit 2008 Pneumococcal Vaccine: 65+ Years (2 of 2 - PPSV23 or PCV20) 09/13/2015 07/19/2015 RSV Immunization or 60+ Years (1 - 1-dose 75+ series) 2018 COVID-19 Vaccine ( season) 2024 12/06/2021, 05/05/2021, 08/27/2020, Additional history exists Influenza Adult (#1) 2024 04/17/2019, 04/21/2018, 04/09/2017, Additional history exists DTaP, Tdap and Td Vaccines (2 - Td or Tdap) 04/15/2024 04/15/2014 PHQ-2 (Physician Yikuaiqu) 07/02/2024 Zoster Vaccines Completed 06/13/2018, 03/07/2018 Meningococcal B [...] able to perform ADLs independently Lifestyle No Balta, Urbano L, RN Medical Devices Implanted Type Area Motion Graphics Artist Device Identifier Shelf Expiration Date Model / Serial / Lot Tavr-03/02/2022 Implanted:090 07/2021 by Javier Alva MD (Quantity not on file) Valve Implant Aorta Warrantly 09/18/2024 / [id number] / Procedures Procedure Name Priority Date/Time Associated Diagnosis Comments USE ECHOCARDIOGRAM Routine 07/14/2024 10 :07 AM JOINT YARNER S/P TAVR (transcatheter aortic valve replacement) from Last 3 Months Results * USE ECHOCARDIOGRAM (07/14/2024 10:07 AM JOINT YARNER) Anatomical Region Laterality Modality Cardiac Echocardiogram 07/14/2024 9:44 AM JOINT YARNER Narrative 07/15/2024 12:05 PM JOINT YARNER ?Echocardiography Report Pat.Name: ??JOHN TYLER ?? Pat.ID: ?[id number] ? St.Date: ?? 07/14/2024 ? Refer.: ??[id number] MADDISON Cordoba Exam Time: 9:44:00 AM ? Study Type:ECHO WITH CARDIAC DOPPLER COMP Height: ?72 in ? Weight: ?210 lb ? BSA: ? 2.18 m2 ?Age: ??1945,79Y ? Sex: ? M ? BP: ?146/68 ? HR: ?76 bpm ?Sonogrphr: SLW ? Pat. Stat.:Outpatient ?CPT - 4: ?20767 ? Reason for Study:S/P TAVR ? Procedures: [...] Root Tim ?? 3.2 cm ?? LVOT/AoV (MACHINE FINISHER) ( ??0.52 ?Left atrial tim ?? 5.6 [...] 07/15/2024 Echocardiography Report Pat.Name: JOHN TYLER Pat.ID: [id number] .Date: 07/14/2024 Tracie.: [id number] MADDISON Cordoba Exam Time: 9:44:00 AM Study Type:ECHO WITH CARDIAC DOPPLER COMP Height: 72 in Weight: 210 lb BSA: 2.18 m2 Age: 10 1945,79Y Sex: M BP: 146/68 HR: 76 bpm Sonogrphr: SLW Pat. Stat.:Outpatient CPT - 4: 72161 Reason for Study:S/P TAVR Procedures: 2D, M-mode, [...] cm Aortic Root Tim 3.2 cm LVOT/AoV (MACHINE FINISHER) ( 0.52 Left atrial tim 5.6 cm [...] 12:54 PM 02/01/2022 5:20 PM Care Teams Editor Newspaper Relationship Specialty Start Date End Date Indio Staley MD [address] [place] [address] PCP - General FAMILY PRACTICE 01/24/22 Theresa Rosas FNP [address] [facility] [address] [place] [address] Nurse Practitioner Nurse Practitioner Family 01/24/22
--- OUTSIDE RECORDS SUMMARY | 2024-08-03 14:03 | XMS_ITS | Clinical Summary ---
Author Organization [facility] Address [address] [place] [address] Care Team Providers Care Shirt Operator Name Role Phone Indio Staley MD Primary Care Provider [phone] Source Comments [facility],non-[facility] Affiliates and Associated Physician Practices is amultiple site organization consisting of ambulatory clinics and hospital sitesin [place], [place]. This disclosure is being madepursuant to the Care Everywhere program and may not contain all information available regarding this patient. Last updated 18.[facility] Allergies Active Allergy Reactions Criticality Noted Date [...] once as needed Active Cholecalciferol (VITAMIN D3) 38945 UNITS capsule Take 50,000 Units by mouth [...] Comments Blood Pressure 122/78 07/24/2018 3:09 PM SHANK SANDER Pulse 88 07/24/2018 3:09 PM SHANK SANDER Temperature 37.3 ??C (99.2 ??F) 07/24/2018 3:09 PM CS T Respiratory Rate 16 07/24/2018 3:09 PM SHANK SANDER Oxygen Saturation 94% 07/24/2018 3:09 PM SHANK SANDER Inhaled Oxygen Concentration - - Weight 97.5 kg (215 lb) 07/24/2018 3:09 PM SHANK SANDER Height 185.4 cm (6' 1 ) 07/24/2018 3:09 PM SHANK SANDER Body Mass Index 28.37 07/24/2018 3:09 PM SHANK SANDER Plan of Treatment Health Maintenance Due Date [...] age to complete this topic Care Teams Shirt Operator Relationship Specialty Start Date End Date Indio Staley MD [address] [place] [address] PCP - General Family Medicine 07/24/18
--- OUTSIDE RECORDS SUMMARY | 2024-08-03 14:03 | XMS_ITS | Referral Summary ---
Author Organization [facility] Address [address] [facility] [place] [address] Care Team Providers Care Blanking Press Operator Name Role Phone Indio Staley MD Primary Care Provider [phone] Source Comments [facility] and Associated Physician Practices is amultiple site organization consisting of ambulatory clinics and hospital sitesin [place], [place], [place] and [place]. This disclosure is being madepursuant to the Care Everywhere program and may not contain all information available regarding this patient. Last updated 18.[facility] Allergies Active Allergy Reactions Criticality Noted Date [...] once as needed Active Cholecalciferol (VITAMIN D3) 06186 UNITS capsule Take 50,000 Units by mouth [...] Comments Blood Pressure 122/78 07/24/2018 3:09 PM PIN STICKER Pulse 88 07/24/2018 3:09 PM PIN STICKER Temperature 37.3 ??C (99.2 ??F) 07/24/2018 3:09 PM CS T Respiratory Rate 16 07/24/2018 3:09 PM PIN STICKER Oxygen Saturation 94% 07/24/2018 3:09 PM PIN STICKER Inhaled Oxygen Concentration - - Weight 97.5 kg (215 lb) 07/24/2018 3:09 PM PIN STICKER Height 185.4 cm (6' 1 ) 07/24/2018 3:09 PM PIN STICKER Body Mass Index 28.37 07/24/2018 3:09 PM PIN STICKER Plan of Treatment Not on file Care Teams Blanking Press Operator Relationship Specialty Start Date End Date Indio Staley MD [address] [place] [address] PCP - General Family Medicine 07/24/18
--- OUTSIDE RECORDS SUMMARY | 2024-08-03 14:03 | XMS_ITS | Encounter Summary ---
Author Organization [facility] Address [address] [place] [address]. [place] [address] [place] [address] Care Team Providers Care Tension Worker Name Role Phone Indio Staley MD Primary Care Provider [phone] Theresa Rosas SAMPLE BUILDER Unavailable [phone] Encounter Details Date Type Department Care Team (Late st Contact Info) Description 07/26/2023 [employer] Message Enc [facility] THREE [facility], [facility] [address] [place] [address] Javier Alva MD Three [facility]. [facility] [address] [place], [place] [phone] another echo? Social History Tobacco Use Types Packs/Day Years Used Date Smoking Tobacco: Former Cigarettes Q uit: 11/18/1987 Smokeless Tobacco: Never Alcohol Use Standard Drinks/Week Comments Not Currently 0 (1 standard drink = 0.6 oz pur e alcohol) Sex and Gender Information Value Date Recorded Sex Assigned at Not on file Legal Sex Male 10:23 PM PHARMACY SALES REPRESENTATIVE Gender Identity Not on file Sexual Orientation [...] - 08/01/2023 8:44 AM CST See below MACY SALES REPRESENTATIVE * Caprice Muller RN - 07/26/2023 8:42 AM CST See below MACY SALES REPRESENTATIVE documented in this encounter Plan of Treatment Upcoming Encounters Date Type Department Care Team (Late st Contact Info) Description 08/11/2024 1:45 PM PHARMACY SALES REPRESENTATIVE Office Visit [facility], [address] [place], [place] [id number] Javier Alva MD Three [facility]. [address] [place], [place] [id number] documented as of this encounter Goals Goal Patient Goal Type Associated Problems Recent Progress Patient-Stated? Author Health - patient able to perform ADLs independently Lifestyle Urbano Nguyen RN documented as of this encounter Visit Diagnoses Not on filedocumented in this encounter Care Teams Tension Worker Relationship Specialty Start Date End Date Indio Staley MD [address] [place] [address] PCP - General FAMILY PRACTICE 01/24/22 Theresa Rosas FNP [address] [place] [address] Nurse Practitioner Nurse Practitioner Family 01/24/22 documented as of this encounter
--- OUTSIDE RECORDS SUMMARY | 2024-08-03 14:03 | XMS_ITS | Patient Health Summary ---
Author Organization [facility] Address [address] [facility] [place] [address] Care Team Providers Care Global Vp Creative + Content Marketing Name Role Phone Indio Staley MD Primary Care Provider [phone] Note from [facility],non-owned Affiliates and Associated Physician Practices is amultiple site organization consisting of ambulatory clinics and hospital sitesin [place], [place], [place] and [place]. This disclosure is being madepursuant to the Care Everywhere program and may not contain all information available regarding this patient. Last updated 18.[facility] Allergies * Gluten Meal(Vomiting) * Morphine(Rash) -Medium [...] once as needed * Cholecalciferol (VITAMIN D3) 46003 UNITS capsule Take 50,000 Units by mouth [...] Comments Blood Pressure 122/78 07/24/2018 3:09 PM FELT HAT MELLOWING MACHINE OPERATOR Pulse 88 07/24/2018 3:09 PM FELT HAT MELLOWING MACHINE OPERATOR Temperature 37.3 ??C (99.2 ??F) 07/24/2018 3:09 PM CS T Respiratory Rate 16 07/24/2018 3:09 PM FELT HAT MELLOWING MACHINE OPERATOR Oxygen Saturation 94% 07/24/2018 3:09 PM FELT HAT MELLOWING MACHINE OPERATOR Inhaled Oxygen Concentration - - Weight 97.5 kg (215 lb) 07/24/2018 3:09 PM FELT HAT MELLOWING MACHINE OPERATOR Height 185.4 cm (6' 1 ) 07/24/2018 3:09 PM FELT HAT MELLOWING MACHINE OPERATOR Body Mass Index 28.37 07/24/2018 3:09 PM FELT HAT MELLOWING MACHINE OPERATOR Procedures * STREP A SCREEN - POINT OF CARE (AMB) STL(Performed 07/24/2018) Performed for Bacterial URI * INFLUENZA A+B - POINT OF CARE (AMB)(Performed 07/24/2018) Performed for Bacterial URI Results * STREP A SCREEN (07/24/2018) Strep A Rapid POCT Negative Negative Strep A Internal Control Present Lot # [id number] Expiration Date 09/30/19 Throat ENTIRE THROAT (SURFACE REGION OF NECK) / Unknown 07/24/2018 Luanne Jacobs MARKETING GRAPHICS SPECIALIST-BROOM MAN LAB - POINT OF CA RE ORDERABLES * INFLUENZA A+B - POINT OF CARE (AMB) (07/24/2018) Influenza A Antigen Rapid Negative Negative Influenza B Antigen Rapid Negative Negative Influenza Internal Control yes NEGATIVE - POSITIVE Influenza Lot Number [id number] Influenza Expiration Date 03/15/20 Other NASOPHARYNGEAL SWAB / Unknown 07/24/2018 Luanne Jacobs MARKETING GRAPHICS SPECIALIST-BROOM MAN LAB - POINT OF CA RE ORDERABLES Care Teams Global Vp Creative + Content Marketing Relationship Specialty Start Date End Date Indio Staley MD [address] [place] [address] PCP - General Family Medicine 07/24/18
--- OUTSIDE RECORDS SUMMARY | 2024-08-03 18:24 | XMS_ITS | Encounter Summary ---
Author Organization [facility] Address [address] [place] [address]. [place] [address] [place] [address] Care Team Providers Care Water Meter Reader Name Role Phone Indio Staley MD Primary Care Provider [phone] Theresa Rosas INSOLE RASPER Unavailable [phone] Encounter Details Date Type Department Care Team (Late st Contact Info) Description 07/26/2023 [employer]ek Message Enc [facility], [facility] [address] [place] [address] Javier Alva MD Three [facility]. [facility] [address] [place], [place] [phone] another echo? Social History Tobacco Use Types Packs/Day Years Used Date Smoking Tobacco: Former Cigarettes Q uit: 11/18/1987 Smokeless Tobacco: Never Alcohol Use Standard Drinks/Week Comments Not Currently 0 (1 standard drink = 0.6 oz pur e alcohol) Sex and Gender Information Value Date Recorded Sex Assigned at Not on file Legal Sex Male 10:[address] INTERPRETER Gender Identity Not on file Sexual Orientation [...] - 08/01/2023 8:44 AM CST See below IFIED COURT INTERPRETER * Caprice Muller RN - 07/26/2023 8:42 AM CST See below IFIED COURT INTERPRETER documented in this encounter Plan of Treatment Upcoming Encounters Date Type Department Care Team (Late st Contact Info) Description 08/11/2024 1:[address] INTERPRETER Office Visit [facility], [address] [place], [place] [id number] Javier Alva MD Three [facility]. [address] [place], [place] [phone] documented as of this encounter Goals Goal Patient Goal Type Associated Problems Recent Progress Patient-Stated? Author Health - patient able to perform ADLs independently Lifestyle Urbano Nguyen RN documented as of this encounter Visit Diagnoses Not on filedocumented in this encounter Care Teams Water Meter Reader Relationship Specialty Start Date End Date Indio Staley MD [address] [place] [address] PCP - General FAMILY PRACTICE 01/24/22 Theresa Rosas FNP [address] [place] [address] Nurse Practitioner Nurse Practitioner Family 01/24/22 documented as of this encounter
--- OUTSIDE RECORDS SUMMARY | 2024-08-03 18:24 | XMS_ITS | Encounter Summary ---
Author Organization [facility] Address [address] [place] [address]. [place] [address] [place] [address] Care Team Providers Care Kieselguhr Regenerator Operator Name Role Phone Indio Staley MD Primary Care Provider [phone] Theresa Rosas QUOTATION CLERK Unavailable [phone] Encounter Details Date Type Department Care Team (Late st Contact Info) Description 02/27/2022 [employer] Message Enc [facility] [facility] THREE [address] [address] [place], [facility] Provider Results Social History Tobacco Use Types Packs/Day Years Used Date Smoking Tobacco: Former Cigarettes Q uit: 11/18/1987 Smokeless Tobacco: Never Alcohol Use Standard Drinks/Week Comments Not Currently 0 (1 standard drink = 0.6 oz pur e alcohol) Sex and Gender Information Value Date Recorded Sex Assigned at Not on file Legal Sex Male 10:23 PM ART HISTORY PROFESSOR Gender Identity Not on file Sexual Orientation [...] st Contact Info) Description 08/11/2024 1:45 PM ART HISTORY PROFESSOR Office Visit [facility], [facility] [address] [place] [address] Javier Alva MD Three [facility]. [address] [place] [address] documented as of this encounter Visit Diagnoses Not on filedocumented in this encounter Care Teams Kieselguhr Regenerator Operator Relationship Specialty Start Date End Date Indio Staley MD [address] [place] [address] PCP - General FAMILY PRACTICE 01/24/22 Theresa Rosas FNP [address] [place] [address] Nurse Practitioner Nurse Practitioner Family 01/24/22 documented as of this encounter
--- OUTSIDE RECORDS SUMMARY | 2024-08-03 18:24 | XMS_ITS | Clinical Summary ---
Author Organization 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 use of drug 03/15/2012 Long-term current use of steroids 07/24/2011 Arthralgia of multiple joints 01/20/2011 Polyosteoarthritis, unspecified 01/20/2011 Encounter for preventive health examination 10/30 Encounters Date Type Department Care Team Description 07/30/2024 9:43 AM FOUNTAIN MANAGER - 07/30/2024 11:59 PM FOUNTAIN MANAGER Hospital Encounter [facility] [address] [place] [address] Barby Irvin NP Cervical stenosis of spinal canal (Primary Dx); Sacroiliitis (HCC); Cervical radiculopathy; Lumbar radicular pain; Lumbar stenosis without neurogenic claudication; Primary hypertension Discharge Disposition: Discharge to home or self care 06/18/2024 9:45 AM FOUNTAIN MANAGER - 06/18/2024 11:59 PM FOUNTAIN MANAGER Hospital Encounter [facility] [address] [place] [address] Adria Lau MD Cervical radiculopathy; Cervical stenosis [...] (Added by TW Conv) Stroke Paternal Grandfather [place] Diabetes Paternal Grandmother Emilie COPD Sister [...] on file Legal Sex Male 3:19 AM FOUNTAIN MANAGER Gender Identity Male 01/22/2020 3:16 PM CDT Sexual Orientation Straight 01/22/2020 3: 16 PM CDT Obstetrics History Last Filed Vital Signs Vital Sign Reading Time Taken Comments Blood Pressure 136/84 07/30/2024 10:24 AM FOUNTAIN MANAGER Pulse 68 07/30/2024 10:24 AM FOUNTAIN MANAGER Temperature 37 ??C (98.6 ??F) 06/18/2024 10:16 AM FOUNTAIN MANAGER Respiratory Rate 16 07/30/2024 10:24 AM FOUNTAIN MANAGER Oxygen Saturation 99% 07/30/2024 10:24 AM FOUNTAIN MANAGER Inhaled Oxygen Concentration - - Weight 97.3 [...] 06/13/2018, 03/07/2018 Medical Devices Implanted Type Area Beef Cattle Farm Worker Device Identifier Shelf Expiration Date Model / Serial / Lot [employer] 4063 Inspire 3 Electrode Cuff Tunnel Broderick Lead Neurostimulator Sterile - [id number] - [id number] Implanted:Qty: 1 on 06/21/2020 by Mahad Chahal MD at [facility] Right: Neck [employer] 01/03/2022 4063 / [id number] / [employer] 4340 Lead Neurostimulator Inspire Respiratory Sens Cycle Strl - [id number] - [id number] Implanted:Qty: 1 on 06/21/2020 by Mahad Chahal MD at [facility] Right: Chest [employer] 01/03/2022 4340 / [id number] / Description:Between ribs [employer] 3028 Generator Neurostimulator - [id number] - [id number] Implanted:Qty: 1 on 06/21/2020 by Mahad Chahal MD at [facility] Right: Chest [employer] 02/15/2023 3028 / [id number] / Procedures Procedure Name Priority Date/Time Associated Diagnosis Comments PAIN MGMT IMAGING CERVICAL/THORACIC EPIDURAL Schedule Routine, Read Routine (OP Routine) 06/18/2024 11:54 AM FOUNTAIN MANAGER Cervical radiculopathy Cervical stenosis of spinal canal from Last 3 Months Results * Imaging Cervical/Thoracic Epidural Continuous Infusion (85585) (06/18/2024 11:54 AM FOUNTAIN MANAGER) Narrative RAD_PACS_CH - 06/18/2024 11:55 AM FOUNTAIN MANAGER The images from this study are not interpreted by Radiology. ??Please refer to the physician's procedure / OR operative note. us Barby Irvin COAL DRIER OPERATOR IMG PAIN MGMT PROCEDURE S Final Result RAD_PACS_[facility] from Last 3 Months Insurance [facility] MEDICARE MEDICARE SOLUTIONS T MEDICARE [facility] MEDICARE Advance Directives For more information, please contact: [phone] * Full Code (Latest Code Status on File) Date Activated Date Inactivated Comments 02/27/2024 10:01 AM 02/28/2024 4:42 AM Care Teams Group Supervisor Yard Relationship Specialty Start Date End Date Indio Staley MD [address] [facility] [address] [place] [address] PCP - General 09/11/16
--- OUTSIDE RECORDS SUMMARY | 2024-08-03 18:24 | XMS_ITS | Clinical Summary ---
Author Organization [facility] Address [address] [place] [address]. [place] [address] [place] [address] Care Team Providers Care Variety Performer Name Role Phone Indio Staley MD Primary Care Provider [phone] Theresa Rosas SEMICONDUCTOR LAB TECHNICIAN Unavailable [phone] Allergies Active Allergy Reactions Criticality Noted Date [...] velocity. Assessment & Plan (07/19/2023 11:44 AM 4TH GRADE MATH TEACHER): Echo gradients have improved after anticoagulation with warfarin. Continue warfarin for now. 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 Will repeat echocardiogram in July of next year to evaluate valve velocity after discontinuation of warfarin. Requires antibiotic prophylaxis prior to all dental procedures. Assessment & Plan (07/27/2023 12:27 PM 4TH GRADE MATH TEACHER): Echo shows valve velocities and gradients have decreased after starting anticoagulation. Continue antibiotic prophylaxis prior to dental procedures. Refer to cardiac rehab. Assessment & Plan (06/26/2023 6:50 AM 4TH GRADE MATH TEACHER): Echo shows valve velocities and gradients are elevated. Recommend starting anticoagulation for possible valve thrombosis. Repeat echo in 3 months. Continue antibiotic prophylaxis prior to dental procedures. Sore on ankle 01/10/2023 Severe aortic valve stenosis 03/02/2022 Severe aortic stenosis 02/06/2022 Assessment & Plan (06/26/2023 6:50 AM 4TH GRADE MATH TEACHER): Echo shows valve velocities and gradients are [...] (01/30/2022): Added automatically from request for surgery [id number] Abnormal liver enzymes 07/01/2014 Primary hypertension 04/16/2013 Assessment & Plan (12/31/2023 10:39 AM CDT): Blood pressure well controlled in office today at 124/80 mmHg. Continue lisinopril 20 mg daily. Assessment & Plan (07/19/2023 11:45 AM 4TH GRADE MATH TEACHER): Continue lisinopril Assessment & Plan (06/26/2023 6:50 AM 4TH GRADE MATH TEACHER): Continue lisinopril Assessment & Plan (04/14/2022 11:09 AM CDT): Continue lisinopril Assessment & Plan (02/06/2022 3:49 PM CDT): Continue lisinopril Hyperlipidemia 03/15/2012 Assessment & Plan (12/31/2023 10:38 AM CDT): Last lipid panel 03/2023 with LDL of 91 and triglycerides of 242. Continue fenofibrate. Will need repeat lipid panel later this year. Assessment & Plan (07/19/2023 10:08 AM 4TH GRADE MATH TEACHER): Continue fenofibrate Assessment & Plan (06/26/2023 6:50 AM 4TH GRADE MATH TEACHER): Continue fenofibrate Assessment & Plan (04/14/2022 11:09 AM CDT): Continue fenofibrate Assessment & Plan (02/06/2022 3:49 PM CDT): Continue fenofibrate Encounters Date Type Department Care Team Description 07/14/2024 9:36 AM 4TH GRADE MATH TEACHER - 07/14/2024 11:59 PM 4TH GRADE MATH TEACHER Hospital Encounter [facility] [place] [address] Javier Alva MD Discharge Disposition: Home or Self Care (Routine Discharge) 07/14/2024 Travel 07/01/2024 Telephone [facility], [address] [place] [address] Javier Alva MD Surgical Clearance from Last [...] on file Legal Sex Male 10:23 PM 4TH GRADE MATH TEACHER Gender Identity Not on file Sexual Orientation [...] st Contact Info) Description 08/11/2024 1:45 PM 4TH GRADE MATH TEACHER Office Visit [facility], [address] [place], [place] [address] Javier Alva MD Three [facility]. [address] [place], [place] [id number] Health Maintenance Due Date Last Done Comments PHQ-2 (Physician Magic Leap) 1957 Annual Medicare Wellness Visit 2008 Pneumococcal [...] Td or Tdap) 04/15/2024 04/15/2014 PHQ-2 (Physician Magic Leap) 07/02/2024 Zoster Vaccines Completed 06/13/2018, 03/07/2018 Meningococcal [...] L, RN Medical Devices Implanted Type Area Dispatcher Electric Power Device Identifier Shelf Expiration Date Model / Serial / Lot Tavr-03/02/2022 Implanted:090 07/2021 by Javier Alva MD (Quantity not on file) Valve Implant Aorta GemShare 09/18/2024 / [id number] / Procedures Procedure Name Priority Date/Time Associated Diagnosis Comments USE ECHOCARDIOGRAM Routine 07/14/2024 10 :07 AM 4TH GRADE MATH TEACHER S/P TAVR (transcatheter aortic valve replacement) from Last 3 Months Results * USE ECHOCARDIOGRAM (07/14/2024 10:07 AM 4TH GRADE MATH TEACHER) Anatomical Region Laterality Modality Cardiac Echocardiogram 07/14/2024 9:44 AM 4TH GRADE MATH TEACHER Narrative 07/15/2024 12:05 PM 4TH GRADE MATH TEACHER ?Echocardiography Report Pat.Name: ??JOHN TYLER ?? Pat.ID: ?[id number] ? St.Date: ?? 07/14/2024 ? Refer.: ??[id number] MADDISON Cordoba Exam Time: 9:44:00 AM ? Study Type:ECHO WITH CARDIAC DOPPLER COMP Height: ?72 in ? Weight: ?210 lb ? BSA: ? 2.18 m2 ?Age: ??1945,79Y ? Sex: ? M ? BP: ?146/68 ? HR: ?76 bpm ?Sonogrphr: SLW ? Pat. Stat.:Outpatient ?CPT - 4: ?91949 ? Reason for Study:S/P TAVR ? Procedures: [...] Root Tim ?? 3.2 cm ?? LVOT/AoV (ESL PROFESSOR) ( ??0.52 ?Left atrial tim ?? 5.6 [...] 07/15/2024 Echocardiography Report Pat.Name: JOHN TYLER Pat.ID: [id number] .Date: 07/14/2024 Tracie.: [id number] MADDISON Cordoba Exam Time: 9:44:00 AM Study Type:ECHO WITH CARDIAC DOPPLER COMP Height: 72 in Weight: 210 lb BSA: 2.18 m2 Age: 10 1945,79Y Sex: M BP: 146/68 HR: 76 bpm Sonogrphr: SLW Pat. Stat.:Outpatient CPT - 4: 69883 Reason for Study:S/P TAVR Procedures: 2D, M-mode, [...] cm Aortic Root Tim 3.2 cm LVOT/AoV (ESL PROFESSOR) ( 0.52 Left atrial tim 5.6 cm [...] 12:54 PM 02/01/2022 5:20 PM Care Teams Variety Performer Relationship Specialty Start Date End Date Indio Staley MD [address] [place] [address] PCP - General FAMILY PRACTICE 01/24/22 Theresa Rosas FNP [address] [facility] [address] [place] [address] Nurse Practitioner Nurse Practitioner Family 01/24/22
--- OUTSIDE RECORDS SUMMARY | 2024-08-03 18:24 | XMS_ITS | Referral Summary ---
Author Organization [facility] Address [address] [place] [address] Care Team Providers Care Copy Reader Name Role Phone Indio Staley MD Primary Care Provider Encounters Date Type Department Care Team Description 07/30/2024 9:43 AM ENGINEERING SURVEYOR - 07/30/2024 11:59 PM ENGINEERING SURVEYOR Hospital Encounter [facility] [address] [place] [address] Barby Irvin NP Cervical stenosis of spinal canal (Primary Dx); Sacroiliitis (HCC); Cervical radiculopathy; Lumbar radicular pain; Lumbar stenosis without neurogenic claudication; Primary hypertension Discharge Disposition: Discharge to home or self care 06/18/2024 9:45 AM ENGINEERING SURVEYOR - 06/18/2024 11:59 PM ENGINEERING SURVEYOR Hospital Encounter [facility] [address] [place] [address] Adria Lau MD Cervical radiculopathy; Cervical stenosis [...] (05/14/2020): Added automatically from request for surgery [id number] Sleep apnea 02/17/2020 Right shoulder pain 01/19/2016 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 ( CMS/HCC) 10/22/2015 Abnormal liver enzymes 07/01/2014 Osteoporosis 10/24/2013 Hypertension 04/16/2013 Hay fever 04/16/2012 Hyperlipidemia 03/15/2012 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 03/15/2012 Long-term current use [...] on file Legal Sex Male 3:19 AM ENGINEERING SURVEYOR Gender Identity Male 01/22/2020 3:16 PM CDT Sexual Orientation Straight 01/22/2020 3: 16 PM CDT Last Filed Vital Signs Vital Sign Reading Time Taken Comments Blood Pressure 136/84 07/30/2024 10:24 AM ENGINEERING SURVEYOR Pulse 68 07/30/2024 10:24 AM ENGINEERING SURVEYOR Temperature 37 ??C (98.6 ??F) 06/18/2024 10:16 AM ENGINEERING SURVEYOR Respiratory Rate 16 07/30/2024 10:24 AM ENGINEERING SURVEYOR Oxygen Saturation 99% 07/30/2024 10:24 AM ENGINEERING SURVEYOR Inhaled Oxygen Concentration - - Weight 97.3 kg (214 lb 8 oz) 04/24/2024 11:55 AM CDT Height 182.9 cm (6') 04/24/2024 11:55 AM CDT Body Mass Index 29.09 04/24/2024 11:55 AM CDT Plan of Treatment Not on file Medical Devices Implanted Type Area Director Of Event Management Device Identifier Shelf Expiration Date Model / Serial / Lot [employer] 4063 Inspire 3 Electrode Cuff Tunnel Broderick Lead Neurostimulator Sterile - [id number] - [id number] Implanted:Qty: 1 on 06/21/2020 by Mahad Chahal MD at [facility] Right: Neck [employer] 01/03/2022 4063 / [id number] / [employer] 4340 Lead Neurostimulator Inspire Respiratory Sens Cycle Strl Lf - [id number] - [id number] Implanted:Qty: 1 on 06/21/2020 by Mahad Chahal MD at [facility] Right: Chest [employer] 01/03/2022 4340 / [id number] / Description:Between ribs [employer] 3028 Generator Neurostimulator - [id number] - [id number] Implanted:Qty: 1 on 06/21/2020 by Mahad Chahal MD at [facility] Right: Chest [employer] 02/15/2023 3028 / [id number] / Procedures Procedure Name Priority Date/Time Associated Diagnosis Comments PAIN MGMT IMAGING CERVICAL/THORACIC EPIDURAL Schedule Routine, Read Routine (OP Routine) 06/18/2024 11:54 AM ENGINEERING SURVEYOR Cervical radiculopathy Cervical stenosis of spinal canal from Last 3 Months Results * Imaging Cervical/Thoracic Epidural Continuous Infusion (40731) (06/18/2024 11:54 AM ENGINEERING SURVEYOR) Narrative RAD_PACS_CH - 06/18/2024 11:55 AM ENGINEERING SURVEYOR The images from this study are not interpreted by Radiology. ??Please refer to the physician's procedure / OR operative note. us Barby Irvin DRIVER TRAINER IMG PAIN MGMT PROCEDURE S Final Result RAD_PACS_CH from Last 3 Months Insurance T MEDICARE MEDICARE SOLUTIONS AET MEDICARE AETNA MEDICARE Advance Directives For more information, please contact: [phone] * Full Code (Latest Code Status on File) Date Activated Date Inactivated Comments 02/27/2024 10:01 AM 02/28/2024 4:42 AM Care Teams Copy Reader Relationship Specialty Start Date End Date Indio Staley MD [address] [facility] [address] [place] [address] PCP - General 09/11/16
--- OUTSIDE RECORDS SUMMARY | 2024-08-03 18:24 | XMS_ITS | Clinical Summary ---
Author Organization [facility] Address [address] [facility] [place] [address] Care Team Providers Care Venetian Blind Assembler Name Role Phone Indio Staley MD Primary Care Provider [phone] [facility],non[facility] Affiliates and Associated Physician Practices is amultiple site organization consisting of ambulatory clinics and hospital sitesin [place], [place], [place] and [place]. This disclosure is being madepursuant to the Care Everywhere program and may not contain all information available regarding this patient. Last updated 18.[facility] Allergies Active Allergy Reactions Criticality Noted Date [...] once as needed Active Cholecalciferol (VITAMIN D3) 82728 UNITS capsule Take 50,000 Units by mouth [...] Comments Blood Pressure 122/78 07/24/2018 3:09 PM RESPIRATORY COORDINATOR Pulse 88 07/24/2018 3:09 PM RESPIRATORY COORDINATOR Temperature 37.3 ??C (99.2 ??F) 07/24/2018 3:09 PM CS T Respiratory Rate 16 07/24/2018 3:09 PM RESPIRATORY COORDINATOR Oxygen Saturation 94% 07/24/2018 3:09 PM RESPIRATORY COORDINATOR Inhaled Oxygen Concentration - - Weight 97.5 kg (215 lb) 07/24/2018 3:09 PM RESPIRATORY COORDINATOR Height 185.4 cm (6' 1 ) 07/24/2018 3:09 PM RESPIRATORY COORDINATOR Body Mass Index 28.37 07/24/2018 3:09 PM RESPIRATORY COORDINATOR Plan of Treatment Health Maintenance Due Date [...] age to complete this topic Care Teams Venetian Blind Assembler Relationship Specialty Start Date End Date Indio Staley MD [address] [place] [address] PCP - General Family Medicine 07/24/18
--- OUTSIDE RECORDS SUMMARY | 2024-08-03 18:24 | XMS_ITS | Encounter Summary ---
Author Organization [facility] Address [address] [place] [address]. [place], [place] [address] [place] [address] Care Team Providers Care Plasterer Stucco Name Role Phone Indio Staley MD Primary Care Provider [phone] Theresa Rosas ADJUDICATION SPECIALIST Unavailable [phone] Encounter Details Date Type Department Care Team (Late Contact Info) Description 02/09/2022 [employer] Message Enc [facility], [address] [address] [place], [facility] Provider Results Social History Tobacco Use Types Packs/Day Years Used Date Smoking Tobacco: Former Cigarettes Q uit: 11/18/1987 Smokeless Tobacco: Never Alcohol Use Standard Drinks/Week Comments Not Currently 0 (1 standard drink = 0.6 oz pur e alcohol) Sex and Gender Information Value Date Recorded Sex Assigned at Not on file 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 Gender Identity Not on file Sexual Orientation [...] (Late Contact Info) Description 08/11/2024 1:45 PM MECHANICAL ARTIST Office Visit [facility], [address] [address] Javier Alva MD [address] [place] [address] documented as of this encounter Visit Diagnoses Not on filedocumented in this encounter Care Teams Plasterer Stucco Relationship Specialty Start Date End Date Indio Staley MD [address] [place] [address] PCP - General FAMILY PRACTICE 01/24/22 Theresa Rosas FNP [address] [place] [address] Nurse Practitioner Nurse Practitioner Family 01/24/22 documented as of this encounter
--- OUTSIDE RECORDS SUMMARY | 2024-08-03 18:24 | XMS_ITS | Encounter Summary ---
Author Organization [facility] Address [address] [place] [address]. [place] [address] [place] [address] Care Team Providers Care Head Insulation Board Saw Operator Name Role Phone Indio Staley MD Primary Care Provider [phone] Theresa Rosas ORIENTOR Unavailable [phone] Encounter Details Date Type Department Care Team (Late Contact Info) Description 01/31/2022 Hospital Orders Only [facility] [place] [address] Subhash Cardona MD,PHD Social History Tobacco Use Types Packs/Day Years Used Date Smoking Tobacco: Former Cigarettes Q uit: 11/18/1987 Smokeless Tobacco: Never Alcohol Use Standard Drinks/Week Comments Not Currently 0 (1 standard drink = 0.6 oz pur e alcohol) Sex and Gender Information Value Date Recorded Sex Assigned at Not on file 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 Gender Identity Not on file Sexual [...] (Late Contact Info) Description 08/11/2024 1:45 PM RAILROAD OPERATING ENGINEER Office Visit [facility], [address] [place], [place] [id number] Javier Alva MD [address] [place] [address] documented as of this encounter Visit Diagnoses Not on filedocumented in this encounter Care Teams Head Insulation Board Saw Operator Relationship Specialty Start Date End Date Indio Staley MD [address] [place] [address] PCP - General FAMILY PRACTICE 01/24/22 Theresa Rosas FNP [address] [place] [address] Nurse Practitioner Nurse Practitioner Family 01/24/22 documented as of this encounter
--- OUTSIDE RECORDS SUMMARY | 2024-08-03 18:24 | XMS_ITS | Encounter Summary ---
Author Organization [facility] Address [address] [place] [address]. [place] [address] [place] [address] Care Team Providers Care Back Tender Fourdrinier Name Role Phone Indio Staley MD Primary Care Provider [phone] Theresa Rosas CORE FITTER Unavailable [phone] Encounter Details Date Type Department Care Team (Latest Contact Info) Description 09/22/2022 [employer] Message Enc [facility] [place] [address] [place] [address] Subhash Cardona MD,PHD cancelled appointment Social History Tobacco Use Types Packs/Day Years Used Date Smoking Tobacco: Former Cigarettes Q uit: 11/18/1987 Smokeless Tobacco: Never Alcohol Use Standard Drinks/Week Comments Not Currently 0 (1 standard drink = 0.6 oz pur e alcohol) Sex and Gender Information Value Date Recorded Sex Assigned at Not on file Legal Sex Male 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 [address] [place], [place] [id number] documented as of this encounter Goals Goal Patient Goal Type Associated Problems Recent Progress Patient-Stated? Author Health - patient able to perform ADLs independently Lifestyle No Urbano Gifford RN documented as of this encounter Visit Diagnoses Not on filedocumented in this encounter Care Teams Back Tender Fourdrinier Relationship Specialty Start Date End Date Indio Staley MD [address] [place] [address] PCP - General FAMILY PRACTICE 01/24/22 Theresa Rosas FNP [address] [place] [address] Nurse Practitioner Nurse Practitioner Family 01/24/22 documented as of this encounter
--- OUTSIDE RECORDS SUMMARY | 2024-08-03 18:24 | XMS_ITS | Patient Health Summary ---
Author Organization [facility] Address [address] [facility] [place] [address] Care Team Providers Care Plunger Scoop Operator Name Role Phone Indio Staley MD Primary Care Provider [phone] Note from [facility],non-owned Affiliates and Associated Physician Practices is amultiple site organization consisting of ambulatory clinics and hospital sitesin [place], [place], [place] and [place]. This disclosure is being madepursuant to the Care Everywhere program and may not contain all information available regarding this patient. Last updated 18.[facility] Allergies * Gluten Meal(Vomiting) * Morphine(Rash) -Medium [...] once as needed * Cholecalciferol (VITAMIN D3) 13653 UNITS capsule Take 50,000 Units by mouth [...] Comments Blood Pressure 122/78 07/24/2018 3:09 PM FAA CERTIFIED POWERPLANT MECHANIC Pulse 88 07/24/2018 3:09 PM FAA CERTIFIED POWERPLANT MECHANIC Temperature 37.3 ??C (99.2 ??F) 07/24/2018 3:09 PM CS T Respiratory Rate 16 07/24/2018 3:09 PM FAA CERTIFIED POWERPLANT MECHANIC Oxygen Saturation 94% 07/24/2018 3:09 PM FAA CERTIFIED POWERPLANT MECHANIC Inhaled Oxygen Concentration - - Weight 97.5 kg (215 lb) 07/24/2018 3:09 PM FAA CERTIFIED POWERPLANT MECHANIC Height 185.4 cm (6' 1 ) 07/24/2018 3:09 PM FAA CERTIFIED POWERPLANT MECHANIC Body Mass Index 28.37 07/24/2018 3:09 PM FAA CERTIFIED POWERPLANT MECHANIC Procedures * STREP A SCREEN - POINT OF CARE (AMB) STL(Performed 07/24/2018) Performed for Bacterial URI * INFLUENZA A+B - POINT OF CARE (AMB)(Performed 07/24/2018) Performed for Bacterial URI Results * STREP A SCREEN (07/24/2018) Strep A Rapid POCT Negative Negative Strep A Internal Control Present Lot # [id number] Expiration Date 09/30/19 Throat ENTIRE THROAT (SURFACE REGION OF NECK) / Unknown 07/24/2018 Luanne Jacobs TAX COMPLIANCE OFFICER-RETURNED TELEPHONE EQUIPMENT APPRAISER LAB - POINT OF CA RE ORDERABLES * INFLUENZA A+B - POINT OF CARE (AMB) (07/24/2018) Influenza A Antigen Rapid Negative Negative Influenza B Antigen Rapid Negative Negative Influenza Internal Control yes NEGATIVE - POSITIVE Influenza Lot Number [id number] Influenza Expiration Date 03/15/20 Other NASOPHARYNGEAL SWAB / Unknown 07/24/2018 Luanne Jacobs TAX COMPLIANCE OFFICER-RETURNED TELEPHONE EQUIPMENT APPRAISER LAB - POINT OF CA RE ORDERABLES Care Teams Plunger Scoop Operator Relationship Specialty Start Date End Date Indio Staley MD [address] [place] [address] PCP - General Family Medicine 07/24/18
--- OUTSIDE RECORDS SUMMARY | 2024-08-03 18:24 | XMS_ITS | Encounter Summary ---
Author Organization [facility] Address [address] [place] [address]. [place] [address] [place] [address] Care Team Providers Care Assisted Living Director Name Role Phone Indio Staley MD Primary Care Provider [phone] Theresa Rosas ELECTRONIC INSTALLER Unavailable [phone] Encounter Details Date Type Department Care Team (Late Contact Info) Description 01/31/2022 Abstract [facility], [address] [address] Avery Reyes MA Social History Tobacco Use Types Packs/Day Years Used Date Smoking Tobacco: Former Cigarettes Q uit: 11/18/1987 Smokeless Tobacco: Never Alcohol Use Standard Drinks/Week Comments Not Currently 0 (1 standard drink = 0.6 oz pur e alcohol) Sex and Gender Information Value Date Recorded Sex Assigned at Not on file 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 Gender Identity Not on file [...] (Late Contact Info) Description 08/11/2024 1:45 PM CONCRETE MIXING TRUCK DRIVER Office Visit [facility], [facility] [address] [place] [address] Javier Alva MD Three [address] [address] documented as of this encounter Procedures Procedure [...] * VITAMIN D, 25 OH (03/20/2023) Pathologist [facility] [place] VITAMIN D 25 HYDROXY S/P/B 52 03/20/2023 us Default History Genericprovider LABORATORY Final Result * COMPREHENSIVE METABOLIC PANEL (03/20/2023) Pathologist [facility] SODIUM S/P/B 141 GLUCOSE 116 mg/dL AST 20 BUN 22 CREATININE S/P/B 1.02 0.7 - 1.3 CALCIUM S/P/B 10.5 POTASSIUM S/P/B 4.5 CHLORIDE S/P/B 105 ALT 20 GFR ESTIMATE 75 us Default History Genericprovider LABORATORY Final Result * LIPID PANEL (03/20/2023) Pathologist [facility] TRIGLYCERIDES 242 HDL 44 LDL (CALCULATED) 91 NON HDL CHOLESTEROL 125 us Default History Genericprovider LABORATORY Final Result * CBC, MANUAL DIFF (03/20/2023) [facility] WBC 5.0 HGB 15.0 HCT 44.7 Default History Genericprovider LABORATORY Final Result * HEMOGLOBIN, GLYCOSYLATED (03/20/2023) [facility] HGB A1C 5.9 % Default History Genericprovider LABORATORY Final Result * THYROID STIM HORMONE, TSH (03/20/2023) [facility] TSH 3 us Default History Genericprovider LABORATORY Final Result * (ABNORMAL) COMPREHENSIVE METABOLIC PANEL (09/06/2021) [facility] SODIUM S/P/B 140 POTASSIUM S/P/B 4.1 CO2 [...] LABORATORY Final Result * LIPID PANEL (09/06/2021) [facility] CHOLESTEROL 178 HDL 45 TRIGLYCERIDES 288 NON HDL CHOLESTEROL 133 LDL (CALCULATED) 92 09/06/2021 us Doc [facility] Abstract LABORATORY Final Result documented in this encounter Visit Diagnoses Not on filedocumented in this encounter Care Teams Assisted Living Director Relationship Specialty Start Date End Date Indio Staley MD [address] [facility] [address] [address] [place] [address] PCP - General FAMILY PRACTICE 01/24/22 Theresa Rosas FNP [address] [address] [place] [address] Nurse Practitioner Nurse Practitioner Family 01/24/22 documented as of this encounter
--- OUTSIDE RECORDS SUMMARY | 2024-08-03 18:24 | XMS_ITS | Referral Summary ---
Author Organization [facility] [employer] Address [address] [place] [address] Care Team Providers Care Director Of Speech Pathology Name Role Phone Indio Staley MD Primary Care Provider Source Comments [facility] [employer],[facility] and Associated Physician Practices is amultiple site organization consisting of ambulatory clinics and hospital sitesin [place], [place], [place] and [place]. This disclosure is being madepursuant to the Care Everywhere program and may not contain all information available regarding this patient. Last updated 18.[facility] [employer] Allergies Active Allergy Reactions Criticality Noted Date [...] once as needed Active Cholecalciferol (VITAMIN D3) 97421 UNITS capsule Take 50,000 Units by mouth [...] Comments Blood Pressure 122/78 07/24/2018 3:09 PM ADULT MANAGER Pulse 88 07/24/2018 3:09 PM ADULT MANAGER Temperature 37.3 ??C (99.2 ??F) 07/24/2018 3:09 PM CS T Respiratory Rate 16 07/24/2018 3:09 PM ADULT MANAGER Oxygen Saturation 94% 07/24/2018 3:09 PM ADULT MANAGER Inhaled Oxygen Concentration - - Weight 97.5 kg (215 lb) 07/24/2018 3:09 PM ADULT MANAGER Height 185.4 cm (6' 1 ) 07/24/2018 3:09 PM ADULT MANAGER Body Mass Index 28.37 07/24/2018 3:09 PM ADULT MANAGER Plan of Treatment Not on file Care Teams Director Of Speech Pathology Relationship Specialty Start Date End Date Indio Staley MD [address] [place] [address] PCP - General Family Medicine 07/24/18
[2024-08-03] MEDS: ACETAMINOPHEN 500 MG TABLET 1000 MG PO (18:57)
[2024-08-03] MEDS: oxyCODONE HCL (*CRX) 5 MG TAB IR PO (18:58)
--- NOTE | 2024-08-03 19:16 | PC.NURSE ---
Report received from DEISI Zhang. Assumed care of patient at this time.
[2024-08-03 19:24] LABS: Basophils Percent Auto 0.2 % (0.2-1.2); Eosinophils Percent Auto 0.2 % (0-4.4); Hematocrit 47.5 % (42.0-52.0); Hemoglobin 16.1 g/dL (14.0-18.0); Immature Granulocyte Absolute 0.04 K/mm3 (0.00-0.031); Immature Granulocyte Percent A 0.3 % (0-0.5); Lymphocytes Absolute Auto 2.12 K/mm3 (0.9-3.2); Lymphocytes Percent Auto 18.3 % (18.3-44.2); Mean Corpuscular HGB Conc 33.9 g/dl (32-36); Mean Corpuscular Hemoglobin 33.5 pg (26-34); Mean Corpuscular Volume 98.8 fl (80-100); Mean Platelet Volume 11.2 fl (7.4-10.4); Monocytes Absolute Auto 1.3 K/mm3 (0.1-0.6); Monocytes Percent Auto 11.2 % (2.6-8.5); Neutrophils Absolute Auto 8.1 K/mm3 (1.3-6.7); Neutrophils Percent Auto 69.8 % (45.5-73.1); Platelet Count Result 151 k/mm3 (150-375); Red Blood Count 4.81 M/mm3 (4.6-6.20); Red Cell Distribution Width 12.6 % (11.5-14.5); White Blood Count 11.6 K/mm3 (4.5-10.0)
[2024-08-03 19:34] LABS: Lactic Acid Reflex 1.4 mmol/L (0.7-2.0)
[2024-08-03 19:36] LABS: Alanine Aminotransferase 26 U/L (6-50); Albumin Level 4.8 g/dL (3.5-5.1); Alkaline Phosphatase 50 U/L (38-126); Anion Gap 13 mmol/L (4-12); Aspartate Amino Transferase 28 U/L (17-59); Bilirubin,Total 1.7 mg/dL (0.2-1.3); Blood Urea Nitrogen 15 mg/dL (9-20); CRP 3.8 mg/dL (<1.0); Calcium 10.9 mg/dL (8.4-10.2); Carbon Dioxide 24 mmol/L (22-30); Chloride 101 mmol/L (98-107); Estimated CRCL calculation 71 ml/min; Estimated Glomerular Filt Rate > 60; Glucose 131 mg/dL (65-110); Potassium 4.4 mmol/L (3.4-5.0); Sodium 138 mmol/L (137-145)
[2024-08-03 19:38] LABS: INR 1.1; Prothrombin Time 14.4 Seconds (11.1-14.7)
[2024-08-03 19:39] LABS: Partial Thromboplastin Time 30.1 Seconds (22.3-36.8)
[2024-08-03] MEDS: VANCOMYCIN 1,500 MG/NS 500 ML 1,500 MG/500 ML BAG 250 MG IVPB (20:04)
--- NOTE | 2024-08-03 20:26 | ED_ITS ---
HPI - Extremity Injury (Upper) General Chief Complaint: Wound/Laceration Stated Complaint: L pinky injury Time Seen by Provider: 08/03/24 17:25 Source: patient Mode of arrival: ambulatory Limitations: no limitations History of Present Illness HPI narrative: Patient is an 79 y/o male who presents to the ED with c/o L finger infection. Patient reports he sustained initial injury to his left 5th digit around 1 month ago while working outside. States he treated this himself at home. Over the last couple days, has noticed the area to his distal finger becoming swollen, erythematous, increasingly pain. He used a needle and popped the area last night. Today, noticed worsening symptoms. Went to an urgent care and was Rx'd keflex. States was told to come to the ED for further eval if sx's continued to worsen. Notes increased redness today with streaking up arm, fever up to 101F. Denies nausea, vomiting, numbness, history of diabetes. Related Data Home Medications ?Medication ?Instructions ?Recorded ?Confirmed ?Last Taken ?Type finasteride 5 mg tablet 5 mg PO DAILY 07/16/19 08/03/24 07/14/24 History cholecalciferol (vitamin D3) 125 125 mcg PO DAILY 02/04/21 08/03/24 07/14/24 History mcg (5,000 unit) capsule multivitamin with iron-mineral 1 tablet PO DAILY 02/04/21 08/03/24 07/14/24 History vitamin B complex 1 tablet PO DAILY 02/04/21 08/03/24 07/14/24 History vitamin E (dl, acetate) 450 mg 450 mg PO DAILY 01/20/22 08/03/24 07/14/24 History (1,000 unit) capsule sildenafil 100 mg tablet (Viagra) 100 mg PO DAILY sexual activity 03/12/23 08/03/24 Unknown History aspirin 81 mg tablet,delayed 81 mg PO DAILY 08/03/24 08/03/24 Unknown History release (Adult Low Dose Aspirin) hydrocodone 5 mg-acetaminophen 325 1 tablet PO BID PRN pain 08/03/24 08/03/24 Unknown History mg tablet Allergies Allergy/AdvReac Type Severity Reaction Status Date / Time morphine Allergy Mild Rash Verified 08/03/24 18:11 gluten AdvReac Intermediate vomiting Verified 08/03/24 18:11 Review of Systems 2 Review of Systems: All systems reviewed & are unremarkable except as noted in HPI. All systems reviewed & are unremarkable except as noted in HPI and below [facility] Past Medical History Medical History Inflammatory arthritis Retrocalcaneal bursitis Achilles tendinosis of right ankle JERAD (obstructive sleep apnea) s/p inspire History of revision of total replacement of left knee joint 2016 Acid reflux JERAD (obstructive sleep apnea) High cholesterol HTN (hypertension) Celiac disease Squamous cell skin cancer Obesity Calculus of left kidney BPH (benign prostatic hyperplasia) COPD (chronic obstructive pulmonary disease) Depression Mixed hyperlipidemia Surgical History Surgical History H/O bilateral inguinal hernia repair 03/27/2022 - Totally extraperitoneal laparoscopic bilateral inguinal hernia repair with mesh Aortic valve replaced S/P TAVR (transcatheter aortic valve replacement) Hx of shoulder replacement Right shoulder- 2015, [facility] Other dental procedure status dental implants, upper and lower- 2018 Hx of cataract removal with insertion of prosthetic lens bilateral 2018 History of lithotripsy 2017 Hx of total knee replacement 2015 History of medial meniscus repair of left knee 2014 Hammer toe of right foot 2012 Hx of sinus surgery 2009 History of vasectomy 1976 Thumb laceration Hx of tonsillectomy Hx of cholecystectomy History of right inguinal hernia repair 1998 Family History Family History Mother Family history of malignant neoplasm of breast Family history of malignant neoplasm of breast in first degree relative, Onset Age: 66 Family history of coronary artery disease Cerebrovascular accident Acute myocardial infarction Father Family history of coronary artery disease Family history of congenital heart disease, Onset Age: 77 Carcinoma of colon Acute myocardial infarction Sibling COPD (chronic obstructive pulmonary disease) Grandparent Cerebral arteriosclerosis Acute myocardial infarction Diabetes mellitus Social History Social History Social History: daily caffeine use- 6 cups of soda daily Smoking packs per day: 3.5 Smoking cigarettes per day: 70.0 Years smoked: 30 Smoking pack-years: 105.00 Smoking status: Former smoker Tobacco type: cigarettes Second hand tobacco smoke exposure: No Smoking end date: 10/31/87 Additional smoking assessment comments: stopped smoking in the 80s Alcohol intake: former Substance use: never Substance use type: does not use Lack of Transportation: No Lack of Food: Never True Current Housing: I Have Housing Concerned About Future Housing: No Difficulty Paying Gas/Electric Bills: No Difficulty Paying for Meds: No Currently Unemployed: No Education: Master's Degree or Higher Difficulty w/ Childcare or Family Care: No Living arrangements: with family Additional living arrangements comments: Patient is Occupation/Education: retired Gender identity (if verbalized by the patient): Male Sexual Orientation (if Verbalized by the Patient): Straight or Heterosexual Spiritual care concerns: No Exam 2 Narrative: GENERAL: Elderly but well appearing, well-nourished, non-toxic, in no acute distress. HEAD: Normocephalic, atraumatic. RESPIRATORY: Airway patent, respirations nonlabored. Clear to auscultation bilaterally, no rales, rhonchi, wheezing. CARDIOVASCULAR: Tachycardic with regular rhythm without murmurs, rubs, or gallops. Radial pulses strong and easily palpable. MUSCULOSKELETAL: Moves all extremities. No gross deformities. Limited ROM of L 5th digit d/t pain and swelling. Diffuse swelling throughout 5th digit with large area of erythema and severe focal TTP over DIP and distal finger (erythema present mostly over DIP region of extensor surface of finger). Scabbed puncture wound to distal finger, just proximal from cuticle w/o active drainage. Large amount of induration surrounding puncture wound extending proximally from mid cuticle. No significant tenderness over flexor surface of finger. Lymphangitic streaking travelling to lateral dorsal hand, ventral and dorsal forearm just past elbow. Sensation intact. SKIN: Warm, dry, normal color. NEURO: A&O X3. Speech clear. No ataxic movements. PSYCHIATRIC: Appropriate mood and affect. Normal interaction. Course Vital Signs Vital signs: Vital Signs Temperature 98.8 F 08/03/24 14:10 Pulse Rate 110 H 08/03/24 14:10 Respiratory Rate 18 08/03/24 14:10 Blood Pressure 150/95 H 08/03/24 14:10 Pulse Oximetry 99 08/03/24 14:10 Oxygen Delivery Room Air 08/03/24 14:10 Temperature 98.7 F 08/03/24 21:01 Pulse Rate 86 08/04/24 00:46 Respiratory Rate 20 08/04/24 00:46 Blood Pressure 140/78 08/04/24 00:46 Pulse Oximetry 95 08/04/24 00:46 Oxygen Delivery Room Air 08/03/24 17:59 MDM - Extremity Injury (Upper) MDM Narrative Medical decision making narrative: Exam concerning for significant cellulitis/possible abscess vs septic joint vs tenosynovitis to left 5th digit. Patient initially tachycardic upon arrival. Fluids initiated. Sepsis workup initiated. CBC with white blood cell count of 11.6. Inflammatory markers are elevated. Lactic acid within normal range at 1.4. X-ray without evidence of foreign body or fracture. Does show soft tissue swelling. Blood cultures were obtained. Vancomycin started. I was also able to use 18g needle to paronychia-like region to open up scabbed punctured area. Small amount of purulent material expressed. Wound cx obtained. Given severity of infection with lymphangitic streaking to upper arm, feel patient will require IV antibiotics and admission. Unfortunately we do not have Hand surgery available to us at our hospital at this time. Patient may require further debridement/surgical opening of wound. Will attempt transfer. Discussed case with Dr. Eaton, ortho/hand surgery @ [facility], accepted patient for transfer. Recommend transfer to ED. Discussed case with Dr. Calhoun, EDP @ [facility], accepted patient for transfer. Patient and family are in agreement with plan and need for transfer. Antibiotics ongoing. Transportation being arranged. Medical Records Attestation: I reviewed the patient's medical records. Lab Data Attestation: I reviewed the patient's lab results. 08/03/24 19:00 08/03/24 19:00 Labs: Lab Results 08/03/24 08/03/24 Range/Units 18:59 19:00 WBC 11.6 H (4.5-10.0) K/mm3 RBC 4.81 (4.6-6.20) M/mm3 Hgb 16.1 (14.0-18.0) g/dL Hct 47.5 (42.0-52.0) % MCV 98.8 (80-100) fl MCH 33.5 (26-34) pg MCHC 33.9 (32-36) g/dl RDW 12.6 (11.5-14.5) % Plt Count 151 (150-375) k/mm3 MPV 11.2 H (7.4-10.4) fl Immature Gran % (Auto) 0.3 (0-0.5) % Neut % (Auto) 69.8 (45.5-73.1) % Lymph % (Auto) 18.3 (18.3-44.2) % [place] % (Auto) 11.2 H (2.6-8.5) % Eos % (Auto) 0.2 (0-4.4) % Baso % (Auto) 0.2 (0.2-1.2) % Lymph # (Auto) 2.12 (0.9-3.2) K/mm3 [place] # (Auto) 1.3 H (0.1-0.6) K/mm3 Eos # (Auto) 0.0 (0-0.3) K/mm3 Baso # (Auto) 0.0 (0.0-0.1) K/mm3 Abs Immat Gran (auto) 0.04 H (0.00-0.031) K/mm3 Absolute Neuts (auto) 8.1 H (1.3-6.7) K/mm3 Absolute Nucleated RBC 0.000 (0.0-0.012) K/mm3 Nucleated RBC % 0.0 (0.0-0.2) % PT 14.4 (11.1-14.7) Seconds INR 1.1 APTT 30.1 (22.3-36.8) Seconds Sodium 138 (137-145) mmol/L Potassium 4.4 (3.4-5.0) mmol/L Chloride 101 (98-107) mmol/L Carbon Dioxide 24 (22-30) mmol/L Anion Gap 13 H (4-12) mmol/L BUN 15 (9-20) mg/dL Creatinine 0.78 (0.7-1.3) mg/dL Estim Creat Clear Calc 71 ml/min Estimated GFR > 60 (59 - ) Glucose 131 H (65-110) mg/dL Lactic Acid 1.4 (0.7-2.0) mmol/L Calcium 10.9 H (8.4-10.2) mg/dL Total Bilirubin 1.7 H (0.2-1.3) mg/dL AST 28 (17-59) U/L ALT 26 (6-50) U/L Alkaline Phosphatase 50 (38-126) U/L C-Reactive Protein 3.8 H (<1.0) mg/dL Total Protein 8.0 (6.3-8.2) g/dL Albumin 4.8 (3.5-5.1) g/dL Imaging Data Attestation: I personally reviewed and interpreted this imaging study as follows: Radiologist's impression: ITS Impressions Finger X-Ray 08/03/24 18:52 IMPRESSION: No radiopaque foreign body is appreciated. Soft tissue swelling is noted Discharge Plan Discharge Clinical Impression: Cellulitis of multiple sites of left hand and fingers, Paronychia of finger of left hand Patient Disposition: Acute Care Hospital Condition: Stable Patient Language: [place] Prescriptions: No Action hydrocodone-acetaminophen 5-325 mg tablet 1 tablet PO BID PRN (Reason: pain) aspirin [Adult Low Dose Aspirin] 81 mg tablet,delayed release (DR/EC) 81 mg PO DAILY cephalexin 500 mg capsule 500 mg PO Q6H 7 Days Qty: 28 0RF vitamin E (dl, acetate) 450 mg (1,000 unit) capsule 450 mg PO DAILY finasteride 5 mg tablet 5 mg PO DAILY multivitamin with iron-mineral Tablet 1 tablet PO DAILY vitamin B complex Tablet 1 tablet PO DAILY cholecalciferol (vitamin D3) 125 mcg (5,000 unit) capsule 125 mcg PO DAILY Patient Comments: pt states he takes BID sildenafil [Viagra] 100 mg tablet 100 mg PO DAILY Rx Instructions: administer 30 minutes to 4 hours before activity trazodone 100 mg tablet 100 mg PO .QHS Qty: 90 3RF fenofibrate 160 mg tablet See Rx Instructions .ROUTE .COMPLEX Qty: 90 2RF Dose Instruction: TAKE 1 TABLET BY MOUTH DAILY Rx Instructions: TAKE 1 TABLET BY MOUTH DAILY lisinopril 20 mg tablet See Rx Instructions .ROUTE .COMPLEX Qty: 90 2RF Dose Instruction: TAKE 1 TABLET BY MOUTH DAILY Rx Instructions: TAKE 1 TABLET BY MOUTH DAILY mesalamine [Lialda] 1.2 gram tablet,delayed release (DR/EC) 3.6 g PO DAILY 56 Days Qty: 168 0RF Follow-up/Referrals: Indio Staley MD [Primary Care Provider] -
[2024-08-03] MEDS: SODIUM CHLORIDE 0.9% IV 1,000 ML 999 ML IV CONT (20:28)
--- NOTE | 2024-08-03 20:58 | PC.NURSE ---
Patient ambulated to the bathroom with steady gait and back to his room. Call light within reach.
[2024-08-03] MEDS: LIDOCAINE, EPINEPHRINE, TETRACAINE VISCOUS SOLN 3 ML TOPICAL (21:35)
--- NOTE | 2024-08-03 21:37 | PC.NURSE ---
2124 Report called to DEISI Chacon at [facility]
[2024-08-03] MEDS: fentaNYL CITRATE INJ (*CRX) 100 MCG/2 ML VIAL 25 MCG IV PUSH (22:26)
[2024-08-04] VITALS: PULSE 86; RESP 23; O2SAT 93
[2024-08-04 00:19] VITALS: PULSE 82; RESP 24; O2SAT 93
[2024-08-04 00:38] VITALS: PULSE 86; RESP 21; O2SAT 97
[2024-08-04 00:39] VITALS: BP 138/81; PULSE 86; RESP 15; O2SAT 95
[2024-08-04 00:46] VITALS: BP 140/78; PULSE 86; RESP 20; O2SAT 95
[2024-08-04] MEDS: oxyCODONE HCL (*CRX) 5 MG TAB IR PO (00:51)
== END 2024-08-04 01:02 | disposition short-term general hospital (02) ==
PROVIDERS: Emergency Provider Physician Assistant; PCP Family Medicine
DX: L03.012 Cellulitis of left finger (principal); L03.114 Cellulitis of left upper limb; I10 Essential (primary) hypertension; J44.9 Chronic obstructive pulmonary disease, unspecified; E78.2 Mixed hyperlipidemia; G47.33 Obstructive sleep apnea (adult) (pediatric); K90.0 Celiac disease; M19.90 Unspecified osteoarthritis, unspecified site; N40.0 Benign prostatic hyperplasia without lower urinary tract symptoms; Z95.2 Presence of prosthetic heart valve; Z96.611 Presence of right artificial shoulder joint; Z96.659 Presence of unspecified artificial knee joint; Z87.891 Personal history of nicotine dependence; Z87.442 Personal history of urinary calculi; Z85.828 Personal history of other malignant neoplasm of skin; Z90.49 Acquired absence of other specified parts of digestive tract
CPT/HCPCS: 10060; 26010; 36415; 73140; 80053; 83605; 85025; 85610; 85730; 86140; 87040; 87070; 87075; 87181; 87205; 96365; 96366; 96375; 99285; A9270; J3010; J3370; J7030

== ENCOUNTER 2024-09-10 11:31 | Outpatient (CLI) | payer MEDICARE, SELFPAY ==
--- OUTSIDE RECORDS SUMMARY | 2024-09-10 13:22 | XMS_ITS | Clinical Summary ---
Author Organization [facility] Address [address] [place] [address] Care Team Providers Care Electric Organ Checker Name Role Phone Indio Staley MD Primary Care Provider [phone] Theresa Rosas CORNER CUTTER MACHINE OPERATOR Unavailable [phone] Allergies Active Allergy Reactions Criticality Noted Date [...] Take 1,000 mg by mouth daily. Active amoxicillin (AMOXIL) 500 MG capsule Take 4 capsules (2,000 mg total) by mouth as needed. Take one hour prior to dental appointments 3 Active lisinopril (PRINIVIL) 20 MG tablet Take 1 tablet (20 mg total) by mouth daily. 3 Active traZODone (DESYREL) 100 MG tablet Take 1 tablet (100 mg total) by mouth nightly at bedtime. at bedtime 4 Active HYDROcodone-nadege taminophen (NORCO) 5-325 MG tablet Take 1 tablet by mouth every 4 (four) hours as needed. 5 Active mesalamine EC (LIALDA) 1.2 g Tab EC tablet TAKE 3 TABLETS BY MOUTH DAILY FOR 8 WEEKS 5 Active cefadroxil (DURICEF) 500 MG capsule Take 1 capsule (500 mg total) by mouth 2 (two) times daily. 5 025 Active Problems Problem Noted Date Diagnosed Date Coronary artery calcification 08/22/2024 Assessment & Plan (08/22/2024 10:05 PM CLIENT ADMINISTRATOR): Coronary artery calcification noted on CTA TAVR. He is not having anginal symptoms. Continue aspirin and statin. 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 Velocities are stable. Assessment & Plan (12/31/2023 10:34 AM CDT): Recent echo 07/2023 shows decreased velocity of 2.96m/sec. Patient reports significant bleeding and bruising associated with warfarin use. Will Trial discontinuation of warfarin and repeat echocardiogram in to reevaluate the velocity. Assessment & Plan (07/19/2023 11:44 AM CLIENT ADMINISTRATOR): Echo gradients have improved after anticoagulation with warfarin. Continue warfarin for now. S/P TAVR (transcatheter aortic valve replacement ) 06/26/2023 Assessment & Plan (08/22/2024 10:03 PM CLIENT ADMINISTRATOR): Patient is feeling well. Repeat echo after stopping warfarin shows stable velocities. Requires antibiotic prophylaxis prior to all dental procedures. Assessment & Plan (12/31/2023 10:36 AM CDT): Patient is feeling well. Will repeat echocardiogram in July of next year to evaluate valve velocity after discontinuation of warfarin. Requires antibiotic prophylaxis prior to all dental procedures. Assessment & Plan (07/27/2023 12:27 PM CLIENT ADMINISTRATOR): Echo shows valve velocities and gradients have decreased after starting anticoagulation. Continue antibiotic prophylaxis prior to dental procedures. Refer to cardiac rehab. Assessment & Plan (06/26/2023 6:50 AM CLIENT ADMINISTRATOR): Echo shows valve velocities and gradients are elevated. Recommend starting anticoagulation for possible valve thrombosis. Repeat echo in 3 months. Continue antibiotic prophylaxis prior to dental procedures. Sore on ankle 01/10/2023 Severe aortic valve stenosis 03/02/2022 Severe aortic stenosis 02/06/2022 Assessment & Plan (06/26/2023 6:50 AM CLIENT ADMINISTRATOR): Echo shows valve velocities and gradients are [...] (01/30/2022): Added automatically from request for surgery [id number] Abnormal liver enzymes 07/01/2014 Primary hypertension 04/16/2013 Assessment & Plan (08/22/2024 10:03 PM CLIENT ADMINISTRATOR): Blood pressure well controlled in office today at 124/80 mmHg. Continue lisinopril 20 mg daily. Assessment & Plan (12/31/2023 10:39 AM CDT): Blood pressure well controlled in office today at 124/80 mmHg. Continue lisinopril 20 mg daily. Assessment & Plan (07/19/2023 11:45 AM CLIENT ADMINISTRATOR): Continue lisinopril Assessment & Plan (06/26/2023 6:50 AM CLIENT ADMINISTRATOR): Continue lisinopril Assessment & Plan (04/14/2022 11:09 AM CDT): Continue lisinopril Assessment & Plan (02/06/2022 3:49 PM CDT): Continue lisinopril Hypertension, essential 04/16/2013 Hyperlipidemia 03/15/2012 Assessment & Plan (08/22/2024 10:04 PM CLIENT ADMINISTRATOR): Last lipid panel 03/2023 with LDL of 91 and triglycerides of 242. Continue fenofibrate. Will need repeat lipid panel later this year. Assessment & Plan (12/31/2023 10:38 AM CDT): Last lipid panel 03/2023 with LDL of 91 and triglycerides of 242. Continue fenofibrate. Will need repeat lipid panel later this year. Assessment & Plan (07/19/2023 10:08 AM CLIENT ADMINISTRATOR): Continue fenofibrate Assessment & Plan (06/26/2023 6:50 AM CLIENT ADMINISTRATOR): Continue fenofibrate Assessment & Plan (04/14/2022 11:09 AM CDT): Continue fenofibrate Assessment & Plan (02/06/2022 3:49 PM CDT): Continue fenofibrate Dyslipidemia 03/15/2012 Resolved Problems Problem Noted Date Diagnosed Date Resolved Date Other chronic pain 08/11/2024 Encounters Date Type Department Care Team Description 08/11/2024 1:45 PM CLIENT ADMINISTRATOR Office Visit [facility] [address], [place] [address] [place] [id number] Javier Alva MD Follow Up; Aortic Valve Stenosis 08/11/2024 Travel 07/14/2024 9:36 AM CLIENT ADMINISTRATOR - 07/14/2024 11:59 PM CLIENT ADMINISTRATOR Hospital Encounter [facility] [place] [address] Javier Alva MD Discharge Disposition: Home or Self Care (Routine Discharge) 07/14/2024 Travel 07/01/2024 Telephone [facility] [address], [place] [address] [place] [id number] Javier Alva MD Surgical Clearance from Last [...] Cigarettes Q uit: 11/18/1987 Smokeless Tobacco: Never Tobacco Cessation:Counseling Given: Not Answered Alcohol Use Standard Drinks/Week Comments Not Currently 0 (1 standard drink = 0.6 oz pur e alcohol) Sex and Gender Information Value Date Recorded Sex Assigned at Male 08/11/2024 1:22 PM CLIENT ADMINISTRATOR Legal Sex Male 10:23 PM CLIENT ADMINISTRATOR Gender Identity Not on file Sexual Orientation Not on file Last Filed Vital Signs Vital Sign Reading Time Taken Comments Blood Pressure 110/72 08/11/2024 1:45 PM CLIENT ADMINISTRATOR Pulse 74 08/11/2024 1:45 PM CLIENT ADMINISTRATOR Temperature 37.3 C (99.1 F) 03/03/2022 11:38 AM CDT Respiratory Rate 16 03/03/2022 11:38 AM CDT Oxygen Saturation 98% 08/11/2024 1:45 PM CLIENT ADMINISTRATOR Inhaled Oxygen Concentration - - Weight 93.9 kg (207 lb) 08/11/2024 1:45 PM CLIENT ADMINISTRATOR Height 182.9 cm (6') 08/11/2024 1:45 PM CLIENT ADMINISTRATOR Body Mass Index 28.07 08/11/2024 1:45 PM CLIENT ADMINISTRATOR Plan of Treatment Upcoming Encounters Date Type Department Care Team (Late st Contact Info) Description 02/09/2025 10:30 AM CDT Office Visit [facility], [place] [address] [place] [address] [id number] Brea Peres PA [address] [facility], [address] [place] [id number] Health Maintenance Due Date Last Done Comments Annual Medicare Wellness Visit 2008 Pneumococcal Vaccine: [...] Td or Tdap) 04/15/2024 04/15/2014 PHQ-2 (Physician [place]) 07/02/2024 Zoster Vaccines Completed 06/13/2018, 03/07/2018 Meningococcal [...] ADLs independently Lifestyle No Urbano Gifford RN Medical Devices Implanted Type Area Stuntman Device Identifier Shelf Expiration Date Model / Serial / Lot Tavr-03/02/2022 Implanted:07/2021 by Javier Alva MD (Quantity not on file) Valve Implant Aorta [id number] JELANI 09/18/2024 / [id number] / Procedures Procedure Name Priority Date/Time Associated Diagnosis Comments USE ECHOCARDIOGRAM Routine 07/14/2024 10 :07 AM CLIENT ADMINISTRATOR S/P TAVR (transcatheter aortic valve replacement) from Last 3 Months Results * USE ECHOCARDIOGRAM (07/14/2024 10:07 AM CLIENT ADMINISTRATOR) Anatomical Region Laterality Modality Cardiac Echocardiogram 07/14/2024 9:44 AM CLIENT ADMINISTRATOR Narrative 07/15/2024 12:05 PM CLIENT ADMINISTRATOR Echocardiography Report Pat.Name: MAURI JOHN GALLARDO Pat.ID: [id number] .Date: 07/14/2024 : [id number] MADDISON Cordoba Exam Time: 9:44:00 AM Study Type:ECHO WITH CARDIAC DOPPLER COMP Height: 72 in Weight: 210 lb BSA: 2.18 m2 Age: 12 1945,79Y Sex: M BP: 146/68 HR: 76 bpm Sonogrphr: SLW Pat. Stat.:Outpatient CPT - 4: 44825 Reason for Study:S/P TAVR Procedures: 2D, M-mode, [...] cm Aortic Root Tim 3.2 cm LVOT/AoV (MANAGER HUMAN RESOURCES) ( 0.52 Left atrial tim 5.6 cm [...] 07/15/2024 Echocardiography Report Pat.Name: JOHN TYLER Pat.ID: [id number] St.Date: 07/14/2024 Refer.: [id number] MADDISON Cordoba Exam Time: 9:44:00 AM Study Type:ECHO WITH CARDIAC DOPPLER COMP Height: 72 in Weight: 210 lb BSA: 2.18 m2 Age: 12 1945,79Y Sex: M BP: 146/68 HR: 76 bpm Sonogrphr: SLW Pat. Stat.:Outpatient CPT - 4: 83180 Reason for Study:S/P TAVR Procedures: 2D, M-mode, [...] cm Aortic Root Tim 3.2 cm LVOT/AoV (MANAGER HUMAN RESOURCES) ( 0.52 Left atrial tim 5.6 cm [...] 12:54 PM 02/01/2022 5:20 PM Care Teams Electric Organ Checker Relationship Specialty Start Date End Date Indio Staley MD [address] [place] [address] PCP - General FAMILY PRACTICE 01/24/22 Theresa Rosas FNP [address] [place] [address] Nurse Practitioner Nurse Practitioner Family 01/24/22
--- OUTSIDE RECORDS SUMMARY | 2024-09-10 13:23 | XMS_ITS | Encounter Summary ---
Author Organization [facility] Address [facility] [place] [address] Care Team Providers Care Manager Fashion Name Role Phone Indio Staley MD Primary Care Provider [phone] Theresa Rosas HOSPICE RN Unavailable Encounter Details Date Type Department Care Team (Latest Contact Info) Description 09/22/2022 Biometric Security Message Ar[facility] [address] [place] [address] Subhash Cardona MD,PHD cancelled appointment Social History Tobacco Use Types Packs/Day Years Used Date Smoking Tobacco: Former Cigarettes Q uit: 11/18/1987 Smokeless Tobacco: Never Alcohol Use Standard Drinks/Week Comments Not Currently 0 (1 standard drink = 0.6 oz pur e alcohol) Sex and Gender Information Value Date Recorded Sex Assigned at Male 08/11/2024 1:22 PM PATTERN MAKER Legal Sex Male 10:23 PM PATTERN MAKER Gender Identity Not on file Sexual Orientation [...] Description 02/09/2025 10:30 AM CDT Office Visit [facility] [place] [address] Brea Peres PA [address] [facility], [address] [place], [place] [id number] documented as of this encounter Goals Goal Patient Goal Type Associated Problems Recent Progress Patient-Stated? Author Health - patient able to perform ADLs independently Lifestyle No Urbano Gifford RN documented as of this encounter Visit Diagnoses Not on filedocumented in this encounter Care Teams Manager Fashion Relationship Specialty Start Date End Date Indio Staley MD [address] [place] [address] PCP - General FAMILY PRACTICE 01/24/22 Theresa Rosas FNP [address] [place] [address] Nurse Practitioner Nurse Practitioner Family 01/24/22 documented as of this encounter
--- OUTSIDE RECORDS SUMMARY | 2024-09-10 13:23 | XMS_ITS | Clinical Summary ---
Author Organization [facility] al Address [address] [place] [address] Care Team Providers Care Ward Supervisor Name Role Phone Indio Staley MD Primary Care Provider Adria Boogie MD Unavailable [phone] Allergies Active Allergy Reactions Criticality Noted Date Comments Gluten Vomiting Low 07/24/2018 Morphine Other (See comments),Rash Medium 07/24/2018 Reaction: OTHER, Medications fenofibrate (TRIGLIDE) 160 mg tabletIndicat ions:hypertri glyceridemia Take 1 tablet (160 mg total) by mouth every morning 2 03/23/20 18 Active finasteride (PROSCAR) 5 mg tablet Take 1 tablet (5 mg total) by mouth every morning 6 03/23/20 18 Active trazodone HCl (TRAZODONE ORAL)Indicati ons:insomnia associated with depression Take 100 mg by mouth nightly 2 04/23/20 18 Active cholecalcifer ol (VITAMIN D-3) 5,000 unit tablet Take 1 tablet (5,000 Units total) by mouth every morning Active aspirin 81 mg enteric coated tablet Take 1 tablet (81 mg total) by mouth every morning Active LISINOPRIL ORAL Take 20 mg by mouth daily 09/16/19 22 Active senna-docusat e (PERICOLACE) 8.6-50 mg Take 2 tablets by mouth 2 (two) times a day 60 tablet 08/07/19 25 Active HYDROcodone-a cetaminophen (NORCO) 5-325 mg per tabletIndicat ions:Pain Take 1 tablet by mouth every 4 (four) hours as needed for pain 30 tablet 09/04/19 25 Active amoxicillin-c lavulanate (AUGMENTIN) 875-125 mg per tablet Take 1 tablet (875 mg of amoxicillin total) by mouth 2 (two) times a day for 14 days 28 tablet 09/06/19 25 025 Active sulfamethoxaz ole-trimethop rim (BACTRIM DS) 800-160 mg per tablet Take 1 tablet by mouth 2 (two) times a day for 14 days 28 tablet 09/06/19 25 025 Active HYDROcodone-a cetaminophen (NORCO) 5-325 mg per tabletIndicat ions:Pain Take 1 tablet by mouth every 4 (four) hours as needed for pain 30 tablet 08/07/19 25 025 Discontinued(Re order) cefadroxil (DURICEF) 500 mg capsuleIndica tions:Skin/So ft Tissue Infection Take 1 capsule (500 mg total) by mouth 2 (two) times a day for 11 days 22 capsule 08/07/19 25 025 sulfamethoxaz ole-trimethop rim (BACTRIM DS) 800-160 mg per tablet Take 1 tablet by mouth 2 (two) times a day for 14 days 28 tablet 09/06/19 25 025 Discontinued amoxicillin-c lavulanate (AUGMENTIN) 875-125 mg per tablet Take 1 tablet (875 mg of amoxicillin total) by mouth 2 (two) times a day for 14 days 28 tablet 09/06/19 25 025 Discontinued(Al ternate therapy) Active Problems Problem Noted Date Diagnosed Date Finger pulp abscess, left 08/04/2024 Assessment & Plan (08/07/2024 11:59 AM VP DIRECTOR OF CREATIVE STRATEGY): John Tyler is a 79 y.o. male who presented with the pain in his left small finger after pricking himself with a tanya thorn about 3 months prior to this admission. Since then he has had intermittent purulence drainage from his wound. He was prescribed some courses of amoxicillin and keflex by urgent care. He was found to have diffuse swelling distal to the PIP joint and was seen by surgery team which he underwent I&D on 08/04/24. Cultures were taken which are positive for MSSA. Per Surgical Team, the infection was all soft tissue and there was no joint involvement. He was started post-operatively on vancomycin and Unasyn. Recommending treating as left small finger soft tissue infection for 14 days (08/04/24-08/18/24). Discharging with PO cefadroxil to complete the treatment. Given original injury was from thorn, requesting ID follow-up to confirm that fungal cultures remain negative. Recommendations: - Discontinue vancomycin and Unasyn - Start cefadroxil 500mg PO BID to complete 14 days (08/04/24-08/18/24) of treatment for soft tissue infection (ordered) - Will request ID follow up - ID is formally signing off but will continue to monitor patient peripherally while inpatient. Please see sign off note from 08/07/24 for complete recommendations. Assessment & Plan (08/04/2024 1:07 PM VP DIRECTOR OF CREATIVE STRATEGY): Presents with three month history of fluctuating swelling of his left second digit after having been injured while gardening with intermittent purulent drainage. Has not resolved with course of amoxicillin and subsequent course of doxycycline; unclear whether or not this represents treatment failure to alternative organism or source control issue. Has had some elevated temperatures, but no true fevers and vitals stable. - Has been on Unasyn here; per ortho, plan to consult ID given their concern for fungal infection Inflammatory bowel disease 08/04/2024 Assessment & Plan (08/04/2024 1:08 PM VP DIRECTOR OF CREATIVE STRATEGY): Continue home mesalamine Flexor tenosynovitis of finger 08/03/2024 Lumbar stenosis without neurogenic claudication 03/25/2024 Lumbar radicular pain 03/25/2024 Cervical radiculopathy 03/25/2024 Cervical stenosis of spinal canal 03/25/2024 S/P TAVR (transcatheter aortic valve replacement ) 03/04/2024 Sacroiliitis 12/25/2023 Allergic rhinitis 08/10/2020 JERAD (obstructive sleep apnea) 05/14/2020 Overview (05/14/2020): Added automatically from request for surgery [id number] Assessment & Plan (08/04/2024 1:09 PM VP DIRECTOR OF CREATIVE STRATEGY): S/p INSPIRE (hypoglossal nerve stimulator) mplantation Sleep apnea 02/17/2020 Right shoulder pain 01/19/2016 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 0 10/22/2015 Abnormal liver enzymes 07/01/2014 Osteoporosis 10/24/2013 Hypertension, essential 04/16/2013 Assessment & Plan (08/04/2024 1:08 PM VP DIRECTOR OF CREATIVE STRATEGY): Continue home lisinopril 20mg Hay fever 04/16/2012 Dyslipidemia 03/15/2012 Assessment & Plan (08/04/2024 1:08 PM VP DIRECTOR OF CREATIVE STRATEGY): Continue home fenofibrate FPC use of drug 03/15/2012 Long-term current use of steroids 07/24/2011 Arthralgia of multiple joints 01/20/2011 Polyosteoarthritis, unspecified 01/20/2011 Encounter for preventive health examination 10/30 Encounters Date Type Department Care Team Description 09/05/2024 1:50 PM VP DIRECTOR OF CREATIVE STRATEGY Lab [facility] [address] [place] [address] [place] [address] Flexor tenosynovitis of finger; Finger infection 09/05/2024 1:00 PM VP DIRECTOR OF CREATIVE STRATEGY Office [facility] [address] [place] [address] Outpatient Health [facility] Floor [address] [place] [address] Flexor tenosynovitis of finger (Primary Dx); Finger infection 09/05/2024 Telephone [facility] [address] [place] [address] 4th Floor [address] [place] [address] Rabia James 08/29/2024 5:29 PM VP DIRECTOR OF CREATIVE STRATEGY - 08/29/2024 11:59 PM VP DIRECTOR OF CREATIVE STRATEGY Hospital Encounter [address] [address] Discharge Disposition: Discharge to home or self care 08/29/2024 2:20 PM VP DIRECTOR OF CREATIVE STRATEGY Office Visit [facility] Infectious Diseases [address] [place] [address] Amilcar Rivera MD Finger pulp abscess, left 08/29/2024 Orders Only [facility] Infectious Diseases [address] [place] [address] Amilcar Rivera MD Finger pulp abscess, left 08/26/2024 9:48 AM VP DIRECTOR OF CREATIVE STRATEGY - 08/26/2024 11:59 PM VP DIRECTOR OF CREATIVE STRATEGY Hospital Encounter [facility] [address] [place] [address] Barby Irvin NP Cervical stenosis of spinal canal (Primary Dx); Sacroiliitis; FPC use of drug; Primary osteoarthritis involving multiple joints; Lumbar radicular pain; Hypertension, essential; Cervical radiculopathy; Arthralgia of multiple joints Discharge Disposition: Discharge to home or self care 08/15/2024 1:30 PM VP DIRECTOR OF CREATIVE STRATEGY Office [facility] [address] [facility] Health 4th Floor [address] [place] [phone] Follow-up exam [Z09] (Primary Dx) 08/07/2024 Telephone [facility] Orthopaedic Surgery [address] [facility] [address] [facility] [address] [facility] 1st Floor [address] [place] [address] Jack Barron MD 08/04/2024 11:39 AM VP DIRECTOR OF CREATIVE STRATEGY - 08/04/2024 1:59 PM VP DIRECTOR OF CREATIVE STRATEGY Surgery [facility] Operating Room [address] [place] [address] John Eaton MD IRRIGATION AND DEBRIDEMENT 08/04/2024 11:32 AM VP DIRECTOR OF CREATIVE STRATEGY Anesthesia Event [facility] Operating Room [address] [place] [id number] John Lin MD 08/04/2024 2:25 AM VP DIRECTOR OF CREATIVE STRATEGY - 08/07/2024 2:04 PM VP DIRECTOR OF CREATIVE STRATEGY Hospital Encounter [facility] [address] [place] [address] Marcin Jacobson MD Forbriger, MD Macho eGntile III, MD Angelito Silva, John Ferguson MD Flexor tenosynovitis of finger (Primary Dx) Discharge Disposition: Discharge to home or self care 08/04/2024 Documentation [facility] [address] [place] [phone] Qamar Hagan RN Prior Auth (Sherman 5/325) 07/30/2024 9:43 AM VP DIRECTOR OF CREATIVE STRATEGY - 07/30/2024 11:59 PM VP DIRECTOR OF CREATIVE STRATEGY Hospital Encounter [facility] [address] [place] [id number] Barby Irvin NP Cervical stenosis of spinal canal (Primary Dx); Sacroiliitis; Cervical radiculopathy; Lumbar radicular pain; Lumbar stenosis without neurogenic claudication; Primary hypertension Discharge Disposition: Discharge to home or self care 06/18/2024 9:45 AM VP DIRECTOR OF CREATIVE STRATEGY - 06/18/2024 11:59 PM VP DIRECTOR OF CREATIVE STRATEGY Hospital Encounter [facility] [address] [place] [address] Adria Lau MD Cervical radiculopathy; Cervical stenosis of spinal canal Discharge Disposition: Discharge to home or self care from Last 3 Months Immunizations Immunization Administration Dates Next Due Tdap 08/04/2024(Deferred: No longer n eeded - UTD) Surgical History Surgery Date Site/Laterality Comments EYE [...] shoulder replacement LITHOTRIPSY 07/02/2016 - 07/01/2017 for ivan stone KNEE SURGERY 07/02/2016 - 07/01/2017 revision [...] (Added by TW Conv) Stroke Paternal Grandfather [place] Jayson Diabetes Paternal Grandmother Emilie COPD Sister [...] Cigarettes 4 23 1 957 - 1979 Passive Smoke Exposure: Never Smokeless Tobacco: Never Tobacco Cessation:Counseling Given: Not Answered Alcohol Use Standard Drinks/Week Comments Not Currently 0 (1 standard drink = 0.6 oz pur e alcohol) AUDIT-C Answer Date Recorded Q1: How often do you have a drink containing alcohol? Never 08/15/2024 Q2: How many drinks containi ng alcohol do you have on a typical day when you are drinking? Patient does not drink Q3: How often do you have si x or more drinks on one occasion? Never 08/15/2024 Hunger Vital Sign Answer Date Recorded Within the past 12 months, y ou worried that your food would run out before you got the money to buy more. Never true 09/06/19 25 Within the past 12 months, t he food you bought just didn't last and you didn't have money to get more. Never true 09/05/2024 Personal Safety Answer Date Recorded Have you ever been in or are you currently in a harmful physical or emotional relationship or is someone making you feel afraid or unsafe? Denies 08/04/2024 Sex and Gender Information Value Date Recorded Sex Assigned at Not on file Legal Sex Male 3:19 AM VP DIRECTOR OF CREATIVE STRATEGY Gender Identity Male 01/22/2020 3:16 PM CDT Sexual Orientation Straight 01/22/2020 3: 16 PM CDT Obstetrics History Last Filed Vital Signs Vital Sign Reading Time Taken Comments Blood Pressure 131/72 08/29/2024 1:54 PM VP DIRECTOR OF CREATIVE STRATEGY Pulse 75 08/29/2024 1:54 PM VP DIRECTOR OF CREATIVE STRATEGY Temperature 36.8 C (98.2 F) 08/29/2024 1:54 PM VP DIRECTOR OF CREATIVE STRATEGY Respiratory Rate 16 08/26/2024 10:02 AM VP DIRECTOR OF CREATIVE STRATEGY Oxygen Saturation 96% 08/29/2024 1:54 PM VP DIRECTOR OF CREATIVE STRATEGY Inhaled Oxygen Concentration - - Weight 94.9 kg (209 lb 3.2 oz) 08/29/2024 1:54 P M VP DIRECTOR OF CREATIVE STRATEGY Height 182.9 cm (6' 0.01 ) 08/29/2024 1:54 PM CS T Body Mass Index 28.37 08/29/2024 1:54 PM VP DIRECTOR OF CREATIVE STRATEGY Plan of Treatment Health Maintenance Due Date Last Done Comments Depression Screening 1943 Hepatitis B Screening 1961 Abdominal Aortic Aneurysm (A AA) Screen 2008 Well Visit 65+ 2008 Pneumococcal vaccine 65+ (2 of 2 - PPSV23) 07/19/2016 07/19/2015 Covid-19 Vaccine (3 - 2023-2 5 season) 2024 08/27/2020, 08/01/2020 Influenza Vaccine (#1) 2024 , 02/25/2020, 04/17/2019, Additional history exists DTaP/Tdap/Td Vaccine (2 - Td or Tdap) 04/15/2024 04/15/2014 Fall Risk Assessment 08/26/2025 08/26/2024 Zoster Vaccine Completed 06/13/2018, 03/07/2018 Medical Devices Implanted Type Area Back Hoe Operator Device Identifier Shelf Expiration Date Model / Serial / Lot [employer] 4063 Inspire 3 Electrode Cuff Tunnel [place]derick Lead Neurostimulator [facility] - [id number] - [id number] Implanted:Qty: 1 on 06/21/2020 by Mahad Chahal MD at [facility] Right: Neck [employer] 01/03/2022 4063 / [id number] / [employer] 4340 Lead Neurostimulator Inspire Respiratory Sens Cycle Strl - [id number] - [id number] Implanted:Qty: 1 on 06/21/2020 by Mahad Chahal MD at [facility] Right: Chest [employer] 01/03/2022 4340 / [id number] / Description:Between ribs [employer] 3028 Generator Neurostimulator - [id number] - [id number] Implanted:Qty: 1 on 06/21/2020 by Mahad Chahal MD at [facility] Right: Chest [employer] 02/15/2023 3028 / [id number] / Procedures Procedure Name Priority Date/Time Associated Diagnosis Comments EGFR Routine 09/05/2024 1:55 PM VP DIRECTOR OF CREATIVE STRATEGY Flexor tenosynovitis of finger ERYTHROCYTE SEDIMENTATION RATE Routine 09/05/2024 1:55 PM VP DIRECTOR OF CREATIVE STRATEGY Flexor tenosynovitis of finger CRP (ACUTE PHASE) Routine 09/05/2024 1:5 5 PM VP DIRECTOR OF CREATIVE STRATEGY Flexor tenosynovitis of finger CBC WITHOUT DIFFERENTIAL Routine 09/05/2024 1:55 PM VP DIRECTOR OF CREATIVE STRATEGY Flexor tenosynovitis of finger Finger infection BASIC METABOLIC PANEL Routine 09/05/2024 1:55 PM VP DIRECTOR OF CREATIVE STRATEGY Flexor tenosynovitis of finger EGFR Routine 08/29/2024 2:49 PM VP DIRECTOR OF CREATIVE STRATEGY Finger pulp abscess, left DIFFERENTIAL AUTO Routine 08/29/2024 2:4 9 PM VP DIRECTOR OF CREATIVE STRATEGY Finger pulp abscess, left CBC WITH AUTO DIFFERENTIAL Routine 08/29/2024 2:49 PM VP DIRECTOR OF CREATIVE STRATEGY Finger pulp abscess, left COMPREHENSIVE METABOLIC PANEL Routine 08/29/2024 2:49 PM VP DIRECTOR OF CREATIVE STRATEGY Finger pulp abscess, left VANCOMYCIN LEVEL TROUGH Timed 08/07/2024 1:43 AM VP DIRECTOR OF CREATIVE STRATEGY EGFR Routine 08/06/2024 10:48 PM VP DIRECTOR OF CREATIVE STRATEGY DIFFERENTIAL AUTO Routine 08/06/2024 10:48 PM VP DIRECTOR OF CREATIVE STRATEGY COMPREHENSIVE METABOLIC PANEL Routine 08/06/2024 10:48 PM VP DIRECTOR OF CREATIVE STRATEGY CBC WITH AUTO DIFFERENTIAL Routine 08/06/2024 10:48 PM VP DIRECTOR OF CREATIVE STRATEGY EGFR Routine 08/05/2024 10:21 PM VP DIRECTOR OF CREATIVE STRATEGY DIFFERENTIAL AUTO Routine 08/05/2024 10:21 PM VP DIRECTOR OF CREATIVE STRATEGY COMPREHENSIVE METABOLIC PANEL Routine 08/05/2024 10:21 PM VP DIRECTOR OF CREATIVE STRATEGY CBC WITH AUTO DIFFERENTIAL Routine 08/05/2024 10:21 PM VP DIRECTOR OF CREATIVE STRATEGY EGFR Routine 08/04/2024 8:49 PM VP DIRECTOR OF CREATIVE STRATEGY DIFFERENTIAL AUTO Routine 08/04/2024 8:4 9 PM VP DIRECTOR OF CREATIVE STRATEGY COMPREHENSIVE METABOLIC PANEL Routine 08/04/2024 8:49 PM VP DIRECTOR OF CREATIVE STRATEGY CBC WITH AUTO DIFFERENTIAL Routine 08/04/2024 8:49 PM VP DIRECTOR OF CREATIVE STRATEGY BLOOD CULTURE Routine 08/04/2024 8:49 PM VP DIRECTOR OF CREATIVE STRATEGY BLOOD CULTURE Routine 08/04/2024 8:49 PM VP DIRECTOR OF CREATIVE STRATEGY TISSUE AEROBIC AND ANAEROBIC CULTURE AND GRAM STAIN Routine 08/04/2024 12:33 PM VP DIRECTOR OF CREATIVE STRATEGY MYCOBACTERIOLOGY AFB CULTURE Routine 08/04/2024 12:33 PM VP DIRECTOR OF CREATIVE STRATEGY MYCOLOGY (FUNGAL) CULTURE Routine 08/04/2024 12:33 PM VP DIRECTOR OF CREATIVE STRATEGY TISSUE AEROBIC AND ANAEROBIC CULTURE AND GRAM STAIN Routine 08/04/2024 12:24 PM VP DIRECTOR OF CREATIVE STRATEGY MYCOBACTERIOLOGY AFB CULTURE Routine 08/04/2024 12:24 PM VP DIRECTOR OF CREATIVE STRATEGY MYCOLOGY (FUNGAL) CULTURE Routine 08/04/2024 12:24 PM VP DIRECTOR OF CREATIVE STRATEGY TISSUE AEROBIC AND ANAEROBIC CULTURE AND GRAM STAIN Routine 08/04/2024 12:18 PM VP DIRECTOR OF CREATIVE STRATEGY MYCOBACTERIOLOGY AFB CULTURE Routine 08/04/2024 12:18 PM VP DIRECTOR OF CREATIVE STRATEGY MYCOLOGY (FUNGAL) CULTURE Routine 08/04/2024 12:18 PM VP DIRECTOR OF CREATIVE STRATEGY OK AN PROCEDURE PLACEHOLDER Routine 08/04/2024 11:55 AM VP DIRECTOR OF CREATIVE STRATEGY OK AN ELECTIVE SUPRAGLOTTIC AIRWAY Routine 08/04/2024 11:55 AM VP DIRECTOR OF CREATIVE STRATEGY IRRIGATION AND DEBRIDEMENT 08/04/2024 11:35 AM VP DIRECTOR OF CREATIVE STRATEGY Flexor tenosynovitis of finger AEROBIC AND ANAEROBIC CULTURE AND GRAM STAIN STAT 08/04/2024 6:52 AM VP DIRECTOR OF CREATIVE STRATEGY XR TRANSFER OF OUTSIDE FILMS Routine 08/04/2024 6:22 AM VP DIRECTOR OF CREATIVE STRATEGY XR WRIST LEFT 3 OR MORE VIEWS ED Urgent/IP Urgent 08/04/2024 4:08 AM VP DIRECTOR OF CREATIVE STRATEGY XR HAND LEFT 3 OR MORE VIEWS ED Urgent/IP Urgent 08/04/2024 4:08 AM VP DIRECTOR OF CREATIVE STRATEGY EGFR STAT 08/04/2024 2:34 AM VP DIRECTOR OF CREATIVE STRATEGY DIFFERENTIAL AUTO STAT 08/04/2024 2:3 4 AM VP DIRECTOR OF CREATIVE STRATEGY TYPE AND SCREEN STAT 08/04/2024 2:34 AM VP DIRECTOR OF CREATIVE STRATEGY PROTIME-INR STAT 08/04/2024 2:34 AM VP DIRECTOR OF CREATIVE STRATEGY APTT STAT 08/04/2024 2:34 AM VP DIRECTOR OF CREATIVE STRATEGY COMPREHENSIVE METABOLIC PANEL STAT 08/04/2024 2:34 AM VP DIRECTOR OF CREATIVE STRATEGY CBC WITH AUTO DIFFERENTIAL STAT 08/04/2024 2:34 AM VP DIRECTOR OF CREATIVE STRATEGY PAIN MGMT IMAGING CERVICAL/THORACIC EPIDURAL Schedule Routine, Read Routine (OP Routine) 06/18/2024 11:54 AM VP DIRECTOR OF CREATIVE STRATEGY Cervical radiculopathy Cervical stenosis of spinal canal from Last 3 Months Results * eGFR (09/05/2024 1:55 PM VP DIRECTOR OF CREATIVE STRATEGY) eGFR 71 >=60 mL/min/1. 73 m2 Comment: Interpretive Data Reference Interval Normal >/= 90 mL/min/1.73m2 Mildly decreased* 60 - 89 mL/min/1.73m2 Mildly to moderately decreased 45 - 59 mL/min/1.73m2 Moderately to severely decreased 30 - 44 mL/min/1.73m2 Severely decreased 15 - 29 mL/min/1.73m2 Kidney Failure < 15 mL/min/1.73m2 *Relative to young adult level Estimated glomerular filtration rate is determined by the 2020 CKD-EPI equation recommended by the National Kidney Foundation (A Unifying Approach to GFR Estimation: Recommendations of the NKF-ASK Task Force on Reassessing the Inclusion of Race in Diagnosing Kidney Disease, JASN 2020). The CKD-EPI equation should not be used for patients with unstable renal function and has not been validated in children and those over 70. Current interpretive data was last reviewed 2021. Blood 09/05/2024 1:55 PM VP DIRECTOR OF CREATIVE STRATEGY 09/05/2024 2:57 PM VP DIRECTOR OF CREATIVE STRATEGY us John Eaton MD LAB BLOOD ORDERABLES Final R esult [facility] Department [place] [address] * Erythrocyte sedimentation rate (09/05/2024 1:55 PM VP DIRECTOR OF CREATIVE STRATEGY) [facility] Erythrocyte sedimentation rate 6 1 - 20 mm/hr Blood 09/05/2024 1:55 PM VP DIRECTOR OF CREATIVE STRATEGY 09/05/2024 2:54 PM VP DIRECTOR OF CREATIVE STRATEGY John Eaton MD LAB BLOOD ORDERABLES Final R esult Performing Organization Address [facility] Co de Phone Number [facility] [place] [place] [address] * (ABNORMAL) CBC without differential (09/05/2024 1:55 PM VP DIRECTOR OF CREATIVE STRATEGY) [facility] WBC 6.5 3.8 - 9.9 K/cumm Hgb 14.2 13.0 - 17.5 g/dL [facility] Hct 42.6 38.9 - 50.3 % [facility] Plt 144(L) 150 - 400 K/cumm [facility] MPV 11.3 9.1 - 12.3 fL [facility] RBC 4.34 4.30 - 5.80 M/cumm [facility] MCV 98.2(H) 81.3 - 96.4 fL [facility] MCH 32.7 27.1 - 33.3 pg [facility] MCHC 33.3 32.3 - 35.7 g/dL [facility] RDW CV 12.8 11.1 - 14.9 % [facility] RDW SD 46.3 35.7 - 48.1 fL [facility] NRBC abs 0.00 0.00 - 0.01 K/cumm [facility] Blood 09/05/2024 1:55 PM VP DIRECTOR OF CREATIVE STRATEGY 09/05/2024 2:54 PM VP DIRECTOR OF CREATIVE STRATEGY John Eaton MD LAB BLOOD ORDERABLES Final R esult Performing Organization Address City/[facility]/ZIP Co de Phone Number [facility] [place] [address] * CRP (acute phase) (09/05/2024 1:55 PM VP DIRECTOR OF CREATIVE STRATEGY) Pathologist [facility] CRP <0.5 <=10.0 mg/L Comment:Repeated and Verifie d Blood 09/05/2024 1:55 PM VP DIRECTOR OF CREATIVE STRATEGY 09/05/2024 2:54 PM VP DIRECTOR OF CREATIVE STRATEGY John Eaton MD LAB BLOOD ORDERABLES Final R esult [facility] [address] [facility] [place] [address] * (ABNORMAL) Basic metabolic panel (09/05/2024 1:55 PM VP DIRECTOR OF CREATIVE STRATEGY) [facility] Sodium 140 135 - 145 mmol/L Potassium, pl See Comment 3.3 - 4.9 mmol/L [facility] Comment:Credited; Hemolyzed Specimen Chloride 105 97 - 110 mmol/L [facility] CO2 27 22 - 32 mmol/L [facility] Anion gap 8 2 - 15 mmol/L [facility] BUN 21 6 - 25 mg/dL [facility] Creatinine 1.06 0.80 - 1.30 mg/dL [facility] Glucose 93 70 - 199 mg/dL [facility] Comment: Interpretive Data Fasting glucose >/= 126 mg/dl is diagnostic for diabetes. Fasting is defined as no caloric intake for at least 8 hours. Fasting glucose between 100 mg/dl to 125 mg/dl is diagnostic of prediabetes. In a patient with classic symptoms of hyperglycemia or hyperglycemic crisis, a random glucose >/= 200 mg/dl is diagnostic for diabetes. In the absence of unequivocal hyperglycemia, results should be confirmed by repeat testing. The classification and Diagnosis of Diabetes Diabetes Care 2021; 46: S19-S40. Current interpretive data was last revised 2022. Calcium 10.6(H) 8.5 - 10.3 mg/dL [facility] Blood 09/05/2024 1:55 PM VP DIRECTOR OF CREATIVE STRATEGY 09/05/2024 2:54 PM VP DIRECTOR OF CREATIVE STRATEGY John Eaton MD LAB BLOOD ORDERABLES Final R esult [facility] [place] [address] * eGFR (08/29/2024 2:49 PM VP DIRECTOR OF CREATIVE STRATEGY) eGFR 67 >=60 mL/min/1. 73 m2 Comment: Interpretive Data Reference Interval Normal >/= 90 mL/min/1.73m2 Mildly decreased* 60 - 89 mL/min/1.73m2 Mildly to moderately decreased 45 - 59 mL/min/1.73m2 Moderately to severely decreased 30 - 44 mL/min/1.73m2 Severely decreased 15 - 29 mL/min/1.73m2 Kidney Failure < 15 mL/min/1.73m2 *Relative to young adult level Estimated glomerular filtration rate is determined by the 2020 CKD-EPI equation recommended by the National Kidney Foundation (A Unifying Approach to GFR Estimation: Recommendations of the NKF-ASK Task Force on Reassessing the Inclusion of Race in Diagnosing Kidney Disease, JASN 2020). The CKD-EPI equation should not be used for patients with unstable renal function and has not been validated in children and those over 70. Current interpretive data was last reviewed 2021. Blood 08/29/2024 2:49 PM VP DIRECTOR OF CREATIVE STRATEGY 08/29/2024 6:22 PM VP DIRECTOR OF CREATIVE STRATEGY [facility] MD LAB BLOOD ORDERAB LES Final Result Performing Organization Address City/[facility]/ZIP Co de Phone Number [facility] Department of [place] [address] * Differential, auto (08/29/2024 2:49 PM VP DIRECTOR OF CREATIVE STRATEGY) Neutrophil abs 2.8 1.5 - 6.5 K/cumm Imm gran abs 0.0 0.0 - 0.1 K/cumm [facility] Lymphocyte abs 2.3 0.8 - 3.3 K/cumm [facility] Monocyte abs 0.7 0.2 - 0.8 K/cumm [facility] Eosinophil abs 0.1 0.0 - 0.5 K/cumm [facility] Basophil abs 0.0 0.0 - 0.1 K/cumm [facility] Neutrophil pct 46.7 % [facility] Comment: Interpretive Data Percent cell count reference ranges are not reported, since discordance with absolute values may lead to misinterpretation of CBC data. Current Interpretive Data was last revised on 2017. Imm gran pct 0.5 % [facility] Comment: Interpretive Data Percent cell count reference ranges are not reported, since discordance with absolute values may lead to misinterpretation of CBC data. Current Interpretive Data was last revised on 2017. Lymphocyte pct 39.0 % [facility] Comment: Interpretive Data Percent cell count reference ranges are not reported, since discordance with absolute values may lead to misinterpretation of CBC data. Current Interpretive Data was last revised on 2017. Monocyte pct 11.3 % [facility] Comment: Interpretive Data Percent cell count reference ranges are not reported, since discordance with absolute values may lead to misinterpretation of CBC data. Current Interpretive Data was last revised on 2017. Eosinophil pct 2.2 % [facility] Comment: Interpretive Data Percent cell count reference ranges are not reported, since discordance with absolute values may lead to misinterpretation of CBC data. Current Interpretive Data was last revised on 2017. Basophil pct 0.3 % [facility] Comment: Interpretive Data Percent cell count reference ranges are not reported, since discordance with absolute values may lead to misinterpretation of CBC data. Current Interpretive Data was last revised on 2017. Blood 08/29/2024 2:49 PM VP [employer]ATIVE [employer]ATEGY 08/29/2024 6:13 PM VP DIRECTOR OF CREATIVE STRATEGY [place] Nicole QUINTERO LAB BLOOD ORDERAB LES Final Result [facility] Department [place] [address] * (ABNORMAL) CBC with auto differential (08/29/2024 2:49 PM VP DIRECTOR OF CREATIVE STRATEGY) WBC 6.0 3.8 - 9.9 K/cumm Hgb 13.8 13.0 - 17.5 g/dL [facility] Hct 41.2 38.9 - 50.3 % [facility] Plt 134(L) 150 - 400 K/cumm [facility] MPV 11.6 9.1 - 12.3 fL [facility] RBC 4.22(L) 4.30 - 5.80 M/cumm [facility] MCV 97.6(H) 81.3 - 96.4 fL [facility] MCH 32.7 27.1 - 33.3 pg [facility] MCHC 33.5 32.3 - 35.7 g/dL [facility] RDW CV 12.8 11.1 - 14.9 % [facility] RDW SD 45.7 35.7 - 48.1 fL [facility] NRBC abs 0.00 0.00 - 0.01 K/cumm [facility] Blood 08/29/2024 2:49 PM VP [employer]OR [employer] CREATIVE STRATEGY 08/29/2024 6:13 PM VP DIRECTOR OF CREATIVE STRATEGY [facility] Nicole QUINTERO LAB BLOOD ORDERAB LES Final Result [facility] Department [place] [address] * (ABNORMAL) Comprehensive metabolic panel (08/29/2024 2:49 PM VP DIRECTOR OF CREATIVE STRATEGY) Pathologist [facility] Sodium 144 135 - 145 mmol/L Potassium, pl 4.1 3.3 - 4.9 mmol/L [facility] Chloride 107 97 - 110 mmol/L [facility] CO2 26 22 - 32 mmol/L [facility] Anion gap 11 2 - 15 mmol/L [facility] BUN 22 6 - 25 mg/dL [facility] Creatinine 1.11 0.80 - 1.30 mg/dL [facility] Glucose 116 70 - 199 mg/dL [facility] Comment: Interpretive Data Fasting glucose >/= 126 mg/dl is diagnostic for diabetes. Fasting is defined as no caloric intake for at least 8 hours. Fasting glucose between 100 mg/dl to 125 mg/dl is diagnostic of prediabetes. In a patient with classic symptoms of hyperglycemia or hyperglycemic crisis, a random glucose >/= 200 mg/dl is diagnostic for diabetes. In the absence of unequivocal hyperglycemia, results should be confirmed by repeat testing. The classification and Diagnosis of Diabetes Diabetes Care 2021; 46: S19-S40. Current interpretive data was last revised 2022. Calcium 10.8(H) 8.5 - 10.3 mg/dL [facility] Bilirubin, total 0.4 0.1 - 1.2 mg/dL [facility] Protein, pl 7.1 6.5 - 8.5 g/dL [facility] Albumin 4.2 3.5 - 5.0 g/dL [facility] Alk phos 46 40 - 130 Units/L [facility] ALT 27 7 - 55 Units/L [facility] AST 28 10 - 50 Units/L [facility] Blood 08/29/2024 2:49 PM VP DIRECTOR OF CREATIVE STRATEGY 08/29/2024 6:13 PM VP DIRECTOR OF CREATIVE STRATEGY Amilcar Rivera MD LAB BLOOD ORDERAB LES Final Result Performing Organization Address City/[facility]/ZIP Co de Phone Number [facility] [place] [employer] [place] [address] * (ABNORMAL) Vancomycin level trough Please draw at least 30 minutes prior to dose administration (08/07/2024 1:43 AM VP DIRECTOR OF CREATIVE STRATEGY) Vancomycin trough 9.6(L) 10.0 - 20.0 mcg/mL Blood 08/07/2024 1:43 AM VP [employer]OR OF CREATIVE STRATEGY 08/07/2024 2:10 AM VP DIRECTOR OF CREATIVE STRATEGY Narrative [facility] - 08/07/2024 3:00 AM VP DIRECTOR OF CREATIVE STRATEGY Please draw at least 30 minutes prior to dose administration Agnieszka Alston NP LAB BLOOD ORDERABLES Final Result [facility] [place] [place] [address] * eGFR (08/06/2024 10:48 PM VP DIRECTOR OF CREATIVE STRATEGY) Pathologist [facility] eGFR 87 >=60 mL/min/1. 73 m2 Comment: Interpretive Data Reference Interval Normal >/= 90 mL/min/1.73m2 Mildly decreased* 60 - 89 mL/min/1.73m2 Mildly to moderately decreased 45 - 59 mL/min/1.73m2 Moderately to severely decreased 30 - 44 mL/min/1.73m2 Severely decreased 15 - 29 mL/min/1.73m2 Kidney Failure < 15 mL/min/1.73m2 *Relative to young adult level Estimated glomerular filtration rate is determined by the 2020 CKD-EPI equation recommended by the National Kidney Foundation (A Unifying Approach to GFR Estimation: Recommendations of the NKF-ASK Task Force on Reassessing the Inclusion of Race in Diagnosing Kidney Disease, JASN 2020). The CKD-EPI equation should not be used for patients with unstable renal function and has not been validated in children and those over 70. Current interpretive data was last reviewed 2021. Blood 08/06/2024 10:4 8 PM VP [employer]OR OF CREATIVE STRATEGY 08/06/2024 11:27 PM VP DIRECTOR OF CREATIVE STRATEGY us John Eaton MD LAB BLOOD ORDERABLES Final R esult [facility] Department [place] [address] * Differential, auto (08/06/2024 10:48 PM VP DIRECTOR OF CREATIVE STRATEGY) [facility] Neutrophil abs 2.7 1.5 - 6.5 K/cumm Imm gran abs 0.0 0.0 - 0.1 K/cumm [facility] Lymphocyte abs 2.0 0.8 - 3.3 K/cumm [facility] Monocyte abs 0.8 0.2 - 0.8 K/cumm [facility] Eosinophil abs 0.1 0.0 - 0.5 K/cumm [facility] Basophil abs 0.0 0.0 - 0.1 K/cumm [facility] Neutrophil pct 48.0 % [facility] Comment: Interpretive Data Percent cell count reference ranges are not reported, since discordance with absolute values may lead to misinterpretation of CBC data. Current Interpretive Data was last revised on 2017. Imm gran pct 0.5 % [facility] Comment: Interpretive Data Percent cell count reference ranges are not reported, since discordance with absolute values may lead to misinterpretation of CBC data. Current Interpretive Data was last revised on 2017. Lymphocyte pct 34.8 % [facility] Comment: Interpretive Data Percent cell count reference ranges are not reported, since discordance with absolute values may lead to misinterpretation of CBC data. Current Interpretive Data was last revised on 2017. Monocyte pct 13.7 % [facility] Comment: Interpretive Data Percent cell count reference ranges are not reported, since discordance with absolute values may lead to misinterpretation of CBC data. Current Interpretive Data was last revised on 2017. Eosinophil pct 2.5 % [facility] Comment: Interpretive Data Percent cell count reference ranges are not reported, since discordance with absolute values may lead to misinterpretation of CBC data. Current Interpretive Data was last revised on 2017. Basophil pct 0.5 % [facility] Comment: Interpretive Data Percent cell count reference ranges are not reported, since discordance with absolute values may lead to misinterpretation of CBC data. Current Interpretive Data was last revised on 2017. Blood 08/06/2024 10:4 8 PM VP [employer]OR OF CREATIVE STRATEGY 08/06/2024 11:28 PM VP DIRECTOR OF CREATIVE STRATEGY us John Eaton MD LAB BLOOD ORDERABLES Final R esult [facility] Department [place] [address] * (ABNORMAL) CBC with auto differential (08/06/2024 10:48 PM VP DIRECTOR OF CREATIVE STRATEGY) WBC 5.6 3.8 - 9.9 K/cumm Hgb 13.6 13.0 - 17.5 g/dL [facility] Hct 41.0 38.9 - 50.3 % [facility] Plt 163 150 - 400 K/cumm [facility] MPV 10.8 9.1 - 12.3 fL [facility] RBC 4.13(L) 4.30 - 5.80 M/cumm [facility] MCV 99.3(H) 81.3 - 96.4 fL [facility] MCH 32.9 27.1 - 33.3 pg [facility] MCHC 33.2 32.3 - 35.7 g/dL [facility] RDW CV 12.5 11.1 - 14.9 % [facility] RDW SD 46.0 35.7 - 48.1 fL [facility] NRBC abs 0.00 0.00 - 0.01 K/cumm [facility] Blood 08/06/2024 10:4 8 PM VP [employer]OR OF CREATIVE STRATEGY 08/06/2024 11:28 PM VP DIRECTOR OF CREATIVE STRATEGY us John Eaton MD LAB BLOOD ORDERABLES Final R esult [facility] [place] [address] * (ABNORMAL) Comprehensive metabolic panel (08/06/2024 10:48 PM VP DIRECTOR OF CREATIVE STRATEGY) Sodium 140 135 - 145 mmol/L Potassium, pl 4.2 3.3 - 4.9 mmol/L [facility] Chloride 105 97 - 110 mmol/L [facility] CO2 27 22 - 32 mmol/L [facility] Anion gap 8 2 - 15 mmol/L [facility] BUN 23 6 - 25 mg/dL [facility] Creatinine 0.87 0.80 - 1.30 mg/dL [facility] Glucose 109 70 - 199 mg/dL [facility] Comment: Interpretive Data Fasting glucose >/= 126 mg/dl is diagnostic for diabetes. Fasting is defined as no caloric intake for at least 8 hours. Fasting glucose between 100 mg/dl to 125 mg/dl is diagnostic of prediabetes. In a patient with classic symptoms of hyperglycemia or hyperglycemic crisis, a random glucose >/= 200 mg/dl is diagnostic for diabetes. In the absence of unequivocal hyperglycemia, results should be confirmed by repeat testing. The classification and Diagnosis of Diabetes Diabetes Care 2022; 46: S19-S40. Current interpretive data was last revised 2022. Calcium 10.7(H) 8.5 - 10.3 mg/dL [facility] Bilirubin, total 0.6 0.1 - 1.2 mg/dL [facility] Protein, pl 7.3 6.5 - 8.5 g/dL [facility] Albumin 4.0 3.5 - 5.0 g/dL [facility] Alk phos 61 40 - 130 Units/L [facility] ALT 34 7 - 55 Units/L [facility] AST 28 10 - 50 Units/L [facility] Blood 08/06/2024 10:4 8 PM VP DIRECTOR OF CREATIVE STRATEGY 08/06/2024 11:27 PM VP DIRECTOR OF CREATIVE STRATEGY John Eaton MD LAB BLOOD ORDERABLES Final R esult [facility] [place] [address] * eGFR (08/05/2024 10:21 PM VP DIRECTOR OF CREATIVE STRATEGY) eGFR 77 >=60 mL/min/1. 73 m2 Comment: Interpretive Data Reference Interval Normal >/= 90 mL/min/1.73m2 Mildly decreased* 60 - 89 mL/min/1.73m2 Mildly to moderately decreased 45 - 59 mL/min/1.73m2 Moderately to severely decreased 30 - 44 mL/min/1.73m2 Severely decreased 15 - 29 mL/min/1.73m2 Kidney Failure < 15 mL/min/1.73m2 *Relative to young adult level Estimated glomerular filtration rate is determined by the 2020 CKD-EPI equation recommended by the National Kidney Foundation (A Unifying Approach to GFR Estimation: Recommendations of the NKF-ASK Task Force on Reassessing the Inclusion of Race in Diagnosing Kidney Disease, JASN 202). The CKD-EPI equation should not be used for patients with unstable renal function and has not been validated in children and those over 70. Current interpretive data was last reviewed 2021. Blood 08/05/2024 10:2 1 PM VP DIRECTOR OF CREATIVE STRATEGY 08/05/2024 10:34 PM VP DIRECTOR OF CREATIVE STRATEGY us John Eaton MD LAB BLOOD ORDERABLES Final R esult [facility] [place] [address] * (ABNORMAL) Differential, auto (08/05/2024 10:21 PM VP DIRECTOR OF CREATIVE STRATEGY) Neutrophil abs 4.9 1.5 - 6.5 K/cumm Imm gran abs 0.0 0.0 - 0.1 K/cumm [facility] Lymphocyte abs 2.9 0.8 - 3.3 K/cumm [facility] Monocyte abs 1.1(H) 0.2 - 0.8 K/cumm [facility] Eosinophil abs 0.1 0.0 - 0.5 K/cumm [facility] Basophil abs 0.0 0.0 - 0.1 K/cumm [facility] Neutrophil pct 53.7 % [facility] Comment: Interpretive Data Percent cell count reference ranges are not reported, since discordance with absolute values may lead to misinterpretation of CBC data. Current Interpretive Data was last revised on 2017. Imm gran pct 0.4 % [facility] Comment: Interpretive Data Percent cell count reference ranges are not reported, since discordance with absolute values may lead to misinterpretation of CBC data. Current Interpretive Data was last revised on 2017. Lymphocyte pct 31.8 % [facility] Comment: Interpretive Data Percent cell count reference ranges are not reported, since discordance with absolute values may lead to misinterpretation of CBC data. Current Interpretive Data was last revised on 2017. Monocyte pct 12.3 % [facility] Comment: Interpretive Data Percent cell count reference ranges are not reported, since discordance with absolute values may lead to misinterpretation of CBC data. Current Interpretive Data was last revised on 2017. Eosinophil pct 1.5 % [facility] Comment: Interpretive Data Percent cell count reference ranges are not reported, since discordance with absolute values may lead to misinterpretation of CBC data. Current Interpretive Data was last revised on 2017. Basophil pct 0.3 % [facility] Comment: Interpretive Data Percent cell count reference ranges are not reported, since discordance with absolute values may lead to misinterpretation of CBC data. Current Interpretive Data was last revised on 2017. Blood 08/05/2024 10:2 1 PM VP DIRECTOR OF CREATIVE STRATEGY 08/05/2024 10:34 PM VP DIRECTOR OF CREATIVE STRATEGY John Eaton MD LAB BLOOD ORDERABLES Final R esult [facility] Department [place] [place] [place] [address] * (ABNORMAL) CBC with auto differential (08/05/2024 10:21 PM VP DIRECTOR OF CREATIVE STRATEGY) Pathologist [facility] WBC 9.1 3.8 - 9.9 K/cumm Hgb 12.9(L) 13.0 - 17.5 g/dL [facility] Hct 37.9(L) 38.9 - 50.3 % [facility] Plt 149(L) 150 - 400 K/cumm [facility] MPV 10.8 9.1 - 12.3 fL [facility] RBC 3.94(L) 4.30 - 5.80 M/cumm [facility] MCV 96.2 81.3 - 96.4 fL [facility] MCH 32.7 27.1 - 33.3 pg [facility] MCHC 34.0 32.3 - 35.7 g/dL [facility] RDW CV 12.7 11.1 - 14.9 % [facility] RDW SD 44.7 35.7 - 48.1 fL [facility] NRBC abs 0.00 0.00 - 0.01 K/cumm [facility] Blood 08/05/2024 10:2 1 PM VP DIRECTOR OF CREATIVE STRATEGY 08/05/2024 10:34 PM VP DIRECTOR OF CREATIVE STRATEGY John Eaton MD LAB BLOOD ORDERABLES Final R esult Performing Organization Address City/[facility]/ZIP Co de Phone Number [facility] Department [place] [address] * (ABNORMAL) Comprehensive metabolic panel (08/05/2024 10:21 PM VP DIRECTOR OF CREATIVE STRATEGY) Sodium 142 135 - 145 mmol/L Potassium, pl 4.8 3.3 - 4.9 mmol/L [facility] Chloride 107 97 - 110 mmol/L [facility] CO2 28 22 - 32 mmol/L [facility] Anion gap 7 2 - 15 mmol/L [facility] BUN 28(H) 6 - 25 mg/dL [facility] Creatinine 0.98 0.80 - 1.30 mg/dL [facility] Glucose 108 70 - 199 mg/dL [facility] Comment: Interpretive Data Fasting glucose >/= 126 mg/dl is diagnostic for diabetes. Fasting is defined as no caloric intake for at least 8 hours. Fasting glucose between 100 mg/dl to 125 mg/dl is diagnostic of prediabetes. In a patient with classic symptoms of hyperglycemia or hyperglycemic crisis, a random glucose >/= 200 mg/dl is diagnostic for diabetes. In the absence of unequivocal hyperglycemia, results should be confirmed by repeat testing. The classification and Diagnosis of Diabetes Diabetes Care 202; 46: S19-S40. Current interpretive data was last revised 2022. Calcium 10.2 8.5 - 10.3 mg/dL [facility] Bilirubin, total 0.5 0.1 - 1.2 mg/dL [facility] Protein, pl 6.8 6.5 - 8.5 g/dL [facility] Albumin 3.8 3.5 - 5.0 g/dL [facility] Alk phos 58 40 - 130 Units/L [facility] ALT 36 7 - 55 Units/L [facility] AST 28 10 - 50 Units/L [facility] Blood 08/05/2024 10:2 1 PM VP DIRECTOR OF CREATIVE STRATEGY 08/05/2024 10:34 PM VP DIRECTOR OF CREATIVE STRATEGY us John Eaton MD LAB BLOOD ORDERABLES Final R esult [facility] [place] [address] * eGFR (08/04/2024 8:49 PM VP DIRECTOR OF CREATIVE STRATEGY) [facility] eGFR 86 >=60 mL/min/1. 73 m2 Comment: Interpretive Data Reference Interval Normal >/= 90 mL/min/1.73m2 Mildly decreased* 60 - 89 mL/min/1.73m2 Mildly to moderately decreased 45 - 59 mL/min/1.73m2 Moderately to severely decreased 30 - 44 mL/min/1.73m2 Severely decreased 15 - 29 mL/min/1.73m2 Kidney Failure < 15 mL/min/1.73m2 *Relative to young adult level Estimated glomerular filtration rate is determined by the 2020 CKD-EPI equation recommended by the National Kidney Foundation (A Unifying Approach to GFR Estimation: Recommendations of the NKF-ASK Task Force on Reassessing the Inclusion of Race in Diagnosing Kidney Disease, JASN 2020). The CKD-EPI equation should not be used for patients with unstable renal function and has not been validated in children and those over 70. Current interpretive data was last reviewed 2021. Blood 08/04/2024 8:49 PM VP DIRECTOR OF CREATIVE STRATEGY 08/04/2024 9:07 PM VP DIRECTOR OF CREATIVE STRATEGY us John Eaton MD LAB BLOOD ORDERABLES Final R esult [facility] Department [place] [address] * (ABNORMAL) Differential, auto (08/04/2024 8:49 PM VP DIRECTOR OF CREATIVE STRATEGY) [facility] Neutrophil abs 7.9(H) 1.5 - 6.5 K/cumm Imm gran abs 0.0 0.0 - 0.1 K/cumm [facility] Lymphocyte abs 1.0 0.8 - 3.3 K/cumm [facility] Monocyte abs 0.6 0.2 - 0.8 K/cumm [facility] Eosinophil abs 0.0 0.0 - 0.5 K/cumm [facility] Basophil abs 0.0 0.0 - 0.1 K/cumm [facility] Neutrophil pct 82.5 % [facility] Comment: Interpretive Data Percent cell count reference ranges are not reported, since discordance with absolute values may lead to misinterpretation of CBC data. Current Interpretive Data was last revised on 2017. Imm gran pct 0.4 % [facility] Comment: Interpretive Data Percent cell count reference ranges are not reported, since discordance with absolute values may lead to misinterpretation of CBC data. Current Interpretive Data was last revised on 2017. Lymphocyte pct 10.6 % [facility] Comment: Interpretive Data Percent cell count reference ranges are not reported, since discordance with absolute values may lead to misinterpretation of CBC data. Current Interpretive Data was last revised on 2017. Monocyte pct 6.4 % [facility] Comment: Interpretive Data Percent cell count reference ranges are not reported, since discordance with absolute values may lead to misinterpretation of CBC data. Current Interpretive Data was last revised on 2017. Eosinophil pct 0.0 % [facility] Comment: Interpretive Data Percent cell count reference ranges are not reported, since discordance with absolute values may lead to misinterpretation of CBC data. Current Interpretive Data was last revised on 2017. Basophil pct 0.1 % [facility] Comment: Interpretive Data Percent cell count reference ranges are not reported, since discordance with absolute values may lead to misinterpretation of CBC data. Current Interpretive Data was last revised on 2017. Blood 08/04/2024 8:49 PM VP DIRECTOR OF CREATIVE STRATEGY 08/04/2024 9:07 PM VP DIRECTOR OF CREATIVE STRATEGY us John Eaton MD LAB BLOOD ORDERABLES Final R esult [facility] [place] [address] * (ABNORMAL) CBC with auto differential (08/04/2024 8:49 PM VP DIRECTOR OF CREATIVE STRATEGY) WBC 9.6 3.8 - 9.9 K/cumm Hgb 14.1 13.0 - 17.5 g/dL [facility] Hct 40.9 38.9 - 50.3 % [facility] Plt 135(L) 150 - 400 K/cumm [facility] MPV 10.9 9.1 - 12.3 fL [facility] RBC 4.23(L) 4.30 - 5.80 M/cumm [facility] MCV 96.7(H) 81.3 - 96.4 fL [facility] MCH 33.3 27.1 - 33.3 pg [facility] MCHC 34.5 32.3 - 35.7 g/dL [facility] RDW CV 12.5 11.1 - 14.9 % [facility] RDW SD 44.1 35.7 - 48.1 fL [facility] NRBC abs 0.00 0.00 - 0.01 K/cumm [facility] Blood 08/04/2024 8:49 PM VP DIRECTOR OF CREATIVE STRATEGY 08/04/2024 9:07 PM VP DIRECTOR OF CREATIVE STRATEGY us John Eaton MD LAB BLOOD ORDERABLES Final R esult [facility] [place] [address] * Blood culture Blood (08/04/2024 8:49 PM VP DIRECTOR OF CREATIVE STRATEGY) Report Final Report: No growth Blood 08/04/2024 8:49 PM VP DIRECTOR OF CREATIVE STRATEGY 08/04/2024 9:35 PM VP DIRECTOR OF CREATIVE STRATEGY Narrative [facility] - 08/09/2024 7:00 AM VP DIRECTOR OF CREATIVE STRATEGY Collection->Peripheral 1. Blood cultures are incubated for 4 days on a continuously monitored blood culture system. The first report of a negative culture is issued within 24 hours of receipt of the specimen in the laboratory. 2. Positive culture results are reported as soon as they are detected. 3. The most important factor for detection of microbes in the setting of bloodstream infection is the volume of blood submitted for culture. Failure to collect an optimal blood volume can result in false negative blood cultures. 4. For pediatric patients, the recommended blood volume to collect follows a weight based strategy. See the electronic test catalog for collection instructions. 5. For positive blood cultures, a rapid molecular test may be performed for organism identification using the [employer] blood culture identification panel for gram positive (BCID-GP) and gram negative (BCID-GN) organisms. This nucleic acid amplification test detects microbial DNA in positive blood culture broth. This assay has been cleared by the [place] Food and Drug Administration and its performance characteristics have been verified by the [facility]. For questions about this culture, contact the Microbiology Laboratory at [phone]. Interpretive data was last revised on 24. John Eaton MD LAB MICROBIOLOGY - GENERAL O RDERABLES Final Result [facility] Department [place] [address] * Blood culture Blood (08/04/2024 8:49 PM VP DIRECTOR OF CREATIVE STRATEGY) Report Final Report: No growth Blood 08/04/2024 8:49 PM VP DIRECTOR OF CREATIVE STRATEGY 08/04/2024 9:34 PM VP DIRECTOR OF CREATIVE STRATEGY Narrative [facility] - 08/09/2024 7:00 AM VP DIRECTOR OF CREATIVE STRATEGY Collection->Peripheral 1. Blood cultures are incubated for 4 days on a continuously monitored blood culture system. The first report of a negative culture is issued within 24 hours of receipt of the specimen in the laboratory. 2. Positive culture results are reported as soon as they are detected. 3. The most important factor for detection of microbes in the setting of bloodstream infection is the volume of blood submitted for culture. Failure to collect an optimal blood volume can result in false negative blood cultures. 4. For pediatric patients, the recommended blood volume to collect follows a weight based strategy. See the electronic test catalog for collection instructions. 5. For positive blood cultures, a rapid molecular test may be performed for organism identification using the iris ePlex blood culture identification panel for gram positive (BCID-GP) and gram negative (BCID-GN) organisms. This nucleic acid amplification test detects microbial DNA in positive blood culture broth. This assay has been cleared by the [place] Food and Drug Administration and its performance characteristics have been verified by the [facility]biology [facility]. For questions about this culture, contact the Microbiology Laboratory at [phone]. Interpretive data was last revised on 24. us John Eaton MD LAB MICROBIOLOGY - GENERAL O RDERABLES Final Result [facility] [place] [address] * (ABNORMAL) Comprehensive metabolic panel (08/04/2024 8:49 PM VP DIRECTOR OF CREATIVE STRATEGY) Sodium 137 135 - 145 mmol/L Potassium, pl 5.0(H) 3.3 - 4.9 mmol/L [facility] Chloride 102 97 - 110 mmol/L [facility] CO2 26 22 - 32 mmol/L [facility] Anion gap 9 2 - 15 mmol/L [facility] BUN 22 6 - 25 mg/dL [facility] Creatinine 0.90 0.80 - 1.30 mg/dL [facility] Glucose 184 70 - 199 mg/dL [facility] Comment: Interpretive Data Fasting glucose >/= 126 mg/dl is diagnostic for diabetes. Fasting is defined as no caloric intake for at least 8 hours. Fasting glucose between 100 mg/dl to 125 mg/dl is diagnostic of prediabetes. In a patient with classic symptoms of hyperglycemia or hyperglycemic crisis, a random glucose >/= 200 mg/dl is diagnostic for diabetes. In the absence of unequivocal hyperglycemia, results should be confirmed by repeat testing. The classification and Diagnosis of Diabetes Diabetes Care 2021; 46: S19-S40. Current interpretive data was last revised 2022. Calcium 10.4(H) 8.5 - 10.3 mg/dL [facility] Bilirubin, total 0.9 0.1 - 1.2 mg/dL [facility] Protein, pl 7.5 6.5 - 8.5 g/dL [facility] Albumin 4.1 3.5 - 5.0 g/dL [facility] Alk phos 71 40 - 130 Units/L [facility] ALT 56(H) 7 - 55 Units/L [facility] AST 67(H) 10 - 50 Units/L [facility] Blood 08/04/2024 8:49 PM VP DIRECTOR OF CREATIVE STRATEGY 08/04/2024 9:07 PM VP DIRECTOR OF CREATIVE STRATEGY us John Eaton MD LAB BLOOD ORDERABLES Final R esult Performing Organization Address [facility]/ZIP Co de Phone Number REYNALDO CARLOS [facility] Department [place] [address] * Tissue aerobic and anaerobic culture and gram stain Tissue Finger, pinky, left (08/04/2024 12:33 PMCST) Direct Specimen Exam Stain: No polymorphonuclear leukocytes seen. No organisms seen. Report Final Report: No growth [facility] Tissue (Finger, pinky, left) 08/04/2024 12:33 PM VP DIRECTOR OF CREATIVE STRATEGY 08/04/2024 2:05 PM VP DIRECTOR OF CREATIVE STRATEGY Narrative REYNALDO [facility] - 08/07/2024 10:43 AM VP DIRECTOR OF CREATIVE STRATEGY Left Small Finger Dorsal Testing performed by [facility] Laboratory ([phone]) Specimens submitted from normally sterile body sites will have all bacterial morphotypes identified. Specimens that contain grossly mixed jason and/or are from body sites that are not normally sterile will be examined for Staphylococcus aureus, Pseudomonas aeruginosa, beta-hemolytic strep, vancomycin-resistant Enterococcus, Bacteroides, Parabacteroides, Clostridium perfringens and fungus. If any of these are isolated, the organism will be reported. Current interpretive data was last revised on 2019. John Eaton MD LAB MICROBIOLOGY - GENERAL O RDERABLES Final Result Performing Organization Address [facility] Co de Phone Number REYNALDO [facility] Department [place] [address] * Mycology (fungal) culture Tissue Finger, pinky, left (08/04/2024 12:33 PM VP DIRECTOR OF CREATIVE STRATEGY) Report Final Report: No growth of fungus Tissue (Finger, pinky, left) 08/04/2024 12:33 PM VP DIRECTOR OF CREATIVE STRATEGY 08/04/2024 2:05 PM VP DIRECTOR OF CREATIVE STRATEGY Narrative RE[facility]NALDO CARL[facility] - 09/01/2024 10:49 AM VP DIRECTOR OF CREATIVE STRATEGY Left Small Finger Dorsal Testing performed by [facility] ([phone]). John Eaton MD LAB MICROBIOLOGY - GENERAL O RDERABLES Final Result [facility] Department [place] [address] * (ABNORMAL) Tissue aerobic and anaerobic culture and gram stain Tissue Finger, pinky, left (08/04/2024 12:24 PM VP DIRECTOR OF CREATIVE STRATEGY) Direct Specimen Exam Stain: No polymorphonuclear leukocytes seen. No organisms seen. Report Final Report: Rare Staphylococcus aureus Methicillin susceptible (MSSA) by penicillin binding protein 2a (PBP2a) testing. (.) [facility] Organism STAPHYLOCOCCUS AUREUS [facility] Tissue (Finger, pinky, left) 08/04/2024 12:24 PM VP DIRECTOR OF CREATIVE STRATEGY 08/04/2024 2:04 PM VP DIRECTOR OF CREATIVE STRATEGY Narrative [facility] - 08/07/2024 1:09 PM VP DIRECTOR OF CREATIVE STRATEGY Left Small Finger Testing performed by [facility] ([phone]) Specimens submitted from normally sterile body sites will have all bacterial morphotypes identified. Specimens that contain grossly mixed jason and/or are from body sites that are not normally sterile will be examined for Staphylococcus aureus, Pseudomonas aeruginosa, beta-hemolytic strep, vancomycin-resistant Enterococcus, Bacteroides, Parabacteroides, Clostridium perfringens and fungus. If any of these are isolated, the organism will be reported. Current interpretive data was last revised on 2019. Organism Antibiotic Method Susceptibility Staphylococcus aureus Doxycycline (MILAGRO) INTERPRETATIO N Susceptible Staphylococcus aureus Linezolid (MILAGRO) INTERPRETATIO N Susceptible Staphylococcus aureus Trimethoprim with Sulfamethoxazole (MILAGRO) INTERPRETATION Susceptible Staphylococcus aureus Clindamycin (MILAGRO) INTERPRETATIO N Susceptible Staphylococcus aureus Erythromycin (MILAGRO) INTERPRETATIO N Susceptible Staphylococcus aureus Vancomycin (MILAGRO) INTERPRETATIO N Susceptible Staphylococcus aureus Oxacillin (MILAGRO) INTERPRETATIO N Susceptible Staphylococcus aureus Cefazolin (MILAGRO) INTERPRETATIO N Susceptible Staphylococcus aureus Ceftriaxone (MILAGRO) INTERPRETATIO N Susceptible us John Eaton MD LAB MICROBIOLOGY - GENERAL O RDERABLES Final Result Performing Organization Address City/[facility]/ZIP Co de Phone Number REYNALDO CARLOS [facility] [place] [address] * Mycology (fungal) culture Tissue Finger, pinky, left (08/04/2024 12:24 PM VP DIRECTOR OF CREATIVE STRATEGY) Report Final Report: No growth of fungus Tissue (Finger, pinky, left) 08/04/2024 12:24 PM VP DIRECTOR OF CREATIVE STRATEGY 08/04/2024 2:04 PM VP DIRECTOR OF CREATIVE STRATEGY Narrative [facility] - 09/01/2024 10:48 AM VP DIRECTOR OF CREATIVE STRATEGY Left Small Finger Testing performed by [facility] ([phone]). John Eaton MD LAB MICROBIOLOGY - GENERAL O RDERABLES Final Result Performing Organization Address [facility] Co de Phone Number [facility] [place] [address] * Tissue aerobic and anaerobic culture and gram stain Tissue Finger, pinky, left (08/04/2024 12:18 PMCST) Direct Specimen Exam Stain: No polymorphonuclear leukocytes seen. No organisms seen. Report Final Report: Rare Mixed skin microorganisms. [facility] Organism MIXED SKIN MICROORGANISMS. [facility] Tissue (Finger, pinky, left) 08/04/2024 12:18 PM VP DIRECTOR OF CREATIVE STRATEGY 08/04/2024 2:06 PM VP DIRECTOR OF CREATIVE STRATEGY Narrative [facility] - 08/07/2024 1:09 PM VP DIRECTOR OF CREATIVE STRATEGY Left Small Finger Testing performed by [facility] ([phone]) Specimens submitted from normally sterile body sites will have all bacterial morphotypes identified. Specimens that contain grossly mixed jason and/or are from body sites that are not normally sterile will be examined for Staphylococcus aureus, Pseudomonas aeruginosa, beta-hemolytic strep, vancomycin-resistant Enterococcus, Bacteroides, Parabacteroides, Clostridium perfringens and fungus. If any of these are isolated, the organism will be reported. Current interpretive data was last revised on 2019. us John Eaton MD LAB MICROBIOLOGY - GENERAL O RDERABLES Final Result Performing Organization Address [facility]/State/ZIP Co de Phone Number [facility] Department [place] [address] * Mycology (fungal) culture Tissue Finger, pinky, left (08/04/2024 12:18 PM VP DIRECTOR OF CREATIVE STRATEGY) Report Final Report: No growth of fungus Tissue (Finger, pinky, left) 08/04/2024 12:18 PM VP DIRECTOR OF CREATIVE STRATEGY 08/04/2024 2:06 PM VP DIRECTOR OF CREATIVE STRATEGY Narrative REYNALDO [facility] - 09/01/2024 10:49 AM VP DIRECTOR OF CREATIVE STRATEGY Left Small Finger Testing performed by [facility] ([phone]). us John Eaton MD LAB MICROBIOLOGY - GENERAL O RDERABLES Final Result [facility] [place] [address] * OK AN ELECTIVE SUPRAGLOTTIC AIRWAY, OK AN PROCEDURE PLACEHOLDER (08/04/2024 11:55 AM VP DIRECTOR OF CREATIVE STRATEGY) Narrative Ramandeep Zuleta CRNA - 08/04/2024 11:55 AM VP DIRECTOR OF CREATIVE STRATEGY Ramandeep Zuleta CRNA 08/04/2024 11:58 AM Airway Patient location: OR Urgency: elective Indications for airway management: anesthesia and airway protection Difficult airway: no Staff: Supervising provider: John Lin MD Placed by: [employer] PROFESSOR: Ramandeep Zuleta CRNA Emergent airway documentation: Risks and benefits discussed: yes Consent obtained: yes Consent given by: patient Airway prep: Preoxygenated: yes Patient position: sniffing Mask difficulty assessment: 0 - not attempted Spontaneous ventilation during airway: absent Sedation level during airway: GA Final airway details: Final airway type: supraglottic airway Final supraglottic airway: IGel SGA size: 5 Number of attempts: 2 Additional comments: Easy placement with igel 4 but significant leak noted. Removed and igel 5 placed us John Lin MD ANESTHESIA ORDERABLE S Final Result * (ABNORMAL) Aerobic and anaerobic culture and gram stain Wound Finger, pinky, left (08/04/2024 6:52 AM VP DIRECTOR OF CREATIVE STRATEGY) Direct Specimen Exam Stain: No polymorphonuclear leukocytes seen. No organisms seen. Report Final Report: Few Staphylococcus aureus For susceptibility results, refer to accession number [id number] on the left pinky finger tissue culture from 08/04/2024 (.) [facility] Organism STAPHYLOCOCCUS AUREUS [facility] Wound (Finger, pinky, left) 08/04/2024 6:52 AM VP DIRECTOR OF CREATIVE STRATEGY 08/04/2024 7:03 AM VP DIRECTOR OF CREATIVE STRATEGY Narrative [facility] - 08/07/2024 10:48 AM VP DIRECTOR OF CREATIVE STRATEGY Specimen received on an ESwab. Testing performed by [facility] ([phone]) Specimens submitted from normally sterile body sites will have all bacterial morphotypes identified. Specimens that contain grossly mixed jason and/or are from body sites that are not normally sterile will be examined for Staphylococcus aureus, Pseudomonas aeruginosa, beta-hemolytic strep, vancomycin-resistant Enterococcus, Bacteroides, Parabacteroides, Clostridium perfringens and fungus. If any of these are isolated, the organism will be reported. Current interpretive data was last revised on 2019. us Jaspreet Dotson MD LAB MICROBIOLOGY - GENERAL ORD ERABLES Final Result Performing Organization Address City/[facility] Co de Phone Number REYNALDO CARLOS [facility] [place] [address] * XR Outside Reference (08/04/2024 6:22 AM VP DIRECTOR OF CREATIVE STRATEGY) Impressions RAD_P[facility] - 08/04/2024 6:22 AM VP DIRECTOR OF CREATIVE STRATEGY These images are for Reference purposes only and have not been reviewed by [facility] Radiology. There will be no report generated by a [facility] Radiologist. Narrative [facility]_P[facility] - 08/04/2024 6:22 AM VP DIRECTOR OF CREATIVE STRATEGY EXAMINATION: Images For Reference Purposes Only us John Weiner MD IMG XR PROCEDURES Final R esult Performing Organization Address City/[facility]/ZIP Co de Phone Number [email or web address] * XR Wrist Left 3 or More Views (08/04/2024 4:08 AM VP DIRECTOR OF CREATIVE STRATEGY) Anatomical Region Laterality Modality Upper Extremities, Wrist Left Compute d Radiography 08/04/2024 4:44 AM VP DIRECTOR OF CREATIVE STRATEGY Impressions 08/04/2024 8:09 AM VP DIRECTOR OF CREATIVE STRATEGY Left wrist: Splint obscures evaluation. No definite acute fracture. Left hand: Splint obscures evaluation. There is likely soft tissue swelling of the left small finger. Possible nondisplaced fracture of the small proximal phalanx, which may be artifactual due to overlying cast material. Nondiagnostic evaluation for underlying osteomyelitis. Severe left base of thumb osteoarthritis. Mild to moderate 1st metacarpal phalangeal joint osteoarthritis with radial deviation of the distal thumb. Dictated by: Kendall Nelson M.D. The radiology attending physician has personally reviewed this study, and had reviewed and/or edited this written report and agrees with it. Electronically signed by: Gabriella Infante M.D. Narrative 08/04/2024 8:09 AM VP DIRECTOR OF CREATIVE STRATEGY EXAMINATION: XR HAND LEFT 3 OR MORE VIEWS, XR WRIST LEFT 3 OR MORE VIEWS HISTORY: Hand pain and swelling, concern for left small finger infection COMPARISON: None. Procedure Note Gabriella Infante MD - 08/04/2024 EXAMINATION: XR HAND LEFT 3 OR MORE VIEWS, XR WRIST LEFT 3 OR MORE VIEWS HISTORY: Hand pain and swelling, concern for left small finger infection COMPARISON: None. IMPRESSION: Left wrist: Splint obscures evaluation. No definite acute fracture. Left hand: Splint obscures evaluation. There is likely soft tissue swelling of the left small finger. Possible nondisplaced fracture of the small proximal phalanx, which may be artifactual due to overlying cast material. Nondiagnostic evaluation for underlying osteomyelitis. Severe left base of thumb osteoarthritis. Mild to moderate 1st metacarpal phalangeal joint osteoarthritis with radial deviation of the distal thumb. Dictated by: Kendall Nelson M.D. The radiology attending physician has personally reviewed this study, and had reviewed and/or edited this written report and agrees with it. Electronically signed by: Gabriella Infante M.D. Marcin Jacobson MD IMG XR PROCEDURES Final Result * XR Hand Left 3 or More Views (08/04/2024 4:08 AM VP DIRECTOR OF CREATIVE STRATEGY) Anatomical Region Laterality Modality Upper Extremities, Hand Left Computed Radiography 08/04/2024 4:44 AM VP DIRECTOR OF CREATIVE STRATEGY Impressions 08/04/2024 8:09 AM VP DIRECTOR OF CREATIVE STRATEGY Left wrist: Splint obscures evaluation. No definite acute fracture. Left hand: Splint obscures evaluation. There is likely soft tissue swelling of the left small finger. Possible nondisplaced fracture of the small proximal phalanx, which may be artifactual due to overlying cast material. Nondiagnostic evaluation for underlying osteomyelitis. Severe left base of thumb osteoarthritis. Mild to moderate 1st metacarpal phalangeal joint osteoarthritis with radial deviation of the distal thumb. Dictated by: Kendall Nelson M.D. The radiology attending physician has personally reviewed this study, and had reviewed and/or edited this written report and agrees with it. Electronically signed by: Gabriella Infante M.D. Narrative 08/04/2024 8:09 AM VP DIRECTOR OF CREATIVE STRATEGY EXAMINATION: XR HAND LEFT 3 OR MORE VIEWS, XR WRIST LEFT 3 OR MORE VIEWS HISTORY: Hand pain and swelling, concern for left small finger infection COMPARISON: None. Procedure Note Gabriella Infante MD - 08/04/2024 EXAMINATION: XR HAND LEFT 3 OR MORE VIEWS, XR WRIST LEFT 3 OR MORE VIEWS HISTORY: Hand pain and swelling, concern for left small finger infection COMPARISON: None. IMPRESSION: Left wrist: Splint obscures evaluation. No definite acute fracture. Left hand: Splint obscures evaluation. There is likely soft tissue swelling of the left small finger. Possible nondisplaced fracture of the small proximal phalanx, which may be artifactual due to overlying cast material. Nondiagnostic evaluation for underlying osteomyelitis. Severe left base of thumb osteoarthritis. Mild to moderate 1st metacarpal phalangeal joint osteoarthritis with radial deviation of the distal thumb. Dictated by: Kendall Nelson M.D. The radiology attending physician has personally reviewed this study, and had reviewed and/or edited this written report and agrees with it. Electronically signed by: Gabriella Infante M.D. Marcin Jacobson MD IMG XR PROCEDURES Final Result * eGFR (08/04/2024 2:34 AM VP DIRECTOR OF CREATIVE STRATEGY) eGFR 88 >=60 mL/min/1. 73 m2 Comment: Interpretive Data Reference Interval Normal >/= 90 mL/min/1.73m2 Mildly decreased* 60 - 89 mL/min/1.73m2 Mildly to moderately decreased 45 - 59 mL/min/1.73m2 Moderately to severely decreased 30 - 44 mL/min/1.73m2 Severely decreased 15 - 29 mL/min/1.73m2 Kidney Failure < 15 mL/min/1.73m2 *Relative to young adult level Estimated glomerular filtration rate is determined by the 2020 CKD-EPI equation recommended by the National Kidney [employer] (A Unifying Approach to GFR Estimation: Recommendations of the NKF-ASK Task Force on Reassessing the Inclusion of Race in Diagnosing Kidney Disease, JASN 2020). The CKD-EPI equation should not be used for patients with unstable renal function and has not been validated in children and those over 70. Current interpretive data was last reviewed 2021. Blood 08/04/2024 2:34 AM VP DIRECTOR OF CREATIVE STRATEGY 08/04/2024 2:53 AM VP DIRECTOR OF CREATIVE STRATEGY Jose White MD LAB BLOOD ORDERABLES Fi nal Result [facility] Department [place] [address] * (ABNORMAL) Differential, auto (08/04/2024 2:34 AM VP DIRECTOR OF CREATIVE STRATEGY) Neutrophil abs 8.3(H) 1.5 - 6.5 K/cumm Imm gran abs 0.1 0.0 - 0.1 K/cumm [facility] Lymphocyte abs 2.3 0.8 - 3.3 K/cumm [facility] Monocyte abs 1.5(H) 0.2 - 0.8 K/cumm [facility] Eosinophil abs 0.1 0.0 - 0.5 K/cumm [facility] Basophil abs 0.0 0.0 - 0.1 K/cumm [facility] Neutrophil pct 68.3 % [facility] Comment: Interpretive Data Percent cell count reference ranges are not reported, since discordance with absolute values may lead to misinterpretation of CBC data. Current Interpretive Data was last revised on 2017. Imm gran pct 0.4 % [facility] Comment: Interpretive Data Percent cell count reference ranges are not reported, since discordance with absolute values may lead to misinterpretation of CBC data. Current Interpretive Data was last revised on 2017. Lymphocyte pct 18.5 % [facility] Comment: Interpretive Data Percent cell count reference ranges are not reported, since discordance with absolute values may lead to misinterpretation of CBC data. Current Interpretive Data was last revised on 2017. Monocyte pct 12.2 % [facility] Comment: Interpretive Data Percent cell count reference ranges are not reported, since discordance with absolute values may lead to misinterpretation of CBC data. Current Interpretive Data was last revised on 2017. Eosinophil pct 0.4 % [facility] Comment: Interpretive Data Percent cell count reference ranges are not reported, since discordance with absolute values may lead to misinterpretation of CBC data. Current Interpretive Data was last revised on 2017. Basophil pct 0.2 % [facility] Comment: Interpretive Data Percent cell count reference ranges are not reported, since discordance with absolute values may lead to misinterpretation of CBC data. Current Interpretive Data was last revised on 2017. Blood 08/04/2024 2:34 AM VP DIRECTOR OF CREATIVE STRATEGY 08/04/2024 2:53 AM VP DIRECTOR OF CREATIVE STRATEGY us Jose White MD LAB BLOOD ORDERABLES Fi nal Result [facility] [place] [address] * (ABNORMAL) CBC with auto differential (08/04/2024 2:34 AM VP DIRECTOR OF CREATIVE STRATEGY) [facility] WBC 12.2(H) 3.8 - 9.9 K/cumm Hgb 15.0 13.0 - 17.5 g/dL [facility] Hct 44.5 38.9 - 50.3 % [facility] Plt 140(L) 150 - 400 K/cumm [facility] MPV 11.0 9.1 - 12.3 fL [facility] RBC 4.59 4.30 - 5.80 M/cumm [facility] MCV 96.9(H) 81.3 - 96.4 fL [facility] MCH 32.7 27.1 - 33.3 pg [facility] MCHC 33.7 32.3 - 35.7 g/dL [facility] RDW CV 12.6 11.1 - 14.9 % [facility] RDW SD 44.4 35.7 - 48.1 fL [facility] NRBC abs 0.00 0.00 - 0.01 K/cumm [facility] Blood 08/04/2024 2:34 AM VP DIRECTOR OF CREATIVE STRATEGY 08/04/2024 2:53 AM VP DIRECTOR OF CREATIVE STRATEGY Jose White MD LAB BLOOD ORDERABLES Fi nal Result Performing Organization Address [facility] Co de Phone Number [facility] [place] [address] * aPTT (08/04/2024 2:34 AM VP DIRECTOR OF CREATIVE STRATEGY) [facility] aPTT 31 28 - 38 sec Comment: Interpretive Data Heparin therapeutic range: 66.0 - 100.0 seconds. Range based on correlation with therapeutic heparin activity range of 0.3 - 0.7 Units/mL. Current interpretive data was last revised on 2023. Blood 08/04/2024 2:34 AM VP DIRECTOR OF CREATIVE STRATEGY 08/04/2024 2:48 AM VP DIRECTOR OF CREATIVE STRATEGY Jose White MD LAB BLOOD ORDERABLES Fi nal Result Performing Organization Address City/[facility] Co de Phone Number [facility] [place] [address] * (ABNORMAL) Protime-INR (08/04/2024 2:34 AM VP DIRECTOR OF CREATIVE STRATEGY) Pathologist [facility] PT 14.3(H) 9.7 - 13.0 sec INR 1.32(H) 0.90 - 1.20 [facility] Comment: Interpretive data Oral anticoagulant therapeutic ranges: Venous thromboembolism prophylaxis or treatment: 2.0-3.0 CARDIOLOGY Standard range: 2.0-3.0 High-intensity range: 2.5-3.5 Refer to indication-specific guidelines for appropriate target ranges for prosthetic heart valve replacement. Current interpretive data was last revised on 2019. Blood 08/04/2024 2:34 AM VP DIRECTOR OF CREATIVE STRATEGY 08/04/2024 2:48 AM VP DIRECTOR OF CREATIVE STRATEGY Jose White MD LAB BLOOD ORDERABLES Fi nal Result Performing Organization Address City/[facility]/ZIP Co de Phone Number [facility] [address] * Type and screen (08/04/2024 2:34 AM VP DIRECTOR OF CREATIVE STRATEGY) [facility] Chantel, indirect Negative ABO Rh A Positive [facility] Blood 08/04/2024 2:34 AM VP DIRECTOR OF CREATIVE STRATEGY 08/04/2024 2:59 AM VP DIRECTOR OF CREATIVE STRATEGY Narrative [facility] - 08/04/2024 3:57 AM VP DIRECTOR OF CREATIVE STRATEGY Has the patient had Daratumumab or Isatuximab in the past 6 months?->Unknown Jose White MD LAB BLOOD BANK TEST ORD ERABLES Final Result [facility] [address] * (ABNORMAL) Comprehensive metabolic panel (08/04/2024 2:34 AM VP DIRECTOR OF CREATIVE STRATEGY) [facility] Sodium 136 135 - 145 mmol/L Potassium, pl 4.1 3.3 - 4.9 mmol/L [facility] Chloride 105 97 - 110 mmol/L [facility] CO2 20(L) 22 - 32 mmol/L [facility] Anion gap 11 2 - 15 mmol/L [facility] BUN 15 6 - 25 mg/dL [facility] Creatinine 0.83 0.80 - 1.30 mg/dL [facility] Glucose 153 70 - 199 mg/dL [facility] Comment: Interpretive Data Fasting glucose >/= 126 mg/dl is diagnostic for diabetes. Fasting is defined as no caloric intake for at least 8 hours. Fasting glucose between 100 mg/dl to 125 mg/dl is diagnostic of prediabetes. In a patient with classic symptoms of hyperglycemia or hyperglycemic crisis, a random glucose >/= 200 mg/dl is diagnostic for diabetes. In the absence of unequivocal hyperglycemia, results should be confirmed by repeat testing. The classification and Diagnosis of Diabetes Diabetes Care 2021; 46: S19-S40. Current interpretive data was last revised 2022. Calcium 10.4(H) 8.5 - 10.3 mg/dL [facility] Bilirubin, total 1.3(H) 0.1 - 1.2 mg/dL [facility] Protein, pl 7.6 6.5 - 8.5 g/dL [facility] Albumin 4.2 3.5 - 5.0 g/dL [facility] Alk phos 49 40 - 130 Units/L [facility] ALT 20 7 - 55 Units/L [facility] AST 29 10 - 50 Units/L [facility] Blood 08/04/2024 2:34 AM VP DIRECTOR OF CREATIVE STRATEGY 08/04/2024 2:53 AM VP DIRECTOR OF CREATIVE STRATEGY Jose White MD LAB BLOOD ORDERABLES Fi nal Result [facility] Department [place] [address] * Imaging Cervical/Thoracic Epidural Continuous Infusion (95082) (06/18/2024 11:54 AM VP DIRECTOR OF CREATIVE STRATEGY) Narrative [facility] - 06/18/2024 11:55 AM VP DIRECTOR OF CREATIVE STRATEGY The images from this study are not interpreted by Radiology. Please refer to the physician's procedure / OR operative note. us Barby Irvin PHARMACY INFORMATICS MANAGER IMG PAIN MGMT PROCEDURE S Final Result [facility] from Last 3 Months Insurance [facility] MEDICARE MEDICARE SOLUTIONS [facility] MEDICARE [facility] MEDICARE Advance Directives For more information, please contact: [phone] * Full Code (Latest Code Status on File) Date Activated Date Inactivated Comments 08/04/2024 10:45 AM 08/07/2024 6:05 PM * Full Code Date Activated Date Inactivated Comments 02/27/2024 10:01 AM 02/28/2024 4:42 AM Care Teams Ward Supervisor Relationship Specialty Start Date End Date Indio Staley MD [address] [place] [address] PCP - General 09/11/16 Adria Boogie MD [address] [facility] [address] [place] [address] Surgeon Orthopedic Surgery 08/07/24
--- OUTSIDE RECORDS SUMMARY | 2024-09-10 13:23 | XMS_ITS | Encounter Summary ---
Author Organization [facility] Address [address] [place] [address] Care Team Providers Care Professor Of Forest Planning Name Role Phone Indio Staley MD Primary Care Provider [phone] Theresa Rosas BEH[facility]IOR[facility] HE[facility] RN Unavailable [phone] Encounter Details Date Type Department Care Team (Late Contact Info) Description 01/31/2022 [facility] [address] [address] Avery Reyes MA Social History Tobacco Use Types Packs/Day Years Used Date Smoking Tobacco: Former Cigarettes Q uit: 11/18/1987 Smokeless Tobacco: Never Alcohol Use Standard Drinks/Week Comments Not Currently 0 (1 standard drink = 0.6 oz pur e alcohol) Sex and Gender Information Value Date Recorded Sex Assigned at Male 08/11/2024 1:22 PM CHEFS Legal Sex Male 10:23 PM CHEFS Gender Identity Not on file Sexual Orientation Not on file COVID-19 Exposure Response Date Recorded In the last 10 days, have yo u been in contact with someone who was confirmed or suspected to have Coronavirus/COVID-19? No / Unsure 02/02/2022 11:34 AM CDT documented as of this encounter Plan of Treatment Upcoming Encounters Date Type Department Care Team (Late Contact Info) Description 02/09/2025 10:30 AM CDT Office Visit [facility], [facility] [address] [place] [address] Brea Peres PA [address] [facility], [address] [place] [address] documented as of this encounter Procedures Procedure Name Priority Date/Time Associated Diagnosis Comments HEMOGLOBIN, GLYCOSYLATED Routine 03/20/2023 COMPREHENSIVE METABOLIC PANEL Routine 03/20/2023 LIPID PANEL Routine 03/20/2023 CBC, MANUAL DIFF Routine 03/20/2023 THYROID STIM HORMONE TSH Routine 03/20/2023 VITAMIN D, 25 OH Routine 03/20/2023 COMPREHENSIVE METABOLIC PANEL Routine 09/06/2021 LIPID PANEL Routine 09/06/2021 documented in this encounter Results * VITAMIN D, 25 OH (03/20/2023) VITAMIN D 25 HYDROXY S/P/B 52 03/20/2023 us Default History Genericprovider LABORATORY Final Result * COMPREHENSIVE METABOLIC PANEL (03/20/2023) SODIUM S/P/B 141 GLUCOSE 116 mg/dL AST 20 BUN 22 CREATININE S/P/B 1.02 0.7 - 1.3 CALCIUM S/P/B 10.5 POTASSIUM S/P/B 4.5 CHLORIDE S/P/B 105 ALT 20 GFR ESTIMATE 75 us Default History Genericprovider LABORATORY Final Result * LIPID PANEL (03/20/2023) TRIGLYCERIDES 242 HDL 44 LDL (CALCULATED) 91 NON HDL CHOLESTEROL 125 us Default History Genericprovider LABORATORY Final Result * CBC, MANUAL DIFF (03/20/2023) [facility] WBC 5.0 HGB 15.0 HCT 44.7 Default History Genericprovider LABORATORY Final Result * HEMOGLOBIN, GLYCOSYLATED (03/20/2023) [facility] HGB A1C 5.9 % Default History Genericprovider LABORATORY Final Result * THYROID STIM HORMONE, TSH (03/20/2023) [facility] TSH 3 us Default History Genericprovider LABORATORY Final Result * (ABNORMAL) COMPREHENSIVE METABOLIC PANEL (09/06/2021) [facility] SODIUM S/P/B 140 POTASSIUM S/P/B 4.1 CO2 [...] LABORATORY Final Result * LIPID PANEL (09/06/2021) [facility] CHOLESTEROL 178 HDL 45 TRIGLYCERIDES 288 NON HDL CHOLESTEROL 133 LDL (CALCULATED) 92 09/06/2021 us Doc [facility] Abstract LABORATORY Final Result documented in this encounter Visit Diagnoses Not on filedocumented in this encounter Care Teams Professor Of Forest Planning Relationship Specialty Start Date End Date Indio Staley MD [address] [facility] [address] [place] [address] PCP - General FAMILY PRACTICE 01/24/22 Theresa Rosas FNP [address] [facility] [address] [place] [address] Nurse Practitioner Nurse Practitioner Family 01/24/22 documented as of this encounter
--- OUTSIDE RECORDS SUMMARY | 2024-09-10 13:23 | XMS_ITS | Data Portability ---
Author Organization [facility] Address [address] [place] [id number] Assessment No assessment recorded. Plan of Treatment [...] mcg/0.25mL dose 08/01/2020 completed Chanda Urban LPN null, [place] - [place] 08/01/2020 10:23:15 COVID-19, mRNA, LNP-S, PF, 100 mcg/0.5mL dose or 50 mcg/0.25mL dose 08/27/2020 completed LENY Zacarias, [place] - SI 08/30/2020 12:49:12 Past Encounters Encounter ID Performer Location Encounter Start Date Encounter Closed Date Diagnosis/Indication Diagnosis SNOMED-CT Code Diagnosis ICD10 Code Diagnosis Note [id number] M[facility]I Pelaez 14 IM [address] [place] [address] 07/30/2020 11:28:56 08/01/2020 12:24:57 Administration of SARS-CoV-2 antigen vaccine [id number] Z23 [id number] MIMI Pelaez [address] [place] [address] 08/27/2020 11:33:53 08/30/2020 09:12:05 Administration of SARS-CoV-2 antigen vaccine [id number] Z23 Health Concerns Section Related Observation LastModified by Organization Detai ls LastModified Time None Recorded Concern Status LastModified by Organization Details LastModified Time None Recorded Advance Directives Directive None Recorded Payers Encounter Date Sequence Insurance Name Policy Number Policy Sampson Covered Member ID Sampson Member ID Guarantor Name 07/30/2020 1 [facility] (MEDICARE REPLACEMENT/A DVANTAGE - PPO) [id number] John Tyler [id number] John Tyler 08/27/2020 1 [facility] (MEDICARE REPLACEMENT/A DVANTAGE - PPO) [id number] John Tyler [id number] John Tyler 08/27/2020 2 [place] John Tyler [id number] John Tyler
--- OUTSIDE RECORDS SUMMARY | 2024-09-10 13:23 | XMS_ITS | Referral Summary ---
Author Organization [facility] al Address [address] [place] [address] Care Team Providers Care Edge Banding Machine Offbearer Name Role Phone Indio Staley MD Primary Care Provider Adria Boogie MD Unavailable [phone] Encounters Date Type Department Care Team Description 09/05/2024 1:50 PM WASHER AND CRUSHER TENDER Lab [facility] [address] [place] [address] [place] [address] Flexor tenosynovitis of finger; Finger infection 09/05/2024 1:00 PM WASHER AND CRUSHER TENDER Office [facility] [address] [place] [address] 4th Floor [address] [place] [phone] Flexor tenosynovitis of finger (Primary Dx); Finger infection 09/05/2024 Telephone [facility] [address] [place] [address] 4th Floor [address] [place] [phone] Rabia James 08/29/2024 5:29 PM WASHER AND CRUSHER TENDER - 08/29/2024 11:59 PM WASHER AND CRUSHER TENDER Hospital Encounter [facility] [address] [place] [address] Discharge Disposition: Discharge to home or self care 08/29/2024 Orders Only [facility] [address] [place] [address] Amilcar Rivera MD Finger pulp abscess, left 08/29/2024 2:20 PM WASHER AND CRUSHER TENDER Office Visit [facility] [address] [place] [address] Amilcar Rivera MD Finger pulp abscess, left 08/26/2024 9:48 AM WASHER AND CRUSHER TENDER - 08/26/2024 11:59 PM WASHER AND CRUSHER TENDER Hospital Encounter [facility] [id number] [place] [address] Barby Irvin NP Cervical stenosis of spinal canal (Primary Dx); Sacroiliitis; FPC use of drug; Primary osteoarthritis involving multiple joints; Lumbar radicular pain; Hypertension, essential; Cervical radiculopathy; Arthralgia of multiple joints Discharge Disposition: Discharge to home or self care 08/15/2024 1:30 PM WASHER AND CRUSHER TENDER Office Visit [facility] [address] [place] [address] Health 4th Floor [address] [place] [phone] Follow-up exam [Z09] (Primary Dx) 08/07/2024 Telephone [facility] [address] [place] [address] 1st Floor [address] [place] [address] Jack Barron MD 08/04/2024 2:25 AM WASHER AND CRUSHER TENDER - 08/07/2024 2:04 PM WASHER AND CRUSHER TENDER Hospital Encounter [address] [phone] Marcin Jacobson MD Forbriger, MD Macho Gentile III, MD Angelito Silva, John Ferguson MD Flexor tenosynovitis of finger (Primary Dx) Discharge Disposition: Discharge to home or self care 08/04/2024 11:32 AM WASHER AND CRUSHER TENDER Anesthesia Event [facility] Operating Room [address] [place] [phone] John Lin MD 08/04/2024 Documentation [facility] [address] [place] [address] Qamar Hagan RN Prior Auth ([place] 5/325) 08/04/2024 11:39 AM WASHER AND CRUSHER TENDER - 08/04/2024 1:59 PM WASHER AND CRUSHER TENDER Surgery [facility] Operating Room [address] [place] [address] John Eaton MD IRRIGATION AND DEBRIDEMENT 07/30/2024 9:43 AM WASHER AND CRUSHER TENDER - 07/30/2024 11:59 PM WASHER AND CRUSHER TENDER Hospital Encounter [facility] [address] [place] [address] Barby Irvin NP Cervical stenosis of spinal canal (Primary Dx); Sacroiliitis; Cervical radiculopathy; Lumbar radicular pain; Lumbar stenosis without neurogenic claudication; Primary hypertension Discharge Disposition: Discharge to home or self care 06/18/2024 9:45 AM WASHER AND CRUSHER TENDER - 06/18/2024 11:59 PM WASHER AND CRUSHER TENDER Hospital Encounter [facility] [address] [place] [phone] Adria Lau MD Cervical radiculopathy; Cervical stenosis [...] 08/04/2024 Assessment & Plan (08/07/2024 11:59 AM WASHER AND CRUSHER TENDER): John Tyler is a 79 y.o. male [...] recommendations. Assessment & Plan (08/04/2024 1:07 PM WASHER AND CRUSHER TENDER): Presents with three month history of fluctuating [...] 08/04/2024 Assessment & Plan (08/04/2024 1:08 PM WASHER AND CRUSHER TENDER): Continue home mesalamine Flexor tenosynovitis of finger 08/03/2024 Lumbar stenosis without neurogenic claudication 03/25/2024 Lumbar radicular pain 03/25/2024 Cervical radiculopathy 03/25/2024 Cervical stenosis of spinal canal 03/25/2024 S/P TAVR (transcatheter aortic valve replacement ) 03/04/2024 Sacroiliitis 12/25/2023 Allergic rhinitis 08/10/2020 JERAD (obstructive sleep apnea) 05/14/2020 Overview (05/14/2020): Added automatically from request for surgery [id number] Assessment & Plan (08/04/2024 1:09 PM WASHER AND CRUSHER TENDER): S/p INSPIRE (hypoglossal nerve stimulator) mplantation Sleep apnea 02/17/2020 Right shoulder pain 01/19/2016 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 0 10/22/2015 Abnormal liver enzymes 07/01/2014 Osteoporosis 10/24/2013 Hypertension, essential 04/16/2013 Assessment & Plan (08/04/2024 1:08 PM WASHER AND CRUSHER TENDER): Continue home lisinopril 20mg Hay fever 04/16/2012 Dyslipidemia 03/15/2012 Assessment & Plan (08/04/2024 1:08 PM WASHER AND CRUSHER TENDER): 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/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 Long-term current use of steroids 07/24/2011 Arthralgia of multiple joints 01/20/2011 Polyosteoarthritis, unspecified 01/20/2011 Encounter for preventive health examination 10/30 Immunizations Immunization Administration Dates Next Due Tdap 08/04/2024(Deferred: No longer n eeded - UTD) Social History Tobacco Use Types Packs/Day Years [...] on file Legal Sex Male 3:19 AM WASHER AND CRUSHER TENDER Gender Identity Male 01/22/2020 3:16 PM CDT Sexual Orientation Straight 01/22/2020 3: 16 PM CDT Last Filed Vital Signs Vital Sign Reading Time Taken Comments Blood Pressure 131/72 08/29/2024 1:54 PM WASHER AND CRUSHER TENDER Pulse 75 08/29/2024 1:54 PM WASHER AND CRUSHER TENDER Temperature 36.8 C (98.2 F) 08/29/2024 1:54 PM WASHER AND CRUSHER TENDER Respiratory Rate 16 08/26/2024 10:02 AM WASHER AND CRUSHER TENDER Oxygen Saturation 96% 08/29/2024 1:54 PM WASHER AND CRUSHER TENDER Inhaled Oxygen Concentration - - Weight 94.9 kg (209 lb 3.2 oz) 08/29/2024 1:54 P M WASHER AND CRUSHER TENDER Height 182.9 cm (6' 0.01 ) 08/29/2024 1:54 PM CS T Body Mass Index 28.37 08/29/2024 1:54 PM WASHER AND CRUSHER TENDER Plan of Treatment Not on file Medical Devices Implanted Type Area Shake Cutter Device Identifier Shelf Expiration Date Model / Serial / Lot [employer] 4063 Inspire 3 Electrode Cuff Tunnel [place] Lead Neurostimulator [facility] - [id number] - [id number] Implanted:Qty: 1 on 06/21/2020 by Mahad Chahal MD at [facility] Right: Neck [employer] 01/03/2022 4063 / [id number] / [employer] 4340 Lead Neurostimulator Inspire Respiratory Sens Cycle Strl - [id number] - [id number] Implanted:Qty: 1 on 06/21/2020 by Mahad Chahal MD at [facility] Right: Chest [employer] 01/03/2022 4340 / [id number] / Description:Between ribs [employer] 3028 Generator Neurostimulator - [id number] - [id number] Implanted:Qty: 1 on 06/21/2020 by Mahad Chahal MD at [facility] Right: Chest [employer] 02/15/2023 3028 / [id number] / Procedures Procedure Name Priority Date/Time Associated Diagnosis Comments EGFR Routine 09/05/2024 1:55 PM WASHER AND CRUSHER TENDER Flexor tenosynovitis of finger ERYTHROCYTE SEDIMENTATION RATE Routine 09/05/2024 1:55 PM WASHER AND CRUSHER TENDER Flexor tenosynovitis of finger CRP (ACUTE PHASE) Routine 09/05/2024 1:5 5 PM WASHER AND CRUSHER TENDER Flexor tenosynovitis of finger CBC WITHOUT DIFFERENTIAL Routine 09/05/2024 1:55 PM WASHER AND CRUSHER TENDER Flexor tenosynovitis of finger Finger infection BASIC METABOLIC PANEL Routine 09/05/2024 1:55 PM WASHER AND CRUSHER TENDER Flexor tenosynovitis of finger EGFR Routine 08/29/2024 2:49 PM WASHER AND CRUSHER TENDER Finger pulp abscess, left DIFFERENTIAL AUTO Routine 08/29/2024 2:4 9 PM WASHER AND CRUSHER TENDER Finger pulp abscess, left CBC WITH AUTO DIFFERENTIAL Routine 08/29/2024 2:49 PM WASHER AND CRUSHER TENDER Finger pulp abscess, left COMPREHENSIVE METABOLIC PANEL Routine 08/29/2024 2:49 PM WASHER AND CRUSHER TENDER Finger pulp abscess, left VANCOMYCIN LEVEL TROUGH Timed 08/07/2024 1:43 AM WASHER AND CRUSHER TENDER EGFR Routine 08/06/2024 10:48 PM WASHER AND CRUSHER TENDER DIFFERENTIAL AUTO Routine 08/06/2024 10:48 PM WASHER AND CRUSHER TENDER COMPREHENSIVE METABOLIC PANEL Routine 08/06/2024 10:48 PM WASHER AND CRUSHER TENDER CBC WITH AUTO DIFFERENTIAL Routine 08/06/2024 10:48 PM WASHER AND CRUSHER TENDER EGFR Routine 08/05/2024 10:21 PM WASHER AND CRUSHER TENDER DIFFERENTIAL AUTO Routine 08/05/2024 10:21 PM WASHER AND CRUSHER TENDER COMPREHENSIVE METABOLIC PANEL Routine 08/05/2024 10:21 PM WASHER AND CRUSHER TENDER CBC WITH AUTO DIFFERENTIAL Routine 08/05/2024 10:21 PM WASHER AND CRUSHER TENDER EGFR Routine 08/04/2024 8:49 PM WASHER AND CRUSHER TENDER DIFFERENTIAL AUTO Routine 08/04/2024 8:4 9 PM WASHER AND CRUSHER TENDER COMPREHENSIVE METABOLIC PANEL Routine 08/04/2024 8:49 PM WASHER AND CRUSHER TENDER CBC WITH AUTO DIFFERENTIAL Routine 08/04/2024 8:49 PM WASHER AND CRUSHER TENDER BLOOD CULTURE Routine 08/04/2024 8:49 PM WASHER AND CRUSHER TENDER BLOOD CULTURE Routine 08/04/2024 8:49 PM WASHER AND CRUSHER TENDER TISSUE AEROBIC AND ANAEROBIC CULTURE AND GRAM STAIN Routine 08/04/2024 12:33 PM WASHER AND CRUSHER TENDER MYCOBACTERIOLOGY AFB CULTURE Routine 08/04/2024 12:33 PM WASHER AND CRUSHER TENDER MYCOLOGY (FUNGAL) CULTURE Routine 08/04/2024 12:33 PM WASHER AND CRUSHER TENDER TISSUE AEROBIC AND ANAEROBIC CULTURE AND GRAM STAIN Routine 08/04/2024 12:24 PM WASHER AND CRUSHER TENDER MYCOBACTERIOLOGY AFB CULTURE Routine 08/04/2024 12:24 PM WASHER AND CRUSHER TENDER MYCOLOGY (FUNGAL) CULTURE Routine 08/04/2024 12:24 PM WASHER AND CRUSHER TENDER TISSUE AEROBIC AND ANAEROBIC CULTURE AND GRAM STAIN Routine 08/04/2024 12:18 PM WASHER AND CRUSHER TENDER MYCOBACTERIOLOGY AFB CULTURE Routine 08/04/2024 12:18 PM WASHER AND CRUSHER TENDER MYCOLOGY (FUNGAL) CULTURE Routine 08/04/2024 12:18 PM WASHER AND CRUSHER TENDER SC AN PROCEDURE PLACEHOLDER Routine 08/04/2024 11:55 AM WASHER AND CRUSHER TENDER SC AN ELECTIVE SUPRAGLOTTIC AIRWAY Routine 08/04/2024 11:55 AM WASHER AND CRUSHER TENDER IRRIGATION AND DEBRIDEMENT 08/04/2024 11:35 AM WASHER AND CRUSHER TENDER Flexor tenosynovitis of finger AEROBIC AND ANAEROBIC CULTURE AND GRAM STAIN STAT 08/04/2024 6:52 AM WASHER AND CRUSHER TENDER XR TRANSFER OF OUTSIDE FILMS Routine 08/04/2024 6:22 AM WASHER AND CRUSHER TENDER XR WRIST LEFT 3 OR MORE VIEWS ED Urgent/IP Urgent 08/04/2024 4:08 AM WASHER AND CRUSHER TENDER XR HAND LEFT 3 OR MORE VIEWS ED Urgent/IP Urgent 08/04/2024 4:08 AM WASHER AND CRUSHER TENDER EGFR STAT 08/04/2024 2:34 AM WASHER AND CRUSHER TENDER DIFFERENTIAL AUTO STAT 08/04/2024 2:3 4 AM WASHER AND CRUSHER TENDER TYPE AND SCREEN STAT 08/04/2024 2:34 AM WASHER AND CRUSHER TENDER PROTIME-INR STAT 08/04/2024 2:34 AM WASHER AND CRUSHER TENDER APTT STAT 08/04/2024 2:34 AM WASHER AND CRUSHER TENDER COMPREHENSIVE METABOLIC PANEL STAT 08/04/2024 2:34 AM WASHER AND CRUSHER TENDER CBC WITH AUTO DIFFERENTIAL STAT 08/04/2024 2:34 AM WASHER AND CRUSHER TENDER PAIN MGMT IMAGING CERVICAL/THORACIC EPIDURAL Schedule Routine, Read Routine (OP Routine) 06/18/2024 11:54 AM WASHER AND CRUSHER TENDER Cervical radiculopathy Cervical stenosis of spinal canal from Last 3 Months Results * eGFR (09/05/2024 1:55 PM WASHER AND CRUSHER TENDER) eGFR 71 >=60 mL/min/1. 73 m2 Comment: [...] last reviewed 2021. Blood 09/05/2024 1:55 PM WASHER AND CRUSHER TENDER 09/05/2024 2:57 PM WASHER AND CRUSHER TENDER John Eaton MD LAB BLOOD ORDERABLES Final R esult Performing Organization Address City/[facility]/ZIP Co de Phone Number [facility] Department of [employer] [place], [place] [id number] * Erythrocyte sedimentation rate (09/05/2024 1:55 PM WASHER AND CRUSHER TENDER) Erythrocyte sedimentation rate 6 1 - 20 mm/hr Blood 09/05/2024 1:55 PM WASHER AND CRUSHER TENDER 09/05/2024 2:54 PM WASHER AND CRUSHER TENDER John Eaton MD LAB BLOOD ORDERABLES Final R esult Performing Organization Address City/[facility]/ZIP Co de Phone Number REYNALDO [facility] [place] [address] * (ABNORMAL) CBC without differential (09/05/2024 1:55 PM WASHER AND CRUSHER TENDER) WBC 6.5 3.8 - 9.9 K/cumm Hgb 14.2 13.0 - 17.5 g/dL [facility] Hct 42.6 38.9 - 50.3 % [facility] Plt 144(L) 150 - 400 K/cumm [facility] MPV 11.3 9.1 - 12.3 fL [facility] RBC 4.34 4.30 - 5.80 M/cumm [facility] MCV 98.2(H) 81.3 - 96.4 fL [facility] MCH 32.7 27.1 - 33.3 pg [facility] MCHC 33.3 32.3 - 35.7 g/dL [facility] RDW CV 12.8 11.1 - 14.9 % [facility] RDW SD 46.3 35.7 - 48.1 fL [facility] NRBC abs 0.00 0.00 - 0.01 K/cumm [facility] Blood 09/05/2024 1:55 PM WASHER AND CRUSHER TENDER 09/05/2024 2:54 PM WASHER AND CRUSHER TENDER John Eaton MD LAB BLOOD ORDERABLES Final R esult Performing Organization Address City/[facility]/ZIP Co de Phone Number [facility] Department of [employer] [place], [place] [id number] * CRP (acute phase) (09/05/2024 1:55 PM WASHER AND CRUSHER TENDER) CRP <0.5 <=10.0 mg/L Comment:Repeated and Verifie d Blood 09/05/2024 1:55 PM WASHER AND CRUSHER TENDER 09/05/2024 2:54 PM WASHER AND CRUSHER TENDER John Eaton MD LAB BLOOD ORDERABLES Final R esult [facility] [place] [address] * (ABNORMAL) Basic metabolic panel (09/05/2024 1:55 PM WASHER AND CRUSHER TENDER) Sodium 140 135 - 145 mmol/L Potassium, pl See Comment 3.3 - 4.9 mmol/L [facility] Comment:Credited; Hemolyzed Specimen Chloride 105 97 - 110 mmol/L [facility] CO2 27 22 - 32 mmol/L [facility] Anion gap 8 2 - 15 mmol/L [facility] BUN 21 6 - 25 mg/dL [facility] Creatinine 1.06 0.80 - 1.30 mg/dL [facility] Glucose 93 70 - 199 mg/dL [facility] Comment: Interpretive Data Fasting glucose >/= 126 [...] 2022. Calcium 10.6(H) 8.5 - 10.3 mg/dL [facility] Blood 09/05/2024 1:55 PM WASHER AND CRUSHER TENDER 09/05/2024 2:54 PM WASHER AND CRUSHER TENDER John Eaton MD LAB BLOOD ORDERABLES Final R esult [facility] [place] [address] * eGFR (08/29/2024 2:49 PM WASHER AND CRUSHER TENDER) eGFR 67 >=60 mL/min/1. 73 m2 Comment: [...] last reviewed 2021. Blood 08/29/2024 2:49 PM WASHER AND CRUSHER TENDER 08/29/2024 6:22 PM WASHER AND CRUSHER TENDER [facility] Nicole QUINTERO LAB BLOOD ORDERAB LES Final Result [facility] Department [place] [address] * Differential, auto (08/29/2024 2:49 PM WASHER AND CRUSHER TENDER) Neutrophil abs 2.8 1.5 - 6.5 K/cumm Imm gran abs 0.0 0.0 - 0.1 K/cumm [facility] Lymphocyte abs 2.3 0.8 - 3.3 K/cumm [facility] Monocyte abs 0.7 0.2 - 0.8 K/cumm [facility] Eosinophil abs 0.1 0.0 - 0.5 K/cumm [facility] Basophil abs 0.0 0.0 - 0.1 K/cumm [facility] Neutrophil pct 46.7 % [facility] Comment: Interpretive Data Percent cell count reference ranges are not reported, since discordance with absolute values may lead to misinterpretation of CBC data. Current Interpretive Data was last revised on 2017. Imm gran pct 0.5 % [facility] Comment: Interpretive Data Percent cell count reference ranges are not reported, since discordance with absolute values may lead to misinterpretation of CBC data. Current Interpretive Data was last revised on 2017. Lymphocyte pct 39.0 % [facility] Comment: Interpretive Data Percent cell count reference ranges are not reported, since discordance with absolute values may lead to misinterpretation of CBC data. Current Interpretive Data was last revised on 2017. Monocyte pct 11.3 % [facility] Comment: Interpretive Data Percent cell count reference ranges are not reported, since discordance with absolute values may lead to misinterpretation of CBC data. Current Interpretive Data was last revised on 2017. Eosinophil pct 2.2 % [facility] Comment: Interpretive Data Percent cell count reference ranges are not reported, since discordance with absolute values may lead to misinterpretation of CBC data. Current Interpretive Data was last revised on 2017. Basophil pct 0.3 % [facility] Comment: Interpretive Data Percent cell count reference ranges are not reported, since discordance with absolute values may lead to misinterpretation of CBC data. Current Interpretive Data was last revised on 2017. Blood 08/29/2024 2:49 PM WASHER AND CRUSHER TENDER 08/29/2024 6:13 PM WASHER AND CRUSHER TENDER [facility] Nicole QUINTERO LAB BLOOD ORDERAB LES Final Result [facility] Department [place] [address] * (ABNORMAL) CBC with auto differential (08/29/2024 2:49 PM WASHER AND CRUSHER TENDER) WBC 6.0 3.8 - 9.9 K/cumm Hgb 13.8 13.0 - 17.5 g/dL [facility] Hct 41.2 38.9 - 50.3 % [facility] Plt 134(L) 150 - 400 K/cumm [facility] MPV 11.6 9.1 - 12.3 fL [facility] RBC 4.22(L) 4.30 - 5.80 M/cumm [facility] MCV 97.6(H) 81.3 - 96.4 fL [facility] MCH 32.7 27.1 - 33.3 pg [facility] MCHC 33.5 32.3 - 35.7 g/dL [facility] RDW CV 12.8 11.1 - 14.9 % [facility] RDW SD 45.7 35.7 - 48.1 fL [facility] NRBC abs 0.00 0.00 - 0.01 K/cumm [facility] Blood 08/29/2024 2:49 PM WASHER AND CRUSHER TENDER 08/29/2024 6:13 PM WASHER AND CRUSHER TENDER Amilcar Rivera MD LAB BLOOD ORDERAB LES Final Result [facility] Department [place] [address] * (ABNORMAL) Comprehensive metabolic panel (08/29/2024 2:49 PM WASHER AND CRUSHER TENDER) Sodium 144 135 - 145 mmol/L Potassium, pl 4.1 3.3 - 4.9 mmol/L [facility] Chloride 107 97 - 110 mmol/L [facility] CO2 26 22 - 32 mmol/L [facility] Anion gap 11 2 - 15 mmol/L [facility] BUN 22 6 - 25 mg/dL [facility] Creatinine 1.11 0.80 - 1.30 mg/dL [facility] Glucose 116 70 - 199 mg/dL [facility] Comment: Interpretive Data Fasting glucose >/= 126 [...] 2022. Calcium 10.8(H) 8.5 - 10.3 mg/dL [facility] Bilirubin, total 0.4 0.1 - 1.2 mg/dL [facility] Protein, pl 7.1 6.5 - 8.5 g/dL [facility] Albumin 4.2 3.5 - 5.0 g/dL [facility] Alk phos 46 40 - 130 Units/L [facility] ALT 27 7 - 55 Units/L [facility] AST 28 10 - 50 Units/L [facility] Blood 08/29/2024 2:49 PM WASHER AND CRUSHER TENDER 08/29/2024 6:13 PM WASHER AND CRUSHER TENDER Amilcar Rivera MD LAB BLOOD ORDERAB LES Final Result Performing Organization Address [facility]/ZIP Co de Phone Number [facility] [place] [address] * (ABNORMAL) Vancomycin level trough Please draw at least 30 minutes prior to dose administration (08/07/2024 1:43 AM WASHER AND CRUSHER TENDER) Vancomycin trough 9.6(L) 10.0 - 20.0 mcg/mL Blood 08/07/2024 1:43 AM WASHER AND CRUSHER TENDER 08/07/2024 2:10 AM WASHER AND CRUSHER TENDER Narrative [facility] - 08/07/2024 3:00 AM WASHER AND CRUSHER TENDER Please draw at least 30 minutes prior to dose administration Agnieszka Alston NP LAB BLOOD ORDERABLES Final Result Performing Organization Address [facility] Co de Phone Number [facility] [place] [address] * eGFR (08/06/2024 10:48 PM WASHER AND CRUSHER TENDER) eGFR 87 >=60 mL/min/1. 73 m2 Comment: [...] reviewed 2021. Blood 08/06/2024 10:4 8 PM WASHER AND CRUSHER TENDER 08/06/2024 11:27 PM WASHER AND CRUSHER TENDER us John Eaton MD LAB BLOOD ORDERABLES Final R esult [facility] Department [place] [address] * Differential, auto (08/06/2024 10:48 PM WASHER AND CRUSHER TENDER) Neutrophil abs 2.7 1.5 - 6.5 K/cumm Imm gran abs 0.0 0.0 - 0.1 K/cumm [facility] Lymphocyte abs 2.0 0.8 - 3.3 K/cumm [facility] Monocyte abs 0.8 0.2 - 0.8 K/cumm [facility] Eosinophil abs 0.1 0.0 - 0.5 K/cumm [facility] Basophil abs 0.0 0.0 - 0.1 K/cumm [facility] Neutrophil pct 48.0 % [facility] Comment: Interpretive Data Percent cell count reference ranges are not reported, since discordance with absolute values may lead to misinterpretation of CBC data. Current Interpretive Data was last revised on 2017. Imm gran pct 0.5 % [facility] Comment: Interpretive Data Percent cell count reference ranges are not reported, since discordance with absolute values may lead to misinterpretation of CBC data. Current Interpretive Data was last revised on 2017. Lymphocyte pct 34.8 % [facility] Comment: Interpretive Data Percent cell count reference ranges are not reported, since discordance with absolute values may lead to misinterpretation of CBC data. Current Interpretive Data was last revised on 2017. Monocyte pct 13.7 % [facility] Comment: Interpretive Data Percent cell count reference ranges are not reported, since discordance with absolute values may lead to misinterpretation of CBC data. Current Interpretive Data was last revised on 2017. Eosinophil pct 2.5 % [facility] Comment: Interpretive Data Percent cell count reference ranges are not reported, since discordance with absolute values may lead to misinterpretation of CBC data. Current Interpretive Data was last revised on 2017. Basophil pct 0.5 % [facility] Comment: Interpretive Data Percent cell count reference ranges are not reported, since discordance with absolute values may lead to misinterpretation of CBC data. Current Interpretive Data was last revised on 2017. Blood 08/06/2024 10:4 8 PM WASHER AND CRUSHER TENDER 08/06/2024 11:28 PM WASHER AND CRUSHER TENDER John Eaton MD LAB BLOOD ORDERABLES Final R esult [facility] [place] [address] * (ABNORMAL) CBC with auto differential (08/06/2024 10:48 PM WASHER AND CRUSHER TENDER) WBC 5.6 3.8 - 9.9 K/cumm Hgb 13.6 13.0 - 17.5 g/dL [facility] Hct 41.0 38.9 - 50.3 % [facility] Plt 163 150 - 400 K/cumm [facility] MPV 10.8 9.1 - 12.3 fL [facility] RBC 4.13(L) 4.30 - 5.80 M/cumm [facility] MCV 99.3(H) 81.3 - 96.4 fL [facility] MCH 32.9 27.1 - 33.3 pg [facility] MCHC 33.2 32.3 - 35.7 g/dL [facility] RDW CV 12.5 11.1 - 14.9 % [facility] RDW SD 46.0 35.7 - 48.1 fL [facility] NRBC abs 0.00 0.00 - 0.01 K/cumm [facility] Blood 08/06/2024 10:4 8 PM [employer]ER [employer] CRUSHER TENDER 08/06/2024 11:28 PM WASHER [employer] CRUSHER TENDER John Eaton MD LAB BLOOD ORDERABLES Final R esult Performing Organization Address [facility]/ZIP Co de Phone Number [facility] Department [place] [address] * (ABNORMAL) Comprehensive metabolic panel (08/06/2024 10:48 PM WASHER [employer] CRUSHER TENDER) Sodium 140 135 - 145 mmol/L Potassium, pl 4.2 3.3 - 4.9 mmol/L [facility] Chloride 105 97 - 110 mmol/L [facility] CO2 27 22 - 32 mmol/L [facility] Anion gap 8 2 - 15 mmol/L [facility] BUN 23 6 - 25 mg/dL [facility] Creatinine 0.87 0.80 - 1.30 mg/dL [facility] Glucose 109 70 - 199 mg/dL [facility] Comment: Interpretive Data Fasting glucose >/= 126 [...] 2022. Calcium 10.7(H) 8.5 - 10.3 mg/dL [facility] Bilirubin, total 0.6 0.1 - 1.2 mg/dL [facility] Protein, pl 7.3 6.5 - 8.5 g/dL [facility] Albumin 4.0 3.5 - 5.0 g/dL [facility] Alk phos 61 40 - 130 Units/L [facility] ALT 34 7 - 55 Units/L [facility] AST 28 10 - 50 Units/L [facility] Blood 08/06/2024 10:4 8 PM W[employer]ER [employer] CRUSHER TENDER 08/06/2024 11:27 PM [employer]ER [employer] CRUSHER TENDER John Eaton MD LAB BLOOD ORDERABLES Final R esult Performing Organization Address City/[facility]/ZIP Co de Phone Number REYNALDO [facility] Department [place] [address] * eGFR (08/05/2024 10:21 PM WASHER AND CRUSHER TENDER) Pathologist [facility] eGFR 77 >=60 mL/min/1. 73 m2 Comment: [...] reviewed 2021. Blood 08/05/2024 10:2 1 PM [employer]ER [employer] CRUSHER TENDER 08/05/2024 10:34 PM WASHER [employer] CRUSHER TENDER us John Eaton MD LAB BLOOD ORDERABLES Final R esult REYNALDO [facility] Department [place] [address] * (ABNORMAL) Differential, auto (08/05/2024 10:21 PM W[employer]ER [employer] CRUSHER TENDER) Pathologist [facility] Neutrophil abs 4.9 1.5 - 6.5 K/cumm Imm gran abs 0.0 0.0 - 0.1 K/cumm [facility] Lymphocyte abs 2.9 0.8 - 3.3 K/cumm [facility] Monocyte abs 1.1(H) 0.2 - 0.8 K/cumm [facility] Eosinophil abs 0.1 0.0 - 0.5 K/cumm [facility] Basophil abs 0.0 0.0 - 0.1 K/cumm [facility] Neutrophil pct 53.7 % [facility] Comment: Interpretive Data Percent cell count reference ranges are not reported, since discordance with absolute values may lead to misinterpretation of CBC data. Current Interpretive Data was last revised on 2017. Imm gran pct 0.4 % [facility] Comment: Interpretive Data Percent cell count reference ranges are not reported, since discordance with absolute values may lead to misinterpretation of CBC data. Current Interpretive Data was last revised on 2017. Lymphocyte pct 31.8 % [facility] Comment: Interpretive Data Percent cell count reference ranges are not reported, since discordance with absolute values may lead to misinterpretation of CBC data. Current Interpretive Data was last revised on 2017. Monocyte pct 12.3 % [facility] Comment: Interpretive Data Percent cell count reference ranges are not reported, since discordance with absolute values may lead to misinterpretation of CBC data. Current Interpretive Data was last revised on 2017. Eosinophil pct 1.5 % [facility] Comment: Interpretive Data Percent cell count reference ranges are not reported, since discordance with absolute values may lead to misinterpretation of CBC data. Current Interpretive Data was last revised on 2017. Basophil pct 0.3 % [facility] Comment: Interpretive Data Percent cell count reference ranges are not reported, since discordance with absolute values may lead to misinterpretation of CBC data. Current Interpretive Data was last revised on 2017. Blood 08/05/2024 10:2 1 PM WASHER [employer] CRUSHER TENDER 08/05/2024 10:34 PM WASHER [employer] CRUSHER TENDER us John Eaton MD LAB BLOOD ORDERABLES Final R esult [facility] Department [place] [address] * (ABNORMAL) CBC with auto differential (08/05/2024 10:21 PM WASHER [employer] CRUSHER TENDER) WBC 9.1 3.8 - 9.9 K/cumm Hgb 12.9(L) 13.0 - 17.5 g/dL [facility] Hct 37.9(L) 38.9 - 50.3 % [facility] Plt 149(L) 150 - 400 K/cumm [facility] MPV 10.8 9.1 - 12.3 fL [facility] RBC 3.94(L) 4.30 - 5.80 M/cumm [facility] MCV 96.2 81.3 - 96.4 fL [facility] MCH 32.7 27.1 - 33.3 pg [facility] MCHC 34.0 32.3 - 35.7 g/dL [facility] RDW CV 12.7 11.1 - 14.9 % [facility] RDW SD 44.7 35.7 - 48.1 fL [facility] NRBC abs 0.00 0.00 - 0.01 K/cumm [facility] Blood 08/05/2024 10:2 1 PM W[employer]ER [employer] CRUSHER TENDER 08/05/2024 10:34 PM W[employer]ER [employer] CRUSHER TENDER John Eaton MD LAB BLOOD ORDERABLES Final R esult [facility] Department [place] [address] * (ABNORMAL) Comprehensive metabolic panel (08/05/2024 10:21 PM WASHER [employer] CRUSHER TENDER) Sodium 142 135 - 145 mmol/L Potassium, pl 4.8 3.3 - 4.9 mmol/L [facility] Chloride 107 97 - 110 mmol/L [facility] CO2 28 22 - 32 mmol/L [facility] Anion gap 7 2 - 15 mmol/L [facility] BUN 28(H) 6 - 25 mg/dL [facility] Creatinine 0.98 0.80 - 1.30 mg/dL [facility] Glucose 108 70 - 199 mg/dL [facility] Comment: Interpretive Data Fasting glucose >/= 126 [...] 2022. Calcium 10.2 8.5 - 10.3 mg/dL [facility] Bilirubin, total 0.5 0.1 - 1.2 mg/dL [facility] Protein, pl 6.8 6.5 - 8.5 g/dL [facility] Albumin 3.8 3.5 - 5.0 g/dL [facility] Alk phos 58 40 - 130 Units/L [facility] ALT 36 7 - 55 Units/L [facility] AST 28 10 - 50 Units/L [facility] Blood 08/05/2024 10:2 1 PM W[employer]ER [employer] CRUSHER TENDER 08/05/2024 10:34 PM WASHER [employer] CRUSHER TENDER John Eaton MD LAB BLOOD ORDERABLES Final R esult [facility] Department [place] [address] * eGFR (08/04/2024 8:49 PM W[employer]ER [employer] CRUSHER TENDER) eGFR 86 >=60 mL/min/1. 73 m2 Comment: [...] last reviewed 2021. Blood 08/04/2024 8:49 PM W[employer]ER AND CRUSHER TENDER 08/04/2024 9:07 PM WASHER AND CRUSHER TENDER us John Eaton MD LAB BLOOD ORDERABLES Final R esult [facility] Department [place] [address] * (ABNORMAL) Differential, auto (08/04/2024 8:49 PM WASHER AND CRUSHER TENDER) Neutrophil abs 7.9(H) 1.5 - 6.5 K/cumm Imm gran abs 0.0 0.0 - 0.1 K/cumm [facility] Lymphocyte abs 1.0 0.8 - 3.3 K/cumm [facility] Monocyte abs 0.6 0.2 - 0.8 K/cumm [facility] Eosinophil abs 0.0 0.0 - 0.5 K/cumm [facility] Basophil abs 0.0 0.0 - 0.1 K/cumm [facility] Neutrophil pct 82.5 % [facility] Comment: Interpretive Data Percent cell count reference ranges are not reported, since discordance with absolute values may lead to misinterpretation of CBC data. Current Interpretive Data was last revised on 2017. Imm gran pct 0.4 % [facility] Comment: Interpretive Data Percent cell count reference ranges are not reported, since discordance with absolute values may lead to misinterpretation of CBC data. Current Interpretive Data was last revised on 2017. Lymphocyte pct 10.6 % [facility] Comment: Interpretive Data Percent cell count reference ranges are not reported, since discordance with absolute values may lead to misinterpretation of CBC data. Current Interpretive Data was last revised on 2017. Monocyte pct 6.4 % [facility] Comment: Interpretive Data Percent cell count reference ranges are not reported, since discordance with absolute values may lead to misinterpretation of CBC data. Current Interpretive Data was last revised on 2017. Eosinophil pct 0.0 % [facility] Comment: Interpretive Data Percent cell count reference ranges are not reported, since discordance with absolute values may lead to misinterpretation of CBC data. Current Interpretive Data was last revised on 2017. Basophil pct 0.1 % [facility] Comment: Interpretive Data Percent cell count reference ranges are not reported, since discordance with absolute values may lead to misinterpretation of CBC data. Current Interpretive Data was last revised on 2017. Blood 08/04/2024 8:49 PM WASHER [employer] CRUSHER TENDER 08/04/2024 9:07 PM WASHER AND CRUSHER TENDER us John Eaton MD LAB BLOOD ORDERABLES Final R esult [facility] Department [place] [address] * (ABNORMAL) CBC with auto differential (08/04/2024 8:49 PM WASHER AND CRUSHER TENDER) WBC 9.6 3.8 - 9.9 K/cumm Hgb 14.1 13.0 - 17.5 g/dL [facility] Hct 40.9 38.9 - 50.3 % [facility] Plt 135(L) 150 - 400 K/cumm [facility] MPV 10.9 9.1 - 12.3 fL [facility] RBC 4.23(L) 4.30 - 5.80 M/cumm [facility] MCV 96.7(H) 81.3 - 96.4 fL [facility] MCH 33.3 27.1 - 33.3 pg [facility] MCHC 34.5 32.3 - 35.7 g/dL [facility] RDW CV 12.5 11.1 - 14.9 % [facility] RDW SD 44.1 35.7 - 48.1 fL [facility] NRBC abs 0.00 0.00 - 0.01 K/cumm [facility] Blood 08/04/2024 8:49 PM WASHER AND CRUSHER TENDER 08/04/2024 9:07 PM WASHER [employer] CRUSHER TENDER us John Eaton MD LAB BLOOD ORDERABLES Final R esult Performing Organization Address City/[facility]/ZIP Co de Phone Number REYNALDO CARLOS [facility] Department [place] [address] * Blood culture Blood (08/04/2024 8:49 PM WASHER AND CRUSHER TENDER) Report Final Report: No growth Blood 08/04/2024 8:49 PM WASHER AND CRUSHER TENDER 08/04/2024 9:35 PM WASHER AND CRUSHER TENDER Narrative REYNALDO CARLOS - 08/09/2024 7:00 AM WASHER AND CRUSHER TENDER Collection->Peripheral 1. Blood cultures are incubated for [...] performance characteristics have been verified by the [facility] Microbiology Laboratory. For questions about this culture, contact the Microbiology Laboratory at [phone]. Interpretive data was last revised on 24. John Eaton MD LAB MICROBIOLOGY - GENERAL O RDERABLES Final Result Performing Organization Address [facility] Co de Phone Number REYNALDO CARLOS [facility] Department [place] [address] * Blood culture Blood (08/04/2024 8:49 PM WASHER AND CRUSHER TENDER) Report Final Report: No growth Blood 08/04/2024 8:49 PM WASHER AND CRUSHER TENDER 08/04/2024 9:34 PM WASHER AND CRUSHER TENDER Narrative [facility] - 08/09/2024 7:00 AM WASHER AND CRUSHER TENDER Collection->Peripheral 1. Blood cultures are incubated for [...] performance characteristics have been verified by the [facility] Microbiology Laboratory. For questions about this culture, contact the Microbiology Laboratory at [phone]. Interpretive data was last revised on 24. us John Eaton MD LAB MICROBIOLOGY - GENERAL O RDERABLES Final Result [facility] Department [place] [address] * (ABNORMAL) Comprehensive metabolic panel (08/04/2024 8:49 PM WASHER [employer] CRUSHER TENDER) Sodium 137 135 - 145 mmol/L Potassium, pl 5.0(H) 3.3 - 4.9 mmol/L [facility] Chloride 102 97 - 110 mmol/L [facility] CO2 26 22 - 32 mmol/L [facility] Anion gap 9 2 - 15 mmol/L [facility] BUN 22 6 - 25 mg/dL [facility] Creatinine 0.90 0.80 - 1.30 mg/dL [facility] Glucose 184 70 - 199 mg/dL [facility] Comment: Interpretive Data Fasting glucose >/= 126 [...] 2022. Calcium 10.4(H) 8.5 - 10.3 mg/dL [facility] Bilirubin, total 0.9 0.1 - 1.2 mg/dL [facility] Protein, pl 7.5 6.5 - 8.5 g/dL [facility] Albumin 4.1 3.5 - 5.0 g/dL [facility] Alk phos 71 40 - 130 Units/L [facility] ALT 56(H) 7 - 55 Units/L [facility] AST 67(H) 10 - 50 Units/L [facility] Blood 08/04/2024 8:49 PM WASHER AND CRUSHER TENDER 08/04/2024 9:07 PM WASHER AND CRUSHER TENDER John Eaton MD LAB BLOOD ORDERABLES Final R esult [facility] [place] [address] * Tissue aerobic and anaerobic culture and gram stain Tissue Finger, pinky, left (08/04/2024 12:33 PMCST) Direct Specimen Exam Stain: No polymorphonuclear leukocytes seen. No organisms seen. Report Final Report: No growth [facility] Tissue (Finger, pinky, left) 08/04/2024 12:33 PM WASHER AND CRUSHER TENDER 08/04/2024 2:05 PM WASHER AND CRUSHER TENDER Narrative [facility] - 08/07/2024 10:43 AM WASHER AND CRUSHER TENDER Left Small Finger Dorsal Testing performed by [facility] Microbiology Laboratory ([phone]) Specimens submitted from normally sterile body sites [...] O RDERABLES Final Result Performing Organization Address [facility] Co de Phone Number [facility] [place] [address] * Mycology (fungal) culture Tissue Finger, pinky, left (08/04/2024 12:33 PM WASHER AND CRUSHER TENDER) Report Final Report: No growth of fungus Tissue (Finger, pinky, left) 08/04/2024 12:33 PM WASHER AND CRUSHER TENDER 08/04/2024 2:05 PM WASHER AND CRUSHER TENDER Narrative [facility] - 09/01/2024 10:49 AM WASHER AND CRUSHER TENDER Left Small Finger Dorsal Testing performed by [facility] Microbiology Laboratory ([phone]). John Eaton MD LAB MICROBIOLOGY - GENERAL O RDERABLES Final Result Performing Organization Address [facility] de Phone Number [facility] [place] [address] * (ABNORMAL) Tissue aerobic and anaerobic culture and gram stain Tissue Finger, pinky, left (08/04/2024 12:24 PM WASHER AND CRUSHER TENDER) Direct Specimen Exam Stain: No polymorphonuclear leukocytes seen. No organisms seen. Report Final Report: Rare Staphylococcus aureus Methicillin susceptible (MSSA) by penicillin binding protein 2a (PBP2a) testing. (.) [facility] Organism STAPHYLOCOCCUS AUREUS [facility] Tissue (Finger, pinky, left) 08/04/2024 12:24 PM WASHER AND CRUSHER TENDER 08/04/2024 2:04 PM WASHER AND CRUSHER TENDER Narrative [facility] - 08/07/2024 1:09 PM WASHER AND CRUSHER TENDER Left Small Finger Testing performed by [facility] Microbiology Laboratory ([phone]) Specimens submitted from normally sterile body sites [...] MICROBIOLOGY - GENERAL O RDERABLES Final Result [facility] [place] [address] * Mycology (fungal) culture Tissue Finger, pinky, left (08/04/2024 12:24 PM WASHER AND CRUSHER TENDER) Report Final Report: No growth of fungus Tissue (Finger, pinky, left) 08/04/2024 12:24 PM WASHER AND CRUSHER TENDER 08/04/2024 2:04 PM WASHER AND CRUSHER TENDER Narrative [facility] - 09/01/2024 10:48 AM WASHER AND CRUSHER TENDER Left Small Finger Testing performed by [facility]biology [facility] ([phone]). us John Eaton MD LAB MICROBIOLOGY - GENERAL O RDERABLES Final Result [facility] [place] [place] [address] * Tissue aerobic and anaerobic culture and gram stain Tissue Finger, pinky, left (08/04/2024 12:18 PMCST) Direct Specimen Exam Stain: No polymorphonuclear leukocytes seen. No organisms seen. Report Final Report: Rare Mixed skin microorganisms. [facility] Organism MIXED SKIN MICROORGANISMS. [facility] Tissue (Finger, pinky, left) 08/04/2024 12:18 PM WASHER AND CRUSHER TENDER 08/04/2024 2:06 PM WASHER AND CRUSHER TENDER Narrative [facility] - 08/07/2024 1:09 PM WASHER AND CRUSHER TENDER Left Small Finger Testing performed by [facility]biology Laboratory ([phone]) Specimens submitted from normally sterile body sites [...] O RDERABLES Final Result Performing Organization Address City/[facility]/ZIP Co de Phone Number [facility] Department [place] [address] * Mycology (fungal) culture Tissue Finger, pinky, left (08/04/2024 12:18 PM WASHER AND CRUSHER TENDER) Report Final Report: No growth of fungus Tissue (Finger, pinky, left) 08/04/2024 12:18 PM WASHER AND CRUSHER TENDER 08/04/2024 2:06 PM WASHER AND CRUSHER TENDER Narrative [facility] - 09/01/2024 10:49 AM WASHER AND CRUSHER TENDER Left Small Finger Testing performed by [facility]biology [facility] ([phone]). John Eaton MD LAB MICROBIOLOGY - GENERAL O RDERABLES Final Result [facility] [place] [address] * SC AN ELECTIVE SUPRAGLOTTIC AIRWAY, SC AN PROCEDURE PLACEHOLDER (08/04/2024 11:55 AM WASHER AND CRUSHER TENDER) Ramandeep Vilchis CRNA - 08/04/2024 11:55 AM WASHER AND CRUSHER TENDER Ramandeep Zuleta CRNA 08/04/2024 11:58 AM Airway Patient location: OR Urgency: elective Indications for airway management: anesthesia and airway protection Difficult airway: no Staff: Supervising provider: John Lin MD Placed by: CREDIT CARD CLERK: Ramandeep Zuleta CRNA Emergent airway documentation: Risks [...] Wound Finger, pinky, left (08/04/2024 6:52 AM WASHER AND CRUSHER TENDER) Direct Specimen Exam Stain: No polymorphonuclear leukocytes seen. No organisms seen. Report Final Report: Few Staphylococcus aureus For susceptibility results, refer to accession number [id number] on the left pinky finger tissue culture from 08/04/2024 (.) [facility] Organism STAPHYLOCOCCUS AUREUS [facility] Wound (Finger, pinky, left) 08/04/2024 6:52 AM WASHER AND CRUSHER TENDER 08/04/2024 7:03 AM WASHER AND CRUSHER TENDER Narrative [facility]LDO [facility] - 08/07/2024 10:48 AM WASHER AND CRUSHER TENDER Specimen received on an ESwab. Testing performed by [facility]biology Laboratory ([phone]) Specimens submitted from normally sterile body sites [...] ORD ERABLES Final Result Performing Organization Address City/[facility]/ZIP Co de Phone Number [facility]O [facility] [place] [address] * XR Outside Reference (08/04/2024 6:22 AM WASHER AND CRUSHER TENDER) Impressions [facility] - 08/04/2024 6:22 AM WASHER AND CRUSHER TENDER These images are for Reference purposes only and have not been reviewed by [facility]. There will be no report generated by a [facility]. Narrative [facility] - 08/04/2024 6:22 AM WASHER AND CRUSHER TENDER EXAMINATION: Images For Reference Purposes Only us John Weiner MD IMG XR PROCEDURES Final R esult Performing Organization Address [facility] Co de Phone Number [email or web address] * XR Wrist Left 3 or More Views (08/04/2024 4:08 AM WASHER AND CRUSHER TENDER) Anatomical Region Laterality Modality Upper Extremities, Wrist Left Compute d Radiography 08/04/2024 4:44 AM WASHER AND CRUSHER TENDER Impressions 08/04/2024 8:09 AM WASHER AND CRUSHER TENDER Left wrist: Splint obscures evaluation. No definite [...] Gabriella Infante M.D. Narrative 08/04/2024 8:09 AM WASHER AND CRUSHER TENDER EXAMINATION: XR HAND LEFT 3 OR MORE [...] 3 or More Views (08/04/2024 4:08 AM WASHER AND CRUSHER TENDER) Anatomical Region Laterality Modality Upper Extremities, Hand Left Computed Radiography 08/04/2024 4:44 AM WASHER AND CRUSHER TENDER Impressions 08/04/2024 8:09 AM WASHER AND CRUSHER TENDER Left wrist: Splint obscures evaluation. No definite [...] of the distal thumb. Dictated by: Kendall Filippo Lommen, M.D. The radiology attending physician has personally reviewed this study, and had reviewed and/or edited this written report and agrees with it. Electronically signed by: Gabriella Infante M.D. Narrative 08/04/2024 8:09 AM WASHER AND CRUSHER TENDER EXAMINATION: XR HAND LEFT 3 OR MORE [...] Final Result * eGFR (08/04/2024 2:34 AM WASHER AND CRUSHER TENDER) eGFR 88 >=60 mL/min/1. 73 m2 Comment: Interpretive Data Reference Interval Normal >/= 90 mL/min/1.73m2 Mildly decreased* 60 - 89 mL/min/1.73m2 Mildly to moderately decreased 45 - 59 mL/min/1.73m2 Moderately to severely decreased 30 - 44 mL/min/1.73m2 Severely decreased 15 - 29 mL/min/1.73m2 Kidney Failure < 15 mL/min/1.73m2 *Relative to young adult level Estimated glomerular filtration rate is determined by the 2021 CKD-EPI equation recommended by the National Kidney [...] last reviewed 2021. Blood 08/04/2024 2:34 AM WASHER AND CRUSHER TENDER 08/04/2024 2:53 AM WASHER AND CRUSHER TENDER Jose White MD LAB BLOOD ORDERABLES Fi nal Result [facility] [place] [address] * (ABNORMAL) Differential, auto (08/04/2024 2:34 AM WASHER AND CRUSHER TENDER) Neutrophil abs 8.3(H) 1.5 - 6.5 K/cumm Imm gran abs 0.1 0.0 - 0.1 K/cumm [facility] Lymphocyte abs 2.3 0.8 - 3.3 K/cumm [facility] Monocyte abs 1.5(H) 0.2 - 0.8 K/cumm [facility] Eosinophil abs 0.1 0.0 - 0.5 K/cumm [facility] Basophil abs 0.0 0.0 - 0.1 K/cumm [facility] Neutrophil pct 68.3 % [facility] Comment: Interpretive Data Percent cell count reference ranges are not reported, since discordance with absolute values may lead to misinterpretation of CBC data. Current Interpretive Data was last revised on 2017. Imm gran pct 0.4 % [facility] Comment: Interpretive Data Percent cell count reference ranges are not reported, since discordance with absolute values may lead to misinterpretation of CBC data. Current Interpretive Data was last revised on 2017. Lymphocyte pct 18.5 % [facility] Comment: Interpretive Data Percent cell count reference ranges are not reported, since discordance with absolute values may lead to misinterpretation of CBC data. Current Interpretive Data was last revised on 2017. Monocyte pct 12.2 % [facility] Comment: Interpretive Data Percent cell count reference ranges are not reported, since discordance with absolute values may lead to misinterpretation of CBC data. Current Interpretive Data was last revised on 2017. Eosinophil pct 0.4 % [facility] Comment: Interpretive Data Percent cell count reference ranges are not reported, since discordance with absolute values may lead to misinterpretation of CBC data. Current Interpretive Data was last revised on 2017. Basophil pct 0.2 % [facility] Comment: Interpretive Data Percent cell count reference ranges are not reported, since discordance with absolute values may lead to misinterpretation of CBC data. Current Interpretive Data was last revised on 2017. Blood 08/04/2024 2:34 AM WASHER AND CRUSHER TENDER 08/04/2024 2:53 AM WASHER AND CRUSHER TENDER Jose White MD LAB BLOOD ORDERABLES Fi nal Result [facility] Department [place] [address] * (ABNORMAL) CBC with auto differential (08/04/2024 2:34 AM WASHER AND CRUSHER TENDER) WBC 12.2(H) 3.8 - 9.9 K/cumm Hgb 15.0 13.0 - 17.5 g/dL [facility] Hct 44.5 38.9 - 50.3 % [facility] Plt 140(L) 150 - 400 K/cumm [facility] MPV 11.0 9.1 - 12.3 fL [facility] RBC 4.59 4.30 - 5.80 M/cumm [facility] MCV 96.9(H) 81.3 - 96.4 fL [facility] MCH 32.7 27.1 - 33.3 pg [facility] MCHC 33.7 32.3 - 35.7 g/dL [facility] RDW CV 12.6 11.1 - 14.9 % [facility] RDW SD 44.4 35.7 - 48.1 fL [facility] NRBC abs 0.00 0.00 - 0.01 K/cumm [facility] Blood 08/04/2024 2:34 AM WASHER AND CRUSHER TENDER 08/04/2024 2:53 AM WASHER AND CRUSHER TENDER Jose White MD LAB BLOOD ORDERABLES Fi nal Result Performing Organization Address [facility] de Phone Number [facility] [place] [address] * aPTT (08/04/2024 2:34 AM WASHER AND CRUSHER TENDER) aPTT 31 28 - 38 sec Comment: Interpretive Data Heparin therapeutic range: 66.0 - 100.0 seconds. Range based on correlation with therapeutic heparin activity range of 0.3 - 0.7 Units/mL. Current interpretive data was last revised on 2023. Blood 08/04/2024 2:34 AM WASHER AND CRUSHER TENDER 08/04/2024 2:48 AM WASHER AND CRUSHER TENDER Jose White MD LAB BLOOD ORDERABLES Fi nal Result Performing Organization Address [facility] de Phone Number [facility] [place] [address] * (ABNORMAL) Protime-INR (08/04/2024 2:34 AM WASHER AND CRUSHER TENDER) PT 14.3(H) 9.7 - 13.0 sec INR 1.32(H) 0.90 - 1.20 [facility] Comment: Interpretive data Oral anticoagulant therapeutic ranges: Venous thromboembolism prophylaxis or treatment: 2.0-3.0 CARDIOLOGY Standard range: 2.0-3.0 High-intensity range: 2.5-3.5 Refer to indication-specific guidelines for appropriate target ranges for prosthetic heart valve replacement. Current interpretive data was last revised on 2019. Blood 08/04/2024 2:34 AM WASHER AND CRUSHER TENDER 08/04/2024 2:48 AM WASHER AND CRUSHER TENDER Jose White MD LAB BLOOD ORDERABLES Fi nal Result Performing Organization Address City/[facility]/ZIP Co de Phone Number [facility] [place] [address] * Type and screen (08/04/2024 2:34 AM WASHER AND CRUSHER TENDER) Pathologist [facility] Chantel, indirect Negative ABO Rh A Positive [facility] Blood 08/04/2024 2:34 AM WASHER AND CRUSHER TENDER 08/04/2024 2:59 AM WASHER AND CRUSHER TENDER Narrative [facility] - 08/04/2024 3:57 AM WASHER AND CRUSHER TENDER Has the patient had Daratumumab or Isatuximab in the past 6 months?->Unknown Jose White MD LAB BLOOD BANK TEST ORD ERABLES Final Result Performing Organization Address [facility] Co de Phone Number [facility] [place] [address] * (ABNORMAL) Comprehensive metabolic panel (08/04/2024 2:34 AM WASHER AND CRUSHER TENDER) [facility] Sodium 136 135 - 145 mmol/L Potassium, pl 4.1 3.3 - 4.9 mmol/L [facility] Chloride 105 97 - 110 mmol/L [facility] CO2 20(L) 22 - 32 mmol/L [facility] Anion gap 11 2 - 15 mmol/L [facility] BUN 15 6 - 25 mg/dL [facility] Creatinine 0.83 0.80 - 1.30 mg/dL [facility] Glucose 153 70 - 199 mg/dL [facility] Comment: Interpretive Data Fasting glucose >/= 126 [...] Calcium 10.4(H) 8.5 - 10.3 mg/dL [facility] Bilirubin, total 1.3(H) 0.1 - 1.2 mg/dL [facility] Protein, pl 7.6 6.5 - 8.5 g/dL [facility] Albumin 4.2 3.5 - 5.0 g/dL [facility] Alk phos 49 40 - 130 Units/L [facility] ALT 20 7 - 55 Units/L [facility] AST 29 10 - 50 Units/L [facility] Blood 08/04/2024 2:34 AM WASHER AND CRUSHER TENDER 08/04/2024 2:53 AM WASHER AND CRUSHER TENDER Jose White MD LAB BLOOD ORDERABLES Fi nal Result Performing Organization Address [facility]/ZIP Co de Phone Number [facility] Department [place] [address] * Imaging Cervical/Thoracic Epidural Continuous Infusion (99544) (06/18/2024 11:54 AM WASHER AND CRUSHER TENDER) Narrative [facility] - 06/18/2024 11:55 AM WASHER AND CRUSHER TENDER The images from this study are not interpreted by Radiology. Please refer to the physician's procedure / OR operative note. us Barby Irvin MAINTENANCE TECHNICIAN 2ND SHIFT IMG PAIN MGMT PROCEDURE S Final Result [facility] from Last 3 Months Insurance [employer] MEDICARE MEDICARE SOLUTIONS [facility] MEDICARE [facility] MEDICARE Advance Directives For more information, please contact: [phone] * Full Code (Latest Code Status on File) Date Activated Date Inactivated Comments 08/04/2024 10:45 AM 08/07/2024 6:05 PM * Full Code Date Activated Date Inactivated Comments 02/27/2024 10:01 AM 02/28/2024 4:42 AM Care Teams Edge Banding Machine Offbearer Relationship Specialty Start Date End Date Indio Staley MD [address] [place] [address] PCP - General 09/11/16 Adria Boogie MD [address] [facility] [address] [place] [address] Surgeon Orthopedic Surgery 08/07/24
--- OUTSIDE RECORDS SUMMARY | 2024-09-10 13:23 | XMS_ITS | Encounter Summary ---
Author Organization [facility] Address [address] [place] [address] Care Team Providers Care Bilingual Sales Assistant Name Role Phone Indio Staley MD Primary Care Provider [phone] Theresa Rosas PASTER HAT LINING Unavailable [phone] Encounter Details Date Type Department Care Team (Late Contact Info) Description 02/09/2022 [employer] Message Enc [facility], [address] [id number] [facility], [facility] Provider Results Social History Tobacco Use Types Packs/Day Years Used Date Smoking Tobacco: Former Cigarettes Q uit: 11/18/1987 Smokeless Tobacco: Never Alcohol Use Standard Drinks/Week Comments Not Currently 0 (1 standard drink = 0.6 oz pur e alcohol) Sex and Gender Information Value Date Recorded Sex Assigned at Male 08/11/2024 1:22 PM SATELLITE COMMUNICATIONS ENGINEER Legal Sex Male 10:23 PM SATELLITE COMMUNICATIONS ENGINEER Gender Identity Not on file Sexual [...] Description 02/09/2025 10:30 AM CDT Office Visit [facility], [address] [id number] Brea Peres PA [address] [facility], [address] [place] [address] documented as of this encounter Visit Diagnoses Not on filedocumented in this encounter Care Teams Bilingual Sales Assistant Relationship Specialty Start Date End Date Indio Staley MD [address] [facility] [address] [place] [address] PCP - General FAMILY PRACTICE 01/24/22 Theresa Rosas FNP [address] [place] [address] Nurse Practitioner Nurse Practitioner Family 01/24/22 documented as of this encounter
--- OUTSIDE RECORDS SUMMARY | 2024-09-10 13:23 | XMS_ITS | Encounter Summary ---
Author Organization [facility] Address [address] [place] [address] Care Team Providers Care Building Services Engineer Name Role Phone Indio Staley MD Primary Care Provider [phone] Theresa Rosas LEAN MANAGER Unavailable [phone] Encounter Details Date Type Department Care Team (Late Contact Info) Description 01/31/2022 Hospital Orders Only [facility] [place] [address] Subhash Cardona MD,PHD Social History Tobacco Use Types Packs/Day Years Used Date Smoking Tobacco: Former Cigarettes Q uit: 11/18/1987 Smokeless Tobacco: Never Alcohol Use Standard Drinks/Week Comments Not Currently 0 (1 standard drink = 0.6 oz pur e alcohol) Sex and Gender Information Value Date Recorded Sex Assigned at Male 08/11/2024 1:22 PM GENERAL PRODUCTION WORKER Legal Sex Male 10:23 PM GENERAL PRODUCTION WORKER Gender Identity Not on file Sexual Orientation [...] 02/09/2025 10:30 AM CDT Office Visit [facility] [facility], [address] [address] Brea Peres PA [address] [facility], [address] [place] [address] documented as of this encounter Visit Diagnoses Not on filedocumented in this encounter Care Teams Building Services Engineer Relationship Specialty Start Date End Date Indio Staley MD [address] [facility] [address] [place] [address] PCP - General FAMILY PRACTICE 01/24/22 Theresa Rosas FNP [address] [place] [address] Nurse Practitioner Nurse Practitioner Family 01/24/22 documented as of this encounter
--- OUTSIDE RECORDS SUMMARY | 2024-09-10 13:24 | XMS_ITS | Clinical Summary ---
Author Organization [facility] Address [address] [place] [address] Care Team Providers Care Cotton Ginner Name Role Phone Indio Staley MD Primary Care Provider [phone] Source Comments [facility],non-[facility] Affiliates and Associated Physician Practices is amultiple site organization consisting of ambulatory clinics and hospital sitesin [place], [place], [place] and [place]. This disclosure is being madepursuant to the Care Everywhere program and may not contain all information available regarding this patient. Last updated 18.[facility] Allergies Active Allergy Reactions Criticality Noted Date [...] once as needed Active Cholecalciferol (VITAMIN D3) 23105 UNITS capsule Take 50,000 Units by mouth [...] Comments Blood Pressure 122/78 07/24/2018 3:09 PM TOP POLISHER Pulse 88 07/24/2018 3:09 PM TOP POLISHER Temperature 37.3 C (99.2 F) 07/24/2018 3:09 PM TOP POLISHER Respiratory Rate 16 07/24/2018 3:09 PM TOP POLISHER Oxygen Saturation 94% 07/24/2018 3:09 PM TOP POLISHER Inhaled Oxygen Concentration - - Weight 97.5 kg (215 lb) 07/24/2018 3:09 PM TOP POLISHER Height 185.4 cm (6' 1 ) 07/24/2018 3:09 PM TOP POLISHER Body Mass Index 28.37 07/24/2018 3:09 PM TOP POLISHER Plan of Treatment Health Maintenance Due Date [...] (#1) 2024 DEPRESSION SCREENING 07/02/2024 MEDICARE AWV CALENDAR YEAR 2024 HEPATITIS B VACCINE Aged Out No longe r eligible based on patient's age to complete this topic HIB VACCINE Aged Out No longer eligi ble based on patient's age to complete this topic HPV VACCINE Aged Out No longer eligi ble based on patient's age to complete this topic MENINGOCOCCAL (Group B) VACC INE SHARED DECISION-MAKING Aged Out No longer eligibl e based on patient's age to complete this topic MENINGOCOCCAL GROUPS A/C/Y/W VACCINE Aged Out No longer eligible b ased on patient's age to complete this topic Care Teams Cotton Ginner Relationship Specialty Start Date End Date Indio Staley MD [address] [place] [address] PCP - General Family Medicine 07/24/18
--- OUTSIDE RECORDS SUMMARY | 2024-09-10 13:24 | XMS_ITS | Continuity of Care Document ---
Author Organization [facility] Address [address] [facility] [address] [place] [address] Insurance Providers Payer Plan Claims Address Claims Phone Policy Number Group Number Relation Employer Guarantor Name Guarantor Guarantor Address Guarantor Phone [facility] [id number] Self John Tyler 1945 [address] [place], [place] [address] [employer] [facility] [id number] Self John Tyler [address] [place] [id number] [facility] [id number] 14 Self John Tyler [address] [place] [id number] Problems Condition ICD9 code ICD10 code [...]
--- OUTSIDE RECORDS SUMMARY | 2024-09-10 13:24 | XMS_ITS | Encounter Summary ---
Author Organization [facility] Address [address] [place] [address] Care Team Providers Care Cottage Supervisor Name Role Phone Indio Staley MD Primary Care Provider [phone] Theresa Rosas FENCE LABORER Unavailable [phone] Encounter Details Date Type Department Care Team (Late st Contact Info) Description 02/27/2022 Cerephex Message Enc [place] 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, [address] [place] [address] Brea Peres PA [address] [facility], [address] [place] [address] documented as of this encounter Visit Diagnoses Not on filedocumented in this encounter Care Teams Cottage Supervisor Relationship Specialty Start Date End Date Indio Staley MD [address] [place] [address] PCP - General FAMILY PRACTICE 01/24/22 Theresa Rosas FNP [address] [place] [address] Nurse Practitioner Nurse Practitioner Family 01/24/22 documented as of this encounter
--- OUTSIDE RECORDS SUMMARY | 2024-09-10 13:24 | XMS_ITS | Referral Summary ---
Author Organization [facility] Address [address] [facility] [place] [address] Care Team Providers Care Armature Inspector Name Role Phone Indio Staley MD Primary Care Provider [phone] Source Comments [facility] and Associated Physician Practices is amultiple site organization consisting of ambulatory clinics and hospital sitesin [place], [place], [place] and [place]. This disclosure is being madepursuant to the Care Everywhere program and may not contain all information available regarding this patient. Last updated 18.[facility] Allergies Active Allergy Reactions Criticality Noted Date [...] once as needed Active Cholecalciferol (VITAMIN D3) 24868 UNITS capsule Take 50,000 Units by mouth [...] Comments Blood Pressure 122/78 07/24/2018 3:09 PM VEGETABLE PACKER Pulse 88 07/24/2018 3:09 PM VEGETABLE PACKER Temperature 37.3 C (99.2 F) 07/24/2018 3:09 PM VEGETABLE PACKER Respiratory Rate 16 07/24/2018 3:09 PM VEGETABLE PACKER Oxygen Saturation 94% 07/24/2018 3:09 PM VEGETABLE PACKER Inhaled Oxygen Concentration - - Weight 97.5 kg (215 lb) 07/24/2018 3:09 PM VEGETABLE PACKER Height 185.4 cm (6' 1 ) 07/24/2018 3:09 PM VEGETABLE PACKER Body Mass Index 28.37 07/24/2018 3:09 PM VEGETABLE PACKER Plan of Treatment Not on file Care Teams Armature Inspector Relationship Specialty Start Date End Date Indio Staley MD [address] [place], [place] [id number] PCP - General Family Medicine 07/24/18
--- OUTSIDE RECORDS SUMMARY | 2024-09-10 13:24 | XMS_ITS | Patient Health Summary ---
Author Organization [facility] [employer] Address [address] [facility] [place] [address] Care Team Providers Care Ornamental Rail Installer Name Role Phone Indio Staley MD Primary Care Provider Note from [facility],non-owned Affiliates and Associated Physician Practices is amultiple site organization consisting of ambulatory clinics and hospital sitesin [place], [place], [place] and [place]. This disclosure is being madepursuant to the Care Everywhere program and may not contain all information available regarding this patient. Last updated 18.[facility] [employer] Allergies * Gluten Meal(Vomiting) * Morphine(Rash) -Medium [...] once as needed * Cholecalciferol (VITAMIN D3) 74216 UNITS capsule Take 50,000 Units by mouth [...] Comments Blood Pressure 122/78 07/24/2018 3:09 PM COMMERCIAL PEST CONTROL TECHNICIAN Pulse 88 07/24/2018 3:09 PM COMMERCIAL PEST CONTROL TECHNICIAN Temperature 37.3 C (99.2 F) 07/24/2018 3:09 PM COMMERCIAL PEST CONTROL TECHNICIAN Respiratory Rate 16 07/24/2018 3:09 PM COMMERCIAL PEST CONTROL TECHNICIAN Oxygen Saturation 94% 07/24/2018 3:09 PM COMMERCIAL PEST CONTROL TECHNICIAN Inhaled Oxygen Concentration - - Weight 97.5 kg (215 lb) 07/24/2018 3:09 PM COMMERCIAL PEST CONTROL TECHNICIAN Height 185.4 cm (6' 1 ) 07/24/2018 3:09 PM COMMERCIAL PEST CONTROL TECHNICIAN Body Mass Index 28.37 07/24/2018 3:09 PM COMMERCIAL PEST CONTROL TECHNICIAN Procedures * STREP A SCREEN - POINT OF CARE (AMB) STL(Performed 07/24/2018) Performed for Bacterial URI * INFLUENZA A+B - POINT OF CARE (AMB)(Performed 07/24/2018) Performed for Bacterial URI Results * STREP A SCREEN (07/24/2018) Strep A Rapid POCT Negative Negative Strep A Internal Control Present Lot # [id number] Expiration Date 09/30/19 Throat ENTIRE THROAT (SURFACE REGION OF NECK) / Unknown 07/24/2018 Luanne Jacobs CEO [facility] - POINT OF CA RE ORDERABLES * INFLUENZA A+B - POINT OF CARE (AMB) (07/24/2018) Influenza A Antigen Rapid Negative Negative Influenza B Antigen Rapid Negative Negative Influenza Internal Control yes NEGATIVE - POSITIVE Influenza Lot Number [id number] Influenza Expiration Date 03/15/20 Other NASOPHARYNGEAL SWAB / Unknown 07/24/2018 Luanne M Arlene CEO [facility] - POINT OF CA RE ORDERABLES Care Teams Ornamental Rail Installer Relationship Specialty Start Date End Date Indio Staley MD [address] [place] [address] PCP - General Family Medicine 07/24/18
--- OUTSIDE RECORDS SUMMARY | 2024-09-10 13:24 | XMS_ITS | Encounter Summary ---
Author Organization [facility] Address [address] [place] [address] Care Team Providers Care Rubber Off Name Role Phone Indio Staley MD Primary Care Provider [phone] Theresa Rosas RAILROAD CRANE OPERATOR Unavailable [phone] Encounter Details Date Type Department Care Team (Late st Contact Info) Description 07/26/2023 Spring[employer] Message Enc [facility] [place] [facility], [facility] [address] [place], [place] [phone] Javier Alva MD Three [facility]. [facility] [address] [place], [place] [id number] another echo? Social History Tobacco Use Types Packs/Day Years Used Date Smoking Tobacco: Former Cigarettes Q uit: 11/18/1987 Smokeless Tobacco: Never Alcohol Use Standard Drinks/Week Comments Not Currently 0 (1 standard drink = 0.6 oz pur e alcohol) Sex and Gender Information Value Date Recorded Sex Assigned at Male 08/11/2024 1:22 PM BOOK MENDER Legal Sex Male 10:23 PM BOOK MENDER Gender Identity Not on file Sexual Orientation [...] - 08/01/2023 8:44 AM CST See below MENDER * Caprice Muller RN - 07/26/2023 8:42 AM CST See below MENDER documented in this encounter Plan of Treatment Upcoming Encounters Date Type Department Care Team (Late st Contact Info) Description 02/09/2025 10:30 AM CDT Office Visit [facility], [address] [place] [address] Brea Peres PA [address] [facility], [address] [facility] [address] [place], [place] [address] documented as of this encounter Goals Goal Patient Goal Type Associated Problems Recent Progress Patient-Stated? Author Health - patient able to perform ADLs independently Lifestyle Urbano Nguyen RN documented as of this encounter Visit Diagnoses Not on filedocumented in this encounter Care Teams Rubber Off Relationship Specialty Start Date End Date Indio Staley MD [address] [place] [address] PCP - General FAMILY PRACTICE 01/24/22 Theresa Rosas FNP [address] [place] [address] Nurse Practitioner Nurse Practitioner Family 01/24/22 documented as of this encounter
[2024-09-15 17:58] LABS: Calprotectin, Stool 209 mcg/g
== END 2024-09-10 11:32 | disposition home or self-care (01) ==
LOC: ANHLAB 11:32
PROVIDERS: PCP Family Medicine; Visit Provider Internal Medicine Gastroenterology
DX: K52.9 Noninfective gastroenteritis and colitis, unspecified (principal)
CPT/HCPCS: 83993

== ENCOUNTER 2024-11-08 08:48 | Emergency (ER) | payer MEDICARE, SELFPAY ==
--- NOTE | ~2024-11-08 | XR_ITS ---
EXAMINATION: XR chest 2V DATE: 11/08/2024 09:42 INDICATION: 3 days of cough TECHNIQUE: PA and lateral views of the chest were obtained. COMPARISON: Chest radiograph dated 06/12/2024 FINDINGS: Cancer mild bibasilar opacities and favor atelectasis over pneumonia. No pulmonary edema, pleural eff usion or pneumothorax. The cardiomediastinal silhouette is normal. Aortic valve repair. Partially vis ualized right shoulder arthroplasty. Right pectoral implantable electronic device with leads extendin g caudally along the anterolateral right lower chest wall and cephalad to the right submandibular reg ion. There are bridging osteophytes at multiple levels consistent with diffuse idiopathic skeletal hy perostosis (DISH). IMPRESSION: 1. Mild bibasilar opacities and favor atelectasis over pneumonia. Reviewed, dictated and finalized at location A.
--- NOTE | 2024-11-08 08:55 | ED_ITS ---
HPI - URI/Sore Throat General Chief Complaint: Upper Respiratory Infection Stated Complaint: Sinus Time Seen by Provider: 11/08/24 09:29 Source: patient, RN notes reviewed and old records reviewed Mode of arrival: ambulatory Limitations: no limitations History of Present Illness HPI Narrative: 79-year-old male presents to the [facility] with complaints of cough, sinus congestion that started Sunday 3 days ago. Has use Nasacort 1 time, Flonase, took Benadryl. Patient has a history of pneumonia as well as COPD. Patient does report fevers. Treatments prior to arrival: cold medicine Related Data Home Medications ?Medication ?Instructions ?Recorded ?Confirmed ?Last Taken ?Type finasteride 5 mg tablet 5 mg PO DAILY 07/16/19 10/13/24 07/14/24 History cholecalciferol (vitamin D3) 125 125 mcg PO DAILY 02/04/21 10/13/24 07/14/24 History mcg (5,000 unit) capsule multivitamin with iron-mineral 1 tablet PO DAILY 02/04/21 10/13/24 07/14/24 History vitamin B complex 1 tablet PO DAILY 02/04/21 10/13/24 07/14/24 History vitamin E (dl, acetate) 450 mg 450 mg PO DAILY 01/20/22 10/13/24 07/14/24 History (1,000 unit) capsule sildenafil 100 mg tablet (Viagra) 100 mg PO DAILY sexual activity 03/12/23 10/13/24 Unknown History aspirin 81 mg tablet,delayed 81 mg PO DAILY 08/03/24 10/13/24 Unknown History release (Adult Low Dose Aspirin) hydrocodone 5 mg-acetaminophen 325 1 tablet PO BID PRN pain 08/03/24 10/13/24 Unknown History mg tablet Allergies Allergy/AdvReac Type Severity Reaction Status Date / Time morphine Allergy Mild Rash Verified 11/08/24 08:54 gluten AdvReac Intermediate vomiting Verified 11/08/24 08:54 Review of Systems Review of Systems: All systems reviewed & are unremarkable except as noted in HPI and below Constitutional: Constitutional: Reports no additional constitutional complaints ENT: Reports as per HPI Cardiovascular: Cardiovascular: Reports no additional cardiovascular complaints, Denies chest pain and Denies dyspnea Respiratory: Respiratory: Reports as per HPI, Reports no additional respiratory complaints, Denies chest congestion, Reports cough and Denies dyspnea Musculoskeletal: Musculoskeletal: Reports no additional musculoskeletal complaints Integumentary/Breasts: Skin/Breast: Reports system reviewed and no additional complaints, except as docu [facility] Past Medical History Medical History Inflammatory arthritis Retrocalcaneal bursitis Achilles tendinosis of right ankle JERAD (obstructive sleep apnea) s/p inspire History of revision of total replacement of left knee joint 2016 Acid reflux JERAD (obstructive sleep apnea) High cholesterol HTN (hypertension) Celiac disease Squamous cell skin cancer Obesity Calculus of left kidney BPH (benign prostatic hyperplasia) COPD (chronic obstructive pulmonary disease) Depression Mixed hyperlipidemia Surgical History Surgical History H/O bilateral inguinal hernia repair 03/27/2022 - Totally extraperitoneal laparoscopic bilateral inguinal hernia repair with mesh Aortic valve replaced S/P TAVR (transcatheter aortic valve replacement) Hx of shoulder replacement Right shoulder- 2015, [facility] Other dental procedure status dental implants, upper and lower- 2018 Hx of cataract removal with insertion of prosthetic lens bilateral 2018 History of lithotripsy 2017 Hx of total knee replacement 2015 History of medial meniscus repair of left knee 2014 Hammer toe of right foot 2012 Hx of sinus surgery 2009 History of vasectomy 1976 Thumb laceration Hx of tonsillectomy Hx of cholecystectomy History of right inguinal hernia repair 1998 Family History Family History Mother Family history of malignant neoplasm of breast Family history of malignant neoplasm of breast in first degree relative, Onset Age: 66 Family history of coronary artery disease Cerebrovascular accident Acute myocardial infarction Father Family history of coronary artery disease Family history of congenital heart disease, Onset Age: 77 Carcinoma of colon Acute myocardial infarction Sibling COPD (chronic obstructive pulmonary disease) Grandparent Cerebral arteriosclerosis Acute myocardial infarction Diabetes mellitus Social History Social History (Updated 10/13/24 @ 15:24 by Hyun Mullins) Social History: Smoking packs per day: 3.5 Smoking cigarettes per day: 70.0 Years smoked: 30 Smoking pack-years: 105.00 Smoking status: Former smoker Tobacco type: cigarettes Second hand tobacco smoke exposure: No Smoking end date: 10/31/87 Additional smoking assessment comments: stopped smoking in the 80s Alcohol intake: former Substance use: never Substance use type: does not use Do You Feel Safe in your Home?: Yes Lack of Transportation: No Lack of Food: Never True Current Housing: I Have Housing Concerned About Future Housing: No Difficulty Paying Gas/Electric Bills: No Difficulty Paying for Meds: No Currently Unemployed: YES Education: Master's Degree or Higher Difficulty w/ Childcare or Family Care: No Living arrangements: with family Additional living arrangements comments: Patient is Occupation/Education: retired Gender identity (if verbalized by the patient): Male Sexual Orientation (if Verbalized by the Patient): Straight or Heterosexual Spiritual care concerns: No Comments At the time of my signature, I reviewed and agree with the nursing past medical, surgical, social, and family history. There is no relevant family history pertinent to the patient complaint. Exam Const: General: cooperative, no acute distress, well developed, alert, uncomfortable and well nourished Nutritional Appearance: well nourished Orientation/consciousness: patient oriented x3 Limitations: no limitations HENMT: Head: normal to inspection Ears: hearing grossly normal bilaterally, external ears normal, TM's normal bilaterally, EAC's normal, mastoids normal and no periauricular adenopathy Mouth: Yes Normal oral and palatal mucosa present, Yes lip normal, Yes tongue normal and Yes moist mucous membranes Throat: posterior oropharynx normal, uvula midline and no uvular edema Eyes: General: appearance normal, both eyes and all related structures Alignment and Position: alignment normal Neck: Neck: normal visual inspection, full ROM, no lymphadenopathy and no meningeal signs Chest: Chest palpation & inspection: normal inspection of the chest Resp: Effort & Inspection: normal respiratory effort and able to speak in complete sentences Auscultation: crackles, no rales, no rhonchi, no wheezes and diminished lung sounds Cardio: Rate: regular rate Skin: General skin exam: normal color and no rashes or lesions noted Neuro: General: patient oriented x3, gait normal, moves all extremities and no meningeal signs Cognition (Neuro): normal cognition Speech: normal speech Gait exam (Neuro): Normal gait present Extrem: General: normal to inspection, full ROM, capillary refill normal and normal gait Psych: Appearance: grossly normal and well kempt Mental Status: mental status grossly normal Speech and movement: Normal speech and movement present and Clear speech present Affect: normal affect Attitude: cooperative Course Course Level of Care: Express Care Visit Vital Signs Vital signs: Vital Signs Temperature 100.0 F H 11/08/24 08:57 Pulse Rate 85 11/08/24 08:57 Respiratory Rate 16 11/08/24 08:57 Blood Pressure 137/75 11/08/24 08:57 Pulse Oximetry 95 11/08/24 08:57 Oxygen Delivery Room Air 11/08/24 08:57 Temperature 100.0 F H 11/08/24 08:57 Pulse Rate 85 11/08/24 09:08 Respiratory Rate 16 11/08/24 09:08 Blood Pressure 137/75 11/08/24 08:57 Pulse Oximetry 95 11/08/24 09:08 Oxygen Delivery Room Air 11/08/24 08:57 Reviewed MDM - URI/Sore Throat MDM Narrative Medical decision making narrative: Patient sitting in exam room. Patient is nontoxic, vitals extremely stable except oxygen level did decrease, low-grade fever Patient flu COVID are negative Chest x-ray shows atelectasis versus pneumonia Due to patient's history, exam and x-ray will cover with antibiotics, treat for pneumonia Patient appropriate for outpatient treatment with close follow-up. Discharge instructions reviewed with patient, as well as provided in writing per nursing staff. The instructions also include specific and strict return/GO TO THE ER as well as f/u information. All questions have been answered, and the patient deny any further questions with discharge and discharge plan. Some parts of this dictation were generated by voice recognition software and may contain typographical and/or grammatical inaccuracies. Differential Diagnosis Differential diagnosis: Likely upper respiratory infection, otitis media, sinusitis, viral infection, bronchitis, influenza and pharyngitis Lab Data Labs: Lab Results 11/08/24 Range/Units 09:09 POC Influenza A Ag Negative (Negative) POC Influenza B Ag Negative (Negative) POC SARS CoV-2 Ag Negative (Negative) Reviewed Imaging Data Radiologist's impression: ADDENDUMCORRECTION: There is a dictation error in the first sentence of the findings section. With the correction capitalized this should read- PERSISTENT mild bibasilar opacities and favor atelectasis over pneumonia. No pulmonary edema, pleural effusion or pneumothorax. Addendum Dictated By: Edvin Hinojosa MD Addendum Signed By: <Electronically signed by Edvin Hinojosa MD in OV> 11/08/241021 Addendum Cosigned By: DD/ /25/1022 TD/TT: / EXAMINATION: XR chest 2V DATE: 11/08/2024 09:42 INDICATION: 3 days of cough TECHNIQUE: PA and lateral views of the chest were obtained. COMPARISON: Chest radiograph dated 06/12/2024 FINDINGS: Cancer mild bibasilar opacities and favor atelectasis over pneumonia. No pulmonary edema, pleural effusion or pneumothorax. The cardiomediastinal silhouette is normal. Aortic valve repair. Partially visualized right shoulder arthroplasty. Right pectoral implantable electronic device with leads extending caudally along the anterolateral right lower chest wall and cephalad to the right submandibular region. There are bridging osteophytes at multiple levels consistent with diffuse idiopathic skeletal hyperostosis (DISH). IMPRESSION: 1. Mild bibasilar opacities and favor atelectasis over pneumonia. Critical Care Time Critical Care Time Critical Care Time: No Discharge Plan Discharge Clinical Impression: Pneumonia, Atelectasis Patient Disposition: Home Condition: Stable Instructions: Antibiotic Form, How to Use an Incentive Spirometer (ED), Pneumonia (ED), Atelectasis (ED) Additional Instructions: Please use the incentive spirometer every hour 10 times while awake. Please notify your surgeon of these findings. Follow-up with primary care provider Take antibiotics as prescribed Take Tylenol as needed For new or worsening symptoms go directly to the emergency room Patient Language: Welsh Prescriptions: New amoxicillin-pot clavulanate 875-125 mg tablet 1 tablet PO Q12H Qty: 20 0RF azithromycin 250 mg tablet See Rx Instructions PO .COMPLEX Qty: 6 0RF Rx Instructions: take 500 mg today (day 1), then 250 mg for 4 days (days 2-5) No Action hydrocodone-acetaminophen 5-325 mg tablet 1 tablet PO BID PRN (Reason: pain) aspirin [Adult Low Dose Aspirin] 81 mg tablet,delayed release (DR/EC) 81 mg PO DAILY vitamin E (dl, acetate) 450 mg (1,000 unit) capsule 450 mg PO DAILY finasteride 5 mg tablet 5 mg PO DAILY multivitamin with iron-mineral Tablet 1 tablet PO DAILY vitamin B complex Tablet 1 tablet PO DAILY cholecalciferol (vitamin D3) 125 mcg (5,000 unit) capsule 125 mcg PO DAILY Patient Comments: pt states he takes BID sildenafil [Viagra] 100 mg tablet 100 mg PO DAILY Rx Instructions: administer 30 minutes to 4 hours before activity trazodone 100 mg tablet 100 mg PO .QHS Qty: 90 3RF fenofibrate 160 mg tablet See Rx Instructions .ROUTE .COMPLEX Qty: 90 2RF Dose Instruction: TAKE 1 TABLET BY MOUTH DAILY Rx Instructions: TAKE 1 TABLET BY MOUTH DAILY lisinopril 20 mg tablet See Rx Instructions .ROUTE .COMPLEX Qty: 90 2RF Dose Instruction: TAKE 1 TABLET BY MOUTH DAILY Rx Instructions: TAKE 1 TABLET BY MOUTH DAILY mesalamine [Lialda] 1.2 gram tablet,delayed release (DR/EC) 2.4 g PO DAILY 56 Days Qty: 112 0RF Follow-up/Referrals: Indio Staley MD [Primary Care Provider] - 1 Week ([facility] care follow up ) Time of Disposition: 10:24
[2024-11-08 08:57] VITALS: BP 137/75; PULSE 85; RESP 16; TEMP 37.8; O2SAT 95
[2024-11-08 09:08] VITALS: PULSE 85; RESP 16; O2SAT 95
[2024-11-08 09:26] LABS: EDCOVIDSCREEN Negative (Negative); EDINFLUASCREEN Negative (Negative); EDINFLUBSCREEN Negative (Negative)
== END 2024-11-08 10:35 | disposition home or self-care (01) ==
PROVIDERS: Emergency Provider Nurse Practitioner; PCP Family Medicine
DX: J18.9 Pneumonia, unspecified organism (principal); J98.11 Atelectasis; Z20.822 Contact with and (suspected) exposure to COVID-19; K21.9 Gastro-esophageal reflux disease without esophagitis; I10 Essential (primary) hypertension; E78.00 Pure hypercholesterolemia, unspecified; N40.0 Benign prostatic hyperplasia without lower urinary tract symptoms; J44.9 Chronic obstructive pulmonary disease, unspecified; E78.2 Mixed hyperlipidemia; K90.0 Celiac disease; E66.9 Obesity, unspecified; Z68.27 Body mass index [BMI] 27.0-27.9, adult; M19.90 Unspecified osteoarthritis, unspecified site; Z95.2 Presence of prosthetic heart valve; Z96.611 Presence of right artificial shoulder joint; Z96.1 Presence of intraocular lens; Z98.42 Cataract extraction status, left eye; Z98.41 Cataract extraction status, right eye; Z87.891 Personal history of nicotine dependence
CPT/HCPCS: 71046; 87426; 87804; 99213; G0463

== ENCOUNTER 2025-04-23 13:22 | Outpatient (CLI) | payer MEDICARE, SELFPAY ==
--- NOTE | ~2025-04-23 | US_ITS ---
EXAMINATION: US carotid duplex BI DATE: 04/23/2025 14:10 INDICATION: Bilateral carotid artery stenosis TECHNIQUE: Grayscale, color Doppler, and pulsed Doppler images of the cervical carotid arteries were obtained. The degree of vessel stenosis is placed in one of the following categories: normal, <50%, 50-69%, >=70% but less than near- occlusion, near-occlusion, or total occlusion. Note that percent stenosis relative to normal distal artery lumen diameter is indirectly measured from velocity measurements as described by Keshav, et al. Radiology 2003; 229:340-346. Notes: Normal: Peak systolic velocity <125 centimeters/sec and no plaque <50%. Peak systolic velocity <125 (EDV <40; ICA/CCA PSV ratio <2.0; used these factors only a tandem lesions or low cardiac output or contralateral disease) 50-69 %: PSV 125-230 (EDV 40-100; ratio 2-4) >= 70% but less than near occlusion: PSV greater than 230 (EDV > 100; ratio> 4.0) Near Occlusion: PSV that is variable; markedly narrowed lumen Occlusion: Absent flow on color/spectral Doppler and no lumen on hdez scale. COMPARISON: None. FINDINGS: RIGHT: The right common carotid artery (CCA) peak systolic velocity (PSV) is 54 cm/s. The right internal carotid artery (ICA) PSV is 52 cm/s. The right ICA end- diastolic velocity (EDV) is 16 cm/s. The right ICA/CCA PSV ratio is 1.1. The external carotid artery (ECA) PSV is 64 cm/s. There is antegrade flow in the right vertebral artery. LEFT: The left CCA PSV is 98 cm/s. The left ICA PSV is 76 cm/s. The left ICA EDV is 20 cm/s. The left ICA/CCA PSV ratio is 0.8. The ECA PSV is 64 cm/s. There is antegrade flow in the left vertebral artery. IMPRESSION: 1. Less than 50% stenosis in the right internal carotid artery by sonographic criteria. 2. Less than 50% stenosis in the left internal carotid artery by sonographic criteria. Reviewed, dictated and finalized at location O. IMPRESSION: 1. Less than 50% stenosis in the right internal carotid artery by sonographic maria antonia pappas. 2. Less than 50% stenosis in the left internal carotid artery by sonographic checo mcconnell.
--- OUTSIDE RECORDS SUMMARY | 2025-04-23 10:03 | XMS_ITS | Encounter Summary ---
Author Organization [facility] Healthcare Address [address] [place] [address] Care Team Providers Care Educational Technology Specialist Name Role Phone Indio Staley MD Primary Care Provider Adria Boogie MD Unavailable [phone] Reason for Referral * Diagnostic Imaging (Routine) - Closed Specialty Diagnoses / Procedures Referred By Pantera mishra Referred To Contact Diagnoses Chronic left shoulder pain Procedures XR Shoulder Left 2 or More Views Doyle Mary MD [address] [place] [address] [address] [place] [address] Phone: tel: fax: [address] [phone] Referral ID Status Reason Start Date Expiration Date Visits Re quested Visits Authorized [id number] Closed 04/22/2025 05/22/2026 1 1 Reason for Visit * Diagnostic Imaging (Routine) - Closed Specialty Diagnoses / Procedures Referred By Pantera mishra Referred To Contact Diagnoses Chronic left shoulder pain Procedures XR Shoulder Left 2 or More Views Doyle Mary MD [address] [place] [address] [address] [place] [address] Phone: tel: fax: [address] [phone] Referral ID Status Reason Start Date Expiration Date Visits Re quested Visits Authorized [id number] Closed 04/22/2025 05/22/2026 1 1 Encounter Details Date Type Department Care Team (Latest Contact Info) Description 04/23/2025 10:03 AM CDT Hospital Encounter [facility] [address] [place] [address] Chronic left shoulder pain; Chronic right shoulder pain Social History Tobacco Use Types Packs/Day Years Used Date Smoking Tobacco: Former Cigarettes 4 23 0 07/02/1956 - 1979 Smokeless Tobacco: Never Alcohol Use Standard Drinks/Week Comments Not Currently 0 (1 standard drink = 0.6 oz pur e alcohol) AUDIT-C Answer Date Recorded Q1: How often do you have a drink containing alcohol? Never 11/21/2024 Q2: How many drinks containi ng alcohol do you have on a typical day when you are drinking? Patient does not drink Q3: How often do you have si x or more drinks on one occasion? Never 11/21/2024 Hunger Vital Sign Answer Date Recorded Within the past 12 months, y ou worried that your food would run out before you got the money to buy more. Never true 09/13/19 25 Within the past 12 months, t he food you bought just didn't last and you didn't have money to get more. Never true 09/12/2024 Personal Safety Answer Date Recorded Have you ever been in or are you currently in a harmful physical or emotional relationship or is someone making you feel afraid or unsafe? Denies 11/21/2024 Sex and Gender Information Value Date Recorded Sex Assigned at Not on file Legal Sex Male 3:19 AM [employer] Gender Identity Male 01/22/2020 3:16 PM CDT Sexual Orientation Straight 01/22/2020 3: 16 PM CDT documented as of this encounter Plan of Treatment Not on file documented as of this encounter Procedures Procedure Name Priority Date/Time Associated Diagnosis Comments XR SHOULDER RIGHT 2 OR MORE VIEWS Schedule Routine, Read Routine (OP Routine) 04/23/2025 10:16 AM CDT Chronic right shoulder pain XR SHOULDER LEFT 2 OR MORE VIEWS Schedule Routine, Read Routine (OP Routine) 04/23/2025 10:16 AM CDT Chronic left shoulder pain documented in this encounter Results * XR Shoulder Right 2 or More Views (04/23/2025 10:16 AM CDT) Anatomical Region Laterality Modality Upper Extremities, Shoulder Right Comp uted Radiography 04/23/2025 12:0 6 PM CDT Impressions 04/23/2025 12:06 PM CDT 1. 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 2. Mild left glenohumeral joint osteoarthritis. 3. Multilevel cervical facet osteoarthritis. Electronically signed by: David Stevenson M.D. Narrative 04/23/2025 12:06 PM CDT EXAMINATION: XR SHOULDER RIGHT 2 OR MORE VIEWS, XR SHOULDER LEFT 2 OR MORE VIEWS HISTORY: right shoulder pain. Bilateral shoulder pain. FINDINGS: 4 views each shoulder submitted without comparison. Right total shoulder arthroplasty is in near-anatomic alignment. No acute fracture. Prior distal clavicular excision. Nerve stimulator is noted. Mild left glenohumeral joint osteoarthritis. Prior left distal clavicular excision has been performed. No acute fracture. Cervical facet osteoarthritis is present. Procedure Note David Stevenson MD - 04/23/2025 EXAMINATION: XR SHOULDER RIGHT 2 OR MORE VIEWS, XR SHOULDER LEFT 2 OR MORE VIEWS HISTORY: right shoulder pain. Bilateral shoulder pain. FINDINGS: 4 views each shoulder submitted without comparison. Right total shoulder arthroplasty is in near-anatomic alignment. No acute fracture. Prior distal clavicular excision. Nerve stimulator is noted. Mild left glenohumeral joint osteoarthritis. Prior left distal clavicular excision has been performed. No acute fracture. Cervical facet osteoarthritis is present. IMPRESSION: 1. 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 2. Mild left glenohumeral joint osteoarthritis. 3. Multilevel cervical facet osteoarthritis. Electronically signed by: David Stevenson M.D. Doyle Mary MD IMG XR PROCEDURES Final Re sult * XR Shoulder Left 2 or More Views (04/23/2025 10:16 AM CDT) Anatomical Region Laterality Modality Upper Extremities, Shoulder Left Comp uted Radiography 04/23/2025 12:0 6 PM CDT Impressions 04/23/2025 12:06 PM CDT 1. 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 2. Mild left glenohumeral joint osteoarthritis. 3. Multilevel cervical facet osteoarthritis. Electronically signed by: David Stevenson M.D. Narrative 04/23/2025 12:06 PM CDT EXAMINATION: XR SHOULDER RIGHT 2 OR MORE VIEWS, XR SHOULDER LEFT 2 OR MORE VIEWS HISTORY: right shoulder pain. Bilateral shoulder pain. FINDINGS: 4 views each shoulder submitted without comparison. Right total shoulder arthroplasty is in near-anatomic alignment. No acute fracture. Prior distal clavicular excision. Nerve stimulator is noted. Mild left glenohumeral joint osteoarthritis. Prior left distal clavicular excision has been performed. No acute fracture. Cervical facet osteoarthritis is present. Procedure Note David Stevenson MD - 04/23/2025 EXAMINATION: XR SHOULDER RIGHT 2 OR MORE VIEWS, XR SHOULDER LEFT 2 OR MORE VIEWS HISTORY: right shoulder pain. Bilateral shoulder pain. FINDINGS: 4 views each shoulder submitted without comparison. Right total shoulder arthroplasty is in near-anatomic alignment. No acute fracture. Prior distal clavicular excision. Nerve stimulator is noted. Mild left glenohumeral joint osteoarthritis. Prior left distal clavicular excision has been performed. No acute fracture. Cervical facet osteoarthritis is present. IMPRESSION: 1. 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 2. Mild left glenohumeral joint osteoarthritis. 3. Multilevel cervical facet osteoarthritis. Electronically signed by: David Stevenson M.D. Doyle Mary MD IMG XR PROCEDURES Final Re sult documented in this encounter Visit Diagnoses Diagnosis Chronic left shoulder pain Pain in joint, shoulder region Chronic right shoulder pain Pain in joint, shoulder region documented in this encounter Care Teams Educational Technology Specialist Relationship Specialty Start Date End Date Indio Staley MD [address] [address] PCP - General 09/11/16 Adria Boogie MD [address] [facility] [address] [place] [address] Surgeon Orthopedic Surgery 08/07/24 documented as of this encounter
--- OUTSIDE RECORDS SUMMARY | 2025-04-23 10:30 | XMS_ITS | Encounter Summary ---
Author Organization [facility] Healthcare Address [address] [place] [address] Care Team Providers Care Powder Compounder Name Role Phone Indio Staley MD Primary Care Provider Adria Boogie MD Unavailable Reason for Referral * Diagnostic Imaging (Routine) - Closed Specialty Diagnoses / Procedures Referred By Contmargareth t Referred To Contact Diagnoses Chronic left shoulder pain Procedures XR Shoulder Left 2 or More Views Doyle Mary MD [address] [place] [address] [address] Phone: tel: fax: [address] [phone] Referral ID Status Reason Start Date Expiration Date Visits Re quested Visits Authorized [id number] Closed 04/22/2025 05/22/2026 1 1 Reason for Visit * Reason Comments Pain Pain Encounter Details Date Type Department Care Team (Late st Contact Info) Description 04/23/2025 10:30 AM CDT Office Visit [facility] Orthopedics and Sports Medicine [address] [place] [phone] Doyle Mary MD [address] [place] [address] [address] Chronic right shoulder pain (Primary Dx); Chronic left shoulder pain Social History Tobacco Use Types [...] on file Legal Sex Male 3:19 AM 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 Doyle Mary MD IM XR PROCEDURES Final Re sult * XR [...] in this encounter Visit Diagnoses Diagnosis Chronic right shoulder pain- Primary Pain in joint, shoulder region Chronic left shoulder pain Pain in joint, shoulder region Chronic left shoulder pain Pain in joint, shoulder region Chronic right shoulder pain Pain in joint, shoulder region documented in this encounter Discontinued Medications Medication Sig Discontinue Reason Start Date End Da te mesalamine (LIALDA) 1.2 gram EC tabletIndications:Coliti s Take 3 tablets (3.6 g total) by mouth every morning 3x 1.2 Gram tablets am Patient Reported 08/02/2024 04/23/2025 documented as of this encounter Care Teams Powder Compounder Relationship Specialty Start Date End Date Indio Staley MD [address] [address] PCP - General 09/11/16 Adria Boogie MD [address] [facility] [address] [place] [address] Surgeon Orthopedic Surgery 08/07/24 documented as of this encounter
--- OUTSIDE RECORDS SUMMARY | 2025-04-23 14:18 | XMS_ITS | Encounter Summary ---
Author Organization [facility] Address [address] [place] [address] Care Team Providers Care Director Digital Communications Name Role Phone Indio Staley MD Primary Care Provider [phone] Theresa Rosas LABORER TREE TAPPING Unavailable [phone] Encounter Details Date Type Department Care Team (Late st Contact Info) Description 01/31/2022 Hospital Orders Only [facility] Gem Expert [address] [place] [address] Subhash Cardona MD,PHD Social History Tobacco Use Types Packs/Day Years Used Date Smoking Tobacco: Former Cigarettes Q uit: 11/18/1987 Smokeless Tobacco: Never Alcohol Use Standard Drinks/Week Comments Not Currently 0 (1 standard drink = 0.6 oz pur e alcohol) Sex and Gender Information Value Date Recorded Sex Assigned at Male 08/11/2024 1:22 PM CALENDER WIND UP HELPER Legal Sex Male 10:23 PM CALENDER WIND UP HELPER Gender Identity Not on file Sexual Orientation Not on file COVID-19 Exposure Response Date Recorded In the last 10 days, have yo u been in contact with someone who was confirmed or suspected to have Coronavirus/COVID-19? No / Unsure 02/02/2022 11:34 AM CDT documented as of this encounter Functional Status * Calculated C-SSRS Risk Score (Lifetime/Recent) Answer Date of Assessment Author Status No Risk Indicated 02/01/2022 8:03 AM CDT Nidia Ortega RN Active * Axis Suicide Severity Rating Scale (Screener/Recent Self-Report) Question Answer Date of Assessment Author Status 1. Wish to be (Past 1 Month) No 02/01/2022 8:03 AM CDT Nidia Ortega RN Active 2. Non-Specific Active Suici cortez Thoughts (Past 1 Month) No 02/01/2022 8:03 AM CDT Nidia Ortega, DEISI Active 6. Suicidal Behavior (Lifetime) No 02/01/2022 8:03 AM CDT Nidia Ortega RN Active documented as of this encounter Plan of Treatment Upcoming Encounters Date Type Department Care Team (Late st Contact Info) Description 07/06/2025 11:00 AM CALENDER WIND UP HELPER Appointment [facility] [place] [address] Brea Peres PA [address] [facility], [address] [place] [address] 10/12/2025 9:45 AM CDT Office Visit [facility] THREE [facility], [address] [place] [address] Javier Alva MD Three [facility]. [address] [place] [address] documented as of this encounter Visit Diagnoses Not on filedocumented in this encounter Care Teams Director Digital Communications Relationship Specialty Start Date End Date Indio Staley MD [address] [place] [address] PCP - General FAMILY PRACTICE 01/24/22 Theresa Rosas FNP [address] [place] [address] Nurse Practitioner Nurse Practitioner Family 01/24/22 documented as of this encounter
--- OUTSIDE RECORDS SUMMARY | 2025-04-23 14:18 | XMS_ITS | Encounter Summary ---
Author Organization [facility] Address [address] [place] [address] Care Team Providers Care Voice Network Administrator Name Role Phone Indio Staley MD Primary Care Provider [phone] Theresa Rosas PARTS REPRESENTATIVE Unavailable [phone] Encounter Details Date Type Department Care Team (Late st Contact Info) Description 01/31/2022 Abstract [facility] [address] [address] Avery Reyes MA Social History Tobacco Use Types Packs/Day Years Used Date Smoking Tobacco: Former Cigarettes Q uit: 11/18/1987 Smokeless Tobacco: Never Alcohol Use Standard Drinks/Week Comments Not Currently 0 (1 standard drink = 0.6 oz pur e alcohol) Sex and Gender Information Value Date Recorded Sex Assigned at Male 08/11/2024 1:22 PM HEAT TREATER HELPER Legal Sex Male 10:23 PM HEAT TREATER HELPER Gender Identity Not on file Sexual [...] AM CDT Nidia Ortega RN Active * [place] Suicide Severity Rating Scale (Screener/Recent Self-Report) Question Answer Date of Assessment Author Status 1. Wish to be (Past 1 Month) No 02/01/2022 8:03 AM CDT Nidia Ortega RN Active 2. Non-Specific Active Suici cortez Thoughts (Past 1 Month) No 02/01/2022 8:03 AM CDT Nidia Ortega RN Active 6. Suicidal Behavior (Lifetime) No 02/01/2022 8:03 AM CDT Nidia Ortega RN Active documented as of this encounter Plan of Treatment Upcoming Encounters Date Type Department Care Team (Late st Contact Info) Description 07/06/2025 11:00 AM HEAT TREATER HELPER Appointment [facility] Non Invasive Cardiology [address] [facility] [place] [address] Brea Peres PA 3 [facility], [address] [place] [address] 10/12/2025 9:45 AM CDT Office Visit [facility] THREE [facility], [address] [place] [address] Javier Alva MD Three [facility]. [address] [place], [place] [address] documented as of this encounter Procedures Procedure [...] * VITAMIN D, 25 [place] (03/20/2023) Pathologist [facility] VITAMIN D 25 HYDROXY S/P/B 52 03/20/2023 [facility] History Genericprovider LABORATORY Final Result * COMPREHENSIVE METABOLIC PANEL (03/20/2023) Pathologist [facility] SODIUM S/P/B 141 GLUCOSE 116 mg/dL AST 20 BUN 22 CREATININE S/P/B 1.02 0.7 - 1.3 CALCIUM S/P/B 10.5 POTASSIUM S/P/B 4.5 CHLORIDE S/P/B 105 ALT 20 GFR ESTIMATE [address] * LIPID PANEL (03/20/2023) Pathologist [facility] [place] TRIGLYCERIDES 242 HDL 44 LDL (CALCULATED) 91 NON HDL CHOLESTEROL [address] [facility] * CBC, MANUAL DIFF (03/20/2023) Pathologist [facility] WBC 5.0 HGB 15.[address] [facility] Final Result * HEMOGLOBIN, GLYCOSYLATED (03/20/2023) Pathologist [facility] HGB A1C 5.9 % Result [facility] Genericprovider LABORATORY Final Result * THYROID STIM HORMONE, TSH (03/20/2023) Pathologist [facility] TSH 3 [facility] Genericprovider LABORATORY Final Result * (ABNORMAL) COMPREHENSIVE METABOLIC PANEL (09/06/2021) Pathologist [facility] SODIUM S/P/B 140 POTASSIUM S/P/B 4.1 CO2 [...] LABORATORY Final Result * LIPID PANEL (09/06/2021) CHOLESTEROL 178 HDL 45 TRIGLYCERIDES 288 NON HDL CHOLESTEROL 133 LDL (CALCULATED) 92 09/06/2021 us Doc [facility] Abstract LABORATORY Final Result documented in this encounter Visit Diagnoses Not on filedocumented in this encounter Care Teams Voice Network Administrator Relationship Specialty Start Date End Date Indio Staley MD [address] [place] [address] PCP - General FAMILY PRACTICE 01/24/22 Theresa Rosas FNP [address] [place] [address] Nurse Practitioner Nurse Practitioner Family 01/24/22 documented as of this encounter
--- OUTSIDE RECORDS SUMMARY | 2025-04-23 14:18 | XMS_ITS | Clinical Summary ---
Author Organization [facility] Address [address] [facility] [place] [address] Care Team Providers Care Chemist Organic Name Role Phone Indio Staley MD Primary Care Provider [phone] Source Comments [facility] Affiliates and Associated Physician Practices is amultiple site organization consisting of ambulatory clinics and hospital sitesin [place], [place], [place] and [place]. This disclosure is being madepursuant to the Care Everywhere program and may not contain all information available regarding this patient. Last updated 18.[facility] Allergies Active Allergy Reactions Criticality Noted Date Comments Gluten Meal Vomiting 07/24/2018 Morphine Rash Medium 07/24/2018 Medications * Be aware that medications may not be up to date on this document. Alwaysverify current medications with the patient. lisinopril (PRINIVIL; ZESTRIL) 10 MG tablet Take [...] once as needed Active Cholecalciferol (VITAMIN D3) 71500 UNITS capsule Take 50,000 Units by mouth every 7 days Active vitamin E (TOCOPHERYL) 400 UNIT capsule Take 400 Units by mouth once daily Active aspirin (ASPIRIN) 81 MG tablet Take 81 mg by mouth once daily Active Ascorbic Acid (VITAMIN C PO) Activ e Multiple Vitamins-Mineral s (MULTIVITAL PO) Active B Complex Vitamins (B COMPLEX 1 PO) Active Probiotic Product (PROBIOTIC DAILY PO) Active azithromycin (ZITHROMAX) 250 MG tabletIndication s:Bacterial URI Take 2 tabs today, then 1 tab daily for next 4 days 6 tablet 9 Active benzonatate (TESSALON) 100 MG capsuleIndicatio ns:Cough Take 1 capsule by mouth 3 times daily as needed for Cough Reasons: Cough 30 capsule 9 Active methylPREDNISolo ne (MEDROL DOSEPAK) 4 MG tabletIndication s:Acute bronchitis, unspecified organism Take by mouth as directed 1 Each 9 Active Social History Tobacco Use Types Packs/Day Years Used Date Smoking Tobacco: Former Cigarettes Q uit: 1982 Smokeless Tobacco: Never Sex and Gender Information Value Date Recorded Sex Assigned at Not on file Legal Sex Male 2:02 PM RAC SPECIALIST Gender Identity Not on file Sexual Orientation Not on file Last Filed Vital Signs Vital Sign Reading Time Taken Comments Blood Pressure 122/78 07/24/2018 3:09 PM RAC SPECIALIST Pulse 88 07/24/2018 3:09 PM RAC SPECIALIST Temperature 37.3 C (99.2 F) 07/24/2018 3:09 PM RAC SPECIALIST Respiratory Rate 16 07/24/2018 3:09 PM RAC SPECIALIST Oxygen Saturation 94% 07/24/2018 3:09 PM RAC SPECIALIST Inhaled Oxygen Concentration - - Weight 97.5 kg (215 lb) 07/24/2018 3:09 PM RAC SPECIALIST Height 185.4 cm (6' 1) 07/24/2018 3:09 PM RAC SPECIALIST Body Mass Index 28.37 07/24/2018 3:09 PM RAC SPECIALIST Plan of Treatment Health Maintenance Due Date Last Done Comments DTAP/TDAP/TD VACCINES (1 - Tdap) 1962 PNEUMOCOCCAL VACCINE 50+ (1 of 1 - PCV) 1993 ZOSTER VACCINE (1 of 2) 1993 Respiratory Syncytial Virus (RSV) Vaccine Pt: or over 60 yrs (1 - 1-dose 75+ series) 2018 DEPRESSION SCREENING 07/02/2024 MEDICARE AWV CALENDAR YEAR 2024 COVID-19 VACCINE (1 - 2023-2 5 season) 2025 INFLUENZA VACCINE (#1) 2025 HEPATITIS B VACCINE Aged Out No longe [...] on patient's age to complete this topic Insurance [facility] MEDICARE ADV AET[employer] MEDICARE ADV SELF PAY NO INSURANCE Member Subscriber Plan / Payer (Ef fective for All Dates) Name:Erin Dotson Member ID:Not on file Relation to Subscriber:Not on file Name:ERIN DOTSON Subscriber ID:Not on file (Home) Address: [address] [place] [id number] Payer ID:Not on file Group ID:Not on file Type:Self Pay Address: [place], [place] Care Teams Chemist Organic Relationship Specialty Start Date End Date Indio Staley MD [address] [place] [address] PCP - General Family Medicine 07/24/18
--- OUTSIDE RECORDS SUMMARY | 2025-04-23 14:18 | XMS_ITS | Encounter Summary ---
Author Organization [facility] Address [address] [place] [address] Care Team Providers Care Butcher Name Role Phone Indio Staley MD Primary Care Provider [phone] Theresa Rosas FURNACE COOLER Unavailable [phone] Encounter Details Date Type Department Care Team (Late st Contact Info) Description 07/26/2023 [employer] Message Enc [facility] THREE [facility], [facility] [address] [place], [place] [id number] Javier Alva MD Three [facility]. [facility] [address] [place], [place] [id number] another echo? Social History Tobacco Use Types Packs/Day Years Used Date Smoking Tobacco: Former Cigarettes Q uit: 11/18/1987 Smokeless Tobacco: Never Alcohol Use Standard Drinks/Week Comments Not Currently 0 (1 standard drink = 0.6 oz pur e alcohol) Sex and Gender Information Value Date Recorded Sex Assigned at Male 08/11/2024 1:22 PM DEPUTY SHERIFF/INVESTIGATOR Legal Sex Male 10:23 PM DEPUTY SHERIFF/INVESTIGATOR Gender Identity Not on file Sexual Orientation [...] - 08/01/2023 8:44 AM CST See below TY SHERIFF/INVESTIGATOR * Caprice Muller RN - 07/26/2023 8:42 AM CST See below TY SHERIFF/INVESTIGATOR documented in this encounter Plan of Treatment Upcoming Encounters Date Type Department Care Team (Late st Contact Info) Description 07/06/2025 11:00 AM DEPUTY SHERIFF/INVESTIGATOR Appointment [facility] [place] [address] Brea Peres PA 3 [facility], [address] [place] [address] 10/12/2025 9:45 AM CDT Office Visit [facility] THREE [facility], [address] [place] [address] Javier Alva MD Three [facility] [address] [place] [address] documented as of this encounter Goals Goal Patient Goal Type Associated Problems Recent Progress Patient-Stated? Author Health - patient able to perform ADLs independently Lifestyle No Urbano Gifford, RN documented as of this encounter Visit Diagnoses Not on filedocumented in this encounter Care Teams Butcher Relationship Specialty Start Date End Date Indio Staley MD [address] [place] [address] PCP - General FAMILY PRACTICE 01/24/22 Theresa Rosas, SHAHRZAD [address] [place] [address] Nurse Practitioner Nurse Practitioner Family 01/24/22 documented as of this encounter
--- OUTSIDE RECORDS SUMMARY | 2025-04-23 14:18 | XMS_ITS | Encounter Summary ---
Author Organization [facility] Healthcare Address [address] [place] [address] Care Team Providers Care Vitreo Retinal Surgeon Name Role Phone Indio Staley MD Primary Care Provider Adria Boogie MD Unavailable [phone] Encounter Details Date Type Department Care Team (Late st Contact Info) Description 10/06/2024 Orders Only [facility] Health Information Management [address] [place] [address] Scanning, Provider Social History Tobacco Use Types Packs/Day Years Used Date Smoking Tobacco: Former Cigarettes 4 23 1 957 - 1980 Smokeless Tobacco: Never Alcohol Use Standard Drinks/Week [...] on file Legal Sex Male 3:19 AM TREASURY REPRESENTATIVE Gender Identity Male 01/22/2020 3:16 PM CDT Sexual Orientation Straight 01/22/2020 3: 16 PM CDT documented as of this encounter Plan of Treatment Not on file documented as of this encounter Procedures Procedure Name Priority Date/Time Associated Diagnosis Comments SCAN - LABS 10/06/2024 documented in this encounter Results * SCAN - LABS (10/06/2024) us Provider Scanning Final Result documented in this encounter Visit Diagnoses Not on filedocumented in this encounter Care Teams Vitreo Retinal Surgeon Relationship Specialty Start Date End Date Indio Staley MD [address] [place] [address] PCP - General 09/11/16 Adria Boogie MD [address] [facility] [address] [place] [address] Surgeon Orthopedic Surgery 08/07/24 documented as of this encounter
--- OUTSIDE RECORDS SUMMARY | 2025-04-23 14:18 | XMS_ITS | Encounter Summary ---
Author Organization [facility] Address [facility] [place] [address] Care Team Providers Care Net Development Manager Name Role Phone Indio Staley MD Primary Care Provider [phone] Theresa Rosas MANAGER VALIDATION Unavailable [phone] Encounter Details Date Type Department Care Team (Latest Contact Info) Description 09/22/2022 [employer] Message [facility] [address] [place] [address] Subhash Cardona MD,PHD cancelled appointment Social History Tobacco Use Types Packs/Day Years Used Date Smoking Tobacco: Former Cigarettes Q uit: 11/18/1987 Smokeless Tobacco: Never Alcohol Use Standard Drinks/Week Comments Not Currently 0 (1 standard drink = 0.6 oz pur e alcohol) Sex and Gender Information Value Date Recorded Sex Assigned at Male 08/11/2024 1:22 PM DEPARTMENT ADMINISTRATOR Legal Sex Male 10:23 PM DEPARTMENT ADMINISTRATOR Gender Identity Not on file Sexual [...] st Contact Info) Description 07/06/2025 11:00 AM DEPARTMENT ADMINISTRATOR Appointment [facility] [address] [facility] [place] [address] Brea Peres PA [address] [facility], [address] [place] [address] 10/12/2025 9:45 AM CDT Office Visit [facility] THREE [facility], [address] [place] [address] Javier Alva MD Three [facility]. [address] [place] [address] documented as of this encounter Goals Goal Patient Goal Type Associated Problems Recent Progress Patient-Stated? Author Health - patient able to perform ADLs independently Lifestyle No Urbano Gifford RN documented as of this encounter Visit Diagnoses Not on filedocumented in this encounter Care Teams Net Development Manager Relationship Specialty Start Date End Date Indio Staley MD [address] [place] [address] PCP - General FAMILY PRACTICE 01/24/22 Theresa Rosas FNP [address] [place] [address] Nurse Practitioner Nurse Practitioner Family 01/24/22 documented as of this encounter
--- OUTSIDE RECORDS SUMMARY | 2025-04-23 14:18 | XMS_ITS | Encounter Summary ---
Author Organization [facility] Address [address] [place] [address] Care Team Providers Care Wildlife Biology Technician Name Role Phone Indio Staley MD Primary Care Provider [phone] Theresa Rosas PERCHER Unavailable [phone] Encounter Details Date Type Department Care Team (Late Contact Info) Description 02/09/2022 [employer] Message Enc [facility] THREE [facility], [address] [address] [facility] Provider Results Social History Tobacco Use Types Packs/Day Years Used Date Smoking Tobacco: Former Cigarettes Q uit: 11/18/1987 Smokeless Tobacco: Never Alcohol Use Standard Drinks/Week Comments Not Currently 0 (1 standard drink = 0.6 oz pur e alcohol) Sex and Gender Information Value Date Recorded Sex Assigned at Male 08/11/2024 1:22 PM TERMITE RENEWAL INSPECTOR Legal Sex Male 10:23 PM TERMITE RENEWAL INSPECTOR Gender Identity Not on file Sexual Orientation Not on file COVID-19 Exposure Response Date Recorded In the last 10 days, have yo u been in contact with someone who was confirmed or suspected to have Coronavirus/COVID-19? No / Unsure 02/06/2022 7:55 AM CDT documented as of this encounter Plan of Treatment Upcoming Encounters Date Type Department Care Team (Late Contact Info) Description 07/06/2025 11:00 AM TERMITE RENEWAL INSPECTOR Appointment [facility] Non Invasive Cardiology [address] [place], [place] [address] Brea Peres PA 3 [facility], [address] [place] [address] 10/12/2025 9:45 AM CDT Office Visit [facility] THREE [facility], [address] [place] [address] Javier Alva MD Three [facility]. [address] [place] [address] documented as of this encounter Visit Diagnoses Not on filedocumented in this encounter Care Teams Wildlife Biology Technician Relationship Specialty Start Date End Date Indio Staley MD [address] [place] [address] PCP - General FAMILY PRACTICE 01/24/22 Theresa Rosas, PERCHER [address] [place] [address] Nurse Practitioner Nurse Practitioner Family 01/24/22 documented as of this encounter
--- OUTSIDE RECORDS SUMMARY | 2025-04-23 14:18 | XMS_ITS | Encounter Summary ---
Author Organization [facility] Address [address] [place] [address] Care Team Providers Care Independent Beauty Consultant Name Role Phone Indio Staley MD Primary Care Provider [phone] Theresa Rosas DIRECTOR PRODUCT SAFETY Unavailable [phone] Encounter Details Date Type Department Care Team (Late st Contact Info) Description 02/27/2022 [employer] Message Enc [facility] THREE [facility], [address] [address] [facility] Provider Results Social History Tobacco Use Types Packs/Day Years Used Date Smoking Tobacco: Former Cigarettes Q uit: 11/18/1987 Smokeless Tobacco: Never Alcohol Use Standard Drinks/Week Comments Not Currently 0 (1 standard drink = 0.6 oz pur e alcohol) Sex and Gender Information Value Date Recorded Sex Assigned at Male 08/11/2024 1:22 PM SENIOR DATABASE ADMINISTRATOR Legal Sex Male 10:23 PM SENIOR DATABASE ADMINISTRATOR Gender Identity Not on file Sexual [...] of Assessment Author Status No Risk Indicated 03/02/2022 10:58 AM CDT Jane Borges RN Active * [place] Suicide Severity Rating Scale (Screener/Recent Self-Report) Question Answer Date of Assessment Author Status 1. Wish to be (Past 1 Month) No 03/02/2022 10:58 AM CDT Jane Borges RN Activ e 2. Non-Specific Active Suicidal Thoughts (Past 1 Month) No 03/02/2022 10:58 AM CDT Jane Borges RN Alesha e 6. Suicidal Behavior (Lifetime) No 03/02/2022 10:58 AM CDT Jane Borges RN Activ e documented as of this encounter Mental Status [...] st Contact Info) Description 07/06/2025 11:00 AM SENIOR DATABASE ADMINISTRATOR Appointment [facility] Non [place]vasive [place] [address] Brea Peres PA 3 [facility], [address] [place] [address] 10/12/2025 9:45 AM CDT Office Visit [facility] THREE [facility], [address] [place] [address] Javier Alva MD Three [facility]. [address] [place] [address] documented as of this encounter Visit Diagnoses Not on filedocumented in this encounter Care Teams Independent Beauty Consultant Relationship Specialty Start Date End Date Indio Staley MD [address] [place] [address] PCP - General FAMILY PRACTICE 01/24/22 Theresa Rosas, DIRECTOR PRODUCT SAFETY [address] [place] [address] Nurse Practitioner Nurse Practitioner Family 01/24/22 documented as of this encounter
--- OUTSIDE RECORDS SUMMARY | 2025-04-23 14:18 | XMS_ITS | Encounter Summary ---
Author Organization [facility] Address [address] [place] [address] Care Team Providers Care Supervisory Lifeguard Name Role Phone Indio Staley MD Primary Care Provider Adria Boogie MD Unavailable Encounter Details Date Type Department Care Team (Late st Contact Info) Description 08/03/2024 Orders Only [facility] Information Management [address] [place] [address] Scanning, Provider Social History Tobacco Use [...] on file Legal Sex Male 3:19 AM MANAGER TECHNICAL SUPPORT Gender Identity Male 01/22/2020 3:16 PM CDT Sexual Orientation Straight 01/22/2020 3: 16 PM CDT documented as of this encounter Plan of Treatment Not on file documented as of this encounter Procedures Procedure Name Priority Date/Time Associated Diagnosis Comments SCAN - LABS 08/03/2024 documented in this encounter Results * SCAN - LABS (08/03/2024) us Provider Scanning Final Result documented in this encounter Visit Diagnoses Not on filedocumented in this encounter Care Teams Supervisory Lifeguard Relationship Specialty Start Date End Date Indio Staley MD [address] [place] [address] PCP - General 09/11/16 Adria Boogie MD [address] [facility] [address] [address] [place] [address] Surgeon Orthopedic Surgery 08/07/24 documented as of this encounter
--- OUTSIDE RECORDS SUMMARY | 2025-04-23 14:18 | XMS_ITS | Clinical Summary ---
Author Organization [facility] Address [address] [place] [address] Care Team Providers Care Airline Reservation Agent Name Role Phone Indio Staley MD Primary Care Provider Adria Boogie MD Unavailable [phone] Allergies Active Allergy Reactions Criticality Noted Date Comments Gluten Vomiting Low 07/24/2018 Morphine Rash Medium 07/24/2018 Medications fenofibrate (TRIGLIDE) 160 mg tabletIndicatio ns:hyperlipidem ia,hypertriglyc eridemia Take 1 tablet (160 mg total) by mouth every morning 2 8 Active finasteride (PROSCAR) 5 mg tabletIndicatio ns:benign prostatic hyperplasia with lower urinary tract sx Take 1 tablet (5 mg total) by mouth every morning 6 8 Active cholecalciferol (VITAMIN D-3) 5,000 unit tabletIndicatio ns:Vitamin D Deficiency Take 1 tablet (5,000 Units total) by mouth every morning Active aspirin 81 mg enteric coated tabletIndicatio ns:prevention of thrombosis Take 1 tablet (81 mg total) by mouth every morning Active vitamin E 400 unit capsuleIndicati ons:supplement Take 1 capsule (400 Units total) by mouth nightly Active multivitamin with minerals tabletIndicatio ns:Vitamin Deficiency Prevention Take 1 tablet by mouth every morning Active ascorbic acid (vitamin C) 1,000 mg tabletIndicatio ns:Vitamin C Deficiency Take 1 tablet (1,000 mg total) by mouth 2 (two) times a day Active lisinopriL (PRINIVIL,ZESTR IL) 20 mg tabletIndicatio ns:hypertension Take 1 tablet (20 mg total) by mouth every morning 5 Active traZODone (DESYREL) 100 mg tabletIndicatio ns:sleep Take 1 tablet (100 mg total) by mouth nightly 5 Active vitamin B complex (B COMPLEX ORAL)Indication s:supplement Take 1 tablet by mouth 2 (two) times a day Active traMADoL (ULTRAM) 50 mg tablet Take 1 tablet (50 mg total) by mouth every 12 (twelve) hours as needed 5 Active TiZANidine (ZANAFLEX) 2 mg capsule TAKE 1 TO 2 CAPSULES BY MOUTH THREE TIMES DAILY NEEDED FOR MUSCLE SPASTICITY 5 Active mesalamine (LIALDA) 1.2 gram EC tabletIndicatio ns:Colitis Take 3 tablets (3.6 g total) by mouth every morning 3x 1.2 Gram tablets am 5 04/23/20 25 Discontin ued(Patie nt Reported) acetaminophen (TYLENOL) 500 mg tabletIndicatio ns:Pain Take 1 tablet (500 mg total) by mouth every 6 (six) hours as needed for pain 80 tablet 5 04/14/20 25 Discontin ued(Patie nt Reported) Active Problems Problem Noted Date Diagnosed Date Bilateral carotid artery stenosis 04/14/2025 Finger osteomyelitis, left 11/03/2024 Coronary artery calcification 08/22/2024 Other chronic pain 08/11/2024 Pain in right hip 08/11/2024 Postlaminectomy syndrome, not elsewhere classifi ed 08/11/2024 Radiculopathy, lumbar region 08/11/2024 Finger pulp abscess, left 08/04/2024 Assessment & Plan (08/07/2024 11:59 AM BUSINESS ANALYST SALES OPERATIONS): John Tyler is a 79 y.o. male [...] recommendations. Assessment & Plan (08/04/2024 1:07 PM BUSINESS ANALYST SALES OPERATIONS): Presents with three month history of fluctuating [...] 08/04/2024 Assessment & Plan (08/04/2024 1:08 PM BUSINESS ANALYST SALES [employer]PERATIONS): Continue home mesalamine Flexor tenosynovitis of finger 08/03/2024 Lumbar stenosis without neurogenic claudication 03/25/2024 Lumbar radicular pain 03/25/2024 Cervical radiculopathy 03/25/2024 Cervical stenosis of spinal canal 03/25/2024 S/P TAVR (transcatheter aortic valve replacement ) 03/04/2024 Sacroiliitis, not elsewhere classified Prosthetic heart valve clot 07/19/2023 Sore on ankle 01/10/2023 Severe aortic valve stenosis 02/06/2022 Allergic rhinitis 08/10/2020 JERAD (obstructive sleep apnea) 05/14/2020 Overview (05/14/2020): Added automatically from request for surgery [id number] Assessment & Plan (08/04/2024 1:09 PM BUSINESS ANALYST SALES [employer]PERATIONS): S/p INSPIRE (hypoglossal nerve stimulator) mplantation Sleep apnea 02/17/2020 Right shoulder pain 01/19/2016 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 0 10/22/2015 Abnormal liver enzymes 07/01/2014 Osteoporosis 10/24/2013 Primary hypertension 04/16/2013 Assessment & Plan (08/04/2024 1:08 PM BUSINESS ANALYST SALES [employer]PERATIONS): Continue home lisinopril 20mg Hay fever 04/16/2012 Dyslipidemia 03/15/2012 Assessment & Plan (08/04/2024 1:08 PM BUSINESS ANALYST SALES OPERATIONS): Continue home fenofibrate 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 03/15/2012 Long-term current use of steroids 07/24/2011 Arthralgia of multiple joints 01/20/2011 Polyosteoarthritis, unspecified 01/20/2011 Encounter for preventive health examination 10/30 Encounters Date Type Department Care Team Description 04/23/2025 10:30 AM CDT Office Visit [facility] Orthopedics and Sports Medicine [address] [place] [phone] Doyle Mary MD Chronic right shoulder pain (Primary Dx); Chronic left shoulder pain 04/23/2025 10:03 AM CDT Hospital Encounter [facility] [address] [place] [address] Chronic left shoulder pain; Chronic right shoulder pain 04/14/2025 2:00 PM CDT Office Visit [facility] Cardiology [address] [place] [address] David Anna MD S/P TAVR (transcatheter aortic valve replacement) (Primary Dx); Bilateral carotid artery stenosis 03/16/2025 Telephone [facility] [address] [place] [address] [place] [phone] Laura Youngblood NP 03/13/2025 Telephone [facility] [address] [place] [address] [place] [phone] Laura Youngblood NP PT 03/09/2025 8:00 AM CDT Office Visit [facility] [address] [place] [address] [place] [phone] Laura Youngblood NP Chronic neck pain; Foraminal stenosis of cervical region, left C3-C7, right C4-C7; Arthropathy of cervical facet joint, severe bilateral; DDD (degenerative disc disease), cervical, C3-C5, moderate C5-C6, severe C6-C7; Anterolisthesis of cervical spine, mild C4-C7; Myofascial pain syndrome, cervical; History of arthroplasty of right shoulder (April 19, [address] John Rao); Bilateral shoulder pain, unspecified chronicity 03/09/2025 7:50 AM CDT - 03/09/2025 11:59 PM CDT Hospital Encounter [facility] [address] [place] [address] Neck pain Discharge Disposition: Discharge to home or self care from Last 3 Months Immunizations Immunization Administration Dates Next Due Tdap 08/04/2024(Deferred: No longer n eeded - UTD) Surgical History Surgery Date Site/Laterality Comments TONSILLECTOMY as child VASECTOMY 07/02/1975 - 07/01/1976 CHOLECYSTECTOMY 07/02/1988 - 07/01/1989 HERNIA REPAIR 07/02/1998 - 07/01/1999 Right inguinal and incsional SHOULDER SURGERY 07/02/2001 - 07/01/2002 Right rotator cuff repair NASAL SEPTUM SURGERY 07/02/2008 - 07/01/2009 SHOULDER SURGERY 07/02/2010 - 07/01/2011 Right rotator cuff TOE SURGERY 07/02/2011 - 07/01/2012 Right hammer head COLONOSCOPY 07/02/2024 - 08/01/2024 x9 last one 07/2024 ESOPHAGOGASTRODUODENOSCOPY 07/02/2013 - 07/01/2014 KNEE SURGERY 07/02/2013 - 07/01/2014 Left meniscus JOINT REPLACEMENT 2014 L knee; 2016 R shoulder Left left total knee SHOULDER SURGERY 07/02/2015 - 07/01/2016 Right right total shoulder replacement LITHOTRIPSY 07/02/2016 - 07/01/2017 for klidney stone KNEE SURGERY 07/02/2016 - 07/01/2017 Left revision of knee replacement SPINE SURGERY 2020- Injection of Depo-medrol between L4& L5 pt believes he only had spinal injections, never a surgery CATARACT EXTRACTION, BILATERAL 07/02/2017 - 07/01/2018 Bilateral HERNIA REPAIR 1999 + 2 in 2021 CARDIAC VALVE REPLACEMENT 2021 TAVR OTHER SURGICAL HISTORY 06/21/2020 Inspire Device for JERAD THUMB SURGERY 07/02/1953 - 07/01/1954 Right OTHER SURGICAL HISTORY 05/25/2020 Drug enduced sleep endoscopy FINGER SURGERY 08/04/2024 Left 5th/little finger. Irrigation and Debridement CATARACT EXTRACTION 2017 Medical History Medical History Date Comments Sleep apnea CPAP in 2016; byron tly use Inspire since 2019 Inspire Device 06/21/2025 Hypertension daily Rx since 1973 Coronary artery disease Aortic stenosis Fatty liver PTSD (post-traumatic stress disorder) Fall Hyperlipidemia Depression Skin cancer Colitis Cataract surgically corrected 2017 - both eyes Heart disease TAVR replacemeny of aortic valve. Chronic bronchitis (HCC) Kidney stone nickel sized stone, 2017 lithotripsy left kidney Alcohol abuse 1950; quit in 1981 Arthritis 1966 Autoimmune disease Family History Medical History Relation Name Comments Alcohol abuse Brother Miguel COPD Brother Miguel Alcohol abuse Father Valentin Cancer Father Valentin Colon cancer Father Valentin Coronary artery disease Father Valentin Family history of coronary artery disease - (Added by TW Conv) Heart attack Father Valentin Heart failure Father Valentin Heart attack Maternal Grandfather Kevin Abreu Heart failure Maternal Grandmother Darby Alcohol abuse Mother Marge Breast cancer Mother Marge Cancer Mother Marge Coronary artery disease Mother Marge Family history of coronary artery disease - (Added by TW Conv) Heart attack Mother Marge Stroke Mother Marge Family history of cerebrovascular accident - (Added by TW Conv) Stroke Paternal Grandfather [place] Jayson Diabetes Paternal Grandmother Emilie COPD Sister 1 Gabby (Jayson)Flavin Heart disease Sister 1 Gabby (Jayson)Flavin colostomy Sister 1 Gabby (Jayson)Flavin Alcohol abuse Sister 2 Rosibel Pierre, Astrid COPD Sister 3 Gabby ( 2014) Cancer Sister 3 Gabby ( 2014) Drug abuse Sister 4 Astrid Mental illness Sister 4 Astrid Obesity Sister 4 Astrid Anesthesia problems Neg Hx Malig Hyperthermia Neg Hx Pseudochol deficiency Neg Hx Relation Name Status Comments Brother Miguel Alive Father Valentin Maternal Grandfather Kevin Abreu Maternal Grandmother Darby Mother Vanessa Paternal Grandfather Alonzo Jayson Paternal Grandmother Emilie Sister 1 Gabby (Jayson)Flavin Sister 2 Rosibel Pierre, Astrid Alive Sister 3 Gabby ( 2014) Alive Sister 4 Astrid Alive Social History Tobacco Use Types Packs/Day Years Used Date Smoking Tobacco: Former Cigarettes 4 23 0 07/02/1956 - 1979 Smokeless Tobacco: Never Tobacco Cessation:Counseling [...] on file Legal Sex Male 3:19 AM BUSINESS ANALYST SALES OPERATIONS Gender Identity Male 01/22/2020 3:16 PM CDT Sexual Orientation Straight 01/22/2020 3: 16 PM CDT Obstetrics History Last Filed Vital Signs Vital Sign Reading Time Taken Comments Blood Pressure 118/78 04/14/2025 2:10 PM CDT Pulse 86 04/14/2025 2:10 PM CDT Temperature 36.4 C (97.5 F) 11/21/2024 12:20 PM CDT Respiratory Rate 12 11/21/2024 12:20 PM CDT Oxygen Saturation 97% 04/14/2025 2:10 PM CDT Inhaled Oxygen Concentration - - Weight 92.1 kg (203 lb) 04/23/2025 10:22 AM CDT Height 182.9 cm (6') 04/23/2025 10:22 AM CDT Body Mass Index 27.53 04/23/2025 10:22 AM CDT Plan of Treatment Health Maintenance Due Date Last Done Comments Depression Screening 1943 Hepatitis B Screening 1961 Abdominal Aortic Aneurysm (A AA) Screen 2008 Well Visit 65+ 2008 DTaP/Tdap/Td Vaccine (2 - Td or Tdap) 04/15/2024 04/15/2014 Covid-19 Vaccine (2024-2 6 season) 2025 03/26/2023, 12/06/2021, 08/27/2020, Additional history exists Influenza Vaccine (#1) 2025 , 03/26/2023, 02/25/2020, Additional history exists Fall Risk Assessment 11/21/2025 11/21/2024 Pneumococcal vaccine 65+ Completed 07/20/2015, 07/02 Zoster Vaccine Completed 06/13/2018, 03/07/2018 Medical Devices Implanted Type Area Flow Floor Attendant Device Identifier Shelf Expiration Date Model / Serial / Lot [employer] 4063 Inspire 3 Electrode Cuff Tunnel [place] Lead Neurostimulator [facility] - [id number] - [id number] Implanted:Qty: 1 on 06/21/2020 by Mahad Chahal MD at [facility] Right: Neck [employer] 01/03/2022 4063 / [id number] / [employer] 4340 Lead Neurostimulator Inspire Respiratory Sens Cycle Strl - [id number] - [id number] Implanted:Qty: 1 on 06/21/2020 by Mahad Chahal MD at [facility] Right: Chest [employer] 01/03/2022 4340 / [id number] / Description:Between ribs Inspire Slide [employer] 3028 Generator Neurostimulator - [id number] - [id number] Implanted:Qty: 1 on 06/21/2020 by Mahad Chahal MD at [facility] Right: Chest [employer] 02/15/2023 3028 / [id number] / Procedures Procedure Name Priority Date/Time Associated Diagnosis Comments XR SHOULDER RIGHT 2 OR MORE VIEWS Schedule Routine, Read Routine (OP Routine) 04/23/2025 10:16 AM CDT Chronic right shoulder pain XR SHOULDER LEFT 2 OR MORE VIEWS Schedule Routine, Read Routine (OP Routine) 04/23/2025 10:16 AM CDT Chronic left shoulder pain XR SPINE CERVICAL W FLEXION AND EXTENSION 6 OR MORE VIEWS Schedule Routine, Read Routine (OP Routine) 03/09/2025 8:04 AM CDT Neck pain UT INJECTION SINGLE/SAFEMAKER TRIGGER POINT 1/2 MUSCLES Routine 03/09/2025 8:00 AM CDT Myofascial pain syndrome, cervical from Last 3 Months Results * XR Shoulder Right 2 or [...] XR PROCEDURES Final Re sult * XR Spine Cervical W Flexion And Extension 6 or More Views (03/09/2025 8:04 AM CDT) Anatomical Region Laterality Modality Spine N/A Computed Radiogr aphy 03/15/2025 10:5 2 AM CDT Narrative 03/15/2025 10:54 AM CDT EXAM DESCRIPTION: 1. XR SPINE CERVICAL W FLEXION AND EXTENSION 6 OR MORE VIEWS REASON FOR STUDY: pain Pt sts chronic intermittent neck stiffness worsening in the past year. Denies numbness and tingling. Pt reports right shoulder pain/soreness. FINDINGS: 6 views submitted with comparison 10/12/2021. No acute fracture. No prevertebral soft tissue swelling. Mild C4-C7 anterolisthesis. Mild C3-C5, moderate C5-C6 and severe C6-C7 degenerative disc disease. Flexion-extension views demonstrate mild exacerbation of the C4 listhesis. Severe bilateral cervical facet osteoarthritis. Left-sided C3-C7 and right-sided C4-C7 foraminal impingement. Stimulators are in place. Carotid atherosclerosis noted. IMPRESSION: 1. Mild C3-C5, moderate C5-C6 and severe C6-C7 degenerative disc disease with severe bilateral cervical facet osteoarthritis. 2. Left-sided C3-C7 and right-sided C4-C7 foraminal impingement. THIS IS AN ELECTRONICALLY VERIFIED FINAL REPORT 03/15/2025 10:54 AM - Electronically signed by David Stevenson M.D. T: Report ID: [id number] Reading Location: [id number] Procedure Note David Stevenson MD - 03/15/2025 EXAM DESCRIPTION: 1. XR SPINE CERVICAL W FLEXION AND EXTENSION 6 OR MORE VIEWS REASON FOR STUDY: pain Pt sts chronic intermittent neck stiffness worsening in the past year.Denies numbness and tingling. Pt reports right shoulder pain/soreness. FINDINGS: 6 views submitted with comparison 10/12/2021. No acute fracture. No prevertebral soft tissue swelling. Mild C4-C7 anterolisthesis. Mild C3-C5, moderate C5-C6 and severe C6-C7 degenerative disc disease. Flexion-extension views demonstrate mild exacerbation ofthe C4 listhesis. Severe bilateral cervical facet osteoarthritis. [id number] and right-sided C4-C7 foraminal impingement. Stimulators are in place. Carotid atherosclerosis noted. IMPRESSION: 1. Mild C3-C5, moderate C5-C6 and severe C6-C7 degenerative disc disease with severe bilateral cervical facet osteoarthritis. 2. Left-sided C3-C7 and right-sided C4-C7 foraminal impingement. THIS IS AN ELECTRONICALLY VERIFIED FINAL REPORT 03/15/2025 10:54 AM - Electronically signed by David Stevenson M.D. T: Report ID: [id number] Reading Location: [place] [address] Laura Youngblood NP IMG XR PROCEDURES Final Res ult * UT INJECTION SINGLE/SAFEMAKER TRIGGER POINT 1/2 MUSCLES (03/09/2025 8:00 AM CDT) Narrative Doyle Mary MD - 03/09/2025 8:00 AM CDT Doyle Mary MD 03/16/2025 9:36 AM Trigger Point Injection Performed by: Laura Youngblood NP Authorized by: Laura Youngblood NP Consent Given by: Patient Site marked: the procedure site was marked Timeout: prior to procedure the correct patient, procedure, and site was verified Consent obtained:: Verbal Risks discussed, including, but not limited to:: Pain and repeat procedure Alternatives discussed:: Alternative treatment, delayed treatment and no treatment Site/side marked: Yes Indications: Myalgia and pain Location: R cervical paraspinal and L cervical paraspinal Local anesthetic: Ethyl chloride spray Ultrasound guidance: No Needle size: 25 G Number of muscles: 1 or 2 Approach: Posterior Medications: 3 mL lidocaine 10 mg/mL (1 %); 120 mg triamcinolone 40 mg/mL Patient tolerance: Patient tolerated the procedure well with no immediate complications Laura Youngblood NP IN CLINIC/BEDSIDE ORDERABLE S Final Result from Last 3 Months Insurance [facility] UHC MEDICARE AD[facility] Address: [address] [address] [place] [address] [facility] Advance Directives For more information, please contact: [phone] * Full Code (Latest Code Status on File) Date Activated Date Inactivated Comments 08/04/2024 10:45 AM 08/07/2024 6:05 PM * Full Code Date Activated Date Inactivated Comments 02/27/2024 10:01 AM 02/28/2024 4:42 AM Care Teams Airline Reservation Agent Relationship Specialty Start Date End Date Indio Staley MD [address] [place] [address] PCP - General 09/11/16 Adria Boogie MD [address] [facility] [address] [place] [address] Surgeon Orthopedic Surgery 08/07/24
--- OUTSIDE RECORDS SUMMARY | 2025-04-23 14:18 | XMS_ITS | Clinical Summary ---
Author Organization [facility] Address [address] [place] [address] Care Team Providers Care Director Cardiology Name Role Phone Indio Staley MD Primary Care Provider [phone] Theresa Rosas EDITORIAL CLERK Unavailable [phone] Allergies Active Allergy Reactions Criticality Noted Date Comments Gluten Meal Vomiting Low 07/24/2018 Morphine Other (see comment),Rash Medium 07/24/2018 Reaction: OTHER, Medications fenofibrate 160 MG tabletIndication s:Dyslipidemia Take 1 tablet (160 mg total) by mouth daily. 12/12/2021 Active finasteride (PROSCAR) 5 MG tabletIndication s:Prostate enlargement Take 1 tablet (5 mg total) by mouth daily. 12/15/2021 Active vitamin E 400 UNIT capsule Take [...] Take 1,000 mg by mouth daily. Active lisinopril (PRINIVIL) 20 MG tablet Take 1 tablet (20 mg total) by mouth daily. 06/05/2023 Active traZODone (DESYREL) 100 MG tablet Take 1 tablet (100 mg total) by mouth nightly at bedtime. at bedtime 10/31/2023 Active mesalamine EC (LIALDA) 1.2 g Tab EC tablet TAKE 3 TABLETS BY MOUTH DAILY FOR 8 WEEKS 08/02/2024 Active naproxen sodium (ALEVE ALL DAY STRONG) 220 MG tablet 01/07/2025 Active traMADol (ULTRAM) 50 MG tablet Take 1 tablet (50 mg total) by mouth every 12 (twelve) hours as needed. FOR PAIN 02/06/2025 Active Active Problems Problem Noted Date Diagnosed Date Amputation of left little finger 11/21/2024 Overview (02/09/2025): Due to bone infection that did not respond to antibiotic regiment. Coronary artery calcification 08/22/2024 Assessment & Plan (02/09/2025 3:52 PM CDT): Coronary artery calcification noted on CTA TAVR. He is not having anginal symptoms. Continue aspirin and fenofibrate. Assessment & Plan (08/22/2024 10:05 PM RELIGIOUS EDUCATION TEACHER): Coronary artery calcification noted on CTA TAVR. [...] valve, subsequent encounter 07/19/2023 Assessment & Plan (02/09/2025 3:51 PM CDT): Completed warfarin. Velocities are stable. Repeat echocardiogram next year. Assessment & Plan (08/22/2024 10:03 PM RELIGIOUS EDUCATION TEACHER): Completed warfarin. Velocities are stable. Assessment & Plan (12/31/2023 10:34 AM CDT): Recent echo 07/2023 shows decreased velocity of 2.96m/sec. Patient reports significant bleeding and bruising associated with warfarin use. Will Trial discontinuation of warfarin and repeat echocardiogram in [facility] to reevaluate the velocity. Assessment & Plan (07/19/2023 11:44 AM RELIGIOUS EDUCATION TEACHER): Echo gradients have improved after anticoagulation with warfarin. Continue warfarin for now. S/P TAVR (transcatheter aortic valve replacement ) 06/26/2023 Assessment & Plan (02/09/2025 3:50 PM CDT): Recent echocardiogram shows stable velocities and gradients across the TAVR valve. Will continue to repeat echocardiograms yearly. Continue antibiotic prophylaxis prior to all dental procedures. Assessment & Plan (08/22/2024 10:03 PM RELIGIOUS EDUCATION TEACHER): Patient is feeling well. Repeat echo after stopping warfarin shows stable velocities. Requires antibiotic prophylaxis prior to all dental procedures. Assessment & Plan (12/31/2023 10:36 AM CDT): Patient is feeling well. Will repeat echocardiogram in July of next year to evaluate valve velocity after discontinuation of warfarin. Requires antibiotic prophylaxis prior to all dental procedures. Assessment & Plan (07/27/2023 12:27 PM RELIGIOUS EDUCATION TEACHER): Echo shows valve velocities and gradients have decreased after starting anticoagulation. Continue antibiotic prophylaxis prior to dental procedures. Refer to cardiac rehab. Assessment & Plan (06/26/2023 6:50 AM RELIGIOUS EDUCATION TEACHER): Echo shows valve velocities and gradients are elevated. Recommend starting anticoagulation for possible valve thrombosis. Repeat echo in 3 months. Continue antibiotic prophylaxis prior to dental procedures. Sore on ankle 01/10/2023 Severe aortic valve stenosis 03/02/2022 Severe aortic stenosis 02/06/2022 Assessment & Plan (06/26/2023 6:50 AM RELIGIOUS EDUCATION TEACHER): Echo shows valve velocities and gradients [...] (01/30/2022): Added automatically from request for surgery [id number] Abnormal liver enzymes 07/01/2014 Primary hypertension 04/16/2013 Assessment & Plan (02/09/2025 3:50 PM CDT): Blood pressure is well-controlled in office. Continue lisinopril. Assessment & Plan (08/22/2024 10:03 PM RELIGIOUS EDUCATION TEACHER): Blood pressure well controlled in office today at 124/80 mmHg. Continue lisinopril 20 mg daily. Assessment & Plan (12/31/2023 10:39 AM CDT): Blood pressure well controlled in office today at 124/80 mmHg. Continue lisinopril 20 mg daily. Assessment & Plan (07/19/2023 11:45 AM RELIGIOUS EDUCATION TEACHER): Continue lisinopril Assessment & Plan (06/26/2023 6:50 AM RELIGIOUS EDUCATION TEACHER): Continue lisinopril Assessment & Plan (04/14/2022 11:09 AM CDT): Continue lisinopril Assessment & Plan (02/06/2022 3:49 PM CDT): Continue lisinopril Hypertension, essential 04/16/2013 Hyperlipidemia 03/15/2012 Assessment & Plan (02/09/2025 3:51 PM CDT): States he is getting blood work done through his PCP and will have results sent over. Continue fenofibrate. Assessment & Plan (08/22/2024 10:04 PM RELIGIOUS EDUCATION TEACHER): Last lipid panel 03/2023 with LDL of 91 and triglycerides of 242. Continue fenofibrate. Will need repeat lipid panel later this year. Assessment & Plan (12/31/2023 10:38 AM CDT): Last lipid panel 03/2023 with LDL of 91 and triglycerides of 242. Continue fenofibrate. Will need repeat lipid panel later this year. Assessment & Plan (07/19/2023 10:08 AM RELIGIOUS EDUCATION TEACHER): Continue fenofibrate Assessment & Plan (06/26/2023 6:50 AM RELIGIOUS EDUCATION TEACHER): Continue fenofibrate Assessment & Plan (04/14/2022 11:09 AM CDT): Continue fenofibrate Assessment & Plan (02/06/2022 3:49 PM CDT): Continue fenofibrate Dyslipidemia 03/15/2012 Resolved Problems Problem Noted Date Diagnosed Date Resolved Date Other chronic pain 08/11/2024 Encounters Date Type Department Care Team Description 02/09/2025 10:30 AM CDT Office Visit [facility] [address] [address] Bre[place] Peres, [place] Aortic Valve Stenosis (6 mo follow up); Lipids 02/09/2025 Travel from Last 3 Months Family History Medical [...] Sex Assigned at Male 08/11/2024 1:22 PM RELIGIOUS EDUCATION TEACHER Legal Sex Male 10:23 PM RELIGIOUS EDUCATION TEACHER Gender Identity Not on file Sexual Orientation Not on file Last Filed Vital Signs Vital Sign Reading Time Taken Comments Blood Pressure 110/66 02/09/2025 10:12 AM CDT Pulse 75 02/09/2025 10:12 AM CDT Temperature 37.3 C (99.1 F) 03/03/2022 11:38 AM CDT Respiratory Rate 16 03/03/2022 11:3 8 AM CDT Oxygen Saturation 98% 02/09/2025 10: 12 AM CDT Inhaled Oxygen Concentration - - Weight 94.3 kg (207 lb 12.8 oz) 025 10:12 AM CDT Height 182.9 cm (6') 02/09/2025 10:12 AM CDT Body Mass Index 28.18 02/09/2025 10:12 AM CDT Plan of Treatment Upcoming Encounters Date Type Department Care Team (Late st Contact Info) Description 07/06/2025 11:00 AM RELIGIOUS EDUCATION TEACHER Appointment [facility] [place] [address] Brea Peres PA [address] [facility], [address] [place] [address] 10/12/2025 9:45 AM CDT Office Visit [facility] [place] [address] Javier Alva MD [facility]. [address] [place], [place] [id number] Health Maintenance Due Date Last Done Comments ASCVD Statin 1945 Annual Medicare Wellness Visit 2008 Pneumococcal Vaccine: 50+ Years (2 of 2 - PPSV23, PCV20, or PCV21) 09/13/2015 07/19/2015 RSV Immunization or 60+ Years (1 - 1-dose 75+ series) 2018 ASCVD LDL 03/20/2024 03/20/2023, 08/2021, 09/06/2021 DTaP, Tdap and Td Vaccines (2 - Td or Tdap) 04/15/2024 04/15/2014 COVID-19 Vaccine ( season) 2025 12/06/2021, 05/05/2021, 08/27/2020, Additional history exists Influenza Adult (#1) 2025 04/17/2019, 04/21/2018, 04/09/2017, Additional history exists Zoster Vaccines Completed 06/13/2018, 03/07/2018 Hepatitis A Vaccines Aged Out No long er eligible based on patient's age to complete this topic Meningococcal B Vaccine Aged Out No l [...] Gifford RN Medical Devices Implanted Type Area Traveling Construction Superintendent Device Identifier Shelf Expiration Date Model / Serial / Lot Tavr-03/02/2022 Implanted:07/2021 by Javier Alva MD (Quantity not on file) Valve Implant Aorta [id number] JELANI 09/18/2024 / [id number] / Procedures Procedure Name Priority Date/Time Associated Diagnosis Comments LIPID PANEL Routine 03/20/2023 from Last 3 Months or Most Recently Relevant to Health Maintenance Results * LIPID PANEL (03/20/2023) TRIGLYCERIDES 242 HDL 44 LDL (CALCULATED) 91 NON HDL CHOLESTEROL 125 us Default History Genericprovider LABORATORY Final Result from Last 3 Months or Most Recently Relevant to Health Maintenance Insurance [employer] MEDICARE Advance Directives * Full Code (Latest Code Status on File) Date Activated Date Inactivated Comments 03/02/2022 4:13 PM 03/03/2022 4:25 PM * Full Code Date Activated Date Inactivated Comments 03/02/2022 10:47 AM 03/02/2022 4:13 PM * Full Code Date Activated Date Inactivated Comments 02/01/2022 12:54 PM 02/01/2022 5:20 PM Care Teams Director Cardiology Relationship Specialty Start Date End Date Indio Staley MD [address] [place] [address] PCP - General FAMILY PRACTICE 01/24/22 Theresa Rosas FNP [address] [place] [address] Nurse Practitioner Nurse Practitioner Family 01/24/22
== END 2025-04-23 13:23 | disposition home or self-care (01) ==
PROVIDERS: PCP Family Medicine; Visit Provider Specialist
DX: I65.23 Occlusion and stenosis of bilateral carotid arteries (principal)
CPT/HCPCS: 93880

== ENCOUNTER 2025-04-30 12:05 | Emergency (ER) | payer MEDICARE, SELFPAY ==
--- NOTE | ~2025-04-30 | CT_ITS ---
EXAMINATION: CT abdomen pelvis w con DATE: 04/30/2025 16:12 INDICATION: Diarrhea and weight loss TECHNIQUE: Computed tomography (CT) of the abdomen and pelvis was performed with 100 mL Omnipaque-350 intravenous contrast. Automated exposure control and iterative reconstruction technique were employed. The dose-length product was 698.45 mGy-cm. COMPARISON: None FINDINGS: Heart size is normal. Aortic valve repair. Dense mitral calcification. There is a small metallic implant positioned along the pleura at the intercostal space between the anterior right sixth and seventh ribs. Again seen are irregular reticular opacities at the periphery of the bilateral lung bases which could represent atelectasis or chronic interstitial lung disease. No pneumonia, pulmonary edema or pleural effusion. Mild intra and extrahepatic ductal or ductal dilation with common bile duct measuring up to 8 mm in maximal diameter without evident obstructing stone or mass and likely related to prior cholecystectomy with surgical clips the gallbladder fossa. Multiple splenic calcified lesions consistent with old granulomatous disease. Bilateral adrenal glands are normal. Small regions of cortical scarring at the left kidney. There are 4 nonobstructing stones at the lower pole the left kidney, the largest measuring up to 9 mm in maximal diameter. Bilateral renal cysts the largest on the right measuring 3.3 cm at the upper pole and 2.5 similar parapelvic cyst in the lower pole of the left kidney. No bowel obstruction. The appendix measures up to 8 mm in maximal diameter but is without surrounding inflammatory stranding to suggest acute appendicitis. There is mild wall thickening along the proximal colon most prominent at the cecum consistent with colitis. There there is subtle stranding in the deep pelvic fat between the sigmoid colon and the rectum with a couple small diverticula along the distal sigmoid colon as could be related to either additional colitis or diverticulitis. Bladder is normal. Prostatic calcifications. No abscess or free intraperitoneal gas or fluid. No pathologically enlarged abdominal or pelvic lymphadenopathy. There is calcified atherosclerosis of the aorta and many of the other arteries. Mild lumbar levocurvature with moderate spondylosis. Moderate to severe lower thoracic spondylosis with bridging osteophytes at multiple levels consistent with diffuse idiopathic skeletal hyperostosis (DISH). IMPRESSION: 1. Wall thickening in the proximal colon was prompt at the cecum and some inflammatory stranding about the distal sigmoid colon suggestive of colitis which could be infectious, inflammatory or less likely ischemic in etiology. The stranding at the rectum and sigmoid colon is also in the vicinity of a couple diverticula and differential would also include diverticulitis. 2. Nonobstructing left nephrolithiasis. Reviewed, dictated and finalized at location A. IMPRESSION: 1. Wall thickening in the proximal colon was prompt at the cecum and some infla mmatory stranding about the distal sigmoid colon suggestive of colitis which co uld be infectious, inflammatory or less likely ischemic in etiology. The strand ing at the rectum and sigmoid colon is also in the vicinity of a couple diverti cula and differential would also include diverticulitis. 2. Nonobstructing left nephrolithiasis.
[2025-04-30 12:07] VITALS: BP 125/73; PULSE 97; RESP 18; TEMP 36.6; O2SAT 99
--- OUTSIDE RECORDS SUMMARY | 2025-04-30 12:58 | XMS_ITS | Data Portability ---
[facility] Address [address] [place] [address] Assessment No assessment recorded. Plan of Treatment [...] dose 08/01/2020 completed Chanda Urban LPN null, [place] - [facility] 08/01/2020 10:23:15 COVID-19, mRNA, LNP-S, PF, 100 mcg/0.5mL dose or 50 mcg/0.25mL dose 08/27/2020 completed Leticia Lara MA null, [place] - [facility] 08/30/2020 12:49:12 Past Encounters Encounter ID Performer Location Encounter Start Date Encounter Closed Date Diagnosis/Indication Diagnosis SNOMED-CT Code Diagnosis ICD10 Code Diagnosis IMO Codes Diagnosis Note [id number] MD Tashia Hannon [address] [place] [address] 07/30/2020 11:28:56 08/01/2020 12:24:57 Administration of SARS-CoV-2 antigen vaccine [id number] Z23 [id number] MD Tashia Hannon [address] [facility] [place] [address] 08/27/2020 11:33:53 08/30/2020 09:12:05 Administration of SARS-CoV-2 antigen vaccine [id number] Z23 Health Concerns Section Related Observation LastModified by Organization Detai ls LastModified Time None Recorded Concern Status LastModified by Organization Details LastModified Time None Recorded Advance Directives Directive None Recorded Payers Insurance Date Sequence Insurance Name Policy Number Policy Sampson Covered Member ID Sampson Member ID Guarantor Name 11/28/2023 2 [place] John Tyler [id number] John Tyler 11/28/2023 GENERIC MEDICARE - PART B (MOVED TO HOLD) [id number] Jhon Tyler 11/28/2023 1 [facility] (MEDICARE REPLACEMENT/A DVANTAGE - PPO) [id number] John Tyler [id number] John Tyler 11/28/2023 [place] [facility] [id number] John Tyler
--- OUTSIDE RECORDS SUMMARY | 2025-04-30 12:59 | XMS_ITS | Encounter Summary ---
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
--- OUTSIDE RECORDS SUMMARY | 2025-04-30 12:59 | XMS_ITS | Encounter Summary ---
Author Organization [facility] Healthcare Address [address] [place] [address] Care Team Providers Care Field Trainer Name Role Phone Indio Staley MD Primary Care Provider Adria Boogie MD Unavailable [phone] Encounter Details Date Type Department Care Team (Late st Contact Info) Description 08/03/2024 Orders Only [facility] Health Information Management [address] [place] [id number] Scanning, Provider Social History Tobacco Use Types Packs/Day Years Used Date Smoking Tobacco: Former Cigarettes 4 23 1 [phone] [phone] 0039 Smokeless Tobacco: Never Alcohol Use Standard Drinks/Week [...] on file 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
--- OUTSIDE RECORDS SUMMARY | 2025-04-30 12:59 | XMS_ITS | Clinical Summary ---
Author Organization [facility] Address [address] [place] [address] Care Team Providers Care Lockstitch Front Edge Tape Sewer Name Role Phone Indio Staley MD Primary Care Provider Adria Boogie MD Unavailable [phone] Allergies Active Allergy Reactions Criticality Noted Date [...] 5 04/14/20 25 Discontin ued(Patie nt Reported) Hospital, Clinic, or Other Facility Administered Medication Ordered Dose Route Frequency Start Date End Date Status lidocaine (XYLOCAINE) 10 mg/mL (1 %) injection 2 mLIndications:Admi nistration of Local Anesthesia 2 mL One-Time Injection 04/23/2025 04/23/2025 Ended methylPREDNISolone acetate (DEPO-medrol) injection 20 mgIndications:Ball Worker rodríguez left shoulder pain 20 mg intra-artic One-Time Injection 04/23/2025 04/23/2025 Ended Active Problems Problem Noted Date Diagnosed Date Bilateral carotid artery stenosis 04/14/2025 Finger osteomyelitis, left 11/03/2024 Coronary artery calcification 08/22/2024 Other chronic pain 08/11/2024 Pain in right hip 08/11/2024 Postlaminectomy syndrome, not elsewhere classifi ed 08/11/2024 Radiculopathy, lumbar region 08/11/2024 Finger pulp abscess, left 08/04/2024 Assessment & Plan (08/07/2024 11:59 AM SALES ASSOCIATE CASHIER): John Tyler is a 79 y.o. male [...] recommendations. 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 0 10/22/2015 Abnormal liver enzymes 07/01/2014 Osteoporosis 10/24/2013 Primary hypertension 04/16/2013 Assessment & Plan (08/04/2024 1:08 PM SALES ASSOCIATE CASHIER): Continue home lisinopril 20mg Hay fever 04/16/2012 Dyslipidemia 03/15/2012 Assessment & Plan (08/04/2024 1:08 PM SALES ASSOCIATE CASHIER): 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 home 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 03/15/2012 Long-term current use of steroids 07/24/2011 Arthralgia of multiple joints 01/20/2011 Polyosteoarthritis, unspecified 01/20/2011 Encounter for preventive health examination 10/30 Encounters Date Type Department Care Team Description 04/23/2025 10:30 AM CDT Office Visit [facility] Orthopedics and Sports Medicine [address] [place] [phone] Doyle Mary MD Chronic right shoulder pain (Primary Dx); Chronic left shoulder pain; History of shoulder surgery 04/23/2025 10:03 AM CDT - 04/23/2025 11:59 PM CDT Hospital Encounter [facility] Di[facility] Imaging [address] [place] [phone] Chronic left shoulder pain; Chronic right shoulder pain Discharge Disposition: Discharge to home or self care 04/23/2025 Orders Only [facility] Cardiology [address] [place] [phone] David Anna MD Bilateral carotid artery stenosis 04/14/2025 2:00 PM CDT Office Visit [facility] Cardiology [facility] [address] [place] [phone] David Anna MD S/P TAVR (transcatheter aortic valve replacement) (Primary Dx); Bilateral carotid artery stenosis 03/16/2025 Telephone [facility] Orthopedics and Sports Medicine [address] [place] [address] [place] [phone] Laura Youngblood NP 03/13/2025 Telephone [facility] Orthopedics and Sports Medicine [address] [place] [address] [place] [phone] Laura Youngblood NP PT 03/09/2025 8:00 AM CDT Office Visit [facility] Orthopedics and Sports Medicine [address] [place] [address] [place] [phone] Laura Youngblood NP Chronic neck pain; Foraminal [...] 03/09/2025 11:59 PM CDT Hospital Encounter [facility] [address] [place] [id number] Neck pain Discharge Disposition: Discharge to home [...] Left revision of knee replacement SPINE SURGERY 2020-3rd Injection of Depo-medrol between L4& L5 pt [...] History Date Comments Sleep apnea CPAP in 2017; curren tly use Inspire since 2019 Inspire Device [...] failure Maternal Grandmother Darby Alcohol abuse Mother Vanessa Breast cancer Mother Marghang Cancer Mother Marghang Coronary artery disease Mother Vanessa Family history of coronary artery disease - (Added by TW Conv) Heart attack Mother Vanessa Stroke Mother Vanessa Family history of cerebrovascular accident - (Added by TW Conv) Stroke Paternal Grandfather Moca Jayson Diabetes Paternal Grandmother Emilie COPD Sister [...] Maternal Grandmother Darby Mother Vanessa Paternal Grandfather Moca Jayson Paternal Grandmother Emilie Sister 1 Gabby [...] on file Legal Sex Male 3:19 AM SALES ASSOCIATE CASHIER Gender Identity Male 01/22/2020 3:16 PM CDT [...] Td or Tdap) 04/15/2024 04/15/2014 Covid-19 Vaccine ( - 2024-2 6 season) 2025 03/26/2023, 12/06/2021, 08/27/2020, Additional history exists Influenza Vaccine (#1) 2025 , 03/26/2023, 02/25/2020, Additional history exists Fall Risk Assessment 11/21/2025 11/21/2024 Pneumococcal vaccine 65+ Completed 07/20/2015, 07/02 Zoster Vaccine Completed 06/13/2018, 03/07/2018 Medical Devices Implanted Type Area Director Web Device Identifier Shelf Expiration Date Model / Serial / Lot [employer] 4063 Inspire 3 Electrode Cuff Tunnel Broderick Lead Neurostimulator [facility] - [id number] - [id number] Implanted:Qty: 1 on 06/21/2020 by Mahad Chahal MD at [facility] Right: Neck [employer] 01/03/2022 4063 / [id number] / [employer] 4340 Lead Neurostimulator Inspire Respiratory Sens Cycle Strl - [id number] - [id number] Implanted:Qty: 1 on 06/21/2020 by Mahad Chahal MD at [facility] Right: Chest [employer] 01/03/2022 4340 / [id number] / Description:Between ribs [employer] 3028 Generator Neurostimulator - [id number] - [id number] Implanted:Qty: 1 on 06/21/2020 by Mahad Chahal MD at [facility] Right: Chest [employer] 02/15/2023 3028 / [id number] / Procedures Procedure Name Priority Date/Time Associated Diagnosis Comments GA ARTHROCENTESIS ASPIR&/INJ MAJOR JT/BURSA W/O US Routine 04/23/2025 10:30 AM CDT Chronic left shoulder pain XR SHOULDER RIGHT 2 OR MORE VIEWS [...] Routine) 03/09/2025 8:04 AM CDT Neck pain GA INJECTION SINGLE/GEOMAGNETICIAN TRIGGER POINT 1/2 MUSCLES Routine 03/09/2025 8:00 AM CDT Myofascial pain syndrome, cervical from Last 3 Months Results * GA ARTHROCENTESIS ASPIR&/INJ MAJOR JT/BURSA W/O US (04/23/2025 10:30 AM CDT) Narrative Doyle Mary MD - 04/23/2025 10:30 AM CDT Doyle Mary MD 04/23/2025 3:01 PM Large Joint (Hip, Knee, Shoulder) Injection: L subacromial bursa Performed by: Doyle Mary MD Authorized by: Doyle Mary MD Large Joint Injection/Aspiration: Consent Given by: Patient Written consent obtained: Yes Supporting Documentation: Indications: Pain Procedure Details: Location: Shoulder Site: L subacromial bursa Prep: patient was prepped using a clean technique (The skin was anesthetized with ethyl chloride spray prior to the injection.) Needle Size: 25 G Medications: 2 mL lidocaine 10 mg/mL (1 %); 20 mg methylPREDNISolone acetate 40 mg/mL Patient tolerance: Patient tolerated the procedure well with no immediate complications Doyle Mary MD IN CLINIC/BEDSIDE ORDERABL ES Final Result * XR Shoulder Right 2 or More [...] by David Stevenson M.D. T: Report ID: [id number] Reading Location: [id number] Procedure Note David Stevenson MD - 03/15/2025 [...] C4 listhesis. Severe bilateral cervical facet osteoarthritis. [id number] and right-sided C4-C7 foraminal impingement. Stimulators are in place. Carotid atherosclerosis noted. IMPRESSION: 1. Mild C3-C5, moderate C5-C6 and severe C6-C7 degenerative disc disease with severe bilateral cervical facet osteoarthritis. 2. Left-sided C3-C7 and right-sided C4-C7 foraminal impingement. THIS IS AN ELECTRONICALLY VERIFIED FINAL REPORT 03/15/2025 10:54 AM - Electronically signed by David Stevenson M.D. T: Report ID: [id number] Reading Location: [place] [address] us Laura Youngblood WOOD CABINETMAKER IMG XR PROCEDURES Final Res ult * GA INJECTION SINGLE/GEOMAGNETICIAN TRIGGER POINT 1/2 MUSCLES (03/09/2025 8:00 AM [...] Final Result from Last 3 Months Insurance [facility] MEDICARE UHC MEDICARE ADVANTAGE [facility] MEDICARE AETNA MEDICARE Advance Directives For more information, please contact: [phone] * Full Code (Latest Code Status on File) Date Activated Date Inactivated Comments 08/04/2024 10:45 AM 08/07/2024 6:05 PM * Full Code Date Activated Date Inactivated Comments 02/27/2024 10:01 AM 02/28/2024 4:42 AM Care Teams Lockstitch Front Edge Tape Sewer Relationship Specialty Start Date End Date Indio Staley MD [address] [place] [address] PCP - General 09/11/16 Adria Boogie MD [address] [facility] [address] [place] [address] Surgeon Orthopedic Surgery 08/07/24
--- OUTSIDE RECORDS SUMMARY | 2025-04-30 12:59 | XMS_ITS | Clinical Summary ---
Author Organization [facility] Address [address] [place] [address] Care Team Providers Care Lead Burner Apprentice Name Role Phone Indio Staley MD Primary Care Provider [phone] Source Comments [facility],non-[facility] Affiliates and Associated Physician Practices is amultiple site organization consisting of ambulatory clinics and hospital sitesin [place], [place], [place] and [place]. This disclosure is being madepursuant to the Care Everywhere program and may not contain all information available regarding this patient. Last updated 18.[facility] Allergies Active Allergy Reactions Criticality Noted Date [...] once as needed Active Cholecalciferol (VITAMIN D3) 57736 UNITS capsule Take 50,000 Units by mouth [...] on file Legal Sex Male 2:02 PM PHYSICIAN GENERAL INTERNAL MEDICINE Gender Identity Not on file Sexual Orientation Not on file Last Filed Vital Signs Vital Sign Reading Time Taken Comments Blood Pressure 122/78 07/24/2018 3:09 PM PHYSICIAN GENERAL INTERNAL MEDICINE Pulse 88 07/24/2018 3:09 PM PHYSICIAN GENERAL INTERNAL MEDICINE Temperature 37.3 C (99.2 F) 07/24/2018 3:09 PM PHYSICIAN GENERAL INTERNAL MEDICINE Respiratory Rate 16 07/24/2018 3:09 PM PHYSICIAN GENERAL INTERNAL MEDICINE Oxygen Saturation 94% 07/24/2018 3:09 PM PHYSICIAN GENERAL INTERNAL MEDICINE Inhaled Oxygen Concentration - - Weight 97.5 kg (215 lb) 07/24/2018 3:09 PM PHYSICIAN GENERAL INTERNAL MEDICINE Height 185.4 cm (6' 1) 07/24/2018 3:09 PM PHYSICIAN GENERAL INTERNAL MEDICINE Body Mass Index 28.37 07/24/2018 3:09 PM PHYSICIAN GENERAL INTERNAL MEDICINE Plan of Treatment Health Maintenance Due Date [...] patient's age to complete this topic Insurance [facility] MEDICARE ADV AETNA MEDICARE ADV SELF PAY NO INSURANCE Member Subscriber Plan / Payer (Ef fective for All Dates) Name:Erin Dotson Member ID:Not on file Relation to Subscriber:Not on file Name:ERIN DOTSON Subscriber ID:Not on file (Home) Address: [address] [place] [id number] Payer ID:Not on file Group ID:Not on file Type:Self Pay Address: [place], [place] Care Teams Lead Burner Apprentice Relationship Specialty Start Date End Date Indio Staley MD [address] [place] [address] PCP - General Family Medicine 07/24/18
--- NOTE | 2025-04-30 14:41 | ED_ITS ---
HPI - Nausea/Vomiting/Diarrhea General Chief complaint: Nausea/Vomiting/Diarrhea Stated complaint: Diarrhea since Sunday-8 LB weight loss Time Seen by Provider: 04/30/25 14:41 Focused HPI: Walt is a an 79-year-old male patient presenting to the emergency room today with complaints diarrhea x2 days. He reports he is having diarrhea approximately every 30 minutes. Denies any blood in his stool but when he wipes he knows his blood on the tissue paper. He is having decreased appetite and some abdominal cramping. Denies any nausea or vomiting. No fevers, chills, body aches. Has lost 8 lb in the last 2 days. GENERAL: Well-appearing, well-nourished, and in no acute distress. HEAD: Normocephalic, atraumatic. CHEST: Clear to auscultation. No respiratory distress. HEART: Regular rate and rhythm. NEURO: Alert and oriented x3. Patient screened in triage and initial orders placed. Additional care and disposition to be based upon diagnostic testing and treatment. Source: patient Mode of arrival: ambulatory Limitations: no limitations Related Data Home Medications ?Medication ?Instructions ?Recorded ?Confirmed ?Last Taken ?Type finasteride 5 mg tablet 5 mg PO DAILY 07/16/1904/2707/14/24 History cholecalciferol (vitamin D3) 125 125 mcg PO DAILY 12/2004/27/25 07/14/24 History mcg (5,000 unit) capsule multivitamin with iron-mineral 1 tablet PO DAILY 02/0404/27/25 07/14/24 History vitamin B complex 1 tablet PO DAILY 02/04/21 1 07/14/24 History vitamin E (dl, acetate) 450 mg 450 mg PO DAILY 2 04/27/25 07/14/24 History (1,000 unit) capsule sildenafil 100 mg tablet (Viagra) 100 mg PO DAILY sexu al activity 03/12/23 04/27/25 Unknown History aspirin 81 mg tablet,delayed 81 mg PO DAILY 08/03/24 1 Unknown History release (Adult Low Dose Aspirin) Allergies Allergy/AdvReac Type Severity Reaction Status Date / Time morphine Allergy Mild Rash Verified 04/30/25 12:06 gluten AdvReac Intermediate vomiting Verified 04/30/25 12:06 [facility] Past Medical History Medical History Osteoarthritis Inflammatory arthritis Retrocalcaneal bursitis Achilles tendinosis of right ankle JERAD (obstructive sleep apnea) s/p inspire History of revision of total replacement of left knee joint 2017 Acid reflux JERAD (obstructive sleep apnea) High cholesterol HTN (hypertension) Celiac disease Squamous cell skin cancer Obesity Calculus of left kidney BPH (benign prostatic hyperplasia) COPD (chronic obstructive pulmonary disease) Depression Mixed hyperlipidemia Surgical History Surgical History H/O bilateral inguinal hernia repair 03/27/2022 - Totally extraperitoneal laparoscopic bilateral inguinal hernia repair with mesh Aortic valve replaced S/P TAVR (transcatheter aortic valve replacement) Hx of shoulder replacement Right shoulder- 2015, [facility] Other dental procedure status dental implants, upper and lower- 2017 Hx of cataract removal with insertion of prosthetic lens bilateral 2018 History of lithotripsy 2017 Hx of total knee replacement 2015 History of medial meniscus repair of left knee 2014 Hammer toe of right foot 2011 Hx of sinus surgery 2009 History of vasectomy 1976 Thumb laceration Hx of tonsillectomy Hx of cholecystectomy History of right inguinal hernia repair 1998 Family History Family History Mother Family history of malignant neoplasm of breast Family history of malignant neoplasm of breast in first degree relative, Onset Age: 66 Family history of coronary artery disease Cerebrovascular accident Acute myocardial infarction Father Family history of coronary artery disease Family history of congenital heart disease, Onset Age: 77 Carcinoma of colon Acute myocardial infarction Sibling COPD (chronic obstructive pulmonary disease) Grandparent Cerebral arteriosclerosis Acute myocardial infarction Diabetes mellitus Social History Social History Social History: Smoking packs per day: 0 Smoking cigarettes per day: 0.0 Years smoked: 30 Smoking pack-years: 0.00 Smoking status: Former smoker Tobacco type: cigarettes Second hand tobacco smoke exposure: No Smoking end date: 10/31/87 Additional smoking assessment comments: stopped smoking in the 80s Alcohol intake: former Substance use: never Substance use type: does not use Do You Feel Safe in your Home?: Yes Lack of Transportation: No Lack of Food: Never True Current Housing: I Have Housing Concerned About Future Housing: No Difficulty Paying Gas/Electric Bills: No Difficulty Paying for Meds: No Currently Unemployed: YES Education: Master's Degree or Higher Difficulty w/ Childcare or Family Care: No Living arrangements: with family Additional living arrangements comments: Patient is Occupation/Education: retired Gender identity (if verbalized by the patient): Male Sexual Orientation (if Verbalized by the Patient): Straight or Heterosexual Spiritual care concerns: No Course Vital Signs Vital signs: Vital Signs Temperature 36.6 C 04/30/25 12:07 Pulse Rate 97 04/30/25 12:07 Respiratory Rate 18 04/30/25 12:07 Blood Pressure 125/73 04/30/25 12:07 Pulse Oximetry 99 04/30/25 12:07 Oxygen Delivery Room Air 04/30/25 12:07 Temperature 36.6 C 04/30/25 12:07 Pulse Rate 82 04/30/25 18:09 Respiratory Rate 18 04/30/25 18:09 Blood Pressure 142/78 H 04/30/25 18:09 Pulse Oximetry 97 04/30/25 18:09 Oxygen Delivery Room Air 04/30/25 12:07 MDM - Nausea/Vomiting/Diarrhea Lab Data 04/30/25 15:04 04/30/25 15:30 Labs: Lab Results 04/30/25 04/30/25 04/30/25 Range/Units 15:04 15:18 15:30 WBC 8.8 (4.5-10.0) K/mm3 RBC 4.91 (4.6-6.20) M/mm3 Hgb 15.5 (14.0-18.0) g/dL Hct 47.7 (42.0-52.0) % MCV 97.1 (80-100) fl MCH 31.6 (26-34) pg MCHC 32.5 (32-36) g/dl RDW 12.5 (11.5-14.5) % Plt Count 192 (150-375) k/mm3 MPV 10.1 (7.4-10.4) fl Immature Gran % (Auto) 0.7 H (0-0.5) % Neut % (Auto) 68.7 (45.5-73.1) % Lymph % (Auto) 16.6 L (18.3-44.2) % Ida % (Auto) 11.9 H (2.6-8.5) % Eos % (Auto) 1.8 (0-4.4) % Baso % (Auto) 0.3 (0.2-1.2) % Lymph # (Auto) 1.47 (0.9-3.2) K/mm3 Ida # (Auto) 1.1 H (0.1-0.6) K/mm3 Eos # (Auto) 0.2 (0-0.3) K/mm3 Baso # (Auto) 0.0 (0.0-0.1) K/mm3 Abs Immat Gran (auto) 0.06 H (0.00-0.031) K/mm3 Absolute Neuts (auto) 6.1 (1.3-6.7) K/mm3 Absolute Nucleated RBC 0.000 (0.0-0.012) K/mm3 Nucleated RBC % 0.0 (0.0-0.2) % Sodium 135 L (137-145) mmol/L Potassium 4.2 (3.4-5.0) mmol/L Chloride 102 (98-107) mmol/L Carbon Dioxide 24 (22-30) mmol/L Anion Gap 9 (4-12) mmol/L BUN 21 H (9-20) mg/dL Creatinine 0.95 (0.7-1.3) mg/dL Estim Creat Clear Calc 55 ml/min Estimated GFR > 60 (59 - ) Glucose 122 H (65-110) mg/dL Calcium 10.2 (8.4-10.2) mg/dL Total Bilirubin 1.1 (0.2-1.3) mg/dL AST 29 (17-59) U/L ALT 21 (6-50) U/L Alkaline Phosphatase 60 (38-126) U/L Total Protein 7.1 (6.3-8.2) g/dL Albumin 4.0 (3.5-5.1) g/dL Lipase 510 H (23-300) U/L Urine Color Dark yellow (Yellow) Urine Appearance Clear (Clear) Urine pH 6.0 (5.0-9.0) Ur Specific [place] 1.018 (1.001-1.035) Urine Protein Negative (Negative) mg/dL Urine Glucose (UA) Negative (Negative) mg/dL Urine Ketones Negative (Negative) mg/dL Ur Blood (Man) Negative (Negative) Urine Nitrate Negative (Negative) Urine Bilirubin Negative (Negative) Urine Urobilinogen 1.0 (<2.0) mg/dL Add Ur Microanalysis Reviewed Leukocyte Esterase Rfl 1+ H (Negative) THIERRY/UL Urine RBC 11-20 H (0-2) /hpf Urine WBC 6-10 H (0-3) /hpf Ur Squamous Epith Cells None seen (Few) /hpf Urine Bacteria None seen /hpf Urine Casts 0-2 Urine Mucus Present /lpf C. difficile (PCR) Negative (NEGATIVE) Discharge Plan Discharge Clinical Impression: Diverticulitis Patient Disposition: Home Condition: Stable Instructions: Antibiotic Form, Diverticulitis (DC), Diverticulitis Diet (ED) Additional Instructions: RETURN IF SYMPTOMS ARE WORSENING , CALL YOUR FAMILY PHYSICIAN FOR APPOINTMENT, TAKE TYLENOL NEEDED FOR ACHES AND PAIN, CONTINUE HOME MEDICATIONS. HOLD TRAZODONE DURING ANTIBIOTIC INTAKE Patient Language: Yakut Prescriptions: New levofloxacin 750 mg tablet 750 mg PO DAILY Qty: 7 5RF metronidazole 500 mg tablet 500 mg PO Q8H 7 Days Qty: 21 0RF No Action aspirin [Adult Low Dose Aspirin] 81 mg tablet,delayed release (DR/EC) 81 mg PO DAILY vitamin E (dl, acetate) 450 mg (1,000 unit) capsule 450 mg PO DAILY finasteride 5 mg tablet 5 mg PO DAILY multivitamin with iron-mineral Tablet 1 tablet PO DAILY vitamin B complex Tablet 1 tablet PO DAILY cholecalciferol (vitamin D3) 125 mcg (5,000 unit) capsule 125 mcg PO DAILY Patient Comments: pt states he takes BID sildenafil [Viagra] 100 mg tablet 100 mg PO DAILY Rx Instructions: administer 30 minutes to 4 hours before activity trazodone 100 mg tablet 100 mg PO .QHS Qty: 90 3RF fenofibrate 160 mg tablet See Rx Instructions .ROUTE .COMPLEX Qty: 90 2RF Dose Instruction: TAKE 1 TABLET BY MOUTH DAILY Rx Instructions: TAKE 1 TABLET BY MOUTH DAILY tramadol 50 mg tablet 50 mg PO Q12H PRN (Reason: pain) Qty: 60 0RF lisinopril 20 mg tablet See Rx Instructions .ROUTE .COMPLEX Qty: 90 2RF Dose Instruction: TAKE 1 TABLET BY MOUTH DAILY Rx Instructions: TAKE 1 TABLET BY MOUTH DAILY tizanidine 2 mg capsule 4 mg PO TID PRN (Reason: muscle spasticity) Qty: 90 0RF Rx Instructions: Take 1-2 capsules as needed. Follow-up/Referrals: Indio Staley MD [Primary Care Provider, Family Practice]
[2025-04-30 15:10] LABS: Hematocrit 47.7 % (42.0-52.0); Hemoglobin 15.5 g/dL (14.0-18.0); Immature Granulocyte Percent A 0.7 % (0-0.5); Lymphocytes Absolute Auto 1.47 K/mm3 (0.9-3.2); Mean Corpuscular HGB Conc 32.5 g/dl (32-36); Mean Corpuscular Hemoglobin 31.6 pg (26-34); Mean Corpuscular Volume 97.1 fl (80-100); Nucleated Red Blood Cells Absolute Auto 0.000 K/mm3 (0.0-0.012); Nucleated Red Blood Cells Perc 0.0 % (0.0-0.2); Platelet Count Result 192 k/mm3 (150-375); Red Blood Count 4.91 M/mm3 (4.6-6.20); White Blood Count 8.8 K/mm3 (4.5-10.0)
[2025-04-30 15:41] LABS: Add Urine Microscopic? YES; Appearance Urine Clear (Clear); Glucose Urine UA Negative (Negative); Leukocyte Esterase Ur 1+ LEU/UL (Negative); Need Manual Microscopic Reviewed; Nitrate Urine Negative (Negative); Non Pathogenic Casts 0-2; Specific Grav Ur 1.018 (1.001-1.035)
--- NOTE | 2025-04-30 15:46 | ED.NAVMDI ---
HPI - Nausea/Vomiting/Diarrhea General Chief complaint: Nausea/Vomiting/Diarrhea Stated complaint: Diarrhea since Sunday-8 LB weight loss Time Seen by Provider: 04/30/25 14:41 Source: patient Mode of arrival: ambulatory Limitations: no limitations History of Present Illness HPI Narrative: 79 YEARS OLD WHITE MALE CAME TO THE ED BY PRIVATE CAR COMPLAINING OF DIARRHEA, WEIGHT LOSS STARTED 2 DAYS AGO. HE DENIES ANY FEVER OR CHILLS OR NAUSEA OR VOMITING. PATIENT REPORTS INTERMITTENT ABDOMINAL PAIN WITH DIARRHEA. PATIENT REPORT THE DIARRHEA IS WATERY, CONTAINS NO BLOOD OR MUCUS. Related Data Home Medications ?Medication ?Instructions ?Recorded ?Confirmed ?Last Taken ?Type finasteride 5 mg tablet 5 mg PO DAILY 07/16/19 04/27/25 07/14/24 History cholecalciferol (vitamin D3) 125 125 mcg PO DAILY 02/04/21 04/27/25 07/14/24 History mcg (5,000 unit) capsule multivitamin with iron-mineral 1 tablet PO DAILY 02/04/21 04/27/25 07/14/24 History vitamin B complex 1 tablet PO DAILY 02/04/21 04/27/25 07/14/24 History vitamin E (dl, acetate) 450 mg 450 mg PO DAILY 01/20/22 04/27/25 07/14/24 History (1,000 unit) capsule sildenafil 100 mg tablet (Viagra) 100 mg PO DAILY sexual activity 03/12/23 04/27/25 Unknown History aspirin 81 mg tablet,delayed 81 mg PO DAILY 08/03/24 04/27/25 Unknown History release (Adult Low Dose Aspirin) Allergies Allergy/AdvReac Type Severity Reaction Status Date / Time morphine Allergy Mild Rash Verified 04/30/25 12:06 gluten AdvReac Intermediate vomiting Verified 04/30/25 12:06 Review of Systems Review of Systems: All systems reviewed & are unremarkable except as noted in HPI and below PMFSH Past Medical History Medical History Osteoarthritis Inflammatory arthritis Retrocalcaneal bursitis Achilles tendinosis of right ankle JERAD (obstructive sleep apnea) s/p inspire History of revision of total replacement of left knee joint 2017 Acid reflux JERAD (obstructive sleep apnea) High cholesterol HTN (hypertension) Celiac disease Squamous cell skin cancer Obesity Calculus of left kidney BPH (benign prostatic hyperplasia) COPD (chronic obstructive pulmonary disease) Depression Mixed hyperlipidemia Surgical History Surgical History H/O bilateral inguinal hernia repair 03/27/2022 - Totally extraperitoneal laparoscopic bilateral inguinal hernia repair with mesh Aortic valve replaced S/P TAVR (transcatheter aortic valve replacement) Hx of shoulder replacement Right shoulder- 2015, [facility] Other dental procedure status dental implants, upper and lower- 2018 Hx of cataract removal with insertion of prosthetic lens bilateral 2018 History of lithotripsy 2017 Hx of total knee replacement 2015 History of medial meniscus repair of left knee 2014 Hammer toe of right foot 2012 Hx of sinus surgery 2009 History of vasectomy 1976 Thumb laceration Hx of tonsillectomy Hx of cholecystectomy History of right inguinal hernia repair 1998 Family History Family History Mother Family history of malignant neoplasm of breast Family history of malignant neoplasm of breast in first degree relative, Onset Age: 66 Family history of coronary artery disease Cerebrovascular accident Acute myocardial infarction Father Family history of coronary artery disease Family history of congenital heart disease, Onset Age: 77 Carcinoma of colon Acute myocardial infarction Sibling COPD (chronic obstructive pulmonary disease) Grandparent Cerebral arteriosclerosis Acute myocardial infarction Diabetes mellitus Social History Social History Social History: Smoking packs per day: 0 Smoking cigarettes per day: 0.0 Years smoked: 30 Smoking pack-years: 0.00 Smoking status: Former smoker Tobacco type: cigarettes Second hand tobacco smoke exposure: No Smoking end date: 10/31/87 Additional smoking assessment comments: stopped smoking in the 80s Alcohol intake: former Substance use: never Substance use type: does not use Do You Feel Safe in your Home?: Yes Lack of Transportation: No Lack of Food: Never True Current Housing: I Have Housing Concerned About Future Housing: No Difficulty Paying Gas/Electric Bills: No Difficulty Paying for Meds: No Currently Unemployed: YES Education: Master's Degree or Higher Difficulty w/ Childcare or Family Care: No Living arrangements: with family Additional living arrangements comments: Patient is Occupation/Education: retired Gender identity (if verbalized by the patient): Male Sexual Orientation (if Verbalized by the Patient): Straight or Heterosexual Spiritual care concerns: No Exam Narrative: GENERAL APPEARANCE: WELL-DEVELOPED, WELL-NOURISHED SKIN: NORMAL COLOR HEAD: NORMOCEPHALIC, NONTRAUMATIC EYES: CLEAR CONJUNCTIVA ENT: OROPHARYNX NORMAL, EARS NORMAL, NOSE NORMAL NECK: SUPPLE, NONTENDER CHEST AND RESPIRATORY: AIRWAY PATENT, NO RESPIRATORY DISTRESS, NO ACCESSORY MUSCLE USE HEART: REGULAR RATE/RHYTHM ABDOMEN: SOFT, SLIGHT DIFFUSE TENDERNESS, NO ORGANOMEGALY, QUIET BOWEL SOUNDS VASCULAR: NORMAL PERIPHERAL PULSES, NORMAL CAPILLARY REFILL. MUSCULOSKELETAL: NORMAL RANGE OF MOTION, NONTENDER BACK NEUROLOGIC: ALERT AND ORIENTED ?3, CHOP SAW OPERATOR IS NORMAL TESTED, NO GROSS MOTOR DEFICIT Course Vital Signs Vital signs: Vital Signs Temperature 36.6 C 04/30/25 12:07 Pulse Rate 97 04/30/25 12:07 Respiratory Rate 18 04/30/25 12:07 Blood Pressure 125/73 04/30/25 12:07 Pulse Oximetry 99 04/30/25 12:07 Oxygen Delivery Room Air 04/30/25 12:07 Temperature 36.6 C 04/30/25 12:07 Pulse Rate 97 04/30/25 12:07 Respiratory Rate 18 04/30/25 12:07 Blood Pressure 125/73 04/30/25 12:07 Pulse Oximetry 99 04/30/25 12:07 Oxygen Delivery Room Air 04/30/25 12:07 MDM - Nausea/Vomiting/Diarrhea MDM Narrative Medical decision making narrative: PATIENT PRESENTS WITH DIARRHEA VITAL SIGNS ARE STABLE PHYSICAL EXAMINATION SHOWING MILD DIFFUSE ABDOMINAL TENDERNESS DIFFERENTIAL DIAGNOSIS INCLUDE COLITIS, DIVERTICULITIS, DEHYDRATION, ELECTROLYTE IMBALANCE, VIRAL INFECTION BLOOD WORKUP TODAY INCLUDES CBC, CMP, LIPASE SHOWED LIPASE OF 510 OTHERWISE WITHIN NORMAL LIMIT URINALYSIS SHOWED 1+ LEUKOCYTE ESTRACE, 6-[address] ABDOMEN AND PELVIS CONSISTENT WITH COLITIS, DIVERTICULITIS DISCHARGED ON LEVAQUIN, FLAGYL THE PT WAS DISCHARGED TO HOME.THE PT,S CONDITION UPON DISCHARGE WAS FAIR,EDUCATION WAS PROVIDED TO THE PT IN REFERENCE TO THE FINAL IMPRESSION,DISCHARGE STUDY RESULTS,TREATMENT,PROGNOSIS AND NEED FOR FOLLOW UP . Differential Diagnosis Differential diagnosis: Likely other ( ABOVE) Medical Records Attestation: I reviewed the patient's medical records. Lab Data Attestation: I reviewed the patient's lab results. 04/30/25 15:04 04/30/25 15:30 Labs: Lab Results 04/30/25 04/30/25 04/30/25 Range/Units 15:04 15:18 15:30 WBC 8.8 (4.5-10.0) K/mm3 RBC 4.91 (4.6-6.20) M/mm3 Hgb 15.5 (14.0-18.0) g/dL Hct 47.7 (42.0-52.0) % MCV 97.1 (80-100) fl MCH 31.6 (26-34) pg MCHC 32.5 (32-36) g/dl RDW 12.5 (11.5-14.5) % Plt Count 192 (150-375) k/mm3 MPV 10.1 (7.4-10.4) fl Immature Gran % (Auto) 0.7 H (0-0.5) % Neut % (Auto) 68.7 (45.5-73.1) % Lymph % (Auto) 16.6 L (18.3-44.2) % Burnett % (Auto) 11.9 H (2.6-8.5) % Eos % (Auto) 1.8 (0-4.4) % Baso % (Auto) 0.3 (0.2-1.2) % Lymph # (Auto) 1.47 (0.9-3.2) K/mm3 Burnett # (Auto) 1.1 H (0.1-0.6) K/mm3 Eos # (Auto) 0.2 (0-0.3) K/mm3 Baso # (Auto) 0.0 (0.0-0.1) K/mm3 Abs Immat Gran (auto) 0.06 H (0.00-0.031) K/mm3 Absolute Neuts (auto) 6.1 (1.3-6.7) K/mm3 Absolute Nucleated RBC 0.000 (0.0-0.012) K/mm3 Nucleated RBC % 0.0 (0.0-0.2) % Sodium 135 L (137-145) mmol/L Potassium 4.2 (3.4-5.0) mmol/L Chloride 102 (98-107) mmol/L Carbon Dioxide 24 (22-30) mmol/L Anion Gap 9 (4-12) mmol/L BUN 21 H (9-20) mg/dL Creatinine 0.95 (0.7-1.3) mg/dL Estim Creat Clear Calc 55 ml/min Estimated GFR > 60 (59 - ) Glucose 122 H (65-110) mg/dL Calcium 10.2 (8.4-10.2) mg/dL Total Bilirubin 1.1 (0.2-1.3) mg/dL AST 29 (17-59) U/L ALT 21 (6-50) U/L Alkaline Phosphatase 60 (38-126) U/L Total Protein 7.1 (6.3-8.2) g/dL Albumin 4.0 (3.5-5.1) g/dL Lipase 510 H (23-300) U/L Urine Color Dark yellow (Yellow) Urine Appearance Clear (Clear) Urine pH 6.0 (5.0-9.0) Ur Specific [place] 1.018 (1.001-1.035) Urine Protein Negative (Negative) mg/dL Urine Glucose (UA) Negative (Negative) mg/dL Urine Ketones Negative (Negative) mg/dL Ur Blood (Man) Negative (Negative) Urine Nitrate Negative (Negative) Urine Bilirubin Negative (Negative) Urine Urobilinogen 1.0 (<2.0) mg/dL Add Ur Microanalysis Reviewed Leukocyte Esterase Rfl 1+ H (Negative) THIERRY/UL Urine RBC 11-20 H (0-2) /hpf Urine WBC 6-10 H (0-3) /hpf Ur Squamous Epith Cells None seen (Few) /hpf Urine Bacteria None seen /hpf Urine Casts 0-2 Urine Mucus Present /lpf C. difficile (PCR) Negative (NEGATIVE) ABG Data Attestation: I personally reviewed and interpreted this ABG as follows: Imaging Data Radiologist's impression: Impressions Abdomen/Pelvis CT 04/30/25 16:14 IMPRESSION: 1. Wall thickening in the proximal colon was prompt at the cecum and some inflammatory stranding about the distal sigmoid colon suggestive of colitis which could be infectious, inflammatory or less likely ischemic in etiology. The stranding at the rectum and sigmoid colon is also in the vicinity of a couple diverticula and differential would also include diverticulitis. 2. Nonobstructing left nephrolithiasis. Critical Care Time Critical Care Time Critical Care Time: No Discharge Plan Discharge Clinical Impression: Diverticulitis Patient Disposition: Home Condition: Stable Instructions: Antibiotic Form, Diverticulitis (DC), Diverticulitis Diet (ED) Additional Instructions: RETURN IF SYMPTOMS ARE WORSENING , CALL YOUR FAMILY PHYSICIAN FOR APPOINTMENT, TAKE TYLENOL NEEDED FOR ACHES AND PAIN, CONTINUE HOME MEDICATIONS. HOLD TRAZODONE DURING ANTIBIOTIC INTAKE Patient Language: Albanian Prescriptions: New levofloxacin 750 mg tablet 750 mg PO DAILY Qty: 7 5RF metronidazole 500 mg tablet 500 mg PO Q8H 7 Days Qty: 21 0RF No Action aspirin [Adult Low Dose Aspirin] 81 mg tablet,delayed release (DR/EC) 81 mg PO DAILY vitamin E (dl, acetate) 450 mg (1,000 unit) capsule 450 mg PO DAILY finasteride 5 mg tablet 5 mg PO DAILY multivitamin with iron-mineral Tablet 1 tablet PO DAILY vitamin B complex Tablet 1 tablet PO DAILY cholecalciferol (vitamin D3) 125 mcg (5,000 unit) capsule 125 mcg PO DAILY Patient Comments: pt states he takes BID sildenafil [Viagra] 100 mg tablet 100 mg PO DAILY Rx Instructions: administer 30 minutes to 4 hours before activity trazodone 100 mg tablet 100 mg PO .QHS Qty: 90 3RF fenofibrate 160 mg tablet See Rx Instructions .ROUTE .COMPLEX Qty: 90 2RF Dose Instruction: TAKE 1 TABLET BY MOUTH DAILY Rx Instructions: TAKE 1 TABLET BY MOUTH DAILY tramadol 50 mg tablet 50 mg PO Q12H PRN (Reason: pain) Qty: 60 0RF lisinopril 20 mg tablet See Rx Instructions .ROUTE .COMPLEX Qty: 90 2RF Dose Instruction: TAKE 1 TABLET BY MOUTH DAILY Rx Instructions: TAKE 1 TABLET BY MOUTH DAILY tizanidine 2 mg capsule 4 mg PO TID PRN (Reason: muscle spasticity) Qty: 90 0RF Rx Instructions: Take 1-2 capsules as needed. Follow-up/Referrals: Indio Staley MD [Primary Care Provider, Family Practice]
[2025-04-30 15:50] LABS: Alanine Aminotransferase 21 U/L (6-50); Albumin Level 4.0 g/dL (3.5-5.1); Alkaline Phosphatase 60 U/L (38-126); Anion Gap 9 mmol/L (4-12); Aspartate Amino Transferase 29 U/L (17-59); Bilirubin,Total 1.1 mg/dL (0.2-1.3); Blood Urea Nitrogen 21 mg/dL (9-20); Calcium 10.2 mg/dL (8.4-10.2); Carbon Dioxide 24 mmol/L (22-30); Chloride 102 mmol/L (98-107); Estimated CRCL calculation 55 ml/min; Estimated Glomerular Filt Rate > 60; Glucose 122 mg/dL (65-110); Lipase 510 U/L (23-300); Potassium 4.2 mmol/L (3.4-5.0); Sodium 135 mmol/L (137-145); Total Protein 7.1 g/dL (6.3-8.2)
[2025-04-30 16:15] LABS: Toxigenic C. Diff NEGATIVE (NEGATIVE)
[2025-04-30] MEDS: SODIUM CHLORIDE 0.9% IV 1,000 ML 999 ML IV CONT (16:16)
--- OUTSIDE RECORDS SUMMARY | 2025-04-30 16:25 | XMS_ITS | Encounter Summary ---
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
--- OUTSIDE RECORDS SUMMARY | 2025-04-30 16:25 | XMS_ITS | Encounter Summary ---
Author Organization [facility] Healthcare Address [address] [place] [address] Care Team Providers Care Can Reforming Machine Operator Name Role Phone Indio Staley MD Primary Care Provider Adria Boogie MD Unavailable [phone] Encounter Details Date Type Department Care Team (Late st Contact Info) Description 08/03/2024 Orders Only [facility] Health Information Management [address] [place] [id number] Scanning, Provider Social History Tobacco Use Types Packs/Day Years Used Date Smoking Tobacco: Former Cigarettes 4 23 1 [phone] Smokeless Tobacco: Never Alcohol Use Standard Drinks/Week [...] on file 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
--- OUTSIDE RECORDS SUMMARY | 2025-04-30 16:26 | XMS_ITS | Clinical Summary ---
Author Organization [facility] Address [address] [facility] [place] [address] Care Team Providers Care Forester Silviculture Name Role Phone Indio Staley MD Primary Care Provider [phone] Source Comments [facility]ass medical center Affiliates and Associated Physician Practices is amultiple site organization consisting of ambulatory clinics and hospital sitesin [place], [place], [place] and [place]. This disclosure is being madepursuant to the Care Everywhere program and may not contain all information available regarding this patient. 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 Gender Identity Not on file Sexual Orientation Not on file Last Filed Vital Signs Vital Sign Reading Time Taken Comments Blood Pressure 122/78 07/24/2018 3:09 PM SYRUP BLENDER Pulse 88 07/24/2018 3:09 PM SYRUP BLENDER Temperature 37.3 C (99.2 F) 07/24/2018 3:09 PM SYRUP BLENDER Respiratory Rate 16 07/24/2018 3:09 PM SYRUP BLENDER Oxygen Saturation 94% 07/24/2018 3:09 PM SYRUP BLENDER Inhaled Oxygen Concentration - - Weight 97.5 kg (215 lb) 07/24/2018 3:09 PM SYRUP BLENDER Height 185.4 cm (6' 1) 07/24/2018 3:09 PM SYRUP BLENDER Body Mass Index 28.37 07/24/2018 3:09 PM SYRUP BLENDER Plan of Treatment Health Maintenance Due Date [...] patient's age to complete this topic Insurance [facility] MEDICARE ADV [employer] MEDICARE ADV SELF PAY NO INSURANCE Member Subscriber Plan / Payer (Ef fective for All Dates) Name:Erin Dotson Member ID:Not on file Relation to Subscriber:Not on file Name:ERIN DOTSON Subscriber ID:Not on file (Home) Address: [address] [place] [id number] Payer ID:Not on file Group ID:Not on file Type:Self Pay Address: [place], [place] Care Teams Forester Silviculture Relationship Specialty Start Date End Date Indio Staley MD [address] [place] [address] PCP - General Family Medicine 07/24/18
[2025-04-30 18:09] VITALS: BP 142/78; PULSE 82; RESP 18; O2SAT 97
== END 2025-04-30 18:12 | disposition home or self-care (01) ==
PROVIDERS: Nurse Practitioner Family; Emergency Provider Emergency Medicine; PCP Family Medicine
DX: K57.92 Diverticulitis of intestine, part unspecified, without perforation or abscess without bleeding (principal); I10 Essential (primary) hypertension; E78.2 Mixed hyperlipidemia; J44.9 Chronic obstructive pulmonary disease, unspecified; Z87.891 Personal history of nicotine dependence
CPT/HCPCS: 36415; 74177; 80053; 81001; 83690; 85025; 87086; 87493; 96360; 99284; J7030; Q9967

== ENCOUNTER 2025-06-10 11:12 | Outpatient (CLI) | payer MEDICARE, SELFPAY ==
--- NOTE | ~2025-06-10 | XR_ITS ---
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 Technique: 3 view. Findings: Moderate fecal content limits evaluation, no dilated bowel loops. There are left-sided renal calculi the largest in the lower pole 6 x 4 mm. No acute osseous abnormality. Impression: 1. No acute abnormality. Reviewed, dictated and finalized at location P. ICE VEHICLE OPERATOR Impression: 1. No acute abnormality.
== END 2025-06-10 11:13 | disposition home or self-care (01) ==
PROVIDERS: PCP Family Medicine; Visit Provider Urology
DX: N20.0 Calculus of kidney (principal)
CPT/HCPCS: 74018